=== PATIENT | male | born 1965 | race Caucasian/White ===

== ENCOUNTER 2018-08-31 08:15 | Inpatient (IN) | payer MEDICAID ==
[~2018-08-31] VITALS: Ht 167.6 cm; Wt 72.0 kg
[2018-08-31 04:00] VITALS: PULSE 48
[2018-08-31] MEDS ORDERED: ONDANSETRON 4 MG INJ IV STA (09:07)
[2018-08-31] MEDS ORDERED: SOD CHLORIDE 0.9% 1,000 ML IV STA (09:07)
--- NOTE | 2018-08-31 09:12 | ERD ---
ER Documentation Chief Complaint Chief Complaint C/O H/A, ALTERED MENTAL STATUS FOR 4 DAYS; PT SLOW WITH RESPONSE, CONFUSED HPI This is a 53-year-old alcoholic who presents with 4 days of global headache, confusion, difficulty ambulating. He states he stopped drinking about 4 to 5 days ago and does not feel like he is withdrawing. He denies slurred speech but states he has lost some of his balance. He denies any falls, no head or neck injury, no fevers or chills, no complaints of chest pain or shortness of breath. ROS All systems reviewed and are negative except as per history of present illness. Medications Home Meds No Active Prescriptions or Reported Meds Allergies Allergies: Coded Allergies: No Known Allergy (Unverified , 08/31/18) PMhx/Soc Alcoholism FmHx Family History: No diabetes Physical Exam Vitals Vital Signs Date Temp Pulse Resp B/P (MAP) Pulse Ox O2 O2 Flow FiO2 Time Delivery Rate 08/31/18 98.6 64 20 243/107 99 08:21 (152) Physical Exam GENERAL: Well-developed, well-nourished, afebrile, appears intoxicated HEENT: Dry mucous membranes, pink conjunctiva, positive jaundice and icterus, no cervical spine tenderness or step-off deformities, no goiter, no jaundice or icterus NEURO: Alert and oriented 2, able to answer simple questions and follow simple commands, pupils equal round reactive to light, patient has difficulty with the [id number] test, no facial asymmetry is CARDIAC: Regular rate and rhythm, no murmurs rubs or gallops LUNGS: Clear bilaterally no wheezing crackles or stridor ABDOMEN: Soft nontender, no guarding, no rigidity, no rebound, no psoas sign no obturator sign. SKIN: Warm and dry to touch, no abrasions, contusions, or hematomas, no lacerations, no ecchymosis, no target lesions, and without ulcers EXTREMITIES: No clubbing cyanosis or edema, calves are bilaterally symmetrical, no Homans sign, no popliteal cord sign. Distal pulses equal and bilateral PSYCH: Normal affect without agitation or irritability Result Diagram: 08/31/1819 08/31/18 0919 Results 24 hrs Laboratory Tests Test 08/31/18 09:19 White Blood Count 9.8 10^3/ul Red Blood Count 5.77 10^6/ul Hemoglobin 16.9 g/dl Hematocrit 49.4 % Mean Corpuscular Volume 85.6 fl Mean Corpuscular Hemoglobin 29.3 pg Mean Corpuscular Hemoglobin Concent 34.2 g/dl Red Cell Distribution Width 12.6 % Platelet Count 218 10^3/UL Mean Platelet Volume 11.1 fl Immature Granulocytes % 0.300 % Neutrophils % 88.7 % Lymphocytes % 4.4 % Monocytes % 6.1 % Eosinophils % 0.1 % Basophils % 0.4 % Nucleated Red Blood Cells % 0.0 /100WBC Immature Granulocytes # 0.030 10^3/ul Neutrophils # 8.7 10^3/ul Lymphocytes # 0.4 10^3/ul Monocytes # 0.6 10^3/ul Eosinophils # 0.0 10^3/ul Basophils # 0.0 10^3/ul Nucleated Red Blood Cells # 0.0 10^3/ul Prothrombin Time 12.6 Sec Prothrombin Time Ratio 1.0 INR International Normalized Ratio 0.93 Activated Partial Thromboplast Time 26.9 Sec Sodium Level 140 mmol/L Potassium Level 3.9 mmol/L Chloride Level 101 mmol/L Carbon Dioxide Level 31 mmol/L Anion Gap 8 Blood Urea Nitrogen 22 mg/dl Creatinine 0.85 mg/dl Est Glomerular Filtrat Rate mL/min > 60 mL/min Glucose Level 278 mg/dl Calcium Level 9.4 mg/dl Total Bilirubin 1.3 mg/dl Direct Bilirubin 0.00 mg/dl Indirect Bilirubin 1.3 mg/dl Aspartate Amino Transf (AST/SGOT) 19 IU/L Alanine Aminotransferase (ALT/SGPT) 21 IU/L Alkaline Phosphatase 95 IU/L Ammonia < 9 umol/l Troponin I < 0.012 ng/ml Total Protein 7.1 g/dl Albumin 4.1 g/dl Globulin 3.00 g/dl Albumin/Globulin Ratio 1.36 Lipase 185 U/L Ethyl Alcohol Level < 10.0 mg/dl Current Medications Medications Dose Sig/Tejas Start Time Status Last (Trade) Ordered Route PRN Stop Time Admin Dose Reason Admin Sodium 1,000 ml @ Q1H STAT 08/31/18 DC 08/31/18 Chloride 1,000 mls/hr IV 09:07 09:29 08/31/18 10:06 Ondansetron 4 mg ONCE STAT 08/31/18 DC 08/31/18 HCl (Zofran IV 09:07 09:25 Inj) 08/31/18 09:09 Aspirin 324 mg ONCE ONCE 08/31/18 DC 08/31/18 (Aspirin) PO 10:00 10:45 08/31/18 10:01 IV Flush 3 ml PER 08/31/18 (NS 3 ml) PROTOCOL IV 11:00 Ondansetron 4 mg Q6H PRN 08/31/18 HCl (Zofran IV 11:00 Inj) NAUSEA/VOMITI NG 650 mg Q6H PRN 08/31/18 Acetaminophen PO .PAIN 1-3 11:00 (Tylenol OR TEMP Tab) 1 tab Q6H PRN 08/31/18 Acetaminophen PO .MOD PAIN 11:00 / 4-6 Hydrocodone Bitart ([place] (5/325)) 2 tab Q6H PRN 08/31/18 Acetaminophen PO .SEVERE 11:00 / PAIN 7-10 Hydrocodone Bitart ([place] (5/325)) Morphine 2 mg Q4H PRN 08/31/18 Sulfate IV .SEVERE 11:00 (morphine) PAIN 7-10 Famotidine 20 mg Q12 PO 08/31/18 (Pepcid) 21:00 Hydralazine 10 mg Q4H PRN 08/31/18 HCl IV sbp>220 11:00 (Apresoline) or dbp>120 Procedures/MDM IV line was established patient was placed on classroom monitor rhythm strip revealed a sinus rhythm at about 60 bpm with upright P and T waves. Patient was afebrile One AP view of the chest performed, read by me reveals no acute infiltrates, normal mediastinum, sharp costophrenic and cardiac borders, no air under the shelby phragm. Otherwise unremarkable chest x-ray. CT scan of the brain was performed, there is a subacute right cerebellar infarct, no acute bleed mass or shift I administered aspirin 324 mg p.o. for neuro protective measures. I administered 1 L normal saline IV and Zofran 4 mg IV CBC was normal, electrolytes revealed dehydration , liver function tests normal, ammonia level low, ethanol level low Patient will be admitted to telemetry for continued medical management neurology consultation, and MRI Departure Diagnosis: Primary Impression: Acute encephalopathy Additional Impressions: Cerebellar stroke Alcoholism Condition: ESTRELLITA Ruiz MD Aug 31, 2018 09:12
[2018-08-31] MEDS ORDERED: ASPIRIN 81 MG TAB PO ONE (10:00)
[2018-08-31] MEDS ORDERED: NACL 0.9% 3 ML SYG IV SCH (11:00)
--- NOTE | 2018-08-31 12:27 | CONSI ---
Assessment/Plan Assessment/Plan Assessment/Plan (Recall) 53 M c/ reported Hx of ETOH abuse and other comorbidities, who presents for evaluation of 4 days of headache and confusion. Head CT revealed bilateral cerebellar infarctions of indeterminate age...which could certainly underlay the patient's headache... ETOH w/d as a cause of confusion is additionally considered.. P: MRI brain, MRA head and neck for further characterization Add ASA/Lipitor daily for now Add UA, UDS, Lipid panel, ESR, RPR, A1C, HIV screen PT/OT/ST as necessary Withdrawal and other medical management per primary Will follow Consultation Date/Type/Reason Admit Date/Time Type of Consult Neurology Reason for Consultation ams, stroke Requesting Provider: NEIDA ROBERTS NP Date/Time of Note DATE: 08/31/18 TIME: 12:18 Hx of Present Illness It is elsewhere noted: Objective Exam Vitals Vital Signs Date Temp Pulse Resp B/P (MAP) Pulse Ox O2 O2 Flow FiO2 Time Delivery Rate 08/31/18 98.6 64 20 243/107 99 08:21 (152) Exam Patient presently unable to participate. Results Result Diagram: 08/31/1891808/31/1819 Results 24hrs Laboratory Tests Test 08/31/18 09:19 White Blood Count 9.8 Red Blood Count 5.77 Hemoglobin 16.9 Hematocrit 49.4 Mean Corpuscular Volume 85.6 Mean Corpuscular Hemoglobin 29.3 Mean Corpuscular Hemoglobin Concent 34.2 Red Cell Distribution Width 12.6 Platelet Count 218 Mean Platelet Volume 11.1 H Immature Granulocytes % 0.300 Neutrophils % 88.7 H Lymphocytes % 4.4 L Monocytes % 6.1 Eosinophils % 0.1 Basophils % 0.4 Nucleated Red Blood Cells % 0.0 Immature Granulocytes # 0.030 Neutrophils # 8.7 H Lymphocytes # 0.4 L Monocytes # 0.6 Eosinophils # 0.0 Basophils # 0.0 Nucleated Red Blood Cells # 0.0 Prothrombin Time 12.6 Prothrombin Time Ratio 1.0 INR International Normalized Ratio 0.93 Activated Partial Thromboplast Time 26.9 Sodium Level 140 Potassium Level 3.9 Chloride Level 101 Carbon Dioxide Level 31 Anion Gap 8 Blood Urea Nitrogen 22 H Creatinine 0.85 Est Glomerular Filtrat Rate mL/min > 60 Glucose Level 278 H Calcium Level 9.4 Total Bilirubin 1.3 Direct Bilirubin 0.00 Indirect Bilirubin 1.3 H Aspartate Amino Transf (AST/SGOT) 19 Alanine Aminotransferase (ALT/SGPT) 21 Alkaline Phosphatase 95 Ammonia < 9 L Troponin I < 0.012 Total Protein 7.1 Albumin 4.1 Globulin 3.00 Albumin/Globulin Ratio 1.36 Lipase 185 Ethyl Alcohol Level < 10.0 H Past Medical History reviewed Home Meds No Active Prescriptions or Reported Meds Medications Current Medications IV Flush (NS 3 ml) 3 ml PER PROTOCOL IV ; Start 08/31/18 at 11:00 Ondansetron HCl (Zofran Inj) 4 mg Q6H PRN IV NAUSEA/VOMITING; Start 08/31/18 at 11:00 Acetaminophen (Tylenol Tab) 650 mg Q6H PRN PO .PAIN 1-3 OR TEMP; Start 08/31/18 at 11:00 Acetaminophen/ Hydrocodone Bitart ([place] (5/325)) 1 tab Q6H PRN PO .MOD PAIN 4- 6; Start 08/31/18 at 11:00 Acetaminophen/ Hydrocodone Bitart ([place] (5/325)) 2 tab Q6H PRN PO .SEVERE PAIN 7-10; Start 08/31/18 at 11:00 Morphine Sulfate (morphine) 2 mg Q4H PRN IV .SEVERE PAIN 7-10; Start 08/31/18 at 11:00 Famotidine (Pepcid) 20 mg Q12 PO ; Start 08/31/18 at 21:00 Hydralazine HCl (Apresoline) 10 mg Q4H PRN IV sbp>220 or dbp>120; Start 9 at 11:00 Allergies: Coded Allergies: No Known Allergy (Unverified , 08/31/18) Past Surgical History reviewed Social History Alcohol Use: heavy ELO DOBBS Aug 31, 2018 12:27
--- NOTE | 2018-08-31 12:49 | HP ---
Date/Time of Note Date/Time of Note DATE: 08/31/18 TIME: 12:39 Assessment/Plan VTE Prophylaxis Pharmacological prophylaxis: heparin Lines/Catheters IV [facility]from [facility] [place] [facility] Assessment/Plan Hospital Course Assessment and plan 1. Suspect early subacute infarcts of right superior and inferior cerebellum. Neurologist consulted. Follow-up on MRI/MRA of the brain. Continue on statin and antiplatelet. Allow for permissive hypertension for now. Will provide with antihypertensives PRN. Follow-up on echo and carotid study 2. Hypertension. Presumably uncontrolled at home. Will provide antihypertensives and dyspnea. 3. Hyperglycemia. Patient reports no history of diabetes. Follow-up on A1c. Will start on insulin regimen for now. 4. Reported weakness in bilateral extremity. Follow-up on MRI of the brain. Suspect secondary to #1. Physical therapy evaluation to follow Discussed POC with Dr. Ortez Result Diagram: 08/31/1891808/31/1819 Results 24hrs Laboratory Tests Test 08/31/18 09:19 White Blood Count 9.8 Red Blood Count 5.77 Hemoglobin 16.9 Hematocrit 49.4 Mean Corpuscular Volume 85.6 Mean Corpuscular Hemoglobin 29.3 Mean Corpuscular Hemoglobin Concent 34.2 Red Cell Distribution Width 12.6 Platelet Count 218 Mean Platelet Volume 11.1 H Immature Granulocytes % 0.300 Neutrophils % 88.7 H Lymphocytes % 4.4 L Monocytes % 6.1 Eosinophils % 0.1 Basophils % 0.4 Nucleated Red Blood Cells % 0.0 Immature Granulocytes # 0.030 Neutrophils # 8.7 H Lymphocytes # 0.4 L Monocytes # 0.6 Eosinophils # 0.0 Basophils # 0.0 Nucleated Red Blood Cells # 0.0 Prothrombin Time 12.6 Prothrombin Time Ratio 1.0 INR International Normalized Ratio 0.93 Activated Partial Thromboplast Time 26.9 Sodium Level 140 Potassium Level 3.9 Chloride Level 101 Carbon Dioxide Level 31 Anion Gap 8 Blood Urea Nitrogen 22 H Creatinine 0.85 Est Glomerular Filtrat Rate mL/min > 60 Glucose Level 278 H Calcium Level 9.4 Total Bilirubin 1.3 Direct Bilirubin 0.00 Indirect Bilirubin 1.3 H Aspartate Amino Transf (AST/SGOT) 19 Alanine Aminotransferase (ALT/SGPT) 21 Alkaline Phosphatase 95 Ammonia < 9 L Troponin I < 0.012 Total Protein 7.1 Albumin 4.1 Globulin 3.00 Albumin/Globulin Ratio 1.36 Lipase 185 Ethyl Alcohol Level < 10.0 H HPI/ROS Admit Date/Time Admit Date/Time Hx of Present Illness This is a 53-year-old male with no reported past medical history who came to [facility] due to reports of increased headache and reported difficulty with ambulation. Patient states that he has been having headache that starts in the back of his head that has progressively been getting worse for the past 4 days. He reports that similar's symptoms have been to him several years ago but he is not aware of what diagnosis he was given at that time. He denies any history of hypertension.. He only states that he smokes cigarettes and drinks alcohol occasionally more often on the weekends. When he came to the hospital he was found to have high blood pressure at 243/107. Initial CT scan of his brain showed probable early subacute infarcts of the right superior and inferior cerebellum with chronic transcortical infarcts of the posterior left temporal and left occipital lobes and chronic lacunar inf arcts of the posterior right putamen anterior left internal capsule, the posterior left internal capsule of the posterior left putamen. Patient was alert and oriented on interview. There were no obvious motor deficit seen. He did reported having headache that is primarily on the back of his head but goes all over. No speech deficit noted during interview. We will evaluate him for the aformentiond issues. ROS 12 point review of systems obtained entirely negative except that mentioned in history of present illness PMH/Family/Social Past Medical History Medical/surgical history 1. Denies Medications Current Medications IV Flush (NS 3 ml) 3 ml PER PROTOCOL IV ; Start 08/31/18 at 11:00 Ondansetron HCl (Zofran Inj) 4 mg Q6H PRN IV NAUSEA/VOMITING; Start 08/31/18 at 11:00 Acetaminophen (Tylenol Tab) 650 mg Q6H PRN PO .PAIN 1-3 OR TEMP; Start 08/31/18 at 11:00 Acetaminophen/ Hydrocodone Bitart ([place] (5/325)) 1 tab Q6H PRN PO .MOD PAIN 4- 6; Start 08/31/18 at 11:00 Acetaminophen/ Hydrocodone Bitart ([place] (5/325)) 2 tab Q6H PRN PO .SEVERE PAIN 7-10; Start 08/31/18 at 11:00 Morphine Sulfate (morphine) 2 mg Q4H PRN IV .SEVERE PAIN 7-10; Start 08/31/18 at 11:00 Famotidine (Pepcid) 20 mg Q12 PO ; Start 08/31/18 at 21:00 Hydralazine HCl (Apresoline) 10 mg Q4H PRN IV sbp>220 or dbp>120; Start 08/31/18 at 11:00 Atorvastatin Calcium (Lipitor) 40 mg HS ONCE PO ; Start 08/31/18 at 21:00; Stop 08/31/18 at 21:01; Status UNV Aspirin (Halfprin) 81 mg DAILY ONCE PO ; Start 09/01/18 at 09:00; Stop 09/01/18 at 09:01; Status UNV Coded Allergies: No Known Allergy (Unverified , 08/31/18) Social History Alcohol Use: occasionally Smoking Status: Current some day smoker Drug Use: none Exam/Review of Systems Vital Signs Vitals Vital Signs Date Temp Pulse Resp B/P (MAP) Pulse Ox O2 O2 Flow FiO2 Time Delivery Rate 08/31/18 98.6 64 20 243/107 99 08:21 (152) Exam Constitutional: alert, oriented Psych: nl mood/affect Head: normocephalic Neck: supple, non-tender Respiratory: clear to auscultation Cardiovascular: regular rate and rhythm Gastrointestinal: soft, ascites Musculoskeletal: nl extremities to inspection Neurological: DISTRICT CAPTAIN II-XII intact, nl mental status, nl speech Skin: nl NEIDA Eden NP Aug 31, 2018 12:49
[2018-08-31] MEDS ORDERED: GLUCAGON 1 MG INJ IM PRN (13:30)
[2018-08-31] MEDS ORDERED: GLUCOSE GEL 15 GRAM TUBE PO PRN ×2 (13:30)
[2018-08-31] MEDS ORDERED: GLUCOSE GEL 15 GRAM TUBE BUCCAL PRN (13:30)
[2018-08-31] MEDS ORDERED: DEXTROSE 50% 50 ML SYRINGE IV PRN ×2 (13:30)
[2018-08-31] MEDS: INSULIN ASPART [NOVOLOG] 3 ML PEN SC SCH ×2 (18:00→21:15)
--- NOTE | 2018-08-31 18:16 | RADRPT ---
Echocardiogram Report Patient Name: COLIN LOZADAatient ID: [id number] : 1965 (53y 5m)Study Date: 08/31/2018 11:27:46 AM Gender: Ankitcession #: [id number] Tech: LISY Location: [facility] Ref.Physician: NEIDA ROBERTS Height(Cm): BSA: Weight(Kg): Quality: GoodOrder Physician: NEIDA ROBERTS Account #: Procedures: Echocardiographic Report: Transthoracic echocardiogram with complete 2D, M-Mode, and doppler examination. Indications: Cerebrovascular Accident. Measurements: 2D/M Mode Doppler Measurement Value Normal Range Measurement Value Normal Range LVIDd 2D 4.0 [ 4.2 - 5.8 ] cm KAYLIE Vmax 2.2 [ 2.0 - 4.0 ] cm2 LVIDs 2D 2.7 [ 2.5 - 4.0 ] cm AV Peak Vish 1.6 [ 100.0 - 170.0 ] cm/sec LVPWd 2D 1.1 [ 0.6 - 1.0 ] cm AV Peak PG 11.0 [ 2.0 - 9.0 ] mmHg IVSd 2D 1.4 [ 0.6 - 1.0 ] cm LVOT Peak Vish 1.3 [ 70.0 - 110.0 ] cm/sec IVS/LVPW 2D 1.2 ratio LVOT Peak PG 7.0 [ 2.0 - 6.0 ] mmHg AoR Diam 2D 3.6 [ 2.6 - 3.4 ] cm MV E Peak Vish 0.7 [ 60.0 - 130.0 ] cm/sec LA/Ao 2D 1 ratio MV A Peak Vish 0.9 [ 100.0 - 120.0 ] cm/sec LA Dimen 2D 3.5 [ 3.0 - 4.0 ] cm MV E/A 0.8 [ 0.8 - 1.5 ] ratio LVOT Area 2.8 cm2 MV Decel Time 282 [ 104 - 258 ] msec Lat E` Vish 0.1 [ 10.0 - 15.0 ] cm/sec Med E` Vish 0.0 cm/sec MV E/A 0.8 [ 0.8 - 1.5 ] ratio TR Peak Vish 1.2 [ 100.0 - 280.0 ] cm/sec TR Peak PG 5.0 mmHg PV Peak Vish 1.1 [ 40.0 - 80.0 ] cm/sec PV Peak PG 5.0 mmHg Findings: Left Ventricle: Normal left ventricular systolic function. Normal left ventricular cavity size. Normal left ventricular wall thickness. Ejection fraction is visually estimated at 60 %. Tissue Doppler/Mitral Doppler indices are consistent with impaired relaxation (Stage I diastolic dysfunction). Right Ventricle: Normal right ventricular size. Normal right ventricular systolic function. Left Atrium: The left atrium is normal in size. Right Atrium: The right atrium is normal in size. Ventricular septum: Normal/intact ventricular septum. Mitral Valve: Normal appearance of the mitral valve. Trace mitral regurgitation. Aortic Valve: Normal appearance of the aortic valve. No significant aortic stenosis or insufficiency. Tricuspid Valve: Normal appearance and function of the tricuspid valve with trace physiologic regurgitation. The estimated Peak RVSP is 15 mmHg. Pulmonic Valve: Normal pulmonic valve appearance. Pericardium: Normal pericardium with no significant pericardial effusion. Aorta: Normal aortic root. IVC: Normal size and normal respiratory collapse consistent with normal right atrial pressure. Conclusions: Normal left ventricular systolic function. Normal left ventricular cavity size. Normal left ventricular wall thickness. Ejection fraction is visually estimated at 60 %. Tissue Doppler/Mitral Doppler indices are consistent with impaired relaxation (Stage I diastolic dysfunction). Normal right ventricular size. Normal right ventricular systolic function. The left atrium is normal in size. The right atrium is normal in size. No significant valvular stenosis or regurgitation seen. Normal pericardium with no significant pericardial effusion. Electronically Signed By: Delvis Schwartz 2018-08-31 18:15:19 PDT
[2018-08-31 19:16] VITALS: PULSE 47
[2018-08-31 19:30] VITALS: BP 219/100; PULSE 56; RESP 18; Ht 167.6 cm; Wt 72.0 kg
[2018-08-31 20:00] VITALS: PULSE 48
[2018-08-31] MEDS: FAMOTIDINE 20 MG TAB PO SCH (20:31)
[2018-08-31] MEDS: ATORVASTATIN 40 MG TAB PO SCH (20:31)
[2018-08-31] MEDS: HYDROCODONE/APAP (5/325) TAB PO PRN (20:35)
[2018-08-31] MEDS: HEPARIN 5,000 UNIT/1 ML VIAL SC SCH (20:38)
[2018-08-31] MEDS: hydrALAzine 20 MG INJ IV PRN (23:00)
[2018-08-31] MEDS: MULTIVITAMINS 10 ML, THIAMINE 100 MG, FOLIC ACID 1 MG in SOD CHLORIDE 0.9% 1,000 ML IVPB SCH (23:53)
[2018-09-01] VITALS (11 sets, daily range): BP systolic 159–219; BP diastolic 75–103; PULSE 64–85; RESP 18–20
[2018-09-01] MEDS: ACCU-CHEK XX SCH (02:02)
[2018-09-01] MEDS: INSULIN ASPART [NOVOLOG] 3 ML PEN SC SCH ×5 (07:40→20:53)
[2018-09-01] MEDS: ONDANSETRON 4 MG INJ IV PRN (07:50)
[2018-09-01] MEDS: hydrALAzine 20 MG INJ IV PRN (07:51)
[2018-09-01] MEDS: FAMOTIDINE 20 MG TAB PO SCH ×2 (08:18→20:16)
[2018-09-01] MEDS: ASPIRIN (EC) 81 MG TAB PO SCH (08:18)
[2018-09-01] MEDS: HEPARIN 5,000 UNIT/1 ML VIAL SC SCH ×2 (08:43→20:28)
[2018-09-01] MEDS: MULTIVITAMINS 10 ML, THIAMINE 100 MG, FOLIC ACID 1 MG in SOD CHLORIDE 0.9% 1,000 ML IVPB SCH (08:47)
--- NOTE | 2018-09-01 11:13 | CONS ---
Assessment/Plan Assessment/Plan Assessment/Plan (Recall) 53 M c/ reported Hx of untreated DM2, HTN, HLD, and other comorbidities... who presents for evaluation of 4 days of headache and confusion. MRI brain confirmed an acute R cerebellar infarction... MRA shows scattered stenoses Echo is unremarkable A1C 8.4%; LDL 120 ESR 1, RPR neg, HIV neg P: Cont ASA/Lipitor daily for now PT/OT/ST as necessary Continued medical management per primary Will follow Consultation Date/Type/Reason Admit Date/Time Aug 31, 2018 at 10:30 Type of Consult Neurology Reason for Consultation ams, stroke Requesting Provider: NEIDA ROBERTS NP Date/Time of Note DATE: 09/01/18 TIME: 11:08 24 HR Interval Summary Free Text/Dictation s/p MRI brain Exam/Review of Systems Exam Vitals Vital Signs Date Temp Pulse Resp B/P (MAP) Pulse Ox O2 O2 Flow FiO2 Time Delivery Rate 09/01/18 85 09:05 09/01/18 98.1 20 219/103 98 Room Air 07:41 (141) Intake and Output 08/31/18 08/31/18 09/01/18 1515:00 23:00 07:00 IntakeIntake Total 250 ml 780 ml OutputOutput Total 400 ml BalanceBalance -150 ml 780 ml Exam PE: Gen Appearance: No Apparent Distress HEENT: Normocephalic Cardiovascular: Regular rate Lungs: Clear bilaterally Abdomen: Soft Extremities: Dry NE: The patient was alert and oriented. Language was normal. Fund of knowledge was adequate. Pupils were equal and reactive to light. There was no afferent pupillary defect. Visual carcamo were normal. Funduscopic examination was limited. Extra-ocular movements were full. Ptosis was absent. There was no nystagmus. Facial sensation was normal. Face was symmetric with normal strength. Hearing was intact. Palate movements were normal. Neck strength was normal. There was normal tongue bulk and speed of movement. Tone was normal. Muscle bulk was normal. I did not see fasciculations. Arms and legs were strong. Vibration sensation was normal. Temperature and pinprick sensation was normal. Rapid alternating movements were normal. There was dysmetria on the right. There was no intention tremor. Gait was deferred due to bedrest. Arm and leg reflexes were symmetric. Schwab's sign was absent. Plantar responses were flexor. Results Result Diagram: 09/01/18 0535 09/01/18 0535 Results 24hrs Laboratory Tests Test 08/31/18 18:07 08/31/18 20:30 09/01/18 01:58 09/01/18 05:35 Bedside Glucose 206 233 H 227 H White Blood Count 8.1 Red Blood Count 5.37 Hemoglobin 15.9 Hematocrit 45.5 Mean Corpuscular 84.7 Volume Mean Corpuscular 29.6 Hemoglobin Mean Corpuscular 34.9 Hemoglobin Concent Red Cell 12.6 Distribution Width Platelet Count 202 Mean Platelet Volume 11.4 H Immature 0.400 Granulocytes % Neutrophils % 84.1 H Lymphocytes % 7.7 L Monocytes % 7.2 Eosinophils % 0.1 Basophils % 0.5 Nucleated Red Blood 0.0 Cells % Immature 0.030 Granulocytes # Neutrophils # 6.8 Lymphocytes # 0.6 L Monocytes # 0.6 Eosinophils # 0.0 Basophils # 0.0 Nucleated Red Blood 0.0 Cells # Sodium Level 143 Potassium Level 3.9 Chloride Level 105 Carbon Dioxide Level 28 Anion Gap 10 Blood Urea Nitrogen 19 Creatinine 0.73 Est Glomerular > 60 Filtrat Rate mL/min Glucose Level 200 Calcium Level 9.3 Phosphorus Level 4.0 Magnesium Level 2.1 Total Bilirubin 1.2 Direct Bilirubin 0.00 Indirect Bilirubin 1.2 H Aspartate Amino 21 Transf (AST/SGOT) Alanine 20 Aminotransferase (AL T/SGPT) Alkaline Phosphatase 80 Total Protein 6.1 # Albumin 3.6 Globulin 2.50 Albumin/Globulin 1.44 Ratio Triglycerides Level 145 Cholesterol Level 181 LDL Cholesterol, 120 Calculated HDL Cholesterol 32 Cholesterol/HDL 5.6 Ratio Thyroid Stimulating 1.550 Hormone (TSH) Free Thyroxine Index 3.26 Thyroxine (T4) 8.2 Triiodothyronine 39.8 (T3) Uptake Test 09/01/18 07:22 Bedside Glucose 169 Medications Medication Current Medications IV Flush (NS 3 ml) 3 ml PER PROTOCOL IV ; Start 08/31/18 at 11:00 Ondansetron HCl (Zofran Inj) 4 mg Q6H PRN IV NAUSEA/VOMITING Last administered on 09/01/18at 07:50; Admin Dose 4 MG; Start 08/31/18 at 11:00 Acetaminophen (Tylenol Tab) 650 mg Q6H PRN PO .PAIN 1-3 OR TEMP; Start 08/31/18 at 11:00 Acetaminophen/ Hydrocodone Bitart ([place] (5/325)) 1 tab Q6H PRN PO .MOD PAIN 4- 6 Last administered on 08/31/18at 20:35; Admin Dose 1 TAB; Start 08/31/18 at 11:00 Acetaminophen/ Hydrocodone Bitart ([place] (5/325)) 2 tab Q6H PRN PO .SEVERE PAIN 7-10; Start 08/31/18 at 11:00 Morphine Sulfate (morphine) 2 mg Q4H PRN IV .SEVERE PAIN 7-10; Start 08/31/18 at 11:00 Famotidine (Pepcid) 20 mg Q12 PO Last administered on 09/01/18at 08:18; Admin Dose 20 MG; Start 08/31/18 at 21:00 Hydralazine HCl (Apresoline) 10 mg Q4H PRN IV sbp>220 or dbp>120 Last administered on 09/01/18at 07:51; Admin Dose 10 MG; Start 08/31/18 at 11:00 Atorvastatin Calcium (Lipitor) 40 mg HS PO Last administered on 08/31/18at 20:31; Admin Dose 40 MG; Start 08/31/18 at 21:00 Aspirin (Halfprin) 81 mg DAILY PO Last administered on 09/01/18at 08:18; Admin Dose 81 MG; Start 09/01/18 at 09:00 Heparin Sodium (Porcine) (Heparin (5000 Units/1ml)) 5,000 unit BID SC Last administered on 09/01/18at 08:43; Admin Dose 5,000 UNIT; Start 08/31/18 at 21:00 Diagnostic Test (Pha) (Accu-Chek) 1 ea 02 XX Last administered on 09/01/18at 02:02; Admin Dose 1 EA; Start 09/01/18 at 02:00 Insulin Aspart (Novolog Insulin Pen) NOVOLOG *MILD* ALGORITHM WITH MEALS BEDTIME SC Last administered on 08/31/18at 21:15; Admin Dose 2 UNIT; Start 08/31/18 at 18:00 Miscellaneous Information 1 ea NOTE XX ; Start 08/31/18 at 13:30 Glucose (Glutose) 15 gm Q15M PRN PO DECREASED GLUCOSE; Start 08/31/18 at 13:30 Glucose (Glutose) 22.5 gm Q15M PRN PO DECREASED GLUCOSE; Start 08/31/18 at 13:30 Dextrose (D50w Syringe) 25 ml Q15M PRN IV DECREASED GLUCOSE; Start 08/31/18 at 13:30 Dextrose (D50w Syringe) 50 ml Q15M PRN IV DECREASED GLUCOSE; Start 08/31/18 at 13:30 Glucagon (Glucagen) 1 mg Q15M PRN IM DECREASED GLUCOSE; Start 08/31/18 at 13:30 Glucose (Glutose) 15 gm Q15M PRN BUCCAL DECREASED GLUCOSE; Start 08/31/18 at 13:30 Multivitamins 10 ml/Thiamine HCl 100 mg/Folic Acid 1 mg/Sodium Chloride 1,011.2 ml @ 125 mls/ hr DAILY@09 IVPB Last administered on 09/01/18at 08:47; Admin Dose 125 MLS/HR; Start 08/31/18 at 23:00; Stop 09/02/18 at 17:06 ELO DOBBS Sep 01, 2018 11:13
--- NOTE | 2018-09-01 15:31 | PN ---
Date/Time of Note Date/Time of Note DATE: 09/01/18 TIME: 15:26 Assessment/Plan VTE Prophylaxis Risk score (from Ns)>0 risk: 2 SCD applied (from Ns): Yes Pharmacological prophylaxis: heparin Lines/Catheters IV Catheter Type (from [facility]): [place] Urinary Cath still in place: No Assessment/Plan Hospital Course Assessment and plan 1. 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 - optimize BP 2. Hypertension. - will adjust bp medications for better control 3. Hyperglycemia - a1c: 8.4. - newly dx diabetes - continue insulin regimen - patient seen by asthma educator 4. Stage 1 diastolic dysfunction - optimize with cardiovascular medications DISPO/PLAN: Adjust insulin for better glucose control. Adjust antihypertensives for better BP control. Monitor in-house. Discussed POC with Dr. Ortez Result Diagram: 09/01/18 0535 09/01/18 0535 Results 24hrs Laboratory Tests Test 08/31/18 18:07 08/31/18 20:30 09/01/18 01:58 09/01/18 05:35 Bedside Glucose 206 233 H 227 H White Blood Count 8.1 Red Blood Count 5.37 Hemoglobin 15.9 Hematocrit 45.5 Mean Corpuscular 84.7 Volume Mean Corpuscular 29.6 Hemoglobin Mean Corpuscular 34.9 Hemoglobin Concent Red Cell 12.6 Distribution Width Platelet Count 202 Mean Platelet Volume 11.4 H Immature 0.400 Granulocytes % Neutrophils % 84.1 H Lymphocytes % 7.7 L Monocytes % 7.2 Eosinophils % 0.1 Basophils % 0.5 Nucleated Red Blood 0.0 Cells % Immature 0.030 Granulocytes # Neutrophils # 6.8 Lymphocytes # 0.6 L Monocytes # 0.6 Eosinophils # 0.0 Basophils # 0.0 Nucleated Red Blood 0.0 Cells # Sodium Level 143 Potassium Level 3.9 Chloride Level 105 Carbon Dioxide Level 28 Anion Gap 10 Blood Urea Nitrogen 19 Creatinine 0.73 Est Glomerular > 60 Filtrat Rate mL/min Glucose Level 200 Calcium Level 9.3 Phosphorus Level 4.0 Magnesium Level 2.1 Total Bilirubin 1.2 Direct Bilirubin 0.00 Indirect Bilirubin 1.2 H Aspartate Amino 21 Transf (AST/SGOT) Alanine 20 Aminotransferase (AL T/SGPT) Alkaline Phosphatase 80 Total Protein 6.1 # Albumin 3.6 Globulin 2.50 Albumin/Globulin 1.44 Ratio Triglycerides Level 145 Cholesterol Level 181 LDL Cholesterol, 120 Calculated HDL Cholesterol 32 Cholesterol/HDL 5.6 Ratio Thyroid Stimulating 1.550 Hormone (TSH) Free Thyroxine Index 3.26 Thyroxine (T4) 8.2 Triiodothyronine 39.8 (T3) Uptake Test 09/01/18 07:22 09/01/18 11:46 Bedside Glucose 169 195 Subjective 24 Hr Interval Summary Free Text/Dictation alert and oriented during visit. family at bedside. no s/s of distress Exam/Review of Systems Exam Vitals Vital Signs Date Temp Pulse Resp B/P (MAP) Pulse Ox O2 O2 Flow FiO2 Time Delivery Rate 09/01/18 98.4 67 20 159/75 99 Room Air 15:04 (103) Intake and Output 08/31/18 08/31/18 09/01/18 1515:00 23:00 07:00 IntakeIntake Total 250 ml 780 ml OutputOutput Total 400 ml BalanceBalance -150 ml 780 ml Exam Constitutional: alert, oriented Psych: nl mood/affect Head: normocephalic Neck: supple, non-tender Respiratory: clear to auscultation Cardiovascular: regular rate and rhythm Gastrointestinal: soft, ascites Musculoskeletal: nl extremities to inspection Neurological: BUSINESS ECONOMIST II-XII intact, nl mental status, nl speech Skin: nl turgor Results Results 24hrs Laboratory Tests Test 08/31/18 18:07 08/31/18 20:30 09/01/18 01:58 09/01/18 05:35 Bedside Glucose 206 233 H 227 H White Blood Count 8.1 Red Blood Count 5.37 Hemoglobin 15.9 Hematocrit 45.5 Mean Corpuscular 84.7 Volume Mean Corpuscular 29.6 Hemoglobin Mean Corpuscular 34.9 Hemoglobin Concent Red Cell 12.6 Distribution Width Platelet Count 202 Mean Platelet Volume 11.4 H Immature 0.400 Granulocytes % Neutrophils % 84.1 H Lymphocytes % 7.7 L Monocytes % 7.2 Eosinophils % 0.1 Basophils % 0.5 Nucleated Red Blood 0.0 Cells % Immature 0.030 Granulocytes # Neutrophils # 6.8 Lymphocytes # 0.6 L Monocytes # 0.6 Eosinophils # 0.0 Basophils # 0.0 Nucleated Red Blood 0.0 Cells # Sodium Level 143 Potassium Level 3.9 Chloride Level 105 Carbon Dioxide Level 28 Anion Gap 10 Blood Urea Nitrogen 19 Creatinine 0.73 Est Glomerular > 60 Filtrat Rate mL/min Glucose Level 200 Calcium Level 9.3 Phosphorus Level 4.0 Magnesium Level 2.1 Total Bilirubin 1.2 Direct Bilirubin 0.00 Indirect Bilirubin 1.2 H Aspartate Amino 21 Transf (AST/SGOT) Alanine 20 Aminotransferase (AL T/SGPT) Alkaline Phosphatase 80 Total Protein 6.1 # Albumin 3.6 Globulin 2.50 Albumin/Globulin 1.44 Ratio Triglycerides Level 145 Cholesterol Level 181 LDL Cholesterol, 120 Calculated HDL Cholesterol 32 Cholesterol/HDL 5.6 Ratio Thyroid Stimulating 1.550 Hormone (TSH) Free Thyroxine Index 3.26 Thyroxine (T4) 8.2 Triiodothyronine 39.8 (T3) Uptake Test 09/01/18 07:22 09/01/18 11:46 Bedside Glucose 169 195 Medications Medication Current Medications IV Flush (NS 3 ml) 3 ml PER PROTOCOL IV ; Start 08/31/18 at 11:00 Ondansetron HCl (Zofran Inj) 4 mg Q6H PRN IV NAUSEA/VOMITING Last administered on 09/01/18at 07:50; Admin Dose 4 MG; Start 08/31/18 at 11:00 Acetaminophen (Tylenol Tab) 650 mg Q6H PRN PO .PAIN 1-3 OR TEMP; Start 08/31/18 at 11:00 Acetaminophen/ Hydrocodone Bitart ([place] (5/325)) 1 tab Q6H PRN PO .MOD PAIN 4- 6 Last administered on 08/31/18at 20:35; Admin Dose 1 TAB; Start 08/31/18 at 11:00 Acetaminophen/ Hydrocodone Bitart ([place] (5/325)) 2 tab Q6H PRN PO .SEVERE PAIN 7-10; Start 08/31/18 at 11:00 Morphine Sulfate (morphine) 2 mg Q4H PRN IV .SEVERE PAIN 7-10; Start 08/31/18 at 11:00 Famotidine (Pepcid) 20 mg Q12 PO Last administered on 09/01/18at 08:18; Admin Dose 20 MG; Start 08/31/18 at 21:00 Hydralazine HCl (Apresoline) 10 mg Q4H PRN IV sbp>220 or dbp>120 Last administered on 09/01/18at 07:51; Admin Dose 10 MG; Start 08/31/18 at 11:00 Atorvastatin Calcium (Lipitor) 40 mg HS PO Last administered on 08/31/18at 20:31; Admin Dose 40 MG; Start 08/31/18 at 21:00 Aspirin (Halfprin) 81 mg DAILY PO Last administered on 09/01/18at 08:18; Admin Dose 81 MG; Start 09/01/18 at 09:00 Heparin Sodium (Porcine) (Heparin (5000 Units/1ml)) 5,000 unit BID SC Last administered on 09/01/18at 08:43; Admin Dose 5,000 UNIT; Start 08/31/18 at 21:00 Diagnostic Test (Pha) (Accu-Chek) 1 ea 02 XX Last administered on 09/01/18at 02:02; Admin Dose 1 EA; Start 09/01/18 at 02:00 Insulin Aspart (Novolog Insulin Pen) NOVOLOG *MILD* ALGORITHM WITH MEALS BEDTIME SC Last administered on 09/01/18at 12:06; Admin Dose 2 UNIT; Start 08/31/18 at 18:00 Miscellaneous Information 1 ea NOTE XX ; Start 08/31/18 at 13:30 Glucose (Glutose) 15 gm Q15M PRN PO DECREASED GLUCOSE; Start 08/31/18 at 13:30 Glucose (Glutose) 22.5 gm Q15M PRN PO DECREASED GLUCOSE; Start 08/31/18 at 13:30 Dextrose (D50w Syringe) 25 ml Q15M PRN IV DECREASED GLUCOSE; Start 08/31/18 at 13:30 Dextrose (D50w Syringe) 50 ml Q15M PRN IV DECREASED GLUCOSE; Start 08/31/18 at 13:30 Glucagon (Glucagen) 1 mg Q15M PRN IM DECREASED GLUCOSE; Start 08/31/18 at 13:30 Glucose (Glutose) 15 gm Q15M PRN BUCCAL DECREASED GLUCOSE; Start 08/31/18 at 13:30 Multivitamins 10 ml/Thiamine HCl 100 mg/Folic Acid 1 mg/Sodium Chloride 1,011.2 ml @ 125 mls/ hr DAILY@09 IVPB Last administered on 09/01/18at 08:47; Admin Dose 125 MLS/HR; Start 08/31/18 at 23:00; Stop 09/02/18 at 17:06 Amlodipine Besylate (Norvasc) 5 mg BID PO ; Start 09/01/18 at 21:00 Insulin Glargine (Lantus) 14 units DAILY@2000 SC ; Start 09/01/18 at 20:00 Insulin Aspart (Novolog Insulin Pen) 4 unit WITH MEALS SC ; Start 09/01/18 at 18:00 NEIDA ROBERTS NP Sep 01, 2018 15:31
[2018-09-01] MEDS: LISINOPRIL 5 MG TAB PO SCH (16:48)
[2018-09-01] MEDS: ATORVASTATIN 40 MG TAB PO SCH (20:16)
[2018-09-01] MEDS: AMLODIPINE 5 MG TAB PO SCH (20:17)
[2018-09-01] MEDS: INSULIN GLARGINE [LANTus] (100 UNITS/ML) SYG SC SCH (20:52)
[2018-09-02] VITALS (14 sets, daily range): BP systolic 139–201; BP diastolic 65–93; PULSE 61–88; RESP 18–20
[2018-09-02] MEDS: ACCU-CHEK XX SCH (01:40)
[2018-09-02] MEDS: INSULIN ASPART [NOVOLOG] 3 ML PEN SC SCH ×7 (08:00→20:19)
[2018-09-02] MEDS: AMLODIPINE 5 MG TAB PO SCH ×2 (08:04→20:15)
[2018-09-02] MEDS: hydrALAzine 20 MG INJ IV PRN ×2 (08:04→20:15)
[2018-09-02] MEDS: ASPIRIN (EC) 81 MG TAB PO SCH (08:04)
[2018-09-02] MEDS: LISINOPRIL 5 MG TAB PO SCH (08:04)
[2018-09-02] MEDS: HEPARIN 5,000 UNIT/1 ML VIAL SC SCH ×2 (08:12→20:16)
[2018-09-02] MEDS: FAMOTIDINE 20 MG TAB PO SCH ×2 (09:00→20:15)
[2018-09-02] MEDS: MULTIVITAMINS 10 ML, THIAMINE 100 MG, FOLIC ACID 1 MG in SOD CHLORIDE 0.9% 1,000 ML IVPB SCH (09:00)
--- NOTE | 2018-09-02 13:03 | CONS ---
Assessment/Plan Assessment/Plan Assessment/Plan (Recall) 53 M c/ reported Hx of untreated DM2, HTN, HLD, and other comorbidities... who presents for evaluation of 4 days of headache and confusion. MRI brain confirmed an acute R cerebellar infarction... MRA shows scattered stenoses Echo is unremarkable A1C 8.4%; LDL 120 ESR 1, RPR neg, HIV neg P: Cont ASA/Lipitor daily for now PT/OT/ST as necessary Continued medical management per primary Will follow Consultation Date/Type/Reason Admit Date/Time Aug 31, 2018 at 10:30 Type of Consult Neurology Reason for Consultation ams, stroke Requesting Provider: NEIDA ROBERTS NP Date/Time of Note DATE: 09/02/18 TIME: 13:03 Exam/Review of Systems Exam Vitals Vital Signs Date Temp Pulse Resp B/P (MAP) Pulse Ox O2 O2 Flow FiO2 Time Delivery Rate 09/02/18 98.0 77 20 144/65 100 12:06 (91) 09/01/18 Room Air 15:04 Intake and Output 09/01/18 09/01/18 09/02/18 1515:00 23:00 07:00 IntakeIntake Total 480 ml 1480 ml 411.2 ml OutputOutput Total 750 ml 700 ml 300 ml BalanceBalance -270 ml 780 ml 111.2 ml Results Result Diagram: 09/01/18 0535 09/01/18 0535 Results 24hrs Laboratory Tests Test 09/01/18 17:46 09/01/18 20:15 09/02/18 01:06 09/02/18 08:02 Bedside Glucose 194 225 H 215 133 Test 09/02/18 12:04 Bedside Glucose 107 Medications Medication Current Medications IV Flush (NS 3 ml) 3 ml PER PROTOCOL IV ; Start 08/31/18 at 11:00 Ondansetron HCl (Zofran Inj) 4 mg Q6H PRN IV NAUSEA/VOMITING Last administered on 09/01/18at 07:50; Admin Dose 4 MG; Start 08/31/18 at 11:00 Acetaminophen (Tylenol Tab) 650 mg Q6H PRN PO .PAIN 1-3 OR TEMP; Start 08/31/18 at 11:00 Acetaminophen/ Hydrocodone Bitart ([place] (5/325)) 1 tab Q6H PRN PO .MOD PAIN 4- 6 Last administered on 08/31/18at 20:35; Admin Dose 1 TAB; Start 08/31/18 at 11:00 Acetaminophen/ Hydrocodone Bitart ([place] (5/325)) 2 tab Q6H PRN PO .SEVERE PAIN 7-10; Start 08/31/18 at 11:00 Morphine Sulfate (morphine) 2 mg Q4H PRN IV .SEVERE PAIN 7-10; Start 08/31/18 at 11:00 Famotidine (Pepcid) 20 mg Q12 PO Last administered on 09/02/18at 09:00; Admin Dose 20 MG; Start 08/31/18 at 21:00 Hydralazine HCl (Apresoline) 10 mg Q4H PRN IV sbp>220 or dbp>120 Last administered on 09/02/18 08:04; Admin Dose 10 MG; Start 08/31/18 at 11:00 Atorvastatin Calcium (Lipitor) 40 mg HS PO Last administered on 09/01/18 20:16; Admin Dose 40 MG; Start 08/31/18 at 21:00 Aspirin (Halfprin) 81 mg DAILY PO Last administered on 09/02/18 08:04; Admin Dose 81 MG; Start 09/01/18 at 09:00 Heparin Sodium (Porcine) (Heparin (5000 Units/1ml)) 5,000 unit BID SC Last administered on 09/02/18 08:12; Admin Dose 5,000 UNIT; Start 08/31/18 at 21:00 Diagnostic Test (Pha) (Accu-Chek) 1 ea 02 XX Last administered on 09/02/18at 01:40; Admin Dose 1 EA; Start 09/01/18 at 02:00 Insulin Aspart (Novolog Insulin Pen) NOVOLOG *MILD* ALGORITHM WITH MEALS BEDTIME SC Last administered on 09/01/18at 20:53; Admin Dose 2 UNIT; Start 08/31/18 at 18:00 Miscellaneous Information 1 ea NOTE XX ; Start 08/31/18 at 13:30 Glucose (Glutose) 15 gm Q15M PRN PO DECREASED GLUCOSE; Start 08/31/18 at 13:30 Glucose (Glutose) 22.5 gm Q15M PRN PO DECREASED GLUCOSE; Start 08/31/18 at 13:30 Dextrose (D50w Syringe) 25 ml Q15M PRN IV DECREASED GLUCOSE; Start 08/31/18 at 13:30 Dextrose (D50w Syringe) 50 ml Q15M PRN IV DECREASED GLUCOSE; Start 08/31/18 at 13:30 Glucagon (Glucagen) 1 mg Q15M PRN IM DECREASED GLUCOSE; Start 08/31/18 at 13:30 Glucose (Glutose) 15 gm Q15M PRN BUCCAL DECREASED GLUCOSE; Start 08/31/18 at 13:30 Multivitamins 10 ml/Thiamine HCl 100 mg/Folic Acid 1 mg/Sodium Chloride 1,011.2 ml @ 125 mls/ hr DAILY@09 IVPB Last administered on 09/02/18at 09:00; Admin Dose 125 MLS/HR; Start 08/31/18 at 23:00; Stop 09/02/18 at 17:06 Amlodipine Besylate (Norvasc) 5 mg BID PO Last administered on 09/02/18at 08:04; Admin Dose 5 MG; Start 09/01/18 at 21:00 Insulin Glargine (Lantus) 14 units DAILY@2000 SC Last administered on 09/01/18at 20:52; Admin Dose 14 UNITS; Start 09/01/18 at 20:00 Insulin Aspart (Novolog Insulin Pen) 4 unit WITH MEALS SC Last administered on 09/02/18at 12:14; Admin Dose 4 UNIT; Start 09/01/18 at 18:00 Lisinopril (Zestril) 20 mg DAILY PO ; Start 09/03/18 at 09:00 ELO DOBBS Sep 02, 2018 13:03
[2018-09-02] MEDS: ONDANSETRON 4 MG INJ IV PRN (13:58)
--- NOTE | 2018-09-02 14:17 | PN ---
Date/Time of Note Date/Time of Note DATE: 09/02/18 TIME: 14:15 Assessment/Plan VTE Prophylaxis Risk score (from Ns)>0 risk: 1 SCD applied (from Ns): Yes Pharmacological prophylaxis: heparin Lines/Catheters IV Catheter Type (from Nrsg): Peripheral IV Urinary Cath still in place: No Assessment/Plan Hospital Course Assessment and plan 1. 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 - optimize BP 2. Hypertension. - adjust bp medications for better control prn 3. Hyperglycemia - a1c: 8.4. - newly dx diabetes - continue insulin regimen - patient seen by special education paraeducator 4. Stage 1 diastolic dysfunction - optimize with cardiovascular medications DISPO/PLAN: Awaiting PT and OT evaluations. Patient reportedly had high blood pressure when they were going to evaluate. Will adjust BP medications as needed. Continue supportive care for now. Discussed POC with Dr. Ortez Result Diagram: 09/01/18 0535 09/01/18 0535 Results 24hrs Laboratory Tests Test 09/01/18 17:46 09/01/18 20:15 09/02/18 01:06 09/02/18 08:02 Bedside Glucose 194 225 H 215 133 Test 09/02/18 12:04 Bedside Glucose 107 Subjective 24 Hr Interval Summary Free Text/Dictation Still reports having little headache. Exam/Review of Systems Exam Vitals Vital Signs Date Temp Pulse Resp B/P (MAP) Pulse Ox O2 O2 Flow FiO2 Time Delivery Rate 09/02/18 98.0 77 20 144/65 100 12:06 (91) 09/01/18 Room Air 15:04 Intake and Output 09/01/18 09/01/18 09/02/18 1515:00 23:00 07:00 IntakeIntake Total 480 ml 1480 ml 411.2 ml OutputOutput Total 750 ml 700 ml 300 ml BalanceBalance -270 ml 780 ml 111.2 ml Exam Exam Constitutional: alert, oriented Psych: nl mood/affect Head: normocephalic Neck: supple, non-tender Respiratory: clear to auscultation Cardiovascular: regular rate and rhythm Gastrointestinal: soft, ascites Musculoskeletal: nl extremities to inspection Neurological: ELECTRICAL TEST ENGINEER II-XII intact, nl mental status, nl speech Skin: nl turgor Results Results 24hrs Laboratory Tests Test 09/01/18 17:46 09/01/18 20:15 09/02/18 01:06 09/02/18 08:02 Bedside Glucose 194 225 H 215 133 Test 09/02/18 12:04 Bedside Glucose 107 Medications Medication Current Medications IV Flush (NS 3 ml) 3 ml PER PROTOCOL IV ; Start 08/31/18 at 11:00 Ondansetron HCl (Zofran Inj) 4 mg Q6H PRN IV NAUSEA/VOMITING Last administered on 09/02/18 13:58; Admin Dose 4 MG; Start 08/31/18 at 11:00 Acetaminophen (Tylenol Tab) 650 mg Q6H PRN PO .PAIN 1-3 OR TEMP; Start 08/31/18 at 11:00 Acetaminophen/ Hydrocodone Bitart ([place] (5/325)) 1 tab Q6H PRN PO .MOD PAIN 4- 6 Last administered on 08/31/18 20:35; Admin Dose 1 TAB; Start 08/31/18 at 11:00 Acetaminophen/ Hydrocodone Bitart ([place] (5/325)) 2 tab Q6H PRN PO .SEVERE PAIN 7-10; Start 08/31/18 at 11:00 Morphine Sulfate (morphine) 2 mg Q4H PRN IV .SEVERE PAIN 7-10; Start 08/31/18 at 11:00 Famotidine (Pepcid) 20 mg Q12 PO Last administered on 09/02/18 09:00; Admin Dose 20 MG; Start 08/31/18 at 21:00 Hydralazine HCl (Apresoline) 10 mg Q4H PRN IV sbp>220 or dbp>120 Last adm inistered on 09/02/18 08:04; Admin Dose 10 MG; Start 08/31/18 at 11:00 Atorvastatin Calcium (Lipitor) 40 mg HS PO Last administered on 09/01/18 20:16; Admin Dose 40 MG; Start 08/31/18 at 21:00 Aspirin (Halfprin) 81 mg DAILY PO Last administered on 09/02/18 08:04; Admin Dose 81 MG; Start 09/01/18 at 09:00 Heparin Sodium (Porcine) (Heparin (5000 Units/1ml)) 5,000 unit BID SC Last administered on 09/02/18 08:12; Admin Dose 5,000 UNIT; Start 08/31/18 at 21:00 Diagnostic Test (Pha) (Accu-Chek) 1 ea 02 XX Last administered on 09/02/18at 01:40; Admin Dose 1 EA; Start 09/01/18 at 02:00 Insulin Aspart (Novolog Insulin Pen) NOVOLOG *MILD* ALGORITHM WITH MEALS BEDTIME SC Last administered on 09/01/18at 20:53; Admin Dose 2 UNIT; Start 08/31/18 at 18:00 Miscellaneous Information 1 ea NOTE XX ; Start 08/31/18 at 13:30 Glucose (Glutose) 15 gm Q15M PRN PO DECREASED GLUCOSE; Start 08/31/18 at 13:30 Glucose (Glutose) 22.5 gm Q15M PRN PO DECREASED GLUCOSE; Start 08/31/18 at 13:30 Dextrose (D50w Syringe) 25 ml Q15M PRN IV DECREASED GLUCOSE; Start 08/31/18 at 13:30 Dextrose (D50w Syringe) 50 ml Q15M PRN IV DECREASED GLUCOSE; Start 08/31/18 at 13:30 Glucagon (Glucagen) 1 mg Q15M PRN IM DECREASED GLUCOSE; Start 08/31/18 at 13:30 Glucose (Glutose) 15 gm Q15M PRN BUCCAL DECREASED GLUCOSE; Start 08/31/18 at 13:30 Multivitamins 10 ml/Thiamine HCl 100 mg/Folic Acid 1 mg/Sodium Chloride 1,011.2 ml @ 125 mls/ hr DAILY@09 IVPB Last administered on 09/02/18at 09:00; Admin Dose 125 MLS/HR; Start 08/31/18 at 23:00; Stop 09/02/18 at 17:06 Amlodipine Besylate (Norvasc) 5 mg BID PO Last administered on 09/02/18at 08:04; Admin Dose 5 MG; Start 09/01/18 at 21:00 Insulin Glargine (Lantus) 14 units DAILY@2000 SC Last administered on 09/01/18at 20:52; Admin Dose 14 UNITS; Start 09/01/18 at 20:00 Insulin Aspart (Novolog Insulin Pen) 4 unit WITH MEALS SC Last administered on 09/02/18at 12:14; Admin Dose 4 UNIT; Start 09/01/18 at 18:00 Lisinopril (Zestril) 20 mg DAILY PO ; Start 09/03/18 at 09:00 NEIDA ROBERTS NP Sep 02, 2018 14:17
[2018-09-02] MEDS: ATORVASTATIN 40 MG TAB PO SCH (20:14)
[2018-09-02] MEDS: INSULIN GLARGINE [LANTus] (100 UNITS/ML) SYG SC SCH (20:18)
[2018-09-02] MEDS: HYDROCODONE/APAP (5/325) TAB PO PRN (20:18)
[2018-09-03] VITALS (15 sets, daily range): BP systolic 135–181; BP diastolic 63–92; PULSE 64–92; RESP 16–18
[2018-09-03] MEDS: ACCU-CHEK XX SCH (02:00)
[2018-09-03] MEDS: POTASSIUM CHLORIDE 100 ML IVPB SCH ×2 (07:48→10:23)
[2018-09-03] MEDS: INSULIN ASPART [NOVOLOG] 3 ML PEN SC SCH ×7 (07:50→20:30)
[2018-09-03] MEDS: ASPIRIN (EC) 81 MG TAB PO SCH (08:18)
[2018-09-03] MEDS: FAMOTIDINE 20 MG TAB PO SCH ×2 (08:18→20:13)
[2018-09-03] MEDS: LISINOPRIL 20 MG TAB PO SCH (08:18)
[2018-09-03] MEDS: AMLODIPINE 5 MG TAB PO SCH ×2 (08:19→20:13)
[2018-09-03] MEDS: HEPARIN 5,000 UNIT/1 ML VIAL SC SCH ×2 (08:24→20:30)
[2018-09-03] MEDS ORDERED: POTASSIUM CHLORIDE (SR) 20 MEQ TAB PO STA (09:26)
--- NOTE | 2018-09-03 09:34 | PN ---
Date/Time of Note Date/Time of Note DATE: 09/03/18 TIME: 09:28 Assessment/Plan VTE Prophylaxis Risk score (from Ns)>0 risk: 2 SCD applied (from Ns): Yes Pharmacological prophylaxis: heparin Lines/Catheters IV Catheter Type (from Nrsg): Peripheral IV Urinary Cath still in place: No Assessment/Plan Hospital Course Assessment and plan 1. 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 - optimize BP 2. Hypertension. - adjust bp medications for better control prn 3. Hyperglycemia - a1c: 8.4. - newly dx diabetes - continue insulin regimen - patient seen by nurse educator 4. Stage 1 diastolic dysfunction - optimize with cardiovascular medications DISPO/PLAN: Awaiting PT and OT evaluations. adjust antihypertensives for better control. anticipate d/c within the next 24 hours if medically stable Discussed POC with Dr. Ortez Result Diagram: 09/03/183 09/03/18 0443 Results 24hrs Laboratory Tests Test 09/02/18 12:04 09/02/18 17:41 09/02/18 20:14 09/03/18 04:43 Bedside Glucose 107 129 122 White Blood Count 6.5 Red Blood Count 5.42 Hemoglobin 15.9 Hematocrit 45.5 Mean Corpuscular 83.9 Volume Mean Corpuscular 29.3 Hemoglobin Mean Corpuscular 34.9 Hemoglobin Concent Red Cell 12.4 Distribution Width Platelet Count 188 Mean Platelet Volume 11.3 H Immature 0.500 H Granulocytes % Neutrophils % 83.4 H Lymphocytes % 8.3 L Monocytes % 7.2 Eosinophils % 0.0 Basophils % 0.6 Nucleated Red Blood 0.0 Cells % Immature 0.030 Granulocytes # Neutrophils # 5.4 Lymphocytes # 0.5 L Monocytes # 0.5 Eosinophils # 0.0 Basophils # 0.0 Nucleated Red Blood 0.0 Cells # Sodium Level 140 Potassium Level 3.0 L Chloride Level 103 Carbon Dioxide Level 26 Anion Gap 11 Blood Urea Nitrogen 13 Creatinine 0.72 Est Glomerular > 60 Filtrat Rate mL/min Glucose Level 149 # Calcium Level 8.9 Test 09/03/18 07:49 Bedside Glucose 138 Subjective 24 Hr Interval Summary Free Text/Dictation no s/s of distress still noted with high blood pressure. reports less headache today Exam/Review of Systems Exam Vitals Vital Signs Date Temp Pulse Resp B/P (MAP) Pulse Ox O2 O2 Flow FiO2 Time Delivery Rate 09/03/18 76 08:54 09/03/18 97.5 16 181/85 97 07:57 (117) 09/01/18 Room Air 15:04 Intake and Output 09/02/18 09/02/18 09/03/18 1515:00 23:00 07:00 IntakeIntake Total 240 ml 120 ml 320 ml OutputOutput Total 400 ml 700 ml BalanceBalance 240 ml -280 ml -380 ml Exam Constitutional: alert, oriented Psych: nl mood/affect Head: normocephalic Neck: supple, non-tender Respiratory: clear to auscultation Cardiovascular: regular rate and rhythm Gastrointestinal: soft, ascites Musculoskeletal: nl extremities to inspection Neurological: LINUX ADMIN ENGINEER II-XII intact, nl mental status, nl speech Skin: nl turgor Results Results 24hrs Laboratory Tests Test 09/02/18 12:04 09/02/18 17:41 09/02/18 20:14 09/03/18 04:43 Bedside Glucose 107 129 122 White Blood Count 6.5 Red Blood Count 5.42 Hemoglobin 15.9 Hematocrit 45.5 Mean Corpuscular 83.9 Volume Mean Corpuscular 29.3 Hemoglobin Mean Corpuscular 34.9 Hemoglobin Concent Red Cell 12.4 Distribution Width Platelet Count 188 Mean Platelet Volume 11.3 H Immature 0.500 H Granulocytes % Neutrophils % 83.4 H Lymphocytes % 8.3 L Monocytes % 7.2 Eosinophils % 0.0 Basophils % 0.6 Nucleated Red Blood 0.0 Cells % Immature 0.030 Granulocytes # Neutrophils # 5.4 Lymphocytes # 0.5 L Monocytes # 0.5 Eosinophils # 0.0 Basophils # 0.0 Nucleated Red Blood 0.0 Cells # Sodium Level 140 Potassium Level 3.0 L Chloride Level 103 Carbon Dioxide Level 26 Anion Gap 11 Blood Urea Nitrogen 13 Creatinine 0.72 Est Glomerular > 60 Filtrat Rate mL/min Glucose Level 149 # Calcium Level 8.9 Test 09/03/18 07:49 Bedside Glucose 138 Medications Medication Current Medications IV Flush (NS 3 ml) 3 ml PER PROTOCOL IV ; Start 08/31/18 at 11:00 Ondansetron HCl (Zofran Inj) 4 mg Q6H PRN IV NAUSEA/VOMITING Last administered on 09/02/18at 13:58; Admin Dose 4 MG; Start 08/31/18 at 11:00 Acetaminophen (Tylenol Tab) 650 mg Q6H PRN PO .PAIN 1-3 OR TEMP; Start 08/31/18 at 11:00 Acetaminophen/ Hydrocodone Bitart ([place] (5/325)) 1 tab Q6H PRN PO .MOD PAIN 4- 6 Last administered on 09/02/18 20:18; Admin Dose 1 TAB; Start 08/31/18 at 11:00 Acetaminophen/ Hydrocodone Bitart ([place] (5/325)) 2 tab Q6H PRN PO .SEVERE PAIN 7-10; Start 08/31/18 at 11:00 Morphine Sulfate (morphine) 2 mg Q4H PRN IV .SEVERE PAIN 7-10; Start 08/31/18 at 11:00 Famotidine (Pepcid) 20 mg Q12 PO Last administered on 09/03/18 08:18; Admin Dose 20 MG; Start 08/31/18 at 21:00 Hydralazine HCl (Apresoline) 10 mg Q4H PRN IV sbp>220 or dbp>120 Last administered on 09/02/18at 20:15; Admin Dose 10 MG; Start 08/31/18 at 11:00 Atorvastatin Calcium (Lipitor) 40 mg HS PO Last administered on 09/02/18 20:14; Admin Dose 40 MG; Start 08/31/18 at 21:00 Aspirin (Halfprin) 81 mg DAILY PO Last administered on 09/03/18 08:18; Admin Dose 81 MG; Start 09/01/18 at 09:00 Heparin Sodium (Porcine) (Heparin (5000 Units/1ml)) 5,000 unit BID SC Last administered on 09/03/18 08:24; Admin Dose 5,000 UNIT; Start 08/31/18 at 21:00 Diagnostic Test (Pha) (Accu-Chek) 1 ea 02 XX Last administered on 09/02/18at 01:40; Admin Dose 1 EA; Start 09/01/18 at 02:00 Insulin Aspart (Novolog Insulin Pen) NOVOLOG *MILD* ALGORITHM WITH MEALS BEDTIME SC Last administered on 09/01/18at 20:53; Admin Dose 2 UNIT; Start 08/31/18 at 18:00 Miscellaneous Information 1 ea NOTE XX ; Start 08/31/18 at 13:30 Glucose (Glutose) 15 gm Q15M PRN PO DECREASED GLUCOSE; Start 08/31/18 at 13:30 Glucose (Glutose) 22.5 gm Q15M PRN PO DECREASED GLUCOSE; Start 08/31/18 at 13:30 Dextrose (D50w Syringe) 25 ml Q15M PRN IV DECREASED GLUCOSE; Start 08/31/18 at 13:30 Dextrose (D50w Syringe) 50 ml Q15M PRN IV DECREASED GLUCOSE; Start 08/31/18 at 13:30 Glucagon (Glucagen) 1 mg Q15M PRN IM DECREASED GLUCOSE; Start 08/31/18 at 13:30 Glucose (Glutose) 15 gm Q15M PRN BUCCAL DECREASED GLUCOSE; Start 08/31/18 at 13:30 Amlodipine Besylate (Norvasc) 5 mg BID PO Last administered on 09/03/18at 08:19; Admin Dose 5 MG; Start 09/01/18 at 21:00 Insulin Glargine (Lantus) 14 units DAILY@2000 SC Last administered on 09/02/18at 20:18; Admin Dose 14 UNITS; Start 09/01/18 at 20:00 Insulin Aspart (Novolog Insulin Pen) 4 unit WITH MEALS SC Last administered on 09/03/18at 07:57; Admin Dose 4 UNIT; Start 09/01/18 at 18:00 Lisinopril (Zestril) 20 mg DAILY PO Last administered on 09/03/18at 08:18; Admin Dose 20 MG; Start 09/03/18 at 09:00 Potassium Chloride 100 ml @ 50 mls/hr Q2H IVPB Last administered on 09/03/18at 07:48; Admin Dose 50 MLS/HR; Start 09/03/18 at 07:30; Stop 09/03/18 at 11:29 NEIDA ROBERTS NP Sep 03, 2018 09:34
[2018-09-03] MEDS: hydrALAzine 20 MG INJ IV PRN (12:44)
[2018-09-03] MEDS: ONDANSETRON 4 MG INJ IV PRN (17:44)
[2018-09-03] MEDS: ATORVASTATIN 40 MG TAB PO SCH (20:13)
[2018-09-03] MEDS: HYDROCODONE/APAP (5/325) TAB PO PRN (20:14)
[2018-09-03] MEDS: INSULIN GLARGINE [LANTus] (100 UNITS/ML) SYG SC SCH (20:30)
[2018-09-04] VITALS (11 sets, daily range): BP systolic 129–189; BP diastolic 60–92; PULSE 66–87; RESP 18
[2018-09-04] MEDS: ACCU-CHEK XX SCH (02:02)
[2018-09-04] MEDS: INSULIN ASPART [NOVOLOG] 3 ML PEN SC SCH ×7 (07:48→21:00)
[2018-09-04] MEDS: AMLODIPINE 5 MG TAB PO SCH ×2 (08:56→20:28)
[2018-09-04] MEDS: HYDROCODONE/APAP (5/325) TAB PO PRN ×2 (08:57→17:34)
[2018-09-04] MEDS: ASPIRIN (EC) 81 MG TAB PO SCH (08:57)
[2018-09-04] MEDS: LISINOPRIL 20 MG TAB PO SCH (08:57)
[2018-09-04] MEDS: FAMOTIDINE 20 MG TAB PO SCH ×2 (08:57→20:27)
[2018-09-04] MEDS: HEPARIN 5,000 UNIT/1 ML VIAL SC SCH ×2 (09:09→20:30)
--- NOTE | 2018-09-04 10:53 | CONS ---
Assessment/Plan Assessment/Plan Assessment/Plan (Recall) 53 M c/ reported Hx of untreated DM2, HTN, HLD, and other comorbidities... who presents for evaluation of 4 days of headache and confusion. MRI brain confirmed an acute R cerebellar infarction... MRA shows scattered stenoses Echo is unremarkable A1C 8.4%; LDL 120 ESR 1, RPR neg, HIV neg P: Cont ASA/Lipitor daily for now PT/OT/ST as necessary Continued medical management per primary Will follow clinically Consultation Date/Type/Reason Admit Date/Time Aug 31, 2018 at 10:30 Type of Consult Neurology Reason for Consultation ams, stroke Requesting Provider: NEIDA ROBERTS NP Date/Time of Note DATE: 09/04/18 TIME: 10:53 24 HR Interval Summary Free Text/Dictation Continues acute care Exam/Review of Systems Exam Vitals Vital Signs Date Temp Pulse Resp B/P (MAP) Pulse Ox O2 O2 Flow FiO2 Time Delivery Rate 09/04/18 76 156/75 09:41 (102) 09/04/18 98.0 18 98 Room Air 07:05 Intake and Output 09/03/18 09/03/18 09/04/18 1515:00 23:00 07:00 IntakeIntake Total 650 ml 500 ml 120 ml OutputOutput Total 400 ml 1700 ml 350 ml BalanceBalance 250 ml -1200 ml -230 ml Results Result Diagram: 09/04/18 0457 09/04/18 0457 Results 24hrs Laboratory Tests Test 09/03/18 11:47 09/03/18 17:10 09/03/18 20:16 09/04/18 01:39 Bedside Glucose 189 201 213 107 Test 09/04/18 04:57 09/04/18 07:48 White Blood Count 7.7 Red Blood Count 5.36 Hemoglobin 15.8 Hematocrit 44.8 Mean Corpuscular 83.6 Volume Mean Corpuscular 29.5 Hemoglobin Mean Corpuscular 35.3 Hemoglobin Concent Red Cell 12.4 Distribution Width Platelet Count 179 Mean Platelet Volume 11.8 H Immature 0.300 Granulocytes % Neutrophils % 81.3 H Lymphocytes % 9.5 L Monocytes % 8.1 Eosinophils % 0.3 Basophils % 0.5 Nucleated Red Blood 0.0 Cells % Immature 0.020 Granulocytes # Neutrophils # 6.2 Lymphocytes # 0.7 L Monocytes # 0.6 Eosinophils # 0.0 Basophils # 0.0 Nucleated Red Blood 0.0 Cells # Sodium Level 140 Potassium Level 3.0 L Chloride Level 104 Carbon Dioxide Level 28 Anion Gap 8 Blood Urea Nitrogen 14 Creatinine 0.70 Est Glomerular > 60 Filtrat Rate mL/min Glucose Level 100 # Calcium Level 8.9 Bedside Glucose 103 Medications Medication Current Medications IV Flush (NS 3 ml) 3 ml PER PROTOCOL IV ; Start 08/31/18 at 11:00 Ondansetron HCl (Zofran Inj) 4 mg Q6H PRN IV NAUSEA/VOMITING Last administered on 09/03/18 17:44; Admin Dose 4 MG; Start 08/31/18 at 11:00 Acetaminophen (Tylenol Tab) 650 mg Q6H PRN PO .PAIN 1-3 OR TEMP; Start 08/31/18 at 11:00 Acetaminophen/ Hydrocodone Bitart ([place] (5/325)) 1 tab Q6H PRN PO .MOD PAIN 4- 6 Last administered on 09/03/18 20:14; Admin Dose 1 TAB; Start 08/31/18 at 11:00 Acetaminophen/ Hydrocodone Bitart ([place] (5/325)) 2 tab Q6H PRN PO .SEVERE PAIN 7-10 Last administered on 09/04/18 08:57; Admin Dose 2 TAB; Start 08/31/18 at 11:00 Morphine Sulfate (morphine) 2 mg Q4H PRN IV .SEVERE PAIN 7-10; Start 08/31/18 at 11:00 Famotidine (Pepcid) 20 mg Q12 PO Last administered on 09/04/18 08:57; Admin Dose 20 MG; Start 08/31/18 at 21:00 Hydralazine HCl (Apresoline) 10 mg Q4H PRN IV sbp>160 Last administered on 09/03/18 12:44; Admin Dose 10 MG; Start 08/31/18 at 11:00 Atorvastatin Calcium (Lipitor) 40 mg HS PO Last administered on 09/03/18 20:13; Admin Dose 40 MG; Start 08/31/18 at 21:00 Aspirin (Halfprin) 81 mg DAILY PO Last administered on 09/04/18 08:57; Admin Dose 81 MG; Start 09/01/18 at 09:00 Heparin Sodium (Porcine) (Heparin (5000 Units/1ml)) 5,000 unit BID SC Last administered on 09/04/18 09:09; Admin Dose 5,000 UNIT; Start 08/31/18 at 21:00 Diagnostic Test (Pha) (Accu-Chek) 1 ea 02 XX Last administered on 09/04/18 02:02; Admin Dose 1 EA; Start 09/01/18 at 02:00 Insulin Aspart (Novolog Insulin Pen) NOVOLOG *MILD* ALGORITHM WITH MEALS BEDTIME SC Last administered on 09/03/18 20:30; Admin Dose 1 UNIT; Start 08/31/18 at 18:00 Miscellaneous Information 1 ea NOTE XX ; Start 08/31/18 at 13:30 Glucose (Glutose) 15 gm Q15M PRN PO DECREASED GLUCOSE; Start 08/31/18 at 13:30 Glucose (Glutose) 22.5 gm Q15M PRN PO DECREASED GLUCOSE; Start 08/31/18 at 13:30 Dextrose (D50w Syringe) 25 ml Q15M PRN IV DECREASED GLUCOSE; Start 08/31/18 at 13:30 Dextrose (D50w Syringe) 50 ml Q15M PRN IV DECREASED GLUCOSE; Start 08/31/18 at 13:30 Glucagon (Glucagen) 1 mg Q15M PRN IM DECREASED GLUCOSE; Start 08/31/18 at 13:30 Glucose (Glutose) 15 gm Q15M PRN BUCCAL DECREASED GLUCOSE; Start 08/31/18 at 13:30 Amlodipine Besylate (Norvasc) 5 mg BID PO Last administered on 09/04/18 08:56; Admin Dose 5 MG; Start 09/01/18 at 21:00 Insulin Glargine (Lantus) 14 units DAILY@2000 SC Last administered on 09/03/18 20:30; Admin Dose 14 UNITS; Start 09/01/18 at 20:00 Insulin Aspart (Novolog Insulin Pen) 4 unit WITH MEALS SC Last administered on 09/04/18 07:53; Admin Dose 4 UNIT; Start 09/01/18 at 18:00 Lisinopril (Zestril) 20 mg DAILY PO Last administered on 09/04/18 08:57; Admin Dose 20 MG; Start 09/03/18 at 09:00 ELO DOBBS Sep 04, 2018 10:53
[2018-09-04] MEDS: ONDANSETRON 4 MG INJ IV PRN ×2 (10:56→17:20)
[2018-09-04] MEDS: hydrALAzine 20 MG INJ IV PRN ×2 (10:56→20:38)
[2018-09-04] MEDS ORDERED: POTASSIUM CHLORIDE (SR) 20 MEQ TAB PO STA (12:14)
--- NOTE | 2018-09-04 12:28 | PN ---
Date/Time of Note Date/Time of Note DATE: 09/04/18 TIME: 12:27 Assessment/Plan VTE Prophylaxis Risk score (from Nsg)>0 risk: 2 SCD applied (from Nsg): Yes Pharmacological prophylaxis: heparin Lines/Catheters IV Catheter Type (from Nrsg): [place] Urinary Cath still in place: No Assessment/Plan Hospital Course SUBJECTIVE: Poor oral intake. Continues to complain of nausea and vomiting. Continues to have ataxia. OBJECTIVE: Physical Exam General: Adequately build 53 year-old male lying in bed in no apparent distress. HEENT: Normocephalic, atraumatic. Eyes: Anicteric sclerae, conjunctivae clear. ENT: Nasal septum midline, oral mucosa moist. Neck supple, no JVD noticed. Respiratory: Bilaterally clear breath sounds. No use of accessory muscles of respiration. No adventitious breath sounds. Cardiovascular: S1, S2 heard. Regular rate and rhythm. Abdomen: Soft, nontender, and nondistended. Bowel sounds positive in all 4 quadrants. Genitourinary: Deferred. Extremities: No cyanosis, no clubbing, no edema. Peripheral pulses palpable. Neurologic: The patient is awake, alert, and oriented. Skin: Normal skin turgor. No skin rashes. Labs & Vitals per chart ASSESSMENT & PLAN 53-year-old male who denies any significant past medical history who came to the emergency room with chief complaint of headache and difficulty with ambulation, who was found to have evidence of underlying hypertensive emergency (BP 243/107) in the emergency room along with underlying hyperglycemia and CT of the brain showing possible early subacute infarcts of the right superior inferior cerebellar and was admitted to inpatient setting for further treatment and evaluation. 1. Acute right superior cerebellar infarction with scattered surrounding infa rctions. Continue medical optimization. Continue aspirin and statins. PT, ST evaluation. 2. Hypertensive emergency. Continue antihypertensives. Adjust antihypertensives to obtain optimal blood pressure control. 3. Diabetes mellitus type 2. Newly diagnosed. Continue the patient on sliding scale insulin along with pre-meal insulin and basal insulin. Start metformin. Diabetes education evaluation. 4. Fluids, electrolytes, and nutrition. Carbohydrate controlled diet. 5. DVT prophylaxis. Subcutaneous heparin. 6. Plan. Continue physical therapy. Adjust antihypertensives to obtain optimal blood pressure control. Transfer the patient medical surgical floor. Disposition: Home with home health once clinically stable. The patient was seen in collaboration with Dr. Eddy. Result Diagram: 6/24/19 0457 09/04/18 0457 Results 24hrs Laboratory Tests Test 09/03/18 17:10 09/03/18 20:16 09/04/18 01:39 09/04/18 04:57 Bedside Glucose 201 213 107 White Blood Count 7.7 Red Blood Count 5.36 Hemoglobin 15.8 Hematocrit 44.8 Mean Corpuscular 83.6 Volume Mean Corpuscular 29.5 Hemoglobin Mean Corpuscular 35.3 Hemoglobin Concent Red Cell 12.4 Distribution Width Platelet Count 179 Mean Platelet Volume 11.8 H Immature 0.300 Granulocytes % Neutrophils % 81.3 H Lymphocytes % 9.5 L Monocytes % 8.1 Eosinophils % 0.3 Basophils % 0.5 Nucleated Red Blood 0.0 Cells % Immature 0.020 Granulocytes # Neutrophils # 6.2 Lymphocytes # 0.7 L Monocytes # 0.6 Eosinophils # 0.0 Basophils # 0.0 Nucleated Red Blood 0.0 Cells # Sodium Level 140 Potassium Level 3.0 L Chloride Level 104 Carbon Dioxide Level 28 Anion Gap 8 Blood Urea Nitrogen 14 Creatinine 0.70 Est Glomerular > 60 Filtrat Rate mL/min Glucose Level 100 # Calcium Level 8.9 Magnesium Level 2.3 Test 09/04/18 07:48 09/04/18 11:27 Bedside Glucose 103 137 Exam/Review of Systems Exam Vitals Vital Signs Date Temp Pulse Resp B/P (MAP) Pulse Ox O2 O2 Flow FiO2 Time Delivery Rate 09/04/18 98.5 83 18 129/63 99 Room Air 11:50 (85) Intake and Output 09/03/18 09/03/18 09/04/18 1515:00 23:00 07:00 IntakeIntake Total 650 ml 500 ml 120 ml OutputOutput Total 400 ml 1700 ml 350 ml BalanceBalance 250 ml -1200 ml -230 ml Results Results 24hrs Laboratory Tests Test 09/03/18 17:10 09/03/18 20:16 09/04/18 01:39 09/04/18 04:57 Bedside Glucose 201 213 107 White Blood Count 7.7 Red Blood Count 5.36 Hemoglobin 15.8 Hematocrit 44.8 Mean Corpuscular 83.6 Volume Mean Corpuscular 29.5 Hemoglobin Mean Corpuscular 35.3 Hemoglobin Concent Red Cell 12.4 Distribution Width Platelet Count 179 Mean Platelet Volume 11.8 H Immature 0.300 Granulocytes % Neutrophils % 81.3 H Lymphocytes % 9.5 L Monocytes % 8.1 Eosinophils % 0.3 Basophils % 0.5 Nucleated Red Blood 0.0 Cells % Immature 0.020 Granulocytes # Neutrophils # 6.2 Lymphocytes # 0.7 L Monocytes # 0.6 Eosinophils # 0.0 Basophils # 0.0 Nucleated Red Blood 0.0 Cells # Sodium Level 140 Potassium Level 3.0 L Chloride Level 104 Carbon Dioxide Level 28 Anion Gap 8 Blood Urea Nitrogen 14 Creatinine 0.70 Est Glomerular > 60 Filtrat Rate mL/min Glucose Level 100 # Calcium Level 8.9 Magnesium Level 2.3 Test 09/04/18 07:48 09/04/18 11:27 Bedside Glucose 103 137 Medications Medication Current Medications IV Flush (NS 3 ml) 3 ml PER PROTOCOL IV ; Start 08/31/18 at 11:00 Ondansetron HCl (Zofran Inj) 4 mg Q6H PRN IV NAUSEA/VOMITING Last administered on 09/04/18 10:56; Admin Dose 4 MG; Start 08/31/18 at 11:00 Acetaminophen (Tylenol Tab) 650 mg Q6H PRN PO .PAIN 1-3 OR TEMP; Start 08/31/18 at 11:00 Acetaminophen/ Hydrocodone Bitart ([place] (5/325)) 1 tab Q6H PRN PO .MOD PAIN 4- 6 Last administered on 09/03/18at 20:14; Admin Dose 1 TAB; Start 08/31/18 at 11:00 Acetaminophen/ Hydrocodone Bitart ([place] (5/325)) 2 tab Q6H PRN PO .SEVERE PAIN 7-10 Last administered on 09/04/18 08:57; Admin Dose 2 TAB; Start 08/31/18 at 11:00 Morphine Sulfate (morphine) 2 mg Q4H PRN IV .SEVERE PAIN 7-10; Start 08/31/18 at 11:00 Famotidine (Pepcid) 20 mg Q12 PO Last administered on 09/04/18 08:57; Admin Dose 20 MG; Start 08/31/18 at 21:00 Hydralazine HCl (Apresoline) 10 mg Q4H PRN IV sbp>160 Last administered on 09/04/18at 10:56; Admin Dose 10 MG; Start 08/31/18 at 11:00 Atorvastatin Calcium (Lipitor) 40 mg HS PO Last administered on 09/03/18 20:13; Admin Dose 40 MG; Start 08/31/18 at 21:00 Aspirin (Halfprin) 81 mg DAILY PO Last administered on 09/04/18 08:57; Admin Dose 81 MG; Start 09/01/18 at 09:00 Heparin Sodium (Porcine) (Heparin (5000 Units/1ml)) 5,000 unit BID SC Last administered on 09/04/18 09:09; Admin Dose 5,000 UNIT; Start 08/31/18 at 21:00 Diagnostic Test (Pha) (Accu-Chek) 1 ea 02 XX Last administered on 09/04/18 02:02; Admin Dose 1 EA; Start 09/01/18 at 02:00 Insulin Aspart (Novolog Insulin Pen) NOVOLOG *MILD* ALGORITHM WITH MEALS BEDTIME SC Last administered on 09/03/18 20:30; Admin Dose 1 UNIT; Start 08/31/18 at 18:00 Miscellaneous Information 1 ea NOTE XX ; Start 08/31/18 at 13:30 Glucose (Glutose) 15 gm Q15M PRN PO DECREASED GLUCOSE; Start 08/31/18 at 13:30 Glucose (Glutose) 22.5 gm Q15M PRN PO DECREASED GLUCOSE; Start 08/31/18 at 13:30 Dextrose (D50w Syringe) 25 ml Q15M PRN IV DECREASED GLUCOSE; Start 08/31/18 at 13:30 Dextrose (D50w Syringe) 50 ml Q15M PRN IV DECREASED GLUCOSE; Start 08/31/18 at 13:30 Glucagon (Glucagen) 1 mg Q15M PRN IM DECREASED GLUCOSE; Start 08/31/18 at 13:30 Glucose (Glutose) 15 gm Q15M PRN BUCCAL DECREASED GLUCOSE; Start 08/31/18 at 13:30 Amlodipine Besylate (Norvasc) 5 mg BID PO Last administered on 09/04/18at 08:56; Admin Dose 5 MG; Start 09/01/18 at 21:00 Insulin Glargine (Lantus) 14 units DAILY@2000 SC Last administered on 09/03/18at 20:30; Admin Dose 14 UNITS; Start 09/01/18 at 20:00 Insulin Aspart (Novolog Insulin Pen) 4 unit WITH MEALS SC Last administered on 09/04/18at 11:32; Admin Dose 4 UNIT; Start 09/01/18 at 18:00 Potassium Chloride (Klor-Con 20) 40 meq ONCE STAT PO ; Start 09/04/18 at 12:14; Stop 09/04/18 at 12:15; Status UNV Polyethylene Glycol (Miralax) 17 gm BID PO ; Start 09/04/18 at 21:00; Status UNV Bisacodyl (Dulcolax) 10 mg DAILY PRN PO CONSTIPATION; Start 09/04/18 at 12:30; Status UNV Lisinopril (Zestril) 20 mg ONCE ONCE PO ; Start 09/04/18 at 12:30; Stop 09/04/18 at 12:31; Status UNV Lisinopril (Zestril) 40 mg DAILY PO ; Start 09/05/18 at 09:00; Status UNV ASHOK BURNETT NP Sep 04, 2018 12:28
[2018-09-04] MEDS ORDERED: LISINOPRIL 20 MG TAB PO ONE (12:30)
[2018-09-04] MEDS ORDERED: BISACODYL (EC) 5 MG TAB PO PRN (12:30)
[2018-09-04] MEDS: metFORMIN 500 MG TAB PO SCH (17:34)
[2018-09-04] MEDS ORDERED: SOD CHLORIDE 0.9% 1,000 ML IV SCH (18:00)
[2018-09-04] MEDS: ATORVASTATIN 40 MG TAB PO SCH (20:27)
[2018-09-04] MEDS: POLYETHYLENE GLYCOL 17 GM PACKET PO SCH (20:28)
[2018-09-04] MEDS: morphine 2 MG INJ IV PRN (20:39)
[2018-09-04] MEDS: INSULIN GLARGINE [LANTus] (100 UNITS/ML) SYG SC SCH (21:41)
[2018-09-05] MEDS: ACCU-CHEK XX SCH ×2 (02:00→23:13)
[2018-09-05 02:20] VITALS: BP 159/71; PULSE 66; RESP 18
[2018-09-05 07:35] VITALS: BP 168/88; PULSE 71; RESP 18
[2018-09-05] MEDS: INSULIN ASPART [NOVOLOG] 3 ML PEN SC SCH ×7 (08:00→21:00)
[2018-09-05] MEDS: metFORMIN 500 MG TAB PO SCH ×3 (08:00→17:33)
[2018-09-05] MEDS: ASPIRIN (EC) 81 MG TAB PO SCH ×3 (08:42→11:29)
[2018-09-05] MEDS: FAMOTIDINE 20 MG TAB PO SCH ×3 (08:42→20:57)
[2018-09-05] MEDS: LISINOPRIL 20 MG TAB PO SCH ×2 (08:42→11:30)
[2018-09-05] MEDS: AMLODIPINE 5 MG TAB PO SCH ×4 (08:43→20:57)
[2018-09-05] MEDS: hydrALAzine 20 MG INJ IV PRN ×2 (08:43→14:32)
[2018-09-05] MEDS: POLYETHYLENE GLYCOL 17 GM PACKET PO SCH ×3 (08:43→20:57)
[2018-09-05] MEDS: HEPARIN 5,000 UNIT/1 ML VIAL SC SCH ×2 (09:01→20:59)
[2018-09-05] MEDS: ONDANSETRON 4 MG INJ IV PRN (11:30)
[2018-09-05] MEDS: HYDROCODONE/APAP (5/325) TAB PO PRN ×2 (11:31→18:10)
[2018-09-05 14:23] VITALS: BP 192/92; PULSE 84; RESP 18
--- NOTE | 2018-09-05 15:19 | PN ---
Date/Time of Note Date/Time of Note DATE: 09/05/18 TIME: 15:15 Assessment/Plan VTE Prophylaxis Risk score (from Nsg)>0 risk: 2 SCD applied (from Nsg): Yes Pharmacological prophylaxis: heparin Lines/Catheters IV Catheter Type (from Nrsg): Peripheral IV Urinary Cath still in place: No Assessment/Plan Hospital Course SUBJECTIVE: Poor oral intake. Continues to complain of nausea and vomiting. Declined PT today. OBJECTIVE: Physical Exam General: Adequately build 53 year-old male lying in bed in no apparent distress. HEENT: Normocephalic, atraumatic. Eyes: Anicteric sclerae, conjunctivae clear. ENT: Nasal septum midline, oral mucosa moist. Neck supple, no JVD noticed. Respiratory: Bilaterally clear breath sounds. No use of accessory muscles of respiration. No adventitious breath sounds. Cardiovascular: S1, S2 heard. Regular rate and rhythm. Abdomen: Soft, nontender, and nondistended. Bowel sounds positive in all 4 quadrants. Genitourinary: Deferred. Extremities: No cyanosis, no clubbing, no edema. Peripheral pulses palpable. Neurologic: The patient is awake, alert, and oriented. Skin: Normal skin turgor. No skin rashes. Labs & Vitals per chart ASSESSMENT & PLAN 53-year-old male who denies any significant past medical history who came to the emergency room with chief complaint of headache and difficulty with ambulation, who was found to have evidence of underlying hypertensive emergency (BP 243/107) in the emergency room along with underlying hyperglycemia and CT of the brain showing possible early subacute infarcts of the right superior inferior cerebellar and was admitted to inpatient setting for further treatment and evaluation. 1. 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 Continue medical optimization. Continue aspirin and statins. PT, ST evaluation. 2. Hypertensive emergency. Continue antihypertensives. Adjust antihypertensives to obtain optimal blood pressure control. 3. Diabetes mellitus type 2. Newly diagnosed. Continue the patient on sliding scale insulin along with pre-meal insulin and basal insulin. Continue metformin if able to tolerate. Diabetes education evaluation. 4. Persistent nausea/vomiting. Etiology could be secondary to underlying cerebellar stroke versus others. Evaluate for any underlying diabetic gastroparesis. 5. Fluids, electrolytes, and nutrition. Carbohydrate controlled diet. 6. DVT prophylaxis. Subcutaneous heparin. 7. Plan. Continue physical therapy. Adjust antihypertensives to obtain optimal blood pressure control. Start scheduled prokinetics. Disposition: Home with home health once clinically stable. The patient was seen in collaboration with Dr. Eddy. Result Diagram: 09/05/18 0734 09/05/18 0734 Results 24hrs Laboratory Tests Test 09/04/18 17:22 09/04/18 21:36 09/05/18 07:34 09/05/18 08:30 Bedside Glucose 177 162 123 White Blood Count 8.0 Red Blood Count 5.49 Hemoglobin 16.0 Hematocrit 46.9 Mean Corpuscular 85.4 Volume Mean Corpuscular 29.1 Hemoglobin Mean Corpuscular 34.1 Hemoglobin Concent Red Cell 12.8 Distribution Width Platelet Count 196 Mean Platelet Volume 11.2 H Immature 0.400 Granulocytes % Neutrophils % 81.2 H Lymphocytes % 9.0 L Monocytes % 8.7 Eosinophils % 0.1 Basophils % 0.6 Nucleated Red Blood 0.0 Cells % Immature 0.030 Granulocytes # Neutrophils # 6.5 Lymphocytes # 0.7 L Monocytes # 0.7 Eosinophils # 0.0 Basophils # 0.1 Nucleated Red Blood 0.0 Cells # Sodium Level 139 Potassium Level 3.8 Chloride Level 105 Carbon Dioxide Level 25 Anion Gap 9 Blood Urea Nitrogen 19 Creatinine 0.79 Est Glomerular > 60 Filtrat Rate mL/min Glucose Level 128 Calcium Level 9.2 Phosphorus Level 4.0 Magnesium Level 2.3 Test 09/05/18 12:27 Bedside Glucose 140 Exam/Review of Systems Exam Vitals Vital Signs Date Temp Pulse Resp B/P (MAP) Pulse Ox O2 O2 Flow FiO2 Time Delivery Rate 09/05/18 98.2 84 18 192/92 98 Room Air 14:23 (125) Intake and Output 09/04/18 09/04/18 09/05/18 1515:00 23:00 07:00 IntakeIntake Total 500 ml OutputOutput Total 210 ml 900 ml BalanceBalance 290 ml -900 ml Results Results 24hrs Laboratory Tests Test 09/04/18 17:22 09/04/18 21:36 09/05/18 07:34 09/05/18 08:30 Bedside Glucose 177 162 123 White Blood Count 8.0 Red Blood Count 5.49 Hemoglobin 16.0 Hematocrit 46.9 Mean Corpuscular 85.4 Volume Mean Corpuscular 29.1 Hemoglobin Mean Corpuscular 34.1 Hemoglobin Concent Red Cell 12.8 Distribution Width Platelet Count 196 Mean Platelet Volume 11.2 H Immature 0.400 Granulocytes % Neutrophils % 81.2 H Lymphocytes % 9.0 L Monocytes % 8.7 Eosinophils % 0.1 Basophils % 0.6 Nucleated Red Blood 0.0 Cells % Immature 0.030 Granulocytes # Neutrophils # 6.5 Lymphocytes # 0.7 L Monocytes # 0.7 Eosinophils # 0.0 Basophils # 0.1 Nucleated Red Blood 0.0 Cells # Sodium Level 139 Potassium Level 3.8 Chloride Level 105 Carbon Dioxide Level 25 Anion Gap 9 Blood Urea Nitrogen 19 Creatinine 0.79 Est Glomerular > 60 Filtrat Rate mL/min Glucose Level 128 Calcium Level 9.2 Phosphorus Level 4.0 Magnesium Level 2.3 Test 09/05/18 12:27 Bedside Glucose 140 Medications Medication Current Medications IV Flush (NS 3 ml) 3 ml PER PROTOCOL IV ; Start 08/31/18 at 11:00 Ondansetron HCl (Zofran Inj) 4 mg Q6H PRN IV NAUSEA/VOMITING Last administered on 09/05/18 11:30; Admin Dose 4 MG; Start 08/31/18 at 11:00 Acetaminophen (Tylenol Tab) 650 mg Q6H PRN PO .PAIN 1-3 OR TEMP; Start 08/31/18 at 11:00 Acetaminophen/ Hydrocodone Bitart ([place] (5/325)) 1 tab Q6H PRN PO .MOD PAIN 4- 6 Last administered on 09/03/18 20:14; Admin Dose 1 TAB; Start 08/31/18 at 11:00 Acetaminophen/ Hydrocodone Bitart ([place] (5/325)) 2 tab Q6H PRN PO .SEVERE PAIN 7-10 Last administered on 09/05/18 11:31; Admin Dose 2 TAB; Start 08/31/18 at 11:00 Morphine Sulfate (morphine) 2 mg Q4H PRN IV .SEVERE PAIN 7-10 Last administered on 09/04/18 20:39; Admin Dose 2 MG; Start 08/31/18 at 11:00 Famotidine (Pepcid) 20 mg Q12 PO Last administered on 09/04/18 20:27; Admin Dose 20 MG; Start 08/31/18 at 21:00 Hydralazine HCl (Apresoline) 10 mg Q4H PRN IV sbp>160 Last administered on 09/05/18 14:32; Admin Dose 10 MG; Start 08/31/18 at 11:00 Atorvastatin Calcium (Lipitor) 40 mg HS PO Last administered on 09/04/18 20:27; Admin Dose 40 MG; Start 08/31/18 at 21:00 Aspirin (Halfprin) 81 mg DAILY PO Last administered on 09/05/18 11:29; Admin Dose 81 MG; Start 09/01/18 at 09:00 Heparin Sodium (Porcine) (Heparin (5000 Units/1ml)) 5,000 unit BID SC Last administered on 09/05/18 09:01; Admin Dose 5,000 UNIT; Start 08/31/18 at 21:00 Diagnostic Test (Pha) (Accu-Chek) 1 ea 02 XX Last administered on 09/04/18 02:02; Admin Dose 1 EA; Start 09/01/18 at 02:00 Insulin Aspart (Novolog Insulin Pen) NOVOLOG *MILD* ALGORITHM WITH MEALS BEDTIME SC Last administered on 09/03/18 20:30; Admin Dose 1 UNIT; Start 08/31/18 at 18:00 Miscellaneous Information 1 ea NOTE XX ; Start 08/31/18 at 13:30 Glucose (Glutose) 15 gm Q15M PRN PO DECREASED GLUCOSE; Start 08/31/18 at 13:30 Glucose (Glutose) 22.5 gm Q15M PRN PO DECREASED GLUCOSE; Start 08/31/18 at 13:30 Dextrose (D50w Syringe) 25 ml Q15M PRN IV DECREASED GLUCOSE; Start 08/31/18 at 13:30 Dextrose (D50w Syringe) 50 ml Q15M PRN IV DECREASED GLUCOSE; Start 08/31/18 at 13:30 Glucagon (Glucagen) 1 mg Q15M PRN IM DECREASED GLUCOSE; Start 08/31/18 at 13:30 Glucose (Glutose) 15 gm Q15M PRN BUCCAL DECREASED GLUCOSE; Start 08/31/18 at 13:30 Amlodipine Besylate (Norvasc) 5 mg BID PO Last administered on 09/05/18 11:30; Admin Dose 5 MG; Start 09/01/18 at 21:00 Insulin Glargine (Lantus) 14 units DAILY@2000 SC Last administered on 09/04/18 21:41; Admin Dose 14 UNITS; Start 09/01/18 at 20:00 Insulin Aspart (Novolog Insulin Pen) 4 unit WITH MEALS SC Last administered on 09/04/18 11:32; Admin Dose 4 UNIT; Start 09/01/18 at 18:00 Polyethylene Glycol (Miralax) 17 gm BID PO Last administered on 09/04/18 20:28; Admin Dose 17 GM; Start 09/04/18 at 21:00 Bisacodyl (Dulcolax) 10 mg DAILY PRN PO CONSTIPATION Last administered on 08/13 13:14; Admin Dose 10 MG; Start 09/04/18 at 12:30 Lisinopril (Zestril) 40 mg DAILY PO Last administered on 09/05/18 11:30; Admin Dose 40 MG; Start 09/05/18 at 09:00 Metformin HCl (Glucophage) 500 mg BID WITH MEALS PO Last administered on 09/04/18 17:34; Admin Dose 500 MG; Start 09/04/18 at 18:00 Metoclopramide HCl (Reglan) 5 mg Q6 IV ; Start 09/05/18 at 18:00; Status UNASHOK ZUNIGA NP Sep 05, 2018 15:19
[2018-09-05 16:00] VITALS: BP 145/65
--- NOTE | 2018-09-05 16:28 | CONS ---
Assessment/Plan Assessment/Plan Assessment/Plan (Recall) 53 M c/ reported Hx of untreated DM2, HTN, HLD, and other comorbidities... who presents for evaluation of 4 days of headache and confusion. MRI brain confirmed an acute R cerebellar infarction... MRA shows scattered stenoses Echo is unremarkable A1C 8.4%; LDL 120 ESR 1, RPR neg, HIV neg P: Head CT for surveillance given continued episodic emesis Cont ASA/Lipitor daily for now PT/OT/ST as necessary Continued medical management per primary Will follow clinically Consultation Date/Type/Reason Admit Date/Time Aug 31, 2018 at 10:30 Type of Consult Neurology Reason for Consultation ams, stroke Requesting Provider: NEIDA ROBERTS NP Date/Time of Note DATE: 09/05/18 TIME: 16:25 24 HR Interval Summary Free Text/Dictation Continues acute care Exam/Review of Systems Exam Vitals Vital Signs Date Temp Pulse Resp B/P (MAP) Pulse Ox O2 O2 Flow FiO2 Time Delivery Rate 09/05/18 98.2 84 18 192/92 98 Room Air 14:23 (125) Intake and Output 09/04/18 09/04/18 09/05/18 1515:00 23:00 07:00 IntakeIntake Total 500 ml OutputOutput Total 210 ml 900 ml BalanceBalance 290 ml -900 ml Results Result Diagram: 09/05/18 0734 09/05/18 0734 Results 24hrs Laboratory Tests Test 09/04/18 17:22 09/04/18 21:36 09/05/18 07:34 09/05/18 08:30 Bedside Glucose 177 162 123 White Blood Count 8.0 Red Blood Count 5.49 Hemoglobin 16.0 Hematocrit 46.9 Mean Corpuscular 85.4 Volume Mean Corpuscular 29.1 Hemoglobin Mean Corpuscular 34.1 Hemoglobin Concent Red Cell 12.8 Distribution Width Platelet Count 196 Mean Platelet Volume 11.2 H Immature 0.400 Granulocytes % Neutrophils % 81.2 H Lymphocytes % 9.0 L Monocytes % 8.7 Eosinophils % 0.1 Basophils % 0.6 Nucleated Red Blood 0.0 Cells % Immature 0.030 Granulocytes # Neutrophils # 6.5 Lymphocytes # 0.7 L Monocytes # 0.7 Eosinophils # 0.0 Basophils # 0.1 Nucleated Red Blood 0.0 Cells # Sodium Level 139 Potassium Level 3.8 Chloride Level 105 Carbon Dioxide Level 25 Anion Gap 9 Blood Urea Nitrogen 19 Creatinine 0.79 Est Glomerular > 60 Filtrat Rate mL/min Glucose Level 128 Calcium Level 9.2 Phosphorus Level 4.0 Magnesium Level 2.3 Test 09/05/18 12:27 Bedside Glucose 140 Medications Medication Current Medications IV Flush (NS 3 ml) 3 ml PER PROTOCOL IV ; Start 08/31/18 at 11:00 Ondansetron HCl (Zofran Inj) 4 mg Q6H PRN IV NAUSEA/VOMITING Last administered on 09/05/18 11:30; Admin Dose 4 MG; Start 08/31/18 at 11:00 Acetaminophen (Tylenol Tab) 650 mg Q6H PRN PO .PAIN 1-3 OR TEMP; Start 08/31/18 at 11:00 Acetaminophen/ Hydrocodone Bitart ([place] (5/325)) 1 tab Q6H PRN PO .MOD PAIN 4- 6 Last administered on 09/03/18 20:14; Admin Dose 1 TAB; Start 08/31/18 at 11:00 Acetaminophen/ Hydrocodone Bitart ([place] (5/325)) 2 tab Q6H PRN PO .SEVERE PAIN 7-10 Last administered on 09/05/18 11:31; Admin Dose 2 TAB; Start 08/31/18 at 11:00 Morphine Sulfate (morphine) 2 mg Q4H PRN IV .SEVERE PAIN 7-10 Last administered on 09/04/18 20:39; Admin Dose 2 MG; Start 08/31/18 at 11:00 Famotidine (Pepcid) 20 mg Q12 PO Last administered on 09/04/18 20:27; Admin Dose 20 MG; Start 08/31/18 at 21:00 Hydralazine HCl (Apresoline) 10 mg Q4H PRN IV sbp>160 Last administered on 09/05/18 14:32; Admin Dose 10 MG; Start 08/31/18 at 11:00 Atorvastatin Calcium (Lipitor) 40 mg HS PO Last administered on 09/04/18 20:27; Admin Dose 40 MG; Start 08/31/18 at 21:00 Aspirin (Halfprin) 81 mg DAILY PO Last administered on 09/05/18 11:29; Admin Dose 81 MG; Start 09/01/18 at 09:00 Heparin Sodium (Porcine) (Heparin (5000 Units/1ml)) 5,000 unit BID SC Last administered on 09/05/18at 09:01; Admin Dose 5,000 UNIT; Start 08/31/18 at 21:00 Diagnostic Test (Pha) (Accu-Chek) 1 ea 02 XX Last administered on 09/04/18at 02:02; Admin Dose 1 EA; Start 09/01/18 at 02:00 Insulin Aspart (Novolog Insulin Pen) NOVOLOG *MILD* ALGORITHM WITH MEALS BEDTIME SC Last administered on 09/03/18at 20:30; Admin Dose 1 UNIT; Start 08/31/18 at 18:00 Miscellaneous Information 1 ea NOTE XX ; Start 08/31/18 at 13:30 Glucose (Glutose) 15 gm Q15M PRN PO DECREASED GLUCOSE; Start 08/31/18 at 13:30 Glucose (Glutose) 22.5 gm Q15M PRN PO DECREASED GLUCOSE; Start 08/31/18 at 13:30 Dextrose (D50w Syringe) 25 ml Q15M PRN IV DECREASED GLUCOSE; Start 08/31/18 at 13:30 Dextrose (D50w Syringe) 50 ml Q15M PRN IV DECREASED GLUCOSE; Start 08/31/18 at 13:30 Glucagon (Glucagen) 1 mg Q15M PRN IM DECREASED GLUCOSE; Start 08/31/18 at 13:30 Glucose (Glutose) 15 gm Q15M PRN BUCCAL DECREASED GLUCOSE; Start 08/31/18 at 13:30 Amlodipine Besylate (Norvasc) 5 mg BID PO Last administered on 09/05/18at 11:30; Admin Dose 5 MG; Start 09/01/18 at 21:00 Insulin Glargine (Lantus) 14 units DAILY@2000 SC Last administered on 09/04/18at 21:41; Admin Dose 14 UNITS; Start 09/01/18 at 20:00 Insulin Aspart (Novolog Insulin Pen) 4 unit WITH MEALS SC Last administered on 09/04/18at 11:32; Admin Dose 4 UNIT; Start 09/01/18 at 18:00 Polyethylene Glycol (Miralax) 17 gm BID PO Last administered on 09/04/18at 20:28; Admin Dose 17 GM; Start 09/04/18 at 21:00 Bisacodyl (Dulcolax) 10 mg DAILY PRN PO CONSTIPATION Last administered on 09/04/18at 13:14; Admin Dose 10 MG; Start 09/04/18 at 12:30 Lisinopril (Zestril) 40 mg DAILY PO Last administered on 09/05/18at 11:30; Admin Dose 40 MG; Start 09/05/18 at 09:00 Metformin HCl (Glucophage) 500 mg BID WITH MEALS PO Last administered on 09/04/18at 17:34; Admin Dose 500 MG; Start 09/04/18 at 18:00 Metoclopramide HCl (Reglan) 5 mg Q6 IV ; Start 09/05/18 at 18:00 Sodium Chloride 1,000 ml @ 75 mls/hr [id number] IV ; Start 09/05/18 at 16:30 ELO DOBBS Sep 05, 2018 16:27
[2018-09-05] MEDS: SOD CHLORIDE 0.9% 1,000 ML IV SCH (17:32)
[2018-09-05] MEDS: METOCLOPRAMIDE 10 MG INJ IV SCH (17:33)
[2018-09-05 20:00] VITALS: BP 160/75; PULSE 78; RESP 17
[2018-09-05] MEDS: ATORVASTATIN 40 MG TAB PO SCH (20:57)
[2018-09-05] MEDS: INSULIN GLARGINE [LANTus] (100 UNITS/ML) SYG SC SCH (21:04)
[2018-09-06] VITALS (21 sets, daily range): BP systolic 118–191; BP diastolic 68–88; PULSE 77–100; RESP 12–19
[2018-09-06] MEDS: METOCLOPRAMIDE 10 MG INJ IV SCH ×5 (00:26→23:54)
[2018-09-06] MEDS: INSULIN ASPART [NOVOLOG] 3 ML PEN SC SCH ×9 (01:00→20:38)
[2018-09-06] MEDS: SOD CHLORIDE 0.9% 1,000 ML IV SCH ×3 (05:31→23:54)
[2018-09-06] MEDS: metFORMIN 500 MG TAB PO SCH (08:00)
[2018-09-06] MEDS: FAMOTIDINE 20 MG TAB PO SCH ×2 (08:17→20:37)
[2018-09-06] MEDS: ASPIRIN (EC) 81 MG TAB PO SCH (08:18)
[2018-09-06] MEDS: AMLODIPINE 5 MG TAB PO SCH ×2 (08:18→20:38)
[2018-09-06] MEDS: POLYETHYLENE GLYCOL 17 GM PACKET PO SCH ×2 (08:18→20:38)
[2018-09-06] MEDS: LISINOPRIL 20 MG TAB PO SCH (08:18)
[2018-09-06] MEDS: HEPARIN 5,000 UNIT/1 ML VIAL SC SCH ×2 (08:19→20:42)
--- NOTE | 2018-09-06 11:11 | PN ---
Date/Time of Note Date/Time of Note DATE: 09/06/18 TIME: 11:06 Assessment/Plan VTE Prophylaxis Risk score (from Nsg)>0 risk: 2 SCD applied (from Nsg): Yes Pharmacological prophylaxis: heparin Lines/Catheters IV Catheter Type (from Nrsg): Saline Lock Urinary Cath still in place: No Assessment/Plan Hospital Course SUBJECTIVE: Poor oral intake. Continues to complain of nausea and vomiting. Gastric emptying study had to be canceled since the patient threw up all the contrast. OBJECTIVE: Physical Exam General: Adequately build 53 year-old male lying in bed in no apparent distress. HEENT: Normocephalic, atraumatic. Eyes: Anicteric sclerae, conjunctivae clear. ENT: Nasal septum midline, oral mucosa moist. Neck supple, no JVD noticed. Respiratory: Bilaterally clear breath sounds. No use of accessory muscles of respiration. No adventitious breath sounds. Cardiovascular: S1, S2 heard. Regular rate and rhythm. Abdomen: Soft, nontender, and nondistended. Bowel sounds positive in all 4 quadrants. Genitourinary: Deferred. Extremities: No cyanosis, no clubbing, no edema. Peripheral pulses palpable. Neurologic: The patient is awake, alert, and oriented. Skin: Normal skin turgor. No skin rashes. Labs & Vitals per chart ASSESSMENT & PLAN 53-year-old male who denies any significant past medical history who came to the emergency room with chief complaint of headache and difficulty with ambulation, who was found to have evidence of underlying hypertensive emergency (BP 243/107) in the emergency room along with underlying hyperglycemia and CT of the brain showing possible early subacute infarcts of the right superior inferior cereb ellar and was admitted to inpatient setting for further treatment and evaluation. 1. 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 Continue medical optimization. Continue aspirin and statins. PT, ST evaluation. 2. Hypertensive emergency. Continue antihypertensives. Adjust antihypertensives to obtain optimal blood pressure control. 3. Diabetes mellitus type 2. Newly diagnosed. Continue the patient on sliding scale insulin along with pre-meal insulin and basal insulin. Hold metformin because of intolerance. Diabetes education evaluation. 4. Persistent nausea/vomiting. Etiology could be secondary to underlying cerebellar stroke versus others. Gastroenterology evaluation. Continue prokinetics. 5. Fluids, electrolytes, and nutrition. Carbohydrate controlled diet. 6. DVT prophylaxis. Subcutaneous heparin. 7. Plan. Continue physical therapy. Obtain gastroenterology consult. Disposition: Home with home health once clinically stable. The patient was seen in collaboration with Dr. Eddy. Result Diagram: 09/06/18 0745 09/06/18 0745 Results 24hrs Laboratory Tests Test 09/05/18 12:27 09/05/18 17:26 09/05/18 21:02 09/06/18 00:28 Bedside Glucose 140 145 138 120 Test 09/06/18 05:33 09/06/18 07:45 09/06/18 08:15 Bedside Glucose 108 109 White Blood Count 9.7 # Red Blood Count 5.37 Hemoglobin 15.6 Hematocrit 45.0 Mean Corpuscular 83.8 Volume Mean Corpuscular 29.1 Hemoglobin Mean Corpuscular 34.7 Hemoglobin Concent Red Cell 12.7 Distribution Width Platelet Count 198 Mean Platelet Volume 11.3 H Immature 0.400 Granulocytes % Neutrophils % 84.6 H Lymphocytes % 6.6 L Monocytes % 7.7 Eosinophils % 0.2 Basophils % 0.5 Nucleated Red Blood 0.0 Cells % Immature 0.040 H Granulocytes # Neutrophils # 8.2 H Lymphocytes # 0.6 L Monocytes # 0.8 Eosinophils # 0.0 Basophils # 0.1 Nucleated Red Blood 0.0 Cells # Sodium Level 139 Potassium Level 3.5 Chloride Level 105 Carbon Dioxide Level 27 Anion Gap 7 Blood Urea Nitrogen 15 Creatinine 0.65 Est Glomerular > 60 Filtrat Rate mL/min Glucose Level 121 Calcium Level 8.5 Phosphorus Level 3.3 Magnesium Level 2.2 Exam/Review of Systems Exam Vitals Vital Signs Date Temp Pulse Resp B/P (MAP) Pulse Ox O2 O2 Flow FiO2 Time Delivery Rate 09/06/18 98.0 77 18 173/74 97 07:40 (107) 09/05/18 Room Air 14:23 Intake and Output 09/05/18 09/05/18 09/06/18 1414:59 22:59 06:59 IntakeIntake Total 400 ml 320 ml 1120 ml OutputOutput Total 550 ml 1250 ml BalanceBalance -150 ml 320 ml -130 ml Results Results 24hrs Laboratory Tests Test 09/05/18 12:27 09/05/18 17:26 09/05/18 21:02 09/06/18 00:28 Bedside Glucose 140 145 138 120 Test 09/06/18 05:33 09/06/18 07:45 09/06/18 08:15 Bedside Glucose 108 109 White Blood Count 9.7 # Red Blood Count 5.37 Hemoglobin 15.6 Hematocrit 45.0 Mean Corpuscular 83.8 Volume Mean Corpuscular 29.1 Hemoglobin Mean Corpuscular 34.7 Hemoglobin Concent Red Cell 12.7 Distribution Width Platelet Count 198 Mean Platelet Volume 11.3 H Immature 0.400 Granulocytes % Neutrophils % 84.6 H Lymphocytes % 6.6 L Monocytes % 7.7 Eosinophils % 0.2 Basophils % 0.5 Nucleated Red Blood 0.0 Cells % Immature 0.040 H Granulocytes # Neutrophils # 8.2 H Lymphocytes # 0.6 L Monocytes # 0.8 Eosinophils # 0.0 Basophils # 0.1 Nucleated Red Blood 0.0 Cells # Sodium Level 139 Potassium Level 3.5 Chloride Level 105 Carbon Dioxide Level 27 Anion Gap 7 Blood Urea Nitrogen 15 Creatinine 0.65 Est Glomerular > 60 Filtrat Rate mL/min Glucose Level 121 Calcium Level 8.5 Phosphorus Level 3.3 Magnesium Level 2.2 Medications Medication Current Medications IV Flush (NS 3 ml) 3 ml PER PROTOCOL IV ; Start 08/31/18 at 11:00 Ondansetron HCl (Zofran Inj) 4 mg Q6H PRN IV NAUSEA/VOMITING Last administered on 09/05/18 11:30; Admin Dose 4 MG; Start 08/31/18 at 11:00 Acetaminophen (Tylenol Tab) 650 mg Q6H PRN PO .PAIN 1-3 OR TEMP; Start 08/31/18 at 11:00 Acetaminophen/ Hydrocodone Bitart ([place] (5/325)) 1 tab Q6H PRN PO .MOD PAIN 4- 6 Last administered on 09/03/18at 20:14; Admin Dose 1 TAB; Start 08/31/18 at 11:00 Acetaminophen/ Hydrocodone Bitart ([place] (5/325)) 2 tab Q6H PRN PO .SEVERE PAIN 7-10 Last administered on 09/05/18 18:10; Admin Dose 2 TAB; Start 08/31/18 at 11:00 Morphine Sulfate (morphine) 2 mg Q4H PRN IV .SEVERE PAIN 7-10 Last administered on 09/04/18 20:39; Admin Dose 2 MG; Start 08/31/18 at 11:00 Famotidine (Pepcid) 20 mg Q12 PO Last administered on 09/06/18 08:17; Admin Dose 20 MG; Start 08/31/18 at 21:00 Hydralazine HCl (Apresoline) 10 mg Q4H PRN IV sbp>160 Last administered on 09/05/18 14:32; Admin Dose 10 MG; Start 08/31/18 at 11:00 Atorvastatin Calcium (Lipitor) 40 mg HS PO Last administered on 09/05/18 20:57; Admin Dose 40 MG; Start 08/31/18 at 21:00 Aspirin (Halfprin) 81 mg DAILY PO Last administered on 09/06/18 08:18; Admin Dose 81 MG; Start 09/01/18 at 09:00 Heparin Sodium (Porcine) (Heparin (5000 Units/1ml)) 5,000 unit BID SC Last administered on 09/06/18 08:19; Admin Dose 5,000 UNIT; Start 08/31/18 at 21:00 Diagnostic Test (Pha) (Accu-Chek) 1 ea 02 XX Last administered on 09/04/18at 02:02; Admin Dose 1 EA; Start 09/01/18 at 02:00 Insulin Aspart (Novolog Insulin Pen) NOVOLOG *MILD* ALGORITHM WITH MEALS BEDTIME SC Last administered on 09/05/18 17:35; Admin Dose 1 UNIT; Start 08/31/18 at 18:00; Status Hold Miscellaneous Information 1 ea NOTE XX ; Start 08/31/18 at 13:30 Glucose (Glutose) 15 gm Q15M PRN PO DECREASED GLUCOSE; Start 08/31/18 at 13:30 Glucose (Glutose) 22.5 gm Q15M PRN PO DECREASED GLUCOSE; Start 08/31/18 at 13: 30 Dextrose (D50w Syringe) 25 ml Q15M PRN IV DECREASED GLUCOSE; Start 08/31/18 at 13:30 Dextrose (D50w Syringe) 50 ml Q15M PRN IV DECREASED GLUCOSE; Start 08/31/18 at 13:30 Glucagon (Glucagen) 1 mg Q15M PRN IM DECREASED GLUCOSE; Start 08/31/18 at 13:30 Glucose (Glutose) 15 gm Q15M PRN BUCCAL DECREASED GLUCOSE; Start 08/31/18 at 13:30 Amlodipine Besylate (Norvasc) 5 mg BID PO Last administered on 09/06/18 08:18; Admin Dose 5 MG; Start 09/01/18 at 21:00 Insulin Glargine (Lantus) 14 units DAILY@2000 SC Last administered on 09/05/18 21:04; Admin Dose 14 UNITS; Start 09/01/18 at 20:00 Insulin Aspart (Novolog Insulin Pen) 4 unit WITH MEALS SC Last administered on 09/05/18 17:36; Admin Dose 4 UNIT; Start 09/01/18 at 18:00 Polyethylene Glycol (Miralax) 17 gm BID PO Last administered on 09/06/18 08:18; Admin Dose 17 GM; Start 09/04/18 at 21:00 Bisacodyl (Dulcolax) 10 mg DAILY PRN PO CONSTIPATION Last administered on 09/04/18 13:14; Admin Dose 10 MG; Start 09/04/18 at 12:30 Lisinopril (Zestril) 40 mg DAILY PO Last administered on 09/06/18 08:18; Admin Dose 40 MG; Start 09/05/18 at 09:00 Metformin HCl (Glucophage) 500 mg BID WITH MEALS PO Last administered on 09/05/18 17:33; Admin Dose 500 MG; Start 09/04/18 at 18:00 Metoclopramide HCl (Reglan) 5 mg Q6 IV Last administered on 09/06/18 05:31; Admin Dose 5 MG; Start 09/05/18 at 18:00 Sodium Chloride 1,000 ml @ 75 mls/hr [id number] IV Last administered on 09/06/18 05:31; Admin Dose 75 MLS/HR; Start 09/05/18 at 16:30 Insulin Aspart (Novolog Insulin Pen) NOVOLOG *MILD* ALGORI... Q4 SC ; Start 09/06/18 at 01:00 ASHOK BURNETT NP Sep 06, 2018 11:11
--- NOTE | 2018-09-06 11:45 | CONS ---
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 -09/05/18- Prior infarcts of the left occipital, parietal, temporal, as well as a right cerebellar lobes. Hypertension Diabetes type 2 untreated Hyperlipidemia Plan: NPO EGD today Endoscopy - risks/benefits/alternatives/indications of procedure and sedation/anesthesia discussed with patient who states understanding and gives informed consent to proceed. Further recommendations based on findings of EGD Patient seen coloration with Dr. Mcadams CC: ANITA MCADAMS MD ; Consultation Date/Type/Reason Admit Date/Time Aug 31, 2018 at 10:30 Date of Consultation: Sep 06, 2018 Type of Consult GI Reason for Consultation Persistent nausea and vomiting Date/Time of Note DATE: 09/06/18 TIME: 11:17 Hx of Present Illness This is a 49-year-old male with past medical history of hypertension, hyperlipidemia, diabetes type 2, untreated, who was admitted for headaches and confusion imaging was completed showing acute/recent right cerebellar infarct. Pt was evaluated by neuro and has been under medical management. During hospitalization he developed nausea and vomiting. It is noted patient is able to swallow liquids and solids with episodes of emesis about 5 minutes after f eeding has occurred. He denies persistent nausea throughout the day or abdominal pain thus far he has been treated with antiemetics without success, additionally a gastric emptying study was ordered however patient unable to tolerate therefore unable to obtain results. He is currently on Reglan 5 mg IV every 6 hours again without improvement GI has been consulted for further evaluation. At time evaluation patient states he feels fine he currently denies nausea/vomiting or abdominal pain plan for possible EGD today reviewed risk/benefits of both procedure and sedation patient verbalized understanding is agreeable to EGD. Review of Systems: A 12 system, review was conducted and is negative except as noted in the HPI or here. Past Medical History Home Meds No Active Prescriptions or Reported Meds Medications Current Medications IV Flush (NS 3 ml) 3 ml PER PROTOCOL IV ; Start 08/31/18 at 11:00 Ondansetron HCl (Zofran Inj) 4 mg Q6H PRN IV NAUSEA/VOMITING Last administered on 09/05/18at 11:30; Admin Dose 4 MG; Start 08/31/18 at 11:00 Acetaminophen (Tylenol Tab) 650 mg Q6H PRN PO .PAIN 1-3 OR TEMP; Start 08/31/18 at 11:00 Acetaminophen/ Hydrocodone Bitart ([place] (5/325)) 1 tab Q6H PRN PO .MOD PAIN 4- 6 Last administered on 09/03/18 20:14; Admin Dose 1 TAB; Start 08/31/18 at 11:00 Acetaminophen/ Hydrocodone Bitart ([place] (5/325)) 2 tab Q6H PRN PO .SEVERE PAIN 7-10 Last administered on 09/05/18 18:10; Admin Dose 2 TAB; Start 08/31/18 at 11:00 Morphine Sulfate (morphine) 2 mg Q4H PRN IV .SEVERE PAIN 7-10 Last administered on 09/04/18 20:39; Admin Dose 2 MG; Start 08/31/18 at 11:00 Famotidine (Pepcid) 20 mg Q12 PO Last administered on 09/06/18 08:17; Admin Dose 20 MG; Start 08/31/18 at 21:00 Hydralazine HCl (Apresoline) 10 mg Q4H PRN IV sbp>160 Last administered on 09/05/18 14:32; Admin Dose 10 MG; Start 08/31/18 at 11:00 Atorvastatin Calcium (Lipitor) 40 mg HS PO Last administered on 09/05/18 20:57; Admin Dose 40 MG; Start 08/31/18 at 21:00 Aspirin (Halfprin) 81 mg DAILY PO Last administered on 09/06/18 08:18; Admin Dose 81 MG; Start 09/01/18 at 09:00 Heparin Sodium (Porcine) (Heparin (5000 Units/1ml)) 5,000 unit BID SC Last administered on 09/06/18 08:19; Admin Dose 5,000 UNIT; Start 08/31/18 at 21:00 Diagnostic Test (Pha) (Accu-Chek) 1 ea 02 XX Last administered on 09/04/18 02:02; Admin Dose 1 EA; Start 09/01/18 at 02:00 Insulin Aspart (Novolog Insulin Pen) NOVOLOG *MILD* ALGORITHM WITH MEALS BEDTIME SC Last administered on 09/05/18 17:35; Admin Dose 1 UNIT; Start 08/31/18 at 18:00; Status Hold Miscellaneous Information 1 ea NOTE XX ; Start 08/31/18 at 13:30 Glucose (Glutose) 15 gm Q15M PRN PO DECREASED GLUCOSE; Start 08/31/18 at 13:30 Glucose (Glutose) 22.5 gm Q15M PRN PO DECREASED GLUCOSE; Start 08/31/18 at 13:30 Dextrose (D50w Syringe) 25 ml Q15M PRN IV DECREASED GLUCOSE; Start 08/31/18 at 13:30 Dextrose (D50w Syringe) 50 ml Q15M PRN IV DECREASED GLUCOSE; Start 08/31/18 at 13:30 Glucagon (Glucagen) 1 mg Q15M PRN IM DECREASED GLUCOSE; Start 08/31/18 at 13:30 Glucose (Glutose) 15 gm Q15M PRN BUCCAL DECREASED GLUCOSE; Start 08/31/18 at 13:30 Amlodipine Besylate (Norvasc) 5 mg BID PO Last administered on 09/06/18 08:18; Admin Dose 5 MG; Start 09/01/18 at 21:00 Insulin Glargine (Lantus) 14 units DAILY@2000 SC Last administered on 09/05/18 21:04; Admin Dose 14 UNITS; Start 09/01/18 at 20:00 Insulin Aspart (Novolog Insulin Pen) 4 unit WITH MEALS SC Last administered on 09/05/18 17:36; Admin Dose 4 UNIT; Start 09/01/18 at 18:00 Polyethylene Glycol (Miralax) 17 gm BID PO Last administered on 09/06/18 08:18; Admin Dose 17 GM; Start 09/04/18 at 21:00 Bisacodyl (Dulcolax) 10 mg DAILY PRN PO CONSTIPATION Last administered on 09/04/18 13:14; Admin Dose 10 MG; Start 09/04/18 at 12:30 Lisinopril (Zestril) 40 mg DAILY PO Last administered on 09/06/18 08:18; Admin Dose 40 MG; Start 09/05/18 at 09:00 Metformin HCl (Glucophage) 500 mg BID WITH MEALS PO Last administered on 09/05/18 17:33; Admin Dose 500 MG; Start 09/04/18 at 18:00; Status Hold Metoclopramide HCl (Reglan) 5 mg Q6 IV Last administered on 6/26/19at 05:31; Admin Dose 5 MG; Start 09/05/18 at 18:00 Sodium Chloride 1,000 ml @ 75 mls/hr [id number] IV Last administered on 09/06/18at 05:31; Admin Dose 75 MLS/HR; Start 09/05/18 at 16:30 Insulin Aspart (Novolog Insulin Pen) NOVOLOG *MILD* ALGORI... Q4 SC ; Start 09/06/18 at 01:00 Metoprolol Tartrate (Lopressor) 12.5 mg BID PO ; Start 09/06/18 at 21:00; Status UNV Allergies: Coded Allergies: No Known Allergy (Unverified , 08/31/18) Social History Alcohol Use: occasionally Smoking Status: Current every day smoker Drug Use: none Exam/Review of Systems Exam Vitals Vital Signs Date Temp Pulse Resp B/P (MAP) Pulse Ox O2 O2 Flow FiO2 Time Delivery Rate 09/06/18 98.0 77 18 173/74 97 07:40 (107) 09/05/18 Room Air 14:23 Intake and Output 09/05/18 09/05/18 09/06/18 1515:00 23:00 07:00 IntakeIntake Total 400 ml 320 ml 1120 ml OutputOutput Total 550 ml 1250 ml BalanceBalance -150 ml 320 ml -130 ml Exam PHYSICAL EXAMINATION: GENERAL: Alert & oriented x 3, in no acute distress SKIN: No lesions HEAD: Normocephalic, atraumatic, no tenderness. EYES: Pupils equal reactive to light and accommodation, no discharge. EARS/NOSE AND THROAT: Ears normal, nose normal, oropharynx normal. NECK: Supple, no masses. CHEST: Inspection within normal limits. CARDIOVASCULAR: Heart: Regular rate and rhythm RESPIRATORY: Lungs clear to auscultation GASTROINTESTINAL AND LIVER: Abdomen: Soft, non tenderness, non-distended, no hernias, no masses, no organomegaly, no ascites, no guarding, no rebound tenderness, normoactive bowel sounds. Rectal: Deferred. GENITOURINARY: Male genitalia within normal limits. EXTREMITIES: No cyanosis, clubbing or edema. Results Result Diagram: 09/06/18 0745 09/06/18 0745 Results 24hrs Laboratory Tests Test 09/05/18 12:27 09/05/18 17:26 09/05/18 21:02 09/06/18 00:28 Bedside Glucose 140 145 138 120 Test 09/06/18 05:33 09/06/18 07:45 09/06/18 08:15 Bedside Glucose 108 109 White Blood Count 9.7 # Red Blood Count 5.37 Hemoglobin 15.6 Hematocrit 45.0 Mean Corpuscular 83.8 Volume Mean Corpuscular 29.1 Hemoglobin Mean Corpuscular 34.7 Hemoglobin Concent Red Cell 12.7 Distribution Width Platelet Count 198 Mean Platelet Volume 11.3 H Immature 0.400 Granulocytes % Neutrophils % 84.6 H Lymphocytes % 6.6 L Monocytes % 7.7 Eosinophils % 0.2 Basophils % 0.5 Nucleated Red Blood 0.0 Cells % Immature 0.040 H Granulocytes # Neutrophils # 8.2 H Lymphocytes # 0.6 L Monocytes # 0.8 Eosinophils # 0.0 Basophils # 0.1 Nucleated Red Blood 0.0 Cells # Sodium Level 139 Potassium Level 3.5 Chloride Level 105 Carbon Dioxide Level 27 Anion Gap 7 Blood Urea Nitrogen 15 Creatinine 0.65 Est Glomerular > 60 Filtrat Rate mL/min Glucose Level 121 Calcium Level 8.5 Phosphorus Level 3.3 Magnesium Level 2.2 Medications Medication Current Medications IV Flush (NS 3 ml) 3 ml PER PROTOCOL IV ; Start 08/31/18 at 11:00 Ondansetron HCl (Zofran Inj) 4 mg Q6H PRN IV NAUSEA/VOMITING Last administered on 09/05/18at 11:30; Admin Dose 4 MG; Start 08/31/18 at 11:00 Acetaminophen (Tylenol Tab) 650 mg Q6H PRN PO .PAIN 1-3 OR TEMP; Start 08/31/18 at 11:00 Acetaminophen/ Hydrocodone Bitart ([place] (5/325)) 1 tab Q6H PRN PO .MOD PAIN 4- 6 Last administered on 09/03/18at 20:14; Admin Dose 1 TAB; Start 08/31/18 at 11:00 Acetaminophen/ Hydrocodone Bitart ([place] (5/325)) 2 tab Q6H PRN PO .SEVERE PAIN 7-10 Last administered on 09/05/18 18:10; Admin Dose 2 TAB; Start 08/31/18 at 11:00 Morphine Sulfate (morphine) 2 mg Q4H PRN IV .SEVERE PAIN 7-10 Last administered on 09/04/18 20:39; Admin Dose 2 MG; Start 08/31/18 at 11:00 Famotidine (Pepcid) 20 mg Q12 PO Last administered on 09/06/18at 08:17; Admin Dose 20 MG; Start 08/31/18 at 21:00 Hydralazine HCl (Apresoline) 10 mg Q4H PRN IV sbp>160 Last administered on 09/05/18 14:32; Admin Dose 10 MG; Start 08/31/18 at 11:00 Atorvastatin Calcium (Lipitor) 40 mg HS PO Last administered on 09/05/18 20:57; Admin Dose 40 MG; Start 08/31/18 at 21:00 Aspirin (Halfprin) 81 mg DAILY PO Last administered on 09/06/18 08:18; Admin Dose 81 MG; Start 09/01/18 at 09:00 Heparin Sodium (Porcine) (Heparin (5000 Units/1ml)) 5,000 unit BID SC Last administered on 09/06/18 08:19; Admin Dose 5,000 UNIT; Start 08/31/18 at 21:00 Diagnostic Test (Pha) (Accu-Chek) 1 ea 02 XX Last administered on 09/04/18at 02:02; Admin Dose 1 EA; Start 09/01/18 at 02:00 Insulin Aspart (Novolog Insulin Pen) NOVOLOG *MILD* ALGORITHM WITH MEALS BEDTIME SC Last administered on 09/05/18at 17:35; Admin Dose 1 UNIT; Start 08/31/18 at 18:00; Status Hold Miscellaneous Information 1 ea NOTE XX ; Start 08/31/18 at 13:30 Glucose (Glutose) 15 gm Q15M PRN PO DECREASED GLUCOSE; Start 08/31/18 at 13:30 Glucose (Glutose) 22.5 gm Q15M PRN PO DECREASED GLUCOSE; Start 08/31/18 at 13: 30 Dextrose (D50w Syringe) 25 ml Q15M PRN IV DECREASED GLUCOSE; Start 08/31/18 at 13:30 Dextrose (D50w Syringe) 50 ml Q15M PRN IV DECREASED GLUCOSE; Start 08/31/18 at 13:30 Glucagon (Glucagen) 1 mg Q15M PRN IM DECREASED GLUCOSE; Start 08/31/18 at 13:30 Glucose (Glutose) 15 gm Q15M PRN BUCCAL DECREASED GLUCOSE; Start 08/31/18 at 13:30 Amlodipine Besylate (Norvasc) 5 mg BID PO Last administered on 09/06/18 08:18; Admin Dose 5 MG; Start 09/01/18 at 21:00 Insulin Glargine (Lantus) 14 units DAILY@2000 SC Last administered on 09/05/18 21:04; Admin Dose 14 UNITS; Start 09/01/18 at 20:00 Insulin Aspart (Novolog Insulin Pen) 4 unit WITH MEALS SC Last administered on 09/05/18 17:36; Admin Dose 4 UNIT; Start 09/01/18 at 18:00 Polyethylene Glycol (Miralax) 17 gm BID PO Last administered on 09/06/18 08:18; Admin Dose 17 GM; Start 09/04/18 at 21:00 Bisacodyl (Dulcolax) 10 mg DAILY PRN PO CONSTIPATION Last administered on 09/04/18 13:14; Admin Dose 10 MG; Start 09/04/18 at 12:30 Lisinopril (Zestril) 40 mg DAILY PO Last administered on 09/06/18 08:18; Admin Dose 40 MG; Start 09/05/18 at 09:00 Metformin HCl (Glucophage) 500 mg BID WITH MEALS PO Last administered on 09/05/18 17:33; Admin Dose 500 MG; Start 09/04/18 at 18:00; Status Hold Metoclopramide HCl (Reglan) 5 mg Q6 IV Last administered on 09/06/18 05:31; Admin Dose 5 MG; Start 09/05/18 at 18:00 Sodium Chloride 1,000 ml @ 75 mls/hr [id number] IV Last administered on 09/06/18 05:31; Admin Dose 75 MLS/HR; Start 09/05/18 at 16:30 Insulin Aspart (Novolog Insulin Pen) NOVOLOG *MILD* ALGORI... Q4 SC ; Start 09/06/18 at 01:00 Metoprolol Tartrate (Lopressor) 12.5 mg BID PO ; Start 09/06/18 at 21:00; Status FABIAN SHUKLA Sep 06, 2018 11:38
[2018-09-06] MEDS: hydrALAzine 20 MG INJ IV PRN ×2 (13:37→18:57)
[2018-09-06] MEDS: morphine 2 MG INJ IV PRN (13:50)
--- NOTE | 2018-09-06 13:50 | CONS ---
Assessment/Plan Assessment/Plan Assessment/Plan (Recall) 53 M c/ reported Hx of untreated DM2, HTN, HLD, and other comorbidities... who presents for evaluation of 4 days of headache and confusion. MRI brain confirmed an acute R cerebellar infarction... Now w/ episodic vomiting, likely a sequela of central vertigo 2/2 the above Surveillance head CT is without evidence of significant edema MRA shows scattered stenoses Echo is unremarkable A1C 8.4%; LDL 120 ESR 1, RPR neg, HIV neg P: Cont ASA/Lipitor daily for now PT/OT/ST as necessary Continued medical management per primary Will follow clinically Consultation Date/Type/Reason Admit Date/Time Aug 31, 2018 at 10:30 Type of Consult Neurology Reason for Consultation ams, stroke Requesting Provider: NEIDA ROBERTS NP Date/Time of Note DATE: 09/06/18 TIME: 13:38 24 HR Interval Summary Free Text/Dictation Continues acute care Exam/Review of Systems Exam Vitals Vital Signs Date Temp Pulse Resp B/P (MAP) Pulse Ox O2 O2 Flow FiO2 Time Delivery Rate 09/06/18 98.0 77 18 173/74 97 07:40 (107) 09/05/18 Room Air 14:23 Intake and Output 09/05/18 09/05/18 09/06/18 1515:00 23:00 07:00 IntakeIntake Total 400 ml 320 ml 1120 ml OutputOutput Total 550 ml 1250 ml BalanceBalance -150 ml 320 ml -130 ml Exam Continues acute care Results Result Diagram: 09/06/18 0745 09/06/18 0745 Results 24hrs Laboratory Tests Test 09/05/18 17:26 09/05/18 21:02 09/06/18 00:28 09/06/18 05:33 Bedside Glucose 145 138 120 108 Test 09/06/18 07:45 09/06/18 08:15 09/06/18 12:56 White Blood Count 9.7 # Red Blood Count 5.37 Hemoglobin 15.6 Hematocrit 45.0 Mean Corpuscular 83.8 Volume Mean Corpuscular 29.1 Hemoglobin Mean Corpuscular 34.7 Hemoglobin Concent Red Cell 12.7 Distribution Width Platelet Count 198 Mean Platelet Volume 11.3 H Immature 0.400 Granulocytes % Neutrophils % 84.6 H Lymphocytes % 6.6 L Monocytes % 7.7 Eosinophils % 0.2 Basophils % 0.5 Nucleated Red Blood 0.0 Cells % Immature 0.040 H Granulocytes # Neutrophils # 8.2 H Lymphocytes # 0.6 L Monocytes # 0.8 Eosinophils # 0.0 Basophils # 0.1 Nucleated Red Blood 0.0 Cells # Sodium Level 139 Potassium Level 3.5 Chloride Level 105 Carbon Dioxide Level 27 Anion Gap 7 Blood Urea Nitrogen 15 Creatinine 0.65 Est Glomerular > 60 Filtrat Rate mL/min Glucose Level 121 Calcium Level 8.5 Phosphorus Level 3.3 Magnesium Level 2.2 Bedside Glucose 109 122 Medications Medication Current Medications IV Flush (NS 3 ml) 3 ml PER PROTOCOL IV ; Start 08/31/18 at 11:00 Ondansetron HCl (Zofran Inj) 4 mg Q6H PRN IV NAUSEA/VOMITING Last administered on 09/05/18 11:30; Admin Dose 4 MG; Start 08/31/18 at 11:00 Acetaminophen (Tylenol Tab) 650 mg Q6H PRN PO .PAIN 1-3 OR TEMP; Start 08/31/18 at 11:00 Acetaminophen/ Hydrocodone Bitart ([place] (5/325)) 1 tab Q6H PRN PO .MOD PAIN 4- 6 Last administered on 09/03/18 20:14; Admin Dose 1 TAB; Start 08/31/18 at 11:00 Acetaminophen/ Hydrocodone Bitart ([place] (5/325)) 2 tab Q6H PRN PO .SEVERE PAIN 7-10 Last administered on 09/05/18 18:10; Admin Dose 2 TAB; Start 08/31/18 at 11:00 Morphine Sulfate (morphine) 2 mg Q4H PRN IV .SEVERE PAIN 7-10 Last administered on 09/04/18 20:39; Admin Dose 2 MG; Start 08/31/18 at 11:00 Famotidine (Pepcid) 20 mg Q12 PO Last administered on 09/06/18 08:17; Admin Dose 20 MG; Start 08/31/18 at 21:00 Hydralazine HCl (Apresoline) 10 mg Q4H PRN IV sbp>160 Last administered on 09/05/18 14:32; Admin Dose 10 MG; Start 08/31/18 at 11:00 Atorvastatin Calcium (Lipitor) 40 mg HS PO Last administered on 09/05/18 20 :57; Admin Dose 40 MG; Start 08/31/18 at 21:00 Aspirin (Halfprin) 81 mg DAILY PO Last administered on 09/06/18 08:18; Admin Dose 81 MG; Start 09/01/18 at 09:00 Heparin Sodium (Porcine) (Heparin (5000 Units/1ml)) 5,000 unit BID SC Last administered on 09/06/18 08:19; Admin Dose 5,000 UNIT; Start 08/31/18 at 21:00 Diagnostic Test (Pha) (Accu-Chek) 1 ea 02 XX Last administered on 09/04/18 02:02; Admin Dose 1 EA; Start 09/01/18 at 02:00 Insulin Aspart (Novolog Insulin Pen) NOVOLOG *MILD* ALGORITHM WITH MEALS BEDTIME SC Last administered on 09/05/18 17:35; Admin Dose 1 UNIT; Start 08/31/18 at 18:00; Status Hold Miscellaneous Information 1 ea NOTE XX ; Start 08/31/18 at 13:30 Glucose (Glutose) 15 gm Q15M PRN PO DECREASED GLUCOSE; Start 08/31/18 at 13:30 Glucose (Glutose) 22.5 gm Q15M PRN PO DECREASED GLUCOSE; Start 08/31/18 at 13:30 Dextrose (D50w Syringe) 25 ml Q15M PRN IV DECREASED GLUCOSE; Start 08/31/18 at 13:30 Dextrose (D50w Syringe) 50 ml Q15M PRN IV DECREASED GLUCOSE; Start 08/31/18 at 13:30 Glucagon (Glucagen) 1 mg Q15M PRN IM DECREASED GLUCOSE; Start 08/31/18 at 13:30 Glucose (Glutose) 15 gm Q15M PRN BUCCAL DECREASED GLUCOSE; Start 08/31/18 at 13:30 Amlodipine Besylate (Norvasc) 5 mg BID PO Last administered on 09/06/18 08:18; Admin Dose 5 MG; Start 09/01/18 at 21:00 Insulin Glargine (Lantus) 14 units DAILY@2000 SC Last administered on 09/05/18 21:04; Admin Dose 14 UNITS; Start 09/01/18 at 20:00 Insulin Aspart (Novolog Insulin Pen) 4 unit WITH MEALS SC Last administered on 09/05/18at 17:36; Admin Dose 4 UNIT; Start 09/01/18 at 18:00 Polyethylene Glycol (Miralax) 17 gm BID PO Last administered on 09/06/18at 08:18; Admin Dose 17 GM; Start 09/04/18 at 21:00 Bisacodyl (Dulcolax) 10 mg DAILY PRN PO CONSTIPATION Last administered on 09/04/18at 13:14; Admin Dose 10 MG; Start 09/04/18 at 12:30 Lisinopril (Zestril) 40 mg DAILY PO Last administered on 09/06/18at 08:18; Admin Dose 40 MG; Start 09/05/18 at 09:00 Metformin HCl (Glucophage) 500 mg BID WITH MEALS PO Last administered on 09/05/18at 17:33; Admin Dose 500 MG; Start 09/04/18 at 18:00; Status Hold Metoclopramide HCl (Reglan) 5 mg Q6 IV Last administered on 09/06/18at 12:57; Admin Dose 5 MG; Start 09/05/18 at 18:00 Sodium Chloride 1,000 ml @ 75 mls/hr [id number] IV Last administered on 09/06/18at 05:31; Admin Dose 75 MLS/HR; Start 09/05/18 at 16:30 Insulin Aspart (Novolog Insulin Pen) NOVOLOG *MILD* ALGORI... Q4 SC ; Start 09/06/18 at 01:00 Metoprolol Tartrate (Lopressor) 12.5 mg BID PO ; Start 09/06/18 at 21:00 ELO DOBBS Sep 06, 2018 13:50
--- NOTE | 2018-09-06 15:59 | PREAC ---
Date/Time of Note Date/Time of Note DATE: 09/06/18 TIME: 15:58 Anesthesia Eval and Record Evaluation Time Pre-Procedure Interview DATE: 09/06/18 TIME: 15:58 Age 53 Sex male NPO: 8 hrs Preoperative diagnosis n/v Planned procedure egd Past Medical History Past Medical History: Includes Cardio: HTN Endo: Diabetes Pulm: Smoking Hx Neuro: CVA Hepatic: Alcohol abuse Surgery & Anesthesia Issues No known issue Meds Anticoagulation: No Beta [place] within 24 hr: No Reason Beta [place] not given: Pt. not on B-[place] No Active Prescriptions or Reported Meds Current Medications IV Flush (NS 3 ml) 3 ml PER PROTOCOL IV ; Start 08/31/18 at 11:00 Ondansetron HCl (Zofran Inj) 4 mg Q6H PRN IV NAUSEA/VOMITING Last administered on 09/05/18at 11:30; Admin Dose 4 MG; Start 08/31/18 at 11:00 Acetaminophen (Tylenol Tab) 650 mg Q6H PRN PO .PAIN 1-3 OR TEMP; Start 08/31/18 at 11:00 Acetaminophen/ Hydrocodone Bitart ([place] (5/325)) 1 tab Q6H PRN PO .MOD PAIN 4- 6 Last administered on 09/03/18at 20:14; Admin Dose 1 TAB; Start 08/31/18 at 11:00 Acetaminophen/ Hydrocodone Bitart ([place] (5/325)) 2 tab Q6H PRN PO .SEVERE PAIN 7-10 Last administered on 09/05/18at 18:10; Admin Dose 2 TAB; Start 08/31/18 at 11:00 Morphine Sulfate (morphine) 2 mg Q4H PRN IV .SEVERE PAIN 7-10 Last administered on 09/06/18at 13:50; Admin Dose 2 MG; Start 08/31/18 at 11:00 Famotidine (Pepcid) 20 mg Q12 PO Last administered on 09/06/18 08:17; Admin Dose 20 MG; Start 08/31/18 at 21:00 Hydralazine HCl (Apresoline) 10 mg Q4H PRN IV sbp>160 Last administered on 09/06/18at 13:37; Admin Dose 10 MG; Start 08/31/18 at 11:00 Atorvastatin Calcium (Lipitor) 40 mg HS PO Last administered on 09/05/18 20:57; Admin Dose 40 MG; Start 08/31/18 at 21:00 Aspirin (Halfprin) 81 mg DAILY PO Last administered on 09/06/18 08:18; Admin Dose 81 MG; Start 09/01/18 at 09:00 Heparin Sodium (Porcine) (Heparin (5000 Units/1ml)) 5,000 unit BID SC Last administered on 09/06/18 08:19; Admin Dose 5,000 UNIT; Start 08/31/18 at 21:00 Diagnostic Test (Pha) (Accu-Chek) 1 ea 02 XX Last administered on 09/04/18 02:02; Admin Dose 1 EA; Start 09/01/18 at 02:00 Insulin Aspart (Novolog Insulin Pen) NOVOLOG *MILD* ALGORITHM WITH MEALS BEDTIME SC Last administered on 09/05/18 17:35; Admin Dose 1 UNIT; Start 08/31/18 at 18:00; Status Hold Miscellaneous Information 1 ea NOTE XX ; Start 08/31/18 at 13:30 Glucose (Glutose) 15 gm Q15M PRN PO DECREASED GLUCOSE; Start 08/31/18 at 13:30 Glucose (Glutose) 22.5 gm Q15M PRN PO DECREASED GLUCOSE; Start 08/31/18 at 13:30 Dextrose (D50w Syringe) 25 ml Q15M PRN IV DECREASED GLUCOSE; Start 08/31/18 at 13:30 Dextrose (D50w Syringe) 50 ml Q15M PRN IV DECREASED GLUCOSE; Start 08/31/18 at 13:30 Glucagon (Glucagen) 1 mg Q15M PRN IM DECREASED GLUCOSE; Start 08/31/18 at 13:30 Glucose (Glutose) 15 gm Q15M PRN BUCCAL DECREASED GLUCOSE; Start 08/31/18 at 13:30 Amlodipine Besylate (Norvasc) 5 mg BID PO Last administered on 09/06/18 08:18; Admin Dose 5 MG; Start 09/01/18 at 21:00 Insulin Glargine (Lantus) 14 units DAILY@2000 SC Last administered on 09/05/18 21:04; Admin Dose 14 UNITS; Start 09/01/18 at 20:00 Insulin Aspart (Novolog Insulin Pen) 4 unit WITH MEALS SC Last administered on 09/05/18 17:36; Admin Dose 4 UNIT; Start 09/01/18 at 18:00 Polyethylene Glycol (Miralax) 17 gm BID PO Last administered on 09/06/18at 08:18; Admin Dose 17 GM; Start 09/04/18 at 21:00 Bisacodyl (Dulcolax) 10 mg DAILY PRN PO CONSTIPATION Last administered on 09/04/18at 13:14; Admin Dose 10 MG; Start 09/04/18 at 12:30 Lisinopril (Zestril) 40 mg DAILY PO Last administered on 09/06/18at 08:18; Admin Dose 40 MG; Start 09/05/18 at 09:00 Metformin HCl (Glucophage) 500 mg BID WITH MEALS PO Last administered on 09/05/18at 17:33; Admin Dose 500 MG; Start 09/04/18 at 18:00; Status Hold Metoclopramide HCl (Reglan) 5 mg Q6 IV Last administered on 09/06/18at 12:57; Admin Dose 5 MG; Start 09/05/18 at 18:00 Sodium Chloride 1,000 ml @ 75 mls/hr [id number] IV Last administered on 09/06/18at 05:31; Admin Dose 75 MLS/HR; Start 09/05/18 at 16:30 Insulin Aspart (Novolog Insulin Pen) NOVOLOG *MILD* ALGORI... Q4 SC ; Start 09/06/18 at 01:00 Metoprolol Tartrate (Lopressor) 12.5 mg BID PO ; Start 09/06/18 at 21:00 Meds reviewed: Yes Allergies Coded Allergies: No Known Allergy (Unverified , 08/31/18) Allergies Reviewed: Yes Labs/Studies Labs Reviewed: Reviewed by anesthesiologist Result Diagram: 09/06/18 0745 09/06/18 0745 Laboratory Tests 09/06/18 07:45 test: N/A Pre-procedure Exam Last vitals Vital Signs Date Temp Pulse Resp B/P (MAP) Pulse Ox O2 O2 Flow FiO2 Time Delivery Rate 09/06/18 99.5 100 18 190/86 98 Room Air 15:33 (120) Airway: Adequate mouth opening, Adequate thyromental dist Mallampati: Mallampati IV Teeth: Normal Lung: Normal Heart: Normal ASA Physical Status ASA physical status: 3 Emergency: None Pre-operative Attestations Prior to commencing anesthesia and surgery, the patient was re-evaluated, there was verification of: *The patient's identity *The results of appropriate recent lab work and preoperative vital signs *The above evaluation not changing prior to induction *Anesthetic plan, risk benefits, alternative and complications discussed with patient/family; questions answered; patient/family understands, accepts and wishes to proceed. FLORENTINO TAN DO Sep 06, 2018 15:59
[2018-09-06] MEDS ORDERED: PROPOFOL 20 ML ONE (17:00)
[2018-09-06] MEDS ORDERED: MIDAZOLAM 1 MG/ML 2 ML INJ ONE (17:00)
[2018-09-06] MEDS ORDERED: LIDOCAINE 2% (SDV) 5 ML INJ ONE (17:00)
[2018-09-06] MEDS ORDERED: FENTAnyl 50 MCG/ML VIAL ONE (17:00)
--- NOTE | 2018-09-06 17:29 | PAC ---
Date/Time of Note Date/Time of Note DATE: 09/06/18 TIME: 17:29 Post-Anesthesia Notes Post-Anesthesia Note Last documented vital signs Vital Signs Date Temp Pulse Resp B/P (MAP) Pulse Ox O2 O2 Flow FiO2 Time Delivery Rate 09/06/18 98 90 18 150/60 98 Room Air 1730 Activity: WNL Respiratory function: WNL Cardiovascular function: WNL Mental status: Baseline Pain reasonably controlled: Yes Hydration appropriate: Yes Nausea/Vomiting absent: Yes FLORENTINO TAN DO Sep 06, 2018 17:29
[2018-09-06] MEDS: PANTOPRAZOLE 40 MG INJ IV SCH (18:49)
[2018-09-06] MEDS: ATORVASTATIN 40 MG TAB PO SCH (20:38)
[2018-09-06] MEDS: METOPROLOL 25 MG TAB PO SCH (20:38)
[2018-09-06] MEDS: INSULIN GLARGINE [LANTus] (100 UNITS/ML) SYG SC SCH (20:41)
[2018-09-07] MEDS: HYDROCODONE/APAP (5/325) TAB PO PRN (00:19)
[2018-09-07 02:00] VITALS: BP 159/80; PULSE 82; RESP 17
[2018-09-07] MEDS: ACCU-CHEK XX SCH (02:00)
[2018-09-07] MEDS: METOCLOPRAMIDE 10 MG INJ IV SCH ×4 (05:36→18:44)
[2018-09-07] MEDS: PANTOPRAZOLE 40 MG INJ IV SCH ×3 (05:36→18:44)
[2018-09-07 07:27] VITALS: BP 187/87; PULSE 74; RESP 18
[2018-09-07] MEDS: AMLODIPINE 5 MG TAB PO SCH ×2 (07:33→20:26)
[2018-09-07] MEDS: METOPROLOL 25 MG TAB PO SCH ×2 (07:33→20:26)
[2018-09-07] MEDS: LISINOPRIL 20 MG TAB PO SCH (07:34)
[2018-09-07] MEDS ORDERED: POTASSIUM CHLORIDE (SR) 10 MEQ TAB PO ONE (08:00)
[2018-09-07] MEDS: INSULIN ASPART [NOVOLOG] 3 ML PEN SC SCH ×6 (08:00→20:28)
[2018-09-07] MEDS: POLYETHYLENE GLYCOL 17 GM PACKET PO SCH ×2 (08:18→20:28)
[2018-09-07] MEDS: FAMOTIDINE 20 MG TAB PO SCH (08:18)
[2018-09-07] MEDS: ASPIRIN (EC) 81 MG TAB PO SCH (08:18)
[2018-09-07] MEDS: HEPARIN 5,000 UNIT/1 ML VIAL SC SCH ×2 (08:23→20:27)
[2018-09-07] MEDS: SOD CHLORIDE 0.9% 1,000 ML IV SCH (08:30)
--- NOTE | 2018-09-07 09:13 | PN ---
Date/Time of Note Date/Time of Note DATE: 09/07/18 TIME: 09:05 Assessment/Plan VTE Prophylaxis Risk score (from Ns)>0 risk: 2 SCD applied (from Nsg): Yes Pharmacological prophylaxis: heparin Lines/Catheters IV Catheter Type (from Nrs): Saline Lock Urinary Cath still in place: No Assessment/Plan Hospital Course Summary Assessment and Plan: Assessment: Persistent nausea/vomiting EGD 09/06/2018 Multi-ringed esophagus. Rule out eosinophilic esophagitis. Biopsies obtained. Moderate diffuse gastritis. Rule out H. pylori infection, biopsies obtained. 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 -09/05/18- Prior infarcts of the left occipital, parietal, temporal, as well as a right cerebellar lobes. Hypertension Diabetes type 2 untreated Hyperlipidemia Plan: Increase Reglan to 10 mg IV q6hrs Await pathology results- if positive for EOE will start treatment accordingly- Continue PPI therapy Clear liquid diet for now Patient seen coloration with Dr. Mcadams Subjective: Course reviewed with nursing staff Patient interviewed and examined All labs, imaging and other results reviewed The patient feels well currently states he has increased n/v with eating to fast, encouraged to eat slower. and will need to need to eat prior to giving pain medication to help prevent adverse effects of nausea/vomiting. Will await for bx results prior to further recommendations. PHYSICAL EXAMINATION: GENERAL: Alert & oriented, in no acute distress SKIN: No lesions HEAD: Normocephalic, atraumatic, no tenderness. EYES: Pupils equal reactive to light and accommodation, no discharge. EARS/NOSE AND THROAT: Ears normal, nose normal, oropharynx normal. NECK: Supple, no masses. CHEST: Inspection within normal limits. CARDIOVASCULAR: Heart: Regular rate and rhythm RESPIRATORY: Lungs clear to auscultation GASTROINTESTINAL AND LIVER: Abdomen: Soft, non tenderness, non-distended, no hernias, no masses, no organomegaly, no ascites, no guarding, no rebound tenderness, normoactive bowel sounds. Rectal: Deferred. GENITOURINARY: Male genitalia within normal limits. EXTREMITIES: No cyanosis, clubbing or edema. Result Diagram: 09/07/18 0601 09/07/18 0601 Results 24hrs Laboratory Tests Test 09/06/18 12:56 09/06/18 16:05 09/06/18 18:45 09/06/18 20:36 Bedside Glucose 122 120 106 139 Test 09/07/18 06:01 White Blood Count 8.3 Red Blood Count 5.33 Hemoglobin 15.8 Hematocrit 44.5 Mean Corpuscular 83.5 Volume Mean Corpuscular 29.6 Hemoglobin Mean Corpuscular 35.5 Hemoglobin Concent Red Cell 12.6 Distribution Width Platelet Count 203 Mean Platelet Volume 11.4 H Immature 0.200 Granulocytes % Neutrophils % 80.5 H Lymphocytes % 10.1 L Monocytes % 8.6 Eosinophils % 0.1 Basophils % 0.5 Nucleated Red Blood 0.0 Cells % Immature 0.020 Granulocytes # Neutrophils # 6.6 Lymphocytes # 0.8 Monocytes # 0.7 Eosinophils # 0.0 Basophils # 0.0 Nucleated Red Blood 0.0 Cells # Sodium Level 138 Potassium Level 3.3 L Chloride Level 104 Carbon Dioxide Level 25 Anion Gap 9 Blood Urea Nitrogen 13 Creatinine 0.65 Est Glomerular > 60 Filtrat Rate mL/min Glucose Level 110 Calcium Level 8.6 Phosphorus Level 3.6 Magnesium Level 2.2 Exam/Review of Systems Exam Vitals Vital Signs Date Temp Pulse Resp B/P (MAP) Pulse Ox O2 O2 Flow FiO2 Time Delivery Rate 09/07/18 98.4 74 18 187/87 96 Room Air 07:27 (120) 09/06/18 2.0 17:48 Intake and Output 09/06/18 09/06/18 09/07/18 1515:00 23:00 07:00 IntakeIntake Total 225 ml 775 ml OutputOutput Total 250 ml BalanceBalance -250 ml 225 ml 775 ml Results Results 24hrs Laboratory Tests Test 09/06/18 12:56 09/06/18 16:05 09/06/18 18:45 09/06/18 20:36 Bedside Glucose 122 120 106 139 Test 09/07/18 06:01 White Blood Count 8.3 Red Blood Count 5.33 Hemoglobin 15.8 Hematocrit 44.5 Mean Corpuscular 83.5 Volume Mean Corpuscular 29.6 Hemoglobin Mean Corpuscular 35.5 Hemoglobin Concent Red Cell 12.6 Distribution Width Platelet Count 203 Mean Platelet Volume 11.4 H Immature 0.200 Granulocytes % Neutrophils % 80.5 H Lymphocytes % 10.1 L Monocytes % 8.6 Eosinophils % 0.1 Basophils % 0.5 Nucleated Red Blood 0.0 Cells % Immature 0.020 Granulocytes # Neutrophils # 6.6 Lymphocytes # 0.8 Monocytes # 0.7 Eosinophils # 0.0 Basophils # 0.0 Nucleated Red Blood 0.0 Cells # Sodium Level 138 Potassium Level 3.3 L Chloride Level 104 Carbon Dioxide Level 25 Anion Gap 9 Blood Urea Nitrogen 13 Creatinine 0.65 Est Glomerular > 60 Filtrat Rate mL/min Glucose Level 110 Calcium Level 8.6 Phosphorus Level 3.6 Magnesium Level 2.2 Medications Medication Current Medications IV Flush (NS 3 ml) 3 ml PER PROTOCOL IV ; Start 08/31/18 at 11:00 Ondansetron HCl (Zofran Inj) 4 mg Q6H PRN IV NAUSEA/VOMITING Last administered on 09/05/18 11:30; Admin Dose 4 MG; Start 08/31/18 at 11:00 Acetaminophen (Tylenol Tab) 650 mg Q6H PRN PO .PAIN 1-3 OR TEMP; Start 08/31/18 at 11:00 Acetaminophen/ Hydrocodone Bitart ([place] (5/325)) 1 tab Q6H PRN PO .MOD PAIN 4- 6 Last administered on 09/03/18at 20:14; Admin Dose 1 TAB; Start 08/31/18 at 11:00 Acetaminophen/ Hydrocodone Bitart ([place] (5/325)) 2 tab Q6H PRN PO .SEVERE PAIN 7-10 Last administered on 09/07/18 00:19; Admin Dose 2 TAB; Start 08/31/18 at 11:00 Morphine Sulfate (morphine) 2 mg Q4H PRN IV .SEVERE PAIN 7-10 Last administered on 09/06/18at 13:50; Admin Dose 2 MG; Start 08/31/18 at 11:00 Famotidine (Pepcid) 20 mg Q12 PO Last administered on 09/07/18 08:18; Admin Dose 20 MG; Start 08/31/18 at 21:00 Hydralazine HCl (Apresoline) 10 mg Q4H PRN IV sbp>160 Last administered on 09/06/18 18:57; Admin Dose 10 MG; Start 08/31/18 at 11:00 Atorvastatin Calcium (Lipitor) 40 mg HS PO Last administered on 09/06/18 20:38; Admin Dose 40 MG; Start 08/31/18 at 21:00 Aspirin (Halfprin) 81 mg DAILY PO Last administered on 09/07/18 08:18; Admin Dose 81 MG; Start 09/01/18 at 09:00 Heparin Sodium (Porcine) (Heparin (5000 Units/1ml)) 5,000 unit BID SC Last administered on 09/07/18 08:23; Admin Dose 5,000 UNIT; Start 08/31/18 at 21:00 Diagnostic Test (Pha) (Accu-Chek) 1 ea 02 XX Last administered on 09/04/18at 02:02; Admin Dose 1 EA; Start 09/01/18 at 02:00 Miscellaneous Information 1 ea NOTE XX ; Start 08/31/18 at 13:30 Glucose (Glutose) 15 gm Q15M PRN PO DECREASED GLUCOSE; Start 08/31/18 at 13:30 Glucose (Glutose) 22.5 gm Q15M PRN PO DECREASED GLUCOSE; Start 08/31/18 at 13:30 Dextrose (D50w Syringe) 25 ml Q15M PRN IV DECREASED GLUCOSE; Start 08/31/18 at 13:30 Dextrose (D50w Syringe) 50 ml Q15M PRN IV DECREASED GLUCOSE; Start 08/31/18 at 13:30 Glucagon (Glucagen) 1 mg Q15M PRN IM DECREASED GLUCOSE; Start 08/31/18 at 13:30 Glucose (Glutose) 15 gm Q15M PRN BUCCAL DECREASED GLUCOSE; Start 08/31/18 at 13:30 Amlodipine Besylate (Norvasc) 5 mg BID PO Last administered on 09/07/18at 07:33; Admin Dose 5 MG; Start 09/01/18 at 21:00 Insulin Glargine (Lantus) 14 units DAILY@2000 SC Last administered on 09/06/18 20:41; Admin Dose 14 UNITS; Start 09/01/18 at 20:00 Insulin Aspart (Novolog Insulin Pen) 4 unit WITH MEALS SC Last administered on 09/07/18 09:02; Admin Dose 4 UNIT; Start 09/01/18 at 18:00 Polyethylene Glycol (Miralax) 17 gm BID PO Last administered on 09/07/18 08:18; Admin Dose 17 GM; Start 09/04/18 at 21:00 Bisacodyl (Dulcolax) 10 mg DAILY PRN PO CONSTIPATION Last administered on 09/04/18 13:14; Admin Dose 10 MG; Start 09/04/18 at 12:30 Lisinopril (Zestril) 40 mg DAILY PO Last administered on 09/07/18at 07:34; Admin Dose 40 MG; Start 09/05/18 at 09:00 Metformin HCl (Glucophage) 500 mg BID WITH MEALS PO Last administered on 09/05/18at 17:33; Admin Dose 500 MG; Start 09/04/18 at 18:00; Status Hold Sodium Chloride 1,000 ml @ 75 mls/hr [id number] IV Last administered on 09/06/18at 23:54; Admin Dose 75 MLS/HR; Start 09/05/18 at 16:30 Metoprolol Tartrate (Lopressor) 12.5 mg BID PO Last administered on 09/07/18at 07:33; Admin Dose 12.5 MG; Start 09/06/18 at 21:00 Metoclopramide HCl (Reglan) 10 mg Q6 IV Last administered on 09/07/18at 05:36; Admin Dose 10 MG; Start 09/06/18 at 18:00 Pantoprazole (Protonix Iv) 40 mg BID@06,18 IV Last administered on 09/07/18at 05:36; Admin Dose 40 MG; Start 09/06/18 at 18:00 Insulin Aspart (Novolog Insulin Pen) NOVOLOG *MILD* ALGORITHM WITH MEALS BEDTIME SC ; Start 09/06/18 at 18:00 FABIAN CAMERON Sep 07, 2018 09:13
--- NOTE | 2018-09-07 11:40 | CONS ---
Assessment/Plan Assessment/Plan Assessment/Plan (Recall) 53 M c/ reported Hx of untreated DM2, HTN, HLD, and other comorbidities... who presents for evaluation of 4 days of headache and confusion. MRI brain confirmed an acute R cerebellar infarction... Now w/ episodic vomiting, likely a sequela of central vertigo 2/2 the above Surveillance head CT is without evidence of significant edema MRA shows scattered stenoses Echo is unremarkable A1C 8.4%; LDL 120 ESR 1, RPR neg, HIV neg P: Cont ASA/Lipitor daily for now PT/OT/ST as necessary Continued medical management per primary Will follow clinically Consultation Date/Type/Reason Admit Date/Time Aug 31, 2018 at 10:30 Type of Consult Neurology Reason for Consultation ams, stroke Requesting Provider: NEIDA ROBERTS NP Date/Time of Note DATE: 09/07/18 TIME: 11:40 24 HR Interval Summary Free Text/Dictation Continues acute care Exam/Review of Systems Exam Vitals Vital Signs Date Temp Pulse Resp B/P (MAP) Pulse Ox O2 O2 Flow FiO2 Time Delivery Rate 09/07/18 98.4 74 18 187/87 96 Room Air 07:27 (120) 09/06/18 2.0 17:48 Intake and Output 09/06/18 09/06/18 09/07/18 1515:00 23:00 07:00 IntakeIntake Total 225 ml 775 ml OutputOutput Total 250 ml BalanceBalance -250 ml 225 ml 775 ml Results Result Diagram: 09/07/18 0601 09/07/18 0601 Results 24hrs Laboratory Tests Test 09/06/18 12:56 09/06/18 16:05 09/06/18 18:45 09/06/18 20:36 Bedside Glucose 122 120 106 139 Test 09/07/18 06:01 09/07/18 08:17 White Blood Count 8.3 Red Blood Count 5.33 Hemoglobin 15.8 Hematocrit 44.5 Mean Corpuscular 83.5 Volume Mean Corpuscular 29.6 Hemoglobin Mean Corpuscular 35.5 Hemoglobin Concent Red Cell 12.6 Distribution Width Platelet Count 203 Mean Platelet Volume 11.4 H Immature 0.200 Granulocytes % Neutrophils % 80.5 H Lymphocytes % 10.1 L Monocytes % 8.6 Eosinophils % 0.1 Basophils % 0.5 Nucleated Red Blood 0.0 Cells % Immature 0.020 Granulocytes # Neutrophils # 6.6 Lymphocytes # 0.8 Monocytes # 0.7 Eosinophils # 0.0 Basophils # 0.0 Nucleated Red Blood 0.0 Cells # Sodium Level 138 Potassium Level 3.3 L Chloride Level 104 Carbon Dioxide Level 25 Anion Gap 9 Blood Urea Nitrogen 13 Creatinine 0.65 Est Glomerular > 60 Filtrat Rate mL/min Glucose Level 110 Calcium Level 8.6 Phosphorus Level 3.6 Magnesium Level 2.2 Bedside Glucose 127 Medications Medication Current Medications IV Flush (NS 3 ml) 3 ml PER PROTOCOL IV ; Start 08/31/18 at 11:00 Ondansetron HCl (Zofran Inj) 4 mg Q6H PRN IV NAUSEA/VOMITING Last administered on 09/05/18 11:30; Admin Dose 4 MG; Start 08/31/18 at 11:00 Acetaminophen (Tylenol Tab) 650 mg Q6H PRN PO .PAIN 1-3 OR TEMP; Start 08/31/18 at 11:00 Acetaminophen/ Hydrocodone Bitart ([place] (5/325)) 1 tab Q6H PRN PO .MOD PAIN 4- 6 Last administered on 09/03/18at 20:14; Admin Dose 1 TAB; Start 08/31/18 at 11:00 Acetaminophen/ Hydrocodone Bitart ([place] (5/325)) 2 tab Q6H PRN PO .SEVERE PAIN 7-10 Last administered on 09/07/18 00:19; Admin Dose 2 TAB; Start 08/31/18 at 11:00 Morphine Sulfate (morphine) 2 mg Q4H PRN IV .SEVERE PAIN 7-10 Last administered on 09/06/18 13:50; Admin Dose 2 MG; Start 08/31/18 at 11:00 Famotidine (Pepcid) 20 mg Q12 PO Last administered on 09/07/18 08:18; Admin Dose 20 MG; Start 08/31/18 at 21:00 Hydralazine HCl (Apresoline) 10 mg Q4H PRN IV sbp>160 Last administered on 09/06/18 18:57; Admin Dose 10 MG; Start 08/31/18 at 11:00 Atorvastatin Calcium (Lipitor) 40 mg HS PO Last administered on 09/06/18 20:38; Admin Dose 40 MG; Start 08/31/18 at 21:00 Aspirin (Halfprin) 81 mg DAILY PO Last administered on 09/07/18 08:18; Admin Dose 81 MG; Start 09/01/18 at 09:00 Heparin Sodium (Porcine) (Heparin (5000 Units/1ml)) 5,000 unit BID SC Last administered on 09/07/18 08:23; Admin Dose 5,000 UNIT; Start 08/31/18 at 21:00 Diagnostic Test (Pha) (Accu-Chek) 1 ea 02 XX Last administered on 09/04/18at 02:02; Admin Dose 1 EA; Start 09/01/18 at 02:00 Miscellaneous Information 1 ea NOTE XX ; Start 08/31/18 at 13:30 Glucose (Glutose) 15 gm Q15M PRN PO DECREASED GLUCOSE; Start 08/31/18 at 13:30 Glucose (Glutose) 22.5 gm Q15M PRN PO DECREASED GLUCOSE; Start 08/31/18 at 13:30 Dextrose (D50w Syringe) 25 ml Q15M PRN IV DECREASED GLUCOSE; Start 08/31/18 at 13:30 Dextrose (D50w Syringe) 50 ml Q15M PRN IV DECREASED GLUCOSE; Start 08/31/18 at 13:30 Glucagon (Glucagen) 1 mg Q15M PRN IM DECREASED GLUCOSE; Start 08/31/18 at 13:30 Glucose (Glutose) 15 gm Q15M PRN BUCCAL DECREASED GLUCOSE; Start 08/31/18 at 13:30 Amlodipine Besylate (Norvasc) 5 mg BID PO Last administered on 09/07/18 07:33; Admin Dose 5 MG; Start 09/01/18 at 21:00 Insulin Glargine (Lantus) 14 units DAILY@2000 SC Last administered on 09/06/18 20:41; Admin Dose 14 UNITS; Start 09/01/18 at 20:00 Insulin Aspart (Novolog Insulin Pen) 4 unit WITH MEALS SC Last administered on 09/07/18 09:02; Admin Dose 4 UNIT; Start 09/01/18 at 18:00 Polyethylene Glycol (Miralax) 17 gm BID PO Last administered on 09/07/18 08:18; Admin Dose 17 GM; Start 09/04/18 at 21:00 Bisacodyl (Dulcolax) 10 mg DAILY PRN PO CONSTIPATION Last administered on 6/24/19at 13:14; Admin Dose 10 MG; Start 09/04/18 at 12:30 Lisinopril (Zestril) 40 mg DAILY PO Last administered on 09/07/18at 07:34; Admin Dose 40 MG; Start 09/05/18 at 09:00 Metformin HCl (Glucophage) 500 mg BID WITH MEALS PO Last administered on 09/05/18at 17:33; Admin Dose 500 MG; Start 09/04/18 at 18:00; Status Hold Sodium Chloride 1,000 ml @ 75 mls/hr [id number] IV Last administered on 09/06/18at 23:54; Admin Dose 75 MLS/HR; Start 09/05/18 at 16:30 Metoprolol Tartrate (Lopressor) 12.5 mg BID PO Last administered on 09/07/18at 07:33; Admin Dose 12.5 MG; Start 09/06/18 at 21:00 Metoclopramide HCl (Reglan) 10 mg Q6 IV Last administered on 09/07/18at 05:36; Admin Dose 10 MG; Start 09/06/18 at 18:00 Pantoprazole (Protonix Iv) 40 mg BID@06,18 IV Last administered on 09/07/18at 05:36; Admin Dose 40 MG; Start 09/06/18 at 18:00 Insulin Aspart (Novolog Insulin Pen) NOVOLOG *MILD* ALGORITHM WITH MEALS BEDTIME SC ; Start 09/06/18 at 18:00 ELO DOBBS Sep 07, 2018 11:40
[2018-09-07 14:00] VITALS: BP 169/85; PULSE 78; RESP 18
[2018-09-07 14:19] VITALS: BP 111/59; PULSE 80; RESP 18
--- NOTE | 2018-09-07 15:58 | PN ---
Date/Time of Note Date/Time of Note DATE: 09/07/18 TIME: 15:55 Assessment/Plan VTE Prophylaxis Risk score (from Nsg)>0 risk: 2 SCD applied (from Nsg): Yes Pharmacological prophylaxis: heparin Lines/Catheters IV Catheter Type (from Nrsg): Saline Lock Urinary Cath still in place: No Assessment/Plan Hospital Course SUBJECTIVE: Poor oral intake. OBJECTIVE: Physical Exam General: Adequately build 53 year-old male lying in bed in no apparent distress. HEENT: Normocephalic, atraumatic. Eyes: Anicteric sclerae, conjunctivae clear. ENT: Nasal septum midline, oral mucosa moist. Neck supple, no JVD noticed. Respiratory: Bilaterally clear breath sounds. No use of accessory muscles of respiration. No adventitious breath sounds. Cardiovascular: S1, S2 heard. Regular rate and rhythm. Abdomen: Soft, nontender, and nondistended. Bowel sounds positive in all 4 quadrants. Genitourinary: Deferred. Extremities: No cyanosis, no clubbing, no edema. Peripheral pulses palpable. Neurologic: The patient is awake, alert, and oriented. Skin: Normal skin turgor. No skin rashes. Labs & Vitals per chart ASSESSMENT & PLAN 53-year-old male who denies any significant past medical history who came to the emergency room with chief complaint of headache and difficulty with ambulation, who was found to have evidence of underlying hypertensive emergency (BP 243/107) in the emergency room along with underlying hyperglycemia and CT of the brain showing possible early subacute infarcts of the right superior inferior cerebellar and was admitted to inpatient setting for further treatment and evaluation. 1. 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 Continue medical optimization. Continue aspirin and statins. PT, ST evaluation. 2. Hypertensive emergency. Continue antihypertensives. Adjust antihypertensives to obtain optimal blood pressure control. 3. Diabetes mellitus type 2. Newly diagnosed. Continue the patient on sliding scale insulin along with pre-meal insulin and basal insulin. Hold metformin because of intolerance. Diabetes education evaluation. 4. Persistent nausea/vomiting. Status post EGD on 09/06/2018 that showed multi-ringed esophagus and moderate diffuse gastritis. Continue prokinetics. Continue PPI. 5. H. pylori. Start eradication therapy. 6. Fluids, electrolytes, and nutrition. Clear liquid diet. 7. DVT prophylaxis. Subcutaneous heparin. 8. Plan. Continue physical therapy. Start H. pylori eradication therapy. Advancement of diet as per gastroenterology. Disposition: Home with home health once clinically stable. The patient was seen in collaboration with Dr. Eddy. Result Diagram: 09/07/18 0609/07/18 06 Results 24hrs Laboratory Tests Test 09/06/18 16:05 09/06/18 18:45 09/06/18 20:36 09/07/18 06:01 Bedside Glucose 120 106 139 White Blood Count 8.3 Red Blood Count 5.33 Hemoglobin 15.8 Hematocrit 44.5 Mean Corpuscular 83.5 Volume Mean Corpuscular 29.6 Hemoglobin Mean Corpuscular 35.5 Hemoglobin Concent Red Cell 12.6 Distribution Width Platelet Count 203 Mean Platelet Volume 11.4 H Immature 0.200 Granulocytes % Neutrophils % 80.5 H Lymphocytes % 10.1 L Monocytes % 8.6 Eosinophils % 0.1 Basophils % 0.5 Nucleated Red Blood 0.0 Cells % Immature 0.020 Granulocytes # Neutrophils # 6.6 Lymphocytes # 0.8 Monocytes # 0.7 Eosinophils # 0.0 Basophils # 0.0 Nucleated Red Blood 0.0 Cells # Sodium Level 138 Potassium Level 3.3 L Chloride Level 104 Carbon Dioxide Level 25 Anion Gap 9 Blood Urea Nitrogen 13 Creatinine 0.65 Est Glomerular > 60 Filtrat Rate mL/min Glucose Level 110 Calcium Level 8.6 Phosphorus Level 3.6 Magnesium Level 2.2 Test 09/07/18 08:17 09/07/18 13:05 Bedside Glucose 127 96 Exam/Review of Systems Exam Vitals Vital Signs Date Temp Pulse Resp B/P (MAP) Pulse Ox O2 O2 Flow FiO2 Time Delivery Rate 09/07/18 98.0 78 18 169/85 96 Room Air 14:00 (113) 09/06/18 2.0 17:48 Intake and Output 09/06/18 09/06/18 09/07/18 1515:00 23:00 07:00 IntakeIntake Total 225 ml 775 ml OutputOutput Total 250 ml BalanceBalance -250 ml 225 ml 775 ml Results Results 24hrs Laboratory Tests Test 09/06/18 16:05 09/06/18 18:45 09/06/18 20:36 09/07/18 06:01 Bedside Glucose 120 106 139 White Blood Count 8.3 Red Blood Count 5.33 Hemoglobin 15.8 Hematocrit 44.5 Mean Corpuscular 83.5 Volume Mean Corpuscular 29.6 Hemoglobin Mean Corpuscular 35.5 Hemoglobin Concent Red Cell 12.6 Distribution Width Platelet Count 203 Mean Platelet Volume 11.4 H Immature 0.200 Granulocytes % Neutrophils % 80.5 H Lymphocytes % 10.1 L Monocytes % 8.6 Eosinophils % 0.1 Basophils % 0.5 Nucleated Red Blood 0.0 Cells % Immature 0.020 Granulocytes # Neutrophils # 6.6 Lymphocytes # 0.8 Monocytes # 0.7 Eosinophils # 0.0 Basophils # 0.0 Nucleated Red Blood 0.0 Cells # Sodium Level 138 Potassium Level 3.3 L Chloride Level 104 Carbon Dioxide Level 25 Anion Gap 9 Blood Urea Nitrogen 13 Creatinine 0.65 Est Glomerular > 60 Filtrat Rate mL/min Glucose Level 110 Calcium Level 8.6 Phosphorus Level 3.6 Magnesium Level 2.2 Test 09/07/18 08:17 09/07/18 13:05 Bedside Glucose 127 96 Medications Medication Current Medications IV Flush (NS 3 ml) 3 ml PER PROTOCOL IV ; Start 08/31/18 at 11:00 Ondansetron HCl (Zofran Inj) 4 mg Q6H PRN IV NAUSEA/VOMITING Last administered on 09/05/18at 11:30; Admin Dose 4 MG; Start 08/31/18 at 11:00 Acetaminophen (Tylenol Tab) 650 mg Q6H PRN PO .PAIN 1-3 OR TEMP; Start 08/31/18 at 11:00 Acetaminophen/ Hydrocodone Bitart ([place] (5/325)) 1 tab Q6H PRN PO .MOD PAIN 4- 6 Last administered on 09/03/18at 20:14; Admin Dose 1 TAB; Start 08/31/18 at 11:00 Acetaminophen/ Hydrocodone Bitart ([place] (5/325)) 2 tab Q6H PRN PO .SEVERE PAIN 7-10 Last administered on 09/07/18at 00:19; Admin Dose 2 TAB; Start 08/31/18 at 11:00 Morphine Sulfate (morphine) 2 mg Q4H PRN IV .SEVERE PAIN 7-10 Last administered on 09/06/18at 13:50; Admin Dose 2 MG; Start 08/31/18 at 11:00 Famotidine (Pepcid) 20 mg Q12 PO Last administered on 09/07/18at 08:18; Admin Dose 20 MG; Start 08/31/18 at 21:00 Hydralazine HCl (Apresoline) 10 mg Q4H PRN IV sbp>160 Last administered on 09/06/18at 18:57; Admin Dose 10 MG; Start 08/31/18 at 11:00 Atorvastatin Calcium (Lipitor) 40 mg HS PO Last administered on 09/06/18at 20:38; Admin Dose 40 MG; Start 08/31/18 at 21:00 Aspirin (Halfprin) 81 mg DAILY PO Last administered on 09/07/18at 08:18; Admin Dose 81 MG; Start 09/01/18 at 09:00 Heparin Sodium (Porcine) (Heparin (5000 Units/1ml)) 5,000 unit BID SC Last administered on 09/07/18 08:23; Admin Dose 5,000 UNIT; Start 08/31/18 at 21:00 Diagnostic Test (Pha) (Accu-Chek) 1 ea 02 XX Last administered on 09/04/18at 02:02; Admin Dose 1 EA; Start 09/01/18 at 02:00 Miscellaneous Information 1 ea NOTE XX ; Start 08/31/18 at 13:30 Glucose (Glutose) 15 gm Q15M PRN PO DECREASED GLUCOSE; Start 08/31/18 at 13:30 Glucose (Glutose) 22.5 gm Q15M PRN PO DECREASED GLUCOSE; Start 08/31/18 at 13:30 Dextrose (D50w Syringe) 25 ml Q15M PRN IV DECREASED GLUCOSE; Start 08/31/18 at 13:30 Dextrose (D50w Syringe) 50 ml Q15M PRN IV DECREASED GLUCOSE; Start 08/31/18 at 13:30 Glucagon (Glucagen) 1 mg Q15M PRN IM DECREASED GLUCOSE; Start 08/31/18 at 13:30 Glucose (Glutose) 15 gm Q15M PRN BUCCAL DECREASED GLUCOSE; Start 08/31/18 at 13:30 Amlodipine Besylate (Norvasc) 5 mg BID PO Last administered on 09/07/18at 07:33; Admin Dose 5 MG; Start 09/01/18 at 21:00 Insulin Glargine (Lantus) 14 units DAILY@2000 SC Last administered on 09/06/18at 20:41; Admin Dose 14 UNITS; Start 09/01/18 at 20:00 Insulin Aspart (Novolog Insulin Pen) 4 unit WITH MEALS SC Last administered on 09/07/18 13:08; Admin Dose 4 UNIT; Start 09/01/18 at 18:00 Polyethylene Glycol (Miralax) 17 gm BID PO Last administered on 09/07/18at 08:18; Admin Dose 17 GM; Start 09/04/18 at 21:00 Bisacodyl (Dulcolax) 10 mg DAILY PRN PO CONSTIPATION Last administered on 09/04/18at 13:14; Admin Dose 10 MG; Start 09/04/18 at 12:30 Lisinopril (Zestril) 40 mg DAILY PO Last administered on 09/07/18at 07:34; Admin Dose 40 MG; Start 09/05/18 at 09:00 Metformin HCl (Glucophage) 500 mg BID WITH MEALS PO Last administered on 09/05/18at 17:33; Admin Dose 500 MG; Start 09/04/18 at 18:00; Status Hold Metoclopramide HCl (Reglan) 10 mg Q6 IV Last administered on 09/07/18at 05:36; Admin Dose 10 MG; Start 09/06/18 at 18:00 Pantoprazole (Protonix Iv) 40 mg BID@06,18 IV Last administered on 09/07/18at 05:36; Admin Dose 40 MG; Start 09/06/18 at 18:00 Insulin Aspart (Novolog Insulin Pen) NOVOLOG *MILD* ALGORITHM WITH MEALS BEDTIME SC ; Start 09/06/18 at 18:00 Metoprolol Tartrate (Lopressor) 25 mg BID PO ; Start 09/07/18 at 21:00 ASHOK BURNETT NP Sep 07, 2018 15:58
[2018-09-07] MEDS: hydrALAzine 20 MG INJ IV PRN (15:59)
[2018-09-07] MEDS: morphine 2 MG INJ IV PRN (19:13)
[2018-09-07 19:30] VITALS: BP 178/86; PULSE 104; RESP 19
[2018-09-07] MEDS: AMOXICILLIN 500 MG CAP PO SCH (20:25)
[2018-09-07] MEDS: CLARITHROMYCIN 500 MG TAB PO SCH (20:25)
[2018-09-07] MEDS: ATORVASTATIN 40 MG TAB PO SCH (20:26)
[2018-09-07] MEDS: INSULIN GLARGINE [LANTus] (100 UNITS/ML) SYG SC SCH (20:28)
[2018-09-07] MEDS ORDERED: ENALAPRILAT 1.25 MG INJ IV PRN (20:30)
[2018-09-07 23:07] VITALS: BP 158/84; PULSE 86
[2018-09-08] MEDS: METOCLOPRAMIDE 10 MG INJ IV SCH ×4 (00:43→17:11)
[2018-09-08] MEDS: ACCU-CHEK XX SCH (01:16)
[2018-09-08] MEDS ORDERED: LORAZEPAM 0.5 MG TAB PO ONE (01:30)
[2018-09-08] MEDS: hydrALAzine 20 MG INJ IV PRN (01:53)
[2018-09-08 02:11] VITALS: BP 177/85; PULSE 92; RESP 17
[2018-09-08 04:16] VITALS: BP 159/75; PULSE 83
[2018-09-08] MEDS: PANTOPRAZOLE 40 MG INJ IV SCH ×2 (05:21→17:11)
[2018-09-08 07:38] VITALS: BP 157/78; PULSE 94; RESP 18
[2018-09-08] MEDS: INSULIN ASPART [NOVOLOG] 3 ML PEN SC SCH ×4 (07:51→20:44)
[2018-09-08] MEDS: LISINOPRIL 20 MG TAB PO SCH (08:18)
[2018-09-08] MEDS: AMOXICILLIN 500 MG CAP PO SCH ×2 (08:18→20:41)
[2018-09-08] MEDS: CLARITHROMYCIN 500 MG TAB PO SCH ×2 (08:19→20:40)
[2018-09-08] MEDS: ASPIRIN (EC) 81 MG TAB PO SCH (08:19)
[2018-09-08] MEDS: AMLODIPINE 5 MG TAB PO SCH ×2 (08:19→20:40)
[2018-09-08] MEDS: POLYETHYLENE GLYCOL 17 GM PACKET PO SCH ×2 (08:19→20:41)
[2018-09-08] MEDS: METOPROLOL 25 MG TAB PO SCH ×2 (08:19→20:41)
[2018-09-08] MEDS: HEPARIN 5,000 UNIT/1 ML VIAL SC SCH ×2 (08:24→20:42)
--- NOTE | 2018-09-08 11:21 | CONS ---
Assessment/Plan Assessment/Plan Assessment/Plan (Recall) 53 M c/ reported Hx of untreated DM2, HTN, HLD, and other comorbidities... who presents for evaluation of 4 days of headache and confusion. MRI brain confirmed an acute R cerebellar infarction... Now w/ episodic vomiting, likely a sequela of central vertigo 2/2 the above Surveillance head CT is without evidence of significant edema MRA shows scattered stenoses Echo is unremarkable A1C 8.4%; LDL 120 ESR 1, RPR neg, HIV neg P: Cont ASA/Lipitor daily for now PT/OT/ST as necessary Continued medical management per primary Will follow clinically Consultation Date/Type/Reason Admit Date/Time Aug 31, 2018 at 10:30 Type of Consult Neurology Reason for Consultation ams, stroke Requesting Provider: NEIDA ROBERTS NP Date/Time of Note DATE: 09/08/18 TIME: 11:21 24 HR Interval Summary Free Text/Dictation Continues acute care Exam/Review of Systems Exam Vitals Vital Signs Date Temp Pulse Resp B/P (MAP) Pulse Ox O2 O2 Flow FiO2 Time Delivery Rate 09/08/18 98.2 94 18 157/78 99 07:38 (104) 09/07/18 Room Air 14:00 09/06/18 2.0 17:48 Intake and Output 09/07/18 09/07/18 09/08/18 1515:00 23:00 07:00 IntakeIntake Total 490 ml OutputOutput Total 1000 ml BalanceBalance -510 ml Results Result Diagram: 09/08/18 0430 09/08/18 0430 Results 24hrs Laboratory Tests Test 09/07/18 13:05 09/07/18 17:25 09/07/18 20:24 09/08/18 04:30 Bedside Glucose 96 98 133 White Blood Count 7.6 Red Blood Count 5.28 Hemoglobin 15.6 Hematocrit 44.3 Mean Corpuscular 83.9 Volume Mean Corpuscular 29.5 Hemoglobin Mean Corpuscular 35.2 Hemoglobin Concent Red Cell 12.2 Distribution Width Platelet Count 193 Mean Platelet Volume 11.7 H Immature 0.400 Granulocytes % Neutrophils % 82.9 H Lymphocytes % 8.3 L Monocytes % 8.0 Eosinophils % 0.0 Basophils % 0.4 Nucleated Red Blood 0.0 Cells % Immature 0.030 Granulocytes # Neutrophils # 6.3 Lymphocytes # 0.6 L Monocytes # 0.6 Eosinophils # 0.0 Basophils # 0.0 Nucleated Red Blood 0.0 Cells # Sodium Level 139 Potassium Level 3.3 L Chloride Level 105 Carbon Dioxide Level 27 Anion Gap 7 Blood Urea Nitrogen 13 Creatinine 0.64 Est Glomerular > 60 Filtrat Rate mL/min Glucose Level 87 Calcium Level 8.6 Phosphorus Level 3.7 Magnesium Level 2.3 Test 09/08/18 07:49 Bedside Glucose 89 Medications Medication Current Medications IV Flush (NS 3 ml) 3 ml PER PROTOCOL IV ; Start 08/31/18 at 11:00 Ondansetron HCl (Zofran Inj) 4 mg Q6H PRN IV NAUSEA/VOMITING Last administered on 09/05/18 11:30; Admin Dose 4 MG; Start 08/31/18 at 11:00 Acetaminophen (Tylenol Tab) 650 mg Q6H PRN PO .PAIN 1-3 OR TEMP; Start 08/31/18 at 11:00 Acetaminophen/ Hydrocodone Bitart ([place] (5/325)) 1 tab Q6H PRN PO .MOD PAIN 4- 6 Last administered on 09/03/18at 20:14; Admin Dose 1 TAB; Start 08/31/18 at 11:00 Acetaminophen/ Hydrocodone Bitart ([place] (5/325)) 2 tab Q6H PRN PO .SEVERE PAIN 7-10 Last administered on 09/07/18 00:19; Admin Dose 2 TAB; Start 08/31/18 at 11:00 Morphine Sulfate (morphine) 2 mg Q4H PRN IV .SEVERE PAIN 7-10 Last administered on 09/07/18at 19:13; Admin Dose 2 MG; Start 08/31/18 at 11:00 Hydralazine HCl (Apresoline) 10 mg Q4H PRN IV sbp>160 Last administered on 09/08/18at 01:53; Admin Dose 10 MG; Start 08/31/18 at 11:00 Atorvastatin Calcium (Lipitor) 40 mg HS PO Last administered on 09/07/18 20:26; Admin Dose 40 MG; Start 08/31/18 at 21:00 Aspirin (Halfprin) 81 mg DAILY PO Last administered on 09/08/18 08:19; Admin Dose 81 MG; Start 09/01/18 at 09:00 Heparin Sodium (Porcine) (Heparin (5000 Units/1ml)) 5,000 unit BID SC Last administered on 09/08/18 08:24; Admin Dose 5,000 UNIT; Start 08/31/18 at 21:00 Diagnostic Test (Pha) (Accu-Chek) 1 ea 02 XX Last administered on 09/04/18at 02:02; Admin Dose 1 EA; Start 09/01/18 at 02:00 Miscellaneous Information 1 ea NOTE XX ; Start 08/31/18 at 13:30 Glucose (Glutose) 15 gm Q15M PRN PO DECREASED GLUCOSE; Start 08/31/18 at 13:30 Glucose (Glutose) 22.5 gm Q15M PRN PO DECREASED GLUCOSE; Start 08/31/18 at 13:30 Dextrose (D50w Syringe) 25 ml Q15M PRN IV DECREASED GLUCOSE; Start 08/31/18 at 13:30 Dextrose (D50w Syringe) 50 ml Q15M PRN IV DECREASED GLUCOSE; Start 08/31/18 at 13:30 Glucagon (Glucagen) 1 mg Q15M PRN IM DECREASED GLUCOSE; Start 08/31/18 at 13:30 Glucose (Glutose) 15 gm Q15M PRN BUCCAL DECREASED GLUCOSE; Start 08/31/18 at 13:30 Amlodipine Besylate (Norvasc) 5 mg BID PO Last administered on 09/08/18 08:19; Admin Dose 5 MG; Start 09/01/18 at 21:00 Insulin Glargine (Lantus) 14 units DAILY@2000 SC Last administered on 09/07/18at 20:28; Admin Dose 14 UNITS; Start 09/01/18 at 20:00 Insulin Aspart (Novolog Insulin Pen) 4 unit WITH MEALS SC Last administered on 09/07/18 13:08; Admin Dose 4 UNIT; Start 09/01/18 at 18:00; Status Hold Polyethylene Glycol (Miralax) 17 gm BID PO Last administered on 09/08/18 08:19; Admin Dose 17 GM; Start 09/04/18 at 21:00 Bisacodyl (Dulcolax) 10 mg DAILY PRN PO CONSTIPATION Last administered on 09/04/18 13:14; Admin Dose 10 MG; Start 09/04/18 at 12:30 Lisinopril (Zestril) 40 mg DAILY PO Last administered on 09/08/18 08:18; Admin Dose 40 MG; Start 09/05/18 at 09:00 Metformin HCl (Glucophage) 500 mg BID WITH MEALS PO Last administered on 09/05/18 17:33; Admin Dose 500 MG; Start 09/04/18 at 18:00; Status Hold Metoclopramide HCl (Reglan) 10 mg Q6 IV Last administered on 09/08/18 05:21; Admin Dose 10 MG; Start 09/06/18 at 18:00 Pantoprazole (Protonix Iv) 40 mg BID@18 IV Last administered on 09/08/18 05:21; Admin Dose 40 MG; Start 09/06/18 at 18:00 Insulin Aspart (Novolog Insulin Pen) NOVOLOG *MILD* ALGORITHM WITH MEALS BEDTIME SC ; Start 09/06/18 at 18:00 Metoprolol Tartrate (Lopressor) 25 mg BID PO Last administered on 09/08/18 08:19; Admin Dose 25 MG; Start 09/07/18 at 21:00 Clarithromycin (Biaxin) 500 mg BID PO Last administered on 09/08/18 08:19; Ad min Dose 500 MG; Start 09/07/18 at 21:00 Amoxicillin (Amoxicillin) 1,000 mg BID PO Last administered on 09/08/18 08:18; Admin Dose 1,000 MG; Start 09/07/18 at 21:00 Enalaprilat (Vasotec Iv) 1.25 mg Q6H PRN IV ELEVATED BLOOD PRESSURE; Start 09/07/18 at 20:30 ELO DOBBS Sep 08, 2018 11:21
[2018-09-08] MEDS: HYDROCODONE/APAP (5/325) TAB PO PRN (13:16)
[2018-09-08 14:00] VITALS: BP 146/73; PULSE 95; RESP 18
--- NOTE | 2018-09-08 15:06 | PN ---
Date/Time of Note Date/Time of Note DATE: 09/08/18 TIME: 15:05 Assessment/Plan VTE Prophylaxis Risk score (from Nsg)>0 risk: 1 SCD applied (from Nsg): Yes Pharmacological prophylaxis: heparin Lines/Catheters IV Catheter Type (from Nrsg): Peripheral IV Urinary Cath still in place: No Assessment/Plan Hospital Course SUBJECTIVE: Poor oral intake. OBJECTIVE: Physical Exam General: Adequately build 53 year-old male lying in bed in no apparent distress. HEENT: Normocephalic, atraumatic. Eyes: Anicteric sclerae, conjunctivae clear. ENT: Nasal septum midline, oral mucosa moist. Neck supple, no JVD noticed. Respiratory: Bilaterally clear breath sounds. No use of accessory muscles of respiration. No adventitious breath sounds. Cardiovascular: S1, S2 heard. Regular rate and rhythm. Abdomen: Soft, nontender, and nondistended. Bowel sounds positive in all 4 quad rants. Genitourinary: Deferred. Extremities: No cyanosis, no clubbing, no edema. Peripheral pulses palpable. Neurologic: The patient is awake, alert, and oriented. Skin: Normal skin turgor. No skin rashes. Labs & Vitals per chart ASSESSMENT & PLAN 53-year-old male who denies any significant past medical history who came to the emergency room with chief complaint of headache and difficulty with ambulation, who was found to have evidence of underlying hypertensive emergency (BP 243/107) in the emergency room along with underlying hyperglycemia and CT of the brain showing possible early subacute infarcts of the right superior inferior cerebellar and was admitted to inpatient setting for further treatment and evaluation. 1. 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 Continue medical optimization. Continue aspirin and statins. PT, ST evaluation. 2. Hypertensive emergency. Continue antihypertensives. Adjust antihypertensives to obtain optimal blood pressure control. 3. Diabetes mellitus type 2. Newly diagnosed. Continue the patient on sliding scale insulin along with pre-meal insulin and basal insulin. Hold metformin because of intolerance. Diabetes education evaluation. 4. Persistent nausea/vomiting. Status post EGD on 09/06/2018 that showed multi-ringed esophagus and moderate diffuse gastritis. Continue prokinetics. Continue PPI. 5. H. pylori. Started eradication therapy on 09/07/2018. 6. Fluids, electrolytes, and nutrition. Full liquid diet. 7. DVT prophylaxis. Subcutaneous heparin. 8. Plan. Continue physical therapy. Started H. pylori eradication therapy on 09/07/2018. Psych evaluation for possible underlying depression. Advancement of diet as per gastroenterology. Disposition: Home with home health once clinically stable. The patient was seen in collaboration with Dr. Eddy. Result Diagram: 09/08/18 0430 09/08/18 0430 Results 24hrs Laboratory Tests Test 09/07/18 17:25 09/07/18 20:24 09/08/18 04:30 09/08/18 07:49 Bedside Glucose 98 133 89 White Blood Count 7.6 Red Blood Count 5.28 Hemoglobin 15.6 Hematocrit 44.3 Mean Corpuscular 83.9 Volume Mean Corpuscular 29.5 Hemoglobin Mean Corpuscular 35.2 Hemoglobin Concent Red Cell 12.2 Distribution Width Platelet Count 193 Mean Platelet Volume 11.7 H Immature 0.400 Granulocytes % Neutrophils % 82.9 H Lymphocytes % 8.3 L Monocytes % 8.0 Eosinophils % 0.0 Basophils % 0.4 Nucleated Red Blood 0.0 Cells % Immature 0.030 Granulocytes # Neutrophils # 6.3 Lymphocytes # 0.6 L Monocytes # 0.6 Eosinophils # 0.0 Basophils # 0.0 Nucleated Red Blood 0.0 Cells # Sodium Level 139 Potassium Level 3.3 L Chloride Level 105 Carbon Dioxide Level 27 Anion Gap 7 Blood Urea Nitrogen 13 Creatinine 0.64 Est Glomerular > 60 Filtrat Rate mL/min Glucose Level 87 Calcium Level 8.6 Phosphorus Level 3.7 Magnesium Level 2.3 Test 09/08/18 11:34 Bedside Glucose 90 Exam/Review of Systems Exam Vitals Vital Signs Date Temp Pulse Resp B/P (MAP) Pulse Ox O2 O2 Flow FiO2 Time Delivery Rate 09/08/18 98.2 95 18 146/73 98 Room Air 14:00 (97) 09/06/18 2.0 17:48 Intake and Output 09/07/18 09/07/18 09/08/18 1515:00 23:00 07:00 IntakeIntake Total 490 ml OutputOutput Total 1000 ml BalanceBalance -510 ml Results Results 24hrs Laboratory Tests Test 09/07/18 17:25 09/07/18 20:24 09/08/18 04:30 09/08/18 07:49 Bedside Glucose 98 133 89 White Blood Count 7.6 Red Blood Count 5.28 Hemoglobin 15.6 Hematocrit 44.3 Mean Corpuscular 83.9 Volume Mean Corpuscular 29.5 Hemoglobin Mean Corpuscular 35.2 Hemoglobin Concent Red Cell 12.2 Distribution Width Platelet Count 193 Mean Platelet Volume 11.7 H Immature 0.400 Granulocytes % Neutrophils % 82.9 H Lymphocytes % 8.3 L Monocytes % 8.0 Eosinophils % 0.0 Basophils % 0.4 Nucleated Red Blood 0.0 Cells % Immature 0.030 Granulocytes # Neutrophils # 6.3 Lymphocytes # 0.6 L Monocytes # 0.6 Eosinophils # 0.0 Basophils # 0.0 Nucleated Red Blood 0.0 Cells # Sodium Level 139 Potassium Level 3.3 L Chloride Level 105 Carbon Dioxide Level 27 Anion Gap 7 Blood Urea Nitrogen 13 Creatinine 0.64 Est Glomerular > 60 Filtrat Rate mL/min Glucose Level 87 Calcium Level 8.6 Phosphorus Level 3.7 Magnesium Level 2.3 Test 09/08/18 11:34 Bedside Glucose 90 Medications Medication Current Medications IV Flush (NS 3 ml) 3 ml PER PROTOCOL IV ; Start 08/31/18 at 11:00 Ondansetron HCl (Zofran Inj) 4 mg Q6H PRN IV NAUSEA/VOMITING Last administered on 09/05/18 11:30; Admin Dose 4 MG; Start 08/31/18 at 11:00 Acetaminophen (Tylenol Tab) 650 mg Q6H PRN PO .PAIN 1-3 OR TEMP; Start 08/31/18 at 11:00 Acetaminophen/ Hydrocodone Bitart ([place] (5/325)) 1 tab Q6H PRN PO .MOD PAIN 4- 6 Last administered on 09/08/18at 13:16; Admin Dose 1 TAB; Start 08/31/18 at 11:00 Acetaminophen/ Hydrocodone Bitart ([place] (5/325)) 2 tab Q6H PRN PO .SEVERE PAIN 7-10 Last administered on 09/07/18 00:19; Admin Dose 2 TAB; Start 08/31/18 at 11:00 Morphine Sulfate (morphine) 2 mg Q4H PRN IV .SEVERE PAIN 7-10 Last administered on 09/07/18at 19:13; Admin Dose 2 MG; Start 08/31/18 at 11:00 Hydralazine HCl (Apresoline) 10 mg Q4H PRN IV sbp>160 Last administered on 09/08/18at 01:53; Admin Dose 10 MG; Start 08/31/18 at 11:00 Atorvastatin Calcium (Lipitor) 40 mg HS PO Last administered on 09/07/18 20:26; Admin Dose 40 MG; Start 08/31/18 at 21:00 Aspirin (Halfprin) 81 mg DAILY PO Last administered on 09/08/18 08:19; Admin Dose 81 MG; Start 09/01/18 at 09:00 Heparin Sodium (Porcine) (Heparin (5000 Units/1ml)) 5,000 unit BID SC Last administered on 09/08/18 08:24; Admin Dose 5,000 UNIT; Start 08/31/18 at 21:00 Diagnostic Test (Pha) (Accu-Chek) 1 ea 02 XX Last administered on 09/04/18 02:02; Admin Dose 1 EA; Start 09/01/18 at 02:00 Miscellaneous Information 1 ea NOTE XX ; Start 08/31/18 at 13:30 Glucose (Glutose) 15 gm Q15M PRN PO DECREASED GLUCOSE; Start 08/31/18 at 13:30 Glucose (Glutose) 22.5 gm Q15M PRN PO DECREASED GLUCOSE; Start 08/31/18 at 13:30 Dextrose (D50w Syringe) 25 ml Q15M PRN IV DECREASED GLUCOSE; Start 08/31/18 at 13:30 Dextrose (D50w Syringe) 50 ml Q15M PRN IV DECREASED GLUCOSE; Start 08/31/18 at 13:30 Glucagon (Glucagen) 1 mg Q15M PRN IM DECREASED GLUCOSE; Start 08/31/18 at 13:30 Glucose (Glutose) 15 gm Q15M PRN BUCCAL DECREASED GLUCOSE; Start 08/31/18 at 13:30 Amlodipine Besylate (Norvasc) 5 mg BID PO Last administered on 09/08/18 08:19; Admin Dose 5 MG; Start 09/01/18 at 21:00 Insulin Glargine (Lantus) 14 units DAILY@2000 SC Last administered on 09/07/18 20:28; Admin Dose 14 UNITS; Start 09/01/18 at 20:00 Insulin Aspart (Novolog Insulin Pen) 4 unit WITH MEALS SC Last administered on 09/07/18 13:08; Admin Dose 4 UNIT; Start 09/01/18 at 18:00; Status Hold Polyethylene Glycol (Miralax) 17 gm BID PO Last administered on 09/08/18 08:19; Admin Dose 17 GM; Start 09/04/18 at 21:00 Bisacodyl (Dulcolax) 10 mg DAILY PRN PO CONSTIPATION Last administered on 09/04/18 13:14; Admin Dose 10 MG; Start 09/04/18 at 12:30 Lisinopril (Zestril) 40 mg DAILY PO Last administered on 09/08/18 08:18; Admin Dose 40 MG; Start 09/05/18 at 09:00 Metformin HCl (Glucophage) 500 mg BID WITH MEALS PO Last administered on 09/05/18 17:33; Admin Dose 500 MG; Start 09/04/18 at 18:00; Status Hold Metoclopramide HCl (Reglan) 10 mg Q6 IV Last administered on 09/08/18 11:28; Admin Dose 10 MG; Start 09/06/18 at 18:00 Pantoprazole (Protonix Iv) 40 mg BID@18 IV Last administered on 09/08/18 05:21; Admin Dose 40 MG; Start 09/06/18 at 18:00 Insulin Aspart (Novolog Insulin Pen) NOVOLOG *MILD* ALGORITHM WITH MEALS BEDTIME SC ; Start 09/06/18 at 18:00 Metoprolol Tartrate (Lopressor) 25 mg BID PO Last administered on 09/08/18 08:19; Admin Dose 25 MG; Start 09/07/18 at 21:00 Clarithromycin (Biaxin) 500 mg BID PO Last administered on 09/08/18 08:19; Admin Dose 500 MG; Start 09/07/18 at 21:00 Amoxicillin (Amoxicillin) 1,000 mg BID PO Last administered on 09/08/18 08:18; Admin Dose 1,000 MG; Start 09/07/18 at 21:00 Enalaprilat (Vasotec Iv) 1.25 mg Q6H PRN IV ELEVATED BLOOD PRESSURE; Start 09/07/18 at 20:30 ASHOK BURNETT NP Sep 08, 2018 15:06
--- NOTE | 2018-09-08 15:29 | PN ---
Date/Time of Note Date/Time of Note DATE: 09/08/18 TIME: 15:24 Assessment/Plan VTE Prophylaxis Risk score (from Ns)>0 risk: 1 SCD applied (from Ns): Yes Pharmacological prophylaxis: heparin Lines/Catheters IV [facility] (from [facility] Peripheral IV Urinary Cath still in place: No Assessment/Plan Assessment/Plan Assessment: H. pylori gastritis Persistent nausea/vomiting EGD 09/06/2018 Multi-ringed esophagus. Rule out eosinophilic esophagitis. Biopsies obta ined. Moderate diffuse gastritis. Rule out H. pylori infection, biopsies obtained. 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 -09/05/18- Prior infarcts of the left occipital, parietal, temporal, as well as a right cerebellar lobes. Hypertension Diabetes type 2 untreated Hyperlipidemia Plan: Patient was started on H. pylori treatment yesterday Increase Reglan to 10 mg IV q6hrs Continue PPI therapy Continue full liquid diet Recommend breath test for H. pylori 1 month post treatment Patient seen coloration with Dr. Mcadams Subjective: Course reviewed with nursing staff Patient interviewed and examined All labs, imaging and other results reviewed The patient was started on H. pylori treatment yesterday. His appetite is slightly improved. He is tolerating full liquid diet well. Working with PT. Recommend breath test as an outpatient 1 month post treatment to check for H. pylori eradication. PHYSICAL EXAMINATION: GENERAL: Alert & oriented, in no acute distress SKIN: No lesions HEAD: Normocephalic, atraumatic, no tenderness. EYES: Pupils equal reactive to light and accommodation, no discharge. EARS/NOSE AND THROAT: Ears normal, nose normal, oropharynx normal. NECK: Supple, no masses. CHEST: Inspection within normal limits. CARDIOVASCULAR: Heart: Regular rate and rhythm RESPIRATORY: Lungs clear to auscultation GASTROINTESTINAL AND LIVER: Abdomen: Soft, non tenderness, non-distended, no hernias, no masses, no organomegaly, no ascites, no guarding, no rebound tenderness, normoactive bowel sounds. Rectal: Deferred. GENITOURINARY: Male genitalia within normal limits. EXTREMITIES: No cyanosis, clubbing or edema. Result Diagram: 09/08/18 0430 09/08/18 0430 Results 24hrs Laboratory Tests Test 09/07/18 17:25 09/07/18 20:24 09/08/18 04:30 09/08/18 07:49 Bedside Glucose 98 133 89 White Blood Count 7.6 Red Blood Count 5.28 Hemoglobin 15.6 Hematocrit 44.3 Mean Corpuscular 83.9 Volume Mean Corpuscular 29.5 Hemoglobin Mean Corpuscular 35.2 Hemoglobin Concent Red Cell 12.2 Distribution Width Platelet Count 193 Mean Platelet Volume 11.7 H Immature 0.400 Granulocytes % Neutrophils % 82.9 H Lymphocytes % 8.3 L Monocytes % 8.0 Eosinophils % 0.0 Basophils % 0.4 Nucleated Red Blood 0.0 Cells % Immature 0.030 Granulocytes # Neutrophils # 6.3 Lymphocytes # 0.6 L Monocytes # 0.6 Eosinophils # 0.0 Basophils # 0.0 Nucleated Red Blood 0.0 Cells # Sodium Level 139 Potassium Level 3.3 L Chloride Level 105 Carbon Dioxide Level 27 Anion Gap 7 Blood Urea Nitrogen 13 Creatinine 0.64 Est Glomerular > 60 Filtrat Rate mL/min Glucose Level 87 Calcium Level 8.6 Phosphorus Level 3.7 Magnesium Level 2.3 Test 09/08/18 11:34 Bedside Glucose 90 CC: ANITA MCADAMS MD ; Exam/Review of Systems Exam Vitals Vital Signs Date Temp Pulse Resp B/P (MAP) Pulse Ox O2 O2 Flow FiO2 Time Delivery Rate 09/08/18 98.2 95 18 146/73 98 Room Air 14:00 (97) 09/06/18 2.0 17:48 Intake and Output 09/07/18 09/07/18 09/08/18 1515:00 23:00 07:00 IntakeIntake Total 490 ml OutputOutput Total 1000 ml BalanceBalance -510 ml Results Results 24hrs Laboratory Tests Test 09/07/18 17:25 09/07/18 20:24 09/08/18 04:30 09/08/18 07:49 Bedside Glucose 98 133 89 White Blood Count 7.6 Red Blood Count 5.28 Hemoglobin 15.6 Hematocrit 44.3 Mean Corpuscular 83.9 Volume Mean Corpuscular 29.5 Hemoglobin Mean Corpuscular 35.2 Hemoglobin Concent Red Cell 12.2 Distribution Width Platelet Count 193 Mean Platelet Volume 11.7 H Immature 0.400 Granulocytes % Neutrophils % 82.9 H Lymphocytes % 8.3 L Monocytes % 8.0 Eosinophils % 0.0 Basophils % 0.4 Nucleated Red Blood 0.0 Cells % Immature 0.030 Granulocytes # Neutrophils # 6.3 Lymphocytes # 0.6 L Monocytes # 0.6 Eosinophils # 0.0 Basophils # 0.0 Nucleated Red Blood 0.0 Cells # Sodium Level 139 Potassium Level 3.3 L Chloride Level 105 Carbon Dioxide Level 27 Anion Gap 7 Blood Urea Nitrogen 13 Creatinine 0.64 Est Glomerular > 60 Filtrat Rate mL/min Glucose Level 87 Calcium Level 8.6 Phosphorus Level 3.7 Magnesium Level 2.3 Test 09/08/18 11:34 Bedside Glucose 90 Medications Medication Current Medications IV Flush (NS 3 ml) 3 ml PER PROTOCOL IV ; Start 08/31/18 at 11:00 Ondansetron HCl (Zofran Inj) 4 mg Q6H PRN IV NAUSEA/VOMITING Last administered on 09/05/18 11:30; Admin Dose 4 MG; Start 08/31/18 at 11:00 Acetaminophen (Tylenol Tab) 650 mg Q6H PRN PO .PAIN 1-3 OR TEMP; Start 08/31/18 at 11:00 Acetaminophen/ Hydrocodone Bitart ([place] (5/325)) 1 tab Q6H PRN PO .MOD PAIN 4- 6 Last administered on 09/08/18 13:16; Admin Dose 1 TAB; Start 08/31/18 at 11:00 Acetaminophen/ Hydrocodone Bitart ([place] (5/325)) 2 tab Q6H PRN PO .SEVERE PAIN 7-10 Last administered on 09/07/18 00:19; Admin Dose 2 TAB; Start 08/31/18 at 11:00 Morphine Sulfate (morphine) 2 mg Q4H PRN IV .SEVERE PAIN 7-10 Last administered on 09/07/18 19:13; Admin Dose 2 MG; Start 08/31/18 at 11:00 Hydralazine HCl (Apresoline) 10 mg Q4H PRN IV sbp>160 Last administered on 09/08/18 01:53; Admin Dose 10 MG; Start 08/31/18 at 11:00 Atorvastatin Calcium (Lipitor) 40 mg HS PO Last administered on 09/07/18 20:26; Admin Dose 40 MG; Start 08/31/18 at 21:00 Aspirin (Halfprin) 81 mg DAILY PO Last administered on 09/08/18 08:19; Admin Dose 81 MG; Start 09/01/18 at 09:00 Heparin Sodium (Porcine) (Heparin (5000 Units/1ml)) 5,000 unit BID SC Last administered on 09/08/18at 08:24; Admin Dose 5,000 UNIT; Start 08/31/18 at 21:00 Diagnostic Test (Pha) (Accu-Chek) 1 ea 02 XX Last administered on 09/04/18at 02:02; Admin Dose 1 EA; Start 09/01/18 at 02:00 Miscellaneous Information 1 ea NOTE XX ; Start 08/31/18 at 13:30 Glucose (Glutose) 15 gm Q15M PRN PO DECREASED GLUCOSE; Start 08/31/18 at 13:30 Glucose (Glutose) 22.5 gm Q15M PRN PO DECREASED GLUCOSE; Start 08/31/18 at 13:3 0 Dextrose (D50w Syringe) 25 ml Q15M PRN IV DECREASED GLUCOSE; Start 08/31/18 at 13:30 Dextrose (D50w Syringe) 50 ml Q15M PRN IV DECREASED GLUCOSE; Start 08/31/18 at 13:30 Glucagon (Glucagen) 1 mg Q15M PRN IM DECREASED GLUCOSE; Start 08/31/18 at 13:30 Glucose (Glutose) 15 gm Q15M PRN BUCCAL DECREASED GLUCOSE; Start 08/31/18 at 13:30 Amlodipine Besylate (Norvasc) 5 mg BID PO Last administered on 09/08/18at 08:19; Admin Dose 5 MG; Start 09/01/18 at 21:00 Insulin Glargine (Lantus) 14 units DAILY@2000 SC Last administered on 09/07/18at 20:28; Admin Dose 14 UNITS; Start 09/01/18 at 20:00 Insulin Aspart (Novolog Insulin Pen) 4 unit WITH MEALS SC Last administered on 09/07/18at 13:08; Admin Dose 4 UNIT; Start 09/01/18 at 18:00; Status Hold Polyethylene Glycol (Miralax) 17 gm BID PO Last administered on 09/08/18 08:19; Admin Dose 17 GM; Start 09/04/18 at 21:00 Bisacodyl (Dulcolax) 10 mg DAILY PRN PO CONSTIPATION Last administered on 09/04/18at 13:14; Admin Dose 10 MG; Start 09/04/18 at 12:30 Lisinopril (Zestril) 40 mg DAILY PO Last administered on 09/08/18 08:18; Admin Dose 40 MG; Start 09/05/18 at 09:00 Metformin HCl (Glucophage) 500 mg BID WITH MEALS PO Last administered on at 17:33; Admin Dose 500 MG; Start 09/04/18 at 18:00; Status Hold Metoclopramide HCl (Reglan) 10 mg Q6 IV Last administered on 09/08/18at 11:28; Admin Dose 10 MG; Start 09/06/18 at 18:00 Pantoprazole (Protonix Iv) 40 mg BID@,18 IV Last administered on 09/08/18 05:21; Admin Dose 40 MG; Start 09/06/18 at 18:00 Insulin Aspart (Novolog Insulin Pen) NOVOLOG *MILD* ALGORITHM WITH MEALS BEDTI ME SC ; Start 09/06/18 at 18:00 Metoprolol Tartrate (Lopressor) 25 mg BID PO Last administered on 09/08/18 08:19; Admin Dose 25 MG; Start 09/07/18 at 21:00 Clarithromycin (Biaxin) 500 mg BID PO Last administered on 09/08/18 08:19; Admin Dose 500 MG; Start 09/07/18 at 21:00 Amoxicillin (Amoxicillin) 1,000 mg BID PO Last administered on 09/08/18 08:18; Admin Dose 1,000 MG; Start 09/07/18 at 21:00 Enalaprilat (Vasotec Iv) 1.25 mg Q6H PRN IV ELEVATED BLOOD PRESSURE; Start 09/07/18 at 20:30 Potassium Chloride (Klor-Con 10) 30 meq ONCE ONCE PO ; Start 09/08/18 at 15:30; Stop 09/08/18 at 15:31 KULWINDER TOTH NP Sep 08, 2018 15:29
[2018-09-08] MEDS ORDERED: POTASSIUM CHLORIDE (SR) 10 MEQ TAB PO ONE (15:30)
[2018-09-08 19:47] VITALS: BP 146/79; PULSE 96; RESP 18
[2018-09-08] MEDS: ATORVASTATIN 40 MG TAB PO SCH (20:40)
[2018-09-08] MEDS: INSULIN GLARGINE [LANTus] (100 UNITS/ML) SYG SC SCH (20:43)
[2018-09-09] VITALS (8 sets, daily range): BP systolic 141–200; BP diastolic 71–90; PULSE 81–106; RESP 18
[2018-09-09] MEDS: METOCLOPRAMIDE 10 MG INJ IV SCH ×4 (00:34→17:40)
[2018-09-09] MEDS: ACCU-CHEK XX SCH (02:00)
[2018-09-09] MEDS: hydrALAzine 20 MG INJ IV PRN ×3 (02:23→21:40)
[2018-09-09] MEDS: PANTOPRAZOLE 40 MG INJ IV SCH (06:14)
[2018-09-09] MEDS: INSULIN ASPART [NOVOLOG] 3 ML PEN SC SCH ×4 (08:00→20:37)
[2018-09-09] MEDS: LISINOPRIL 20 MG TAB PO SCH (08:23)
[2018-09-09] MEDS: AMOXICILLIN 500 MG CAP PO SCH ×2 (08:24→20:11)
[2018-09-09] MEDS: AMLODIPINE 5 MG TAB PO SCH ×2 (08:24→20:12)
[2018-09-09] MEDS: CLARITHROMYCIN 500 MG TAB PO SCH ×2 (08:24→20:11)
[2018-09-09] MEDS: ASPIRIN (EC) 81 MG TAB PO SCH (08:25)
[2018-09-09] MEDS: POLYETHYLENE GLYCOL 17 GM PACKET PO SCH ×2 (08:25→20:13)
[2018-09-09] MEDS: METOPROLOL 25 MG TAB PO SCH ×2 (08:25→20:12)
[2018-09-09] MEDS: HEPARIN 5,000 UNIT/1 ML VIAL SC SCH ×2 (08:26→20:16)
--- NOTE | 2018-09-09 09:47 | CONS ---
Assessment/Plan Assessment/Plan Assessment/Plan (Recall) 53 M c/ reported Hx of untreated DM2, HTN, HLD, and other comorbidities... who presents for evaluation of 4 days of headache and confusion. MRI brain confirmed an acute R cerebellar infarction... Now w/ episodic vomiting, likely a sequela of central vertigo 2/2 the above Surveillance head CT is without evidence of significant edema MRA shows scattered stenoses Echo is unremarkable A1C 8.4%; LDL 120 ESR 1, RPR neg, HIV neg P: Cont ASA/Lipitor daily for now PT/OT/ST as necessary Continued medical management per primary Will follow clinically Consultation Date/Type/Reason Admit Date/Time Aug 31, 2018 at 10:30 Type of Consult Neurology Reason for Consultation ams, stroke Requesting Provider: NEIDA ROBERTS NP Date/Time of Note DATE: 09/09/18 TIME: 09:47 24 HR Interval Summary Free Text/Dictation Continues acute care Exam/Review of Systems Exam Vitals Vital Signs Date Temp Pulse Resp B/P (MAP) Pulse Ox O2 O2 Flow FiO2 Time Delivery Rate 09/09/18 98.9 102 18 164/77 93 Room Air 08:14 (106) 09/06/18 2.0 17:48 Intake and Output 09/08/18 09/08/18 09/09/18 1515:00 23:00 07:00 IntakeIntake Total 120 ml 240 ml BalanceBalance 120 ml 240 ml Results Result Diagram: 09/09/18 0439 09/09/18 0439 Results 24hrs Laboratory Tests Test 09/08/18 11:34 09/08/18 17:17 09/08/18 20:39 09/09/18 04:39 Bedside Glucose 90 97 100 White Blood Count 8.3 Red Blood Count 5.33 Hemoglobin 15.5 Hematocrit 44.4 Mean Corpuscular 83.3 Volume Mean Corpuscular 29.1 Hemoglobin Mean Corpuscular 34.9 Hemoglobin Concent Red Cell 12.1 Distribution Width Platelet Count 246 # Mean Platelet Volume 11.2 H Immature 0.500 H Granulocytes % Neutrophils % 82.1 H Lymphocytes % 7.3 L Monocytes % 9.6 Eosinophils % 0.1 Basophils % 0.4 Nucleated Red Blood 0.0 Cells % Immature 0.040 H Granulocytes # Neutrophils # 6.8 Lymphocytes # 0.6 L Monocytes # 0.8 Eosinophils # 0.0 Basophils # 0.0 Nucleated Red Blood 0.0 Cells # Sodium Level 139 Potassium Level 3.3 L Chloride Level 104 Carbon Dioxide Level 27 Anion Gap 8 Blood Urea Nitrogen 14 Creatinine 0.66 Est Glomerular > 60 Filtrat Rate mL/min Glucose Level 71 Calcium Level 8.7 Phosphorus Level 3.6 Magnesium Level 2.3 Test 09/09/18 08:11 09/09/18 08:30 09/09/18 08:54 09/09/18 09:13 Bedside Glucose 67 L 67 L 135 126 Medications Medication Current Medications IV Flush (NS 3 ml) 3 ml PER PROTOCOL IV ; Start 08/31/18 at 11:00 Ondansetron HCl (Zofran Inj) 4 mg Q6H PRN IV NAUSEA/VOMITING Last administered on 09/05/18 11:30; Admin Dose 4 MG; Start 08/31/18 at 11:00 Acetaminophen (Tylenol Tab) 650 mg Q6H PRN PO .PAIN 1-3 OR TEMP; Start 08/31/18 at 11:00 Acetaminophen/ Hydrocodone Bitart ([place] (5/325)) 1 tab Q6H PRN PO .MOD PAIN 4- 6 Last administered on 09/08/18 13:16; Admin Dose 1 TAB; Start 08/31/18 at 11:00 Acetaminophen/ Hydrocodone Bitart ([place] (5/325)) 2 tab Q6H PRN PO .SEVERE PAIN 7-10 Last administered on 09/07/18 00:19; Admin Dose 2 TAB; Start 08/31/18 at 11:00 Morphine Sulfate (morphine) 2 mg Q4H PRN IV .SEVERE PAIN 7-10 Last administered on 09/07/18 19:13; Admin Dose 2 MG; Start 08/31/18 at 11:00 Hydralazine HCl (Apresoline) 10 mg Q4H PRN IV sbp>160 Last administered on 09/09/18 08:55; Admin Dose 10 MG; Start 08/31/18 at 11:00 Atorvastatin Calcium (Lipitor) 40 mg HS PO Last administered on 09/08/18 20:40; Admin Dose 40 MG; Start 08/31/18 at 21:00 Aspirin (Halfprin) 81 mg DAILY PO Last administered on 09/09/18 08:25; Admin Dose 81 MG; Start 09/01/18 at 09:00 Heparin Sodium (Porcine) (Heparin (5000 Units/1ml)) 5,000 unit BID SC Last administered on 09/09/18at 08:26; Admin Dose 5,000 UNIT; Start 08/31/18 at 21:00 Diagnostic Test (Pha) (Accu-Chek) 1 ea 02 XX Last administered on 09/04/18at 02:02; Admin Dose 1 EA; Start 09/01/18 at 02:00 Miscellaneous Information 1 ea NOTE XX ; Start 08/31/18 at 13:30 Glucose (Glutose) 15 gm Q15M PRN PO DECREASED GLUCOSE; Start 08/31/18 at 13:30 Glucose (Glutose) 22.5 gm Q15M PRN PO DECREASED GLUCOSE; Start 08/31/18 at 13:30 Dextrose (D50w Syringe) 25 ml Q15M PRN IV DECREASED GLUCOSE; Start 08/31/18 at 13:30 Dextrose (D50w Syringe) 50 ml Q15M PRN IV DECREASED GLUCOSE; Start 08/31/18 at 13:30 Glucagon (Glucagen) 1 mg Q15M PRN IM DECREASED GLUCOSE; Start 08/31/18 at 13:30 Glucose (Glutose) 15 gm Q15M PRN BUCCAL DECREASED GLUCOSE; Start 08/31/18 at 13:30 Amlodipine Besylate (Norvasc) 5 mg BID PO Last administered on 09/09/18at 08:24; Admin Dose 5 MG; Start 09/01/18 at 21:00 Insulin Glargine (Lantus) 14 units DAILY@2000 SC Last administered on 09/08/18at 20:43; Admin Dose 14 UNITS; Start 09/01/18 at 20:00 Insulin Aspart (Novolog Insulin Pen) 4 unit WITH MEALS SC Last administered on 09/07/18 13:08; Admin Dose 4 UNIT; Start 09/01/18 at 18:00; Status Hold Polyethylene Glycol (Miralax) 17 gm BID PO Last administered on 09/09/18at 08:25; Admin Dose 17 GM; Start 09/04/18 at 21:00 Bisacodyl (Dulcolax) 10 mg DAILY PRN PO CONSTIPATION Last administered on 09/04/18at 13:14; Admin Dose 10 MG; Start 09/04/18 at 12:30 Lisinopril (Zestril) 40 mg DAILY PO Last administered on 09/09/18 08:23; Admin Dose 40 MG; Start 09/05/18 at 09:00 Metformin HCl (Glucophage) 500 mg BID WITH MEALS PO Last administered on 09/05/18 17:33; Admin Dose 500 MG; Start 09/04/18 at 18:00; Status Hold Metoclopramide HCl (Reglan) 10 mg Q6 IV Last administered on 09/09/18 06:14; Admin Dose 10 MG; Start 09/06/18 at 18:00 Pantoprazole (Protonix Iv) 40 mg BID@18 IV Last administered on 09/09/18 06:14; Admin Dose 40 MG; Start 09/06/18 at 18:00 Insulin Aspart (Novolog Insulin Pen) NOVOLOG *MILD* ALGORITHM WITH MEALS BEDTIME SC ; Start 09/06/18 at 18:00 Metoprolol Tartrate (Lopressor) 25 mg BID PO Last administered on 09/09/18 08:25; Admin Dose 25 MG; Start 09/07/18 at 21:00 Clarithromycin (Biaxin) 500 mg BID PO Last administered on 09/09/18 08:24; Admin Dose 500 MG; Start 09/07/18 at 21:00 Amoxicillin (Amoxicillin) 1,000 mg BID PO Last administered on 09/09/18 08:24; Admin Dose 1,000 MG; Start 09/07/18 at 21:00 Enalaprilat (Vasotec Iv) 1.25 mg Q6H PRN IV ELEVATED BLOOD PRESSURE; Start 09/07/18 at 20:30 ELO DOBBS Sep 09, 2018 09:47
[2018-09-09] MEDS ORDERED: POTASSIUM CHLORIDE (SR) 20 MEQ TAB PO STA (09:57)
[2018-09-09] MEDS: HYDROCODONE/APAP (5/325) TAB PO PRN (10:30)
--- NOTE | 2018-09-09 11:36 | PSY ---
Date/Time of Note Date/Time of Note DATE: 09/09/18 TIME: 11:30 Psychiatric Subjective Eval Consent Pt consented to telemedicine: No Subjective Evaluation Patient location: inpatient Chief Complaint: C/O H/A, ALTERED MENTAL STATUS FOR 4 DAYS; PT SLOW WITH RESPONSE, CONFUSED History of present illness Patient is a 53-year-old male with past medical history of increased headache and reported difficulty with ambulation. On a face to face evaluation, patient reprts anxiety, but denies sadness. He denies suicidal ideation and contracted for safety. Past psychiatric history Denies Hospitalization: other Medical history Problems Medical Problems: (1) Acute encephalopathy Status: Acute (2) Alcoholism Status: Acute (3) Cerebellar stroke Status: Acute Allergies: Coded Allergies: No Known Allergy (Unverified , 08/31/18) Substance Abuse Substance abuse history: No Prior substance abuse treatmen: No (Denies) Social History Marital status: DPA/Conservatorship: No Psychiatric Objective Eval Review of Systems: Review of Systems: Not Applicable Physical Examination: Appetite: Adequate Energy: Adequate Interest: Decreased Mental Status Examination: Appearance: Poor Hygiene Eye Contact: Fair Psychomotor Activity: Slow Behavior: Cooperative Speech: Soft AFFECT: Anxious Mood: Anxious Though Process: Linear Orientation: x3 Insight: Mild Judgement: Mild Attention Span: Distractible Laboratory Results Laboratory Tests Test 09/07/18 13:05 09/07/18 17:25 09/07/18 20:24 09/08/18 04:30 Bedside Glucose 96 mg/dL 98 mg/dL 133 mg/dL White Blood Count 7.6 10^3/ul Red Blood Count 5.28 10^6/ul Hemoglobin 15.6 g/dl Hematocrit 44.3 % Mean Corpuscular 83.9 fl Volume Mean Corpuscular 29.5 pg Hemoglobin Mean Corpuscular 35.2 g/dl Hemoglobin Concent Red Cell 12.2 % Distribution Width Platelet Count 193 10^3/UL Mean Platelet 11.7 fl Volume Immature 0.400 % Granulocytes % Neutrophils % 82.9 % Lymphocytes % 8.3 % Monocytes % 8.0 % Eosinophils % 0.0 % Basophils % 0.4 % Nucleated Red 0.0 /100WBC Blood Cells % Immature 0.030 10^3/ul Granulocytes # Neutrophils # 6.3 10^3/ul Lymphocytes # 0.6 10^3/ul Monocytes # 0.6 10^3/ul Eosinophils # 0.0 10^3/ul Basophils # 0.0 10^3/ul Nucleated Red 0.0 10^3/ul Blood Cells # Sodium Level 139 mmol/L Potassium Level 3.3 mmol/L Chloride Level 105 mmol/L Carbon Dioxide 27 mmol/L Level Anion Gap 7 Blood Urea 13 mg/dl Nitrogen Creatinine 0.64 mg/dl Est Glomerular > 60 mL/min Filtrat Rate mL/min Glucose Level 87 mg/dl Calcium Level 8.6 mg/dl Phosphorus Level 3.7 mg/dl Magnesium Level 2.3 mg/dl Test 09/08/18 07:49 09/08/18 11:34 09/08/18 17:17 09/08/18 20:39 Bedside Glucose 89 mg/dL 90 mg/dL 97 mg/dL 100 mg/dL Test 09/09/18 04:39 09/09/18 08:11 09/09/18 08:30 09/09/18 08:54 White Blood Count 8.3 10^3/ul Red Blood Count 5.33 10^6/ul Hemoglobin 15.5 g/dl Hematocrit 44.4 % Mean Corpuscular 83.3 fl Volume Mean Corpuscular 29.1 pg Hemoglobin Mean Corpuscular 34.9 g/dl Hemoglobin Concent Red Cell 12.1 % Distribution Width Platelet Count 246 10^3/UL Mean Platelet 11.2 fl Volume Immature 0.500 % Granulocytes % Neutrophils % 82.1 % Lymphocytes % 7.3 % Monocytes % 9.6 % Eosinophils % 0.1 % Basophils % 0.4 % Nucleated Red 0.0 /100WBC Blood Cells % Immature 0.040 10^3/ul Granulocytes # Neutrophils # 6.8 10^3/ul Lymphocytes # 0.6 10^3/ul Monocytes # 0.8 10^3/ul Eosinophils # 0.0 10^3/ul Basophils # 0.0 10^3/ul Nucleated Red 0.0 10^3/ul Blood Cells # Sodium Level 139 mmol/L Potassium Level 3.3 mmol/L Chloride Level 104 mmol/L Carbon Dioxide 27 mmol/L Level Anion Gap 8 Blood Urea 14 mg/dl Nitrogen Creatinine 0.66 mg/dl Est Glomerular > 60 mL/min Filtrat Rate mL/min Glucose Level 71 mg/dl Calcium Level 8.7 mg/dl Phosphorus Level 3.6 mg/dl Magnesium Level 2.3 mg/dl Bedside Glucose 67 mg/dL 67 mg/dL 135 mg/dL Test 09/09/18 09:13 Bedside Glucose 126 mg/dL Assessment and Plan Assessment/Diagnosis Diagnosis Anxiety NOS Recommendation/Plan Medication Management Continue Ativan as ordered Discharge Disposition: Other Legal Status: Voluntary (Does not meet criteria for 5150 hold) AWA HDEZ NP Sep 09, 2018 11:36
--- NOTE | 2018-09-09 13:39 | PN ---
Date/Time of Note Date/Time of Note DATE: 09/09/18 TIME: 13:38 Assessment/Plan VTE Prophylaxis Risk score (from Nsg)>0 risk: 3 SCD applied (from Nsg): Yes Pharmacological prophylaxis: heparin Lines/Catheters IV Catheter Type (from Nrsg): Peripheral IV Urinary Cath still in place: No Assessment/Plan Hospital Course SUBJECTIVE: Poor oral intake. Continues to remain lethargic. Denied any suicidal ideation. OBJECTIVE: Physical Exam General: Adequately build 53 year-old male lying in bed in no apparent distress. HEENT: Normocephalic, atraumatic. Eyes: Anicteric sclerae, conjunctivae clear. ENT: Nasal septum midline, oral mucosa moist. Neck supple, no JVD noticed. Respiratory: Bilaterally clear breath sounds. No use of accessory muscles of respiration. No adventitious breath sounds. Cardiovascular: S1, S2 heard. Regular rate and rhythm. Abdomen: Soft, nontender, and nondistended. Bowel sounds positive in all 4 quadrants. Genitourinary: Deferred. Extremities: No cyanosis, no clubbing, no edema. Peripheral pulses palpable. Neurologic: The patient is awake, alert, and oriented. Skin: Normal skin turgor. No skin rashes. Labs & Vitals per chart ASSESSMENT & PLAN 53-year-old male who denies any significant past medical history who came to the emergency room with chief complaint of headache and difficulty with ambulation, who was found to have evidence of underlying hypertensive emergency (BP 243/107) in the emergency room along with underlying hyperglycemia and CT of the brain showing possible early subacute infarcts of the right superior inferior cerebellar and was admitted to inpatient setting for further treatment and ev aluation. 1. 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 Continue medical optimization. Continue aspirin and statins. PT, ST evaluation. 2. Hypertensive emergency. Continue antihypertensives. Adjust antihypertensives to obtain optimal blood pressure control. 3. Diabetes mellitus type 2. Newly diagnosed. Continue the patient on sliding scale insulin along with basal insulin. Hold metformin because of intolerance. Diabetes education evaluation. 4. Persistent nausea/vomiting. Status post EGD on 09/06/2018 that showed multi-ringed esophagus and moderate diffuse gastritis. Continue prokinetics. Continue PPI. 5. H. pylori. Started eradication therapy on 09/07/2018. 6. Fluids, electrolytes, and nutrition. Full liquid diet. 7. DVT prophylaxis. Subcutaneous heparin. 8. Plan. Continue physical therapy. Started H. pylori eradication therapy on 09/07/2018. Advancement of diet as per gastroenterology. Disposition: Home with home health once clinically stable. The patient was seen in collaboration with Dr. Eddy. Result Diagram: 09/09/18 0439 09/09/18 0439 Results 24hrs Laboratory Tests Test 09/08/18 17:17 09/08/18 20:39 09/09/18 04:39 09/09/18 08:11 Bedside Glucose 97 100 67 L White Blood Count 8.3 Red Blood Count 5.33 Hemoglobin 15.5 Hematocrit 44.4 Mean Corpuscular 83.3 Volume Mean Corpuscular 29.1 Hemoglobin Mean Corpuscular 34.9 Hemoglobin Concent Red Cell 12.1 Distribution Width Platelet Count 246 # Mean Platelet Volume 11.2 H Immature 0.500 H Granulocytes % Neutrophils % 82.1 H Lymphocytes % 7.3 L Monocytes % 9.6 Eosinophils % 0.1 Basophils % 0.4 Nucleated Red Blood 0.0 Cells % Immature 0.040 H Granulocytes # Neutrophils # 6.8 Lymphocytes # 0.6 L Monocytes # 0.8 Eosinophils # 0.0 Basophils # 0.0 Nucleated Red Blood 0.0 Cells # Sodium Level 139 Potassium Level 3.3 L Chloride Level 104 Carbon Dioxide Level 27 Anion Gap 8 Blood Urea Nitrogen 14 Creatinine 0.66 Est Glomerular > 60 Filtrat Rate mL/min Glucose Level 71 Calcium Level 8.7 Phosphorus Level 3.6 Magnesium Level 2.3 Test 09/09/18 08:30 09/09/18 08:54 09/09/18 09:13 09/09/18 12:25 Bedside Glucose 67 L 135 126 129 Exam/Review of Systems Exam Vitals Vital Signs Date Temp Pulse Resp B/P (MAP) Pulse Ox O2 O2 Flow FiO2 Time Delivery Rate 09/09/18 98.9 102 18 164/77 93 Room Air 08:14 (106) 09/06/18 2.0 17:48 Intake and Output 09/08/18 09/08/18 09/09/18 1515:00 23:00 07:00 IntakeIntake Total 120 ml 240 ml BalanceBalance 120 ml 240 ml Results Results 24hrs Laboratory Tests Test 09/08/18 17:17 09/08/18 20:39 09/09/18 04:39 09/09/18 08:11 Bedside Glucose 97 100 67 L White Blood Count 8.3 Red Blood Count 5.33 Hemoglobin 15.5 Hematocrit 44.4 Mean Corpuscular 83.3 Volume Mean Corpuscular 29.1 Hemoglobin Mean Corpuscular 34.9 Hemoglobin Concent Red Cell 12.1 Distribution Width Platelet Count 246 # Mean Platelet Volume 11.2 H Immature 0.500 H Granulocytes % Neutrophils % 82.1 H Lymphocytes % 7.3 L Monocytes % 9.6 Eosinophils % 0.1 Basophils % 0.4 Nucleated Red Blood 0.0 Cells % Immature 0.040 H Granulocytes # Neutrophils # 6.8 Lymphocytes # 0.6 L Monocytes # 0.8 Eosinophils # 0.0 Basophils # 0.0 Nucleated Red Blood 0.0 Cells # Sodium Level 139 Potassium Level 3.3 L Chloride Level 104 Carbon Dioxide Level 27 Anion Gap 8 Blood Urea Nitrogen 14 Creatinine 0.66 Est Glomerular > 60 Filtrat Rate mL/min Glucose Level 71 Calcium Level 8.7 Phosphorus Level 3.6 Magnesium Level 2.3 Test 09/09/18 08:30 09/09/18 08:54 09/09/18 09:13 09/09/18 12:25 Bedside Glucose 67 L 135 126 129 Medications Medication Current Medications IV Flush (NS 3 ml) 3 ml PER PROTOCOL IV ; Start 08/31/18 at 11:00 Ondansetron HCl (Zofran Inj) 4 mg Q6H PRN IV NAUSEA/VOMITING Last administered on 09/05/18at 11:30; Admin Dose 4 MG; Start 08/31/18 at 11:00 Acetaminophen (Tylenol Tab) 650 mg Q6H PRN PO .PAIN 1-3 OR TEMP; Start 08/31/18 at 11:00 Acetaminophen/ Hydrocodone Bitart ([place] (5/325)) 1 tab Q6H PRN PO .MOD PAIN 4- 6 Last administered on 09/08/18at 13:16; Admin Dose 1 TAB; Start 08/31/18 at 11:00 Acetaminophen/ Hydrocodone Bitart ([place] (5/325)) 2 tab Q6H PRN PO .SEVERE PAIN 7-10 Last administered on 09/09/18at 10:30; Admin Dose 2 TAB; Start 08/31/18 at 11:00 Morphine Sulfate (morphine) 2 mg Q4H PRN IV .SEVERE PAIN 7-10 Last administered on 09/07/18 19:13; Admin Dose 2 MG; Start 08/31/18 at 11:00 Hydralazine HCl (Apresoline) 10 mg Q4H PRN IV sbp>160 Last administered on 09/09/18 08:55; Admin Dose 10 MG; Start 08/31/18 at 11:00 Atorvastatin Calcium (Lipitor) 40 mg HS PO Last administered on 09/08/18 20:40; Admin Dose 40 MG; Start 08/31/18 at 21:00 Aspirin (Halfprin) 81 mg DAILY PO Last administered on 09/09/18 08:25; Admin Dose 81 MG; Start 09/01/18 at 09:00 Heparin Sodium (Porcine) (Heparin (5000 Units/1ml)) 5,000 unit BID SC Last administered on 09/09/18 08:26; Admin Dose 5,000 UNIT; Start 08/31/18 at 21:00 Diagnostic Test (Pha) (Accu-Chek) 1 ea 02 XX Last administered on 09/04/18 02:02; Admin Dose 1 EA; Start 09/01/18 at 02:00 Miscellaneous Information 1 ea NOTE XX ; Start 08/31/18 at 13:30 Glucose (Glutose) 15 gm Q15M PRN PO DECREASED GLUCOSE; Start 08/31/18 at 13:30 Glucose (Glutose) 22.5 gm Q15M PRN PO DECREASED GLUCOSE; Start 08/31/18 at 13:30 Dextrose (D50w Syringe) 25 ml Q15M PRN IV DECREASED GLUCOSE; Start 08/31/18 at 13:30 Dextrose (D50w Syringe) 50 ml Q15M PRN IV DECREASED GLUCOSE; Start 08/31/18 at 13:30 Glucagon (Glucagen) 1 mg Q15M PRN IM DECREASED GLUCOSE; Start 08/31/18 at 13:30 Glucose (Glutose) 15 gm Q15M PRN BUCCAL DECREASED GLUCOSE; Start 08/31/18 at 13:30 Amlodipine Besylate (Norvasc) 5 mg BID PO Last administered on 09/09/18 08:24; Admin Dose 5 MG; Start 09/01/18 at 21:00 Insulin Glargine (Lantus) 14 units DAILY@2000 SC Last administered on 6/28/19at 20:43; Admin Dose 14 UNITS; Start 09/01/18 at 20:00 Insulin Aspart (Novolog Insulin Pen) 4 unit WITH MEALS SC Last administered on 09/07/18 13:08; Admin Dose 4 UNIT; Start 09/01/18 at 18:00; Status Hold Polyethylene Glycol (Miralax) 17 gm BID PO Last administered on 09/09/18 08:25; Admin Dose 17 GM; Start 09/04/18 at 21:00 Bisacodyl (Dulcolax) 10 mg DAILY PRN PO CONSTIPATION Last administered on 09/04/18 13:14; Admin Dose 10 MG; Start 09/04/18 at 12:30 Lisinopril (Zestril) 40 mg DAILY PO Last administered on 09/09/18 08:23; Admin Dose 40 MG; Start 09/05/18 at 09:00 Metformin HCl (Glucophage) 500 mg BID WITH MEALS PO Last administered on 09/05/18 17:33; Admin Dose 500 MG; Start 09/04/18 at 18:00; Status Hold Metoclopramide HCl (Reglan) 10 mg Q6 IV Last administered on 09/09/18 13:13; Admin Dose 10 MG; Start 09/06/18 at 18:00 Pantoprazole (Protonix Iv) 40 mg BID@,18 IV Last administered on 09/09/18 06:14; Admin Dose 40 MG; Start 09/06/18 at 18:00 Insulin Aspart (Novolog Insulin Pen) NOVOLOG *MILD* ALGORITHM WITH MEALS BEDTIME SC ; Start 09/06/18 at 18:00 Metoprolol Tartrate (Lopressor) 25 mg BID PO Last administered on 09/09/18 08:25; Admin Dose 25 MG; Start 09/07/18 at 21:00 Clarithromycin (Biaxin) 500 mg BID PO Last administered on 09/09/18 08:24; Admin Dose 500 MG; Start 09/07/18 at 21:00 Amoxicillin (Amoxicillin) 1,000 mg BID PO Last administered on 09/09/18 08:24; Admin Dose 1,000 MG; Start 09/07/18 at 21:00 Enalaprilat (Vasotec Iv) 1.25 mg Q6H PRN IV ELEVATED BLOOD PRESSURE; Start 09/07/18 at 20:30 ASHOK BURNETT NP 29, 2019 13:39
--- NOTE | 2018-09-09 14:59 | PN ---
Date/Time of Note Date/Time of Note DATE: 09/09/18 TIME: 14:53 Assessment/Plan VTE Prophylaxis Risk score (from Ns)>0 risk: 3 SCD applied (from Ns): Yes Pharmacological prophylaxis: heparin Lines/Catheters IV C[facility]ter Type (from [facility]): Peripheral IV Urinary Cath still in place: No Assessment/Plan Assessment/Plan Assessment: H. pylori gastritis Persistent nausea/vomiting EGD 09/06/2018 Multi-ringed esophagus. Rule out eosinophilic esophagitis. Biopsies obta ined. Moderate diffuse gastritis. Rule out H. pylori infection, biopsies obtained. 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 -09/05/18- Prior infarcts of the left occipital, parietal, temporal, as well as a right cerebellar lobes. Hypertension Diabetes type 2 untreated Hyperlipidemia Plan: Continue H. pylori treatment, antibiotics, PPI Increase Reglan to 10 mg IV q6hrs Continue PPI therapy Continue full liquid diet Recommend breath test for H. pylori 1 month post treatment Patient seen coloration with Dr. Mcadams Subjective: Course reviewed with nursing staff Patient interviewed and examined All labs, imaging and other results reviewed Patient reports he is tolerating full liquid diet well. He would like to eat s olid food. He denies abdominal pain, nausea or vomiting. He is on regimen for H Pylori. Recommend breath test as an outpatient 1 month post treatment to check for H. pylori eradication. Will advance diet. Discussed with patient and family. PHYSICAL EXAMINATION: GENERAL: Alert & oriented, in no acute distress SKIN: No lesions HEAD: Normocephalic, atraumatic, no tenderness. EYES: Pupils equal reactive to light and accommodation, no discharge. EARS/NOSE AND THROAT: Ears normal, nose normal, oropharynx normal. NECK: Supple, no masses. CHEST: Inspection within normal limits. CARDIOVASCULAR: Heart: Regular rate and rhythm RESPIRATORY: Lungs clear to auscultation GASTROINTESTINAL AND LIVER: Abdomen: Soft, non tenderness, non-distended, no hernias, no masses, no organomegaly, no ascites, no guarding, no rebound tenderness, normoactive bowel sounds. Rectal: Deferred. GENITOURINARY: Male genitalia within normal limits. EXTREMITIES: No cyanosis, clubbing or edema. Result Diagram: 09/09/18 0439 09/09/18 0439 Results 24hrs Laboratory Tests Test 09/08/18 17:17 09/08/18 20:39 09/09/18 04:39 09/09/18 08:11 Bedside Glucose 97 100 67 L White Blood Count 8.3 Red Blood Count 5.33 Hemoglobin 15.5 Hematocrit 44.4 Mean Corpuscular 83.3 Volume Mean Corpuscular 29.1 Hemoglobin Mean Corpuscular 34.9 Hemoglobin Concent Red Cell 12.1 Distribution Width Platelet Count 246 # Mean Platelet Volume 11.2 H Immature 0.500 H Granulocytes % Neutrophils % 82.1 H Lymphocytes % 7.3 L Monocytes % 9.6 Eosinophils % 0.1 Basophils % 0.4 Nucleated Red Blood 0.0 Cells % Immature 0.040 H Granulocytes # Neutrophils # 6.8 Lymphocytes # 0.6 L Monocytes # 0.8 Eosinophils # 0.0 Basophils # 0.0 Nucleated Red Blood 0.0 Cells # Sodium Level 139 Potassium Level 3.3 L Chloride Level 104 Carbon Dioxide Level 27 Anion Gap 8 Blood Urea Nitrogen 14 Creatinine 0.66 Est Glomerular > 60 Filtrat Rate mL/min Glucose Level 71 Calcium Level 8.7 Phosphorus Level 3.6 Magnesium Level 2.3 Test 09/09/18 08:30 09/09/18 08:54 09/09/18 09:13 09/09/18 12:25 Bedside Glucose 67 L 135 126 129 CC: ANITA MCADAMS MD ; Exam/Review of Systems Exam Vitals Vital Signs Date Temp Pulse Resp B/P (MAP) Pulse Ox O2 O2 Flow FiO2 Time Delivery Rate 09/09/18 98.0 81 18 141/76 100 14:39 (97) 09/09/18 Room Air 08:14 09/06/18 2.0 17:48 Intake and Output 09/08/18 09/08/18 09/09/18 1515:00 23:00 07:00 IntakeIntake Total 120 ml 240 ml BalanceBalance 120 ml 240 ml Results Results 24hrs Laboratory Tests Test 09/08/18 17:17 09/08/18 20:39 09/09/18 04:39 09/09/18 08:11 Bedside Glucose 97 100 67 L White Blood Count 8.3 Red Blood Count 5.33 Hemoglobin 15.5 Hematocrit 44.4 Mean Corpuscular 83.3 Volume Mean Corpuscular 29.1 Hemoglobin Mean Corpuscular 34.9 Hemoglobin Concent Red Cell 12.1 Distribution Width Platelet Count 246 # Mean Platelet Volume 11.2 H Immature 0.500 H Granulocytes % Neutrophils % 82.1 H Lymphocytes % 7.3 L Monocytes % 9.6 Eosinophils % 0.1 Basophils % 0.4 Nucleated Red Blood 0.0 Cells % Immature 0.040 H Granulocytes # Neutrophils # 6.8 Lymphocytes # 0.6 L Monocytes # 0.8 Eosinophils # 0.0 Basophils # 0.0 Nucleated Red Blood 0.0 Cells # Sodium Level 139 Potassium Level 3.3 L Chloride Level 104 Carbon Dioxide Level 27 Anion Gap 8 Blood Urea Nitrogen 14 Creatinine 0.66 Est Glomerular > 60 Filtrat Rate mL/min Glucose Level 71 Calcium Level 8.7 Phosphorus Level 3.6 Magnesium Level 2.3 Test 09/09/18 08:30 09/09/18 08:54 09/09/18 09:13 09/09/18 12:25 Bedside Glucose 67 L 135 126 129 Medications Medication Current Medications IV Flush (NS 3 ml) 3 ml PER PROTOCOL IV ; Start 08/31/18 at 11:00 Ondansetron HCl (Zofran Inj) 4 mg Q6H PRN IV NAUSEA/VOMITING Last administered on 09/05/18 11:30; Admin Dose 4 MG; Start 08/31/18 at 11:00 Acetaminophen (Tylenol Tab) 650 mg Q6H PRN PO .PAIN 1-3 OR TEMP; Start 08/31/18 at 11:00 Acetaminophen/ Hydrocodone Bitart ([place] (5/325)) 1 tab Q6H PRN PO .MOD PAIN 4- 6 Last administered on 09/08/18 13:16; Admin Dose 1 TAB; Start 08/31/18 at 11:00 Acetaminophen/ Hydrocodone Bitart ([place] (5/325)) 2 tab Q6H PRN PO .SEVERE PAIN 7-10 Last administered on 09/09/18 10:30; Admin Dose 2 TAB; Start 08/31/18 at 11:00 Morphine Sulfate (morphine) 2 mg Q4H PRN IV .SEVERE PAIN 7-10 Last administered on 09/07/18at 19:13; Admin Dose 2 MG; Start 08/31/18 at 11:00 Hydralazine HCl (Apresoline) 10 mg Q4H PRN IV sbp>160 Last administered on 09/09/18 08:55; Admin Dose 10 MG; Start 08/31/18 at 11:00 Atorvastatin Calcium (Lipitor) 40 mg HS PO Last administered on 09/08/18 20:40; Admin Dose 40 MG; Start 08/31/18 at 21:00 Aspirin (Halfprin) 81 mg DAILY PO Last administered on 09/09/18 08:25; Admin Dose 81 MG; Start 09/01/18 at 09:00 Heparin Sodium (Porcine) (Heparin (5000 Units/1ml)) 5,000 unit BID SC Last administered on 09/09/18 08:26; Admin Dose 5,000 UNIT; Start 08/31/18 at 21:00 Diagnostic Test (Pha) (Accu-Chek) 1 ea 02 XX Last administered on 09/04/18at 02:02; Admin Dose 1 EA; Start 09/01/18 at 02:00 Miscellaneous Information 1 ea NOTE XX ; Start 08/31/18 at 13:30 Glucose (Glutose) 15 gm Q15M PRN PO DECREASED GLUCOSE; Start 08/31/18 at 13:30 Glucose (Glutose) 22.5 gm Q15M PRN PO DECREASED GLUCOSE; Start 08/31/18 at 13:30 Dextrose (D50w Syringe) 25 ml Q15M PRN IV DECREASED GLUCOSE; Start 08/31/18 at 13:30 Dextrose (D50w Syringe) 50 ml Q15M PRN IV DECREASED GLUCOSE; Start 08/31/18 at 13:30 Glucagon (Glucagen) 1 mg Q15M PRN IM DECREASED GLUCOSE; Start 08/31/18 at 13:30 Glucose (Glutose) 15 gm Q15M PRN BUCCAL DECREASED GLUCOSE; Start 08/31/18 at 13:30 Amlodipine Besylate (Norvasc) 5 mg BID PO Last administered on 09/09/18 08:24; Admin Dose 5 MG; Start 09/01/18 at 21:00 Insulin Aspart (Novolog Insulin Pen) 4 unit WITH MEALS SC Last administered on 09/07/18 13:08; Admin Dose 4 UNIT; Start 09/01/18 at 18:00; Status Hold Polyethylene Glycol (Miralax) 17 gm BID PO Last administered on 09/09/18 08:25; Admin Dose 17 GM; Start 09/04/18 at 21:00 Bisacodyl (Dulcolax) 10 mg DAILY PRN PO CONSTIPATION Last administered on 13:14; Admin Dose 10 MG; Start 09/04/18 at 12:30 Lisinopril (Zestril) 40 mg DAILY PO Last administered on 09/09/18 08:23; Admin Dose 40 MG; Start 09/05/18 at 09:00 Metformin HCl (Glucophage) 500 mg BID WITH MEALS PO Last administered on 09/05/18 17:33; Admin Dose 500 MG; Start 09/04/18 at 18:00; Status Hold Metoclopramide HCl (Reglan) 10 mg Q6 IV Last administered on 09/09/18 13:13; Admin Dose 10 MG; Start 09/06/18 at 18:00 Pantoprazole (Protonix Iv) 40 mg BID@18 IV Last administered on 09/09/18 06:14; Admin Dose 40 MG; Start 09/06/18 at 18:00 Insulin Aspart (Novolog Insulin Pen) NOVOLOG *MILD* ALGORITHM WITH MEALS BEDTIME SC ; Start 09/06/18 at 18:00 Metoprolol Tartrate (Lopressor) 25 mg BID PO Last administered on 09/09/18 08:25; Admin Dose 25 MG; Start 09/07/18 at 21:00 Clarithromycin (Biaxin) 500 mg BID PO Last administered on 09/09/18 08:24; Admin Dose 500 MG; Start 09/07/18 at 21:00 Amoxicillin (Amoxicillin) 1,000 mg BID PO Last administered on 09/09/18 08:24; Admin Dose 1,000 MG; Start 09/07/18 at 21:00 Enalaprilat (Vasotec Iv) 1.25 mg Q6H PRN IV ELEVATED BLOOD PRESSURE; Start 09/07/18 at 20:30 Insulin Glargine (Lantus) 10 units DAILY@2000 SC ; Start 09/09/18 at 20:00 RYAN POSADAS NP Sep 09, 2018 14:59
[2018-09-09] MEDS: PANTOPRAZOLE (EC) 40 MG TAB PO SCH (17:40)
[2018-09-09] MEDS: ATORVASTATIN 40 MG TAB PO SCH (20:11)
[2018-09-09] MEDS: INSULIN GLARGINE [LANTus] (100 UNITS/ML) SYG SC SCH (20:36)
[2018-09-09] MEDS ORDERED: hydrALAzine 20 MG INJ IV ONE (22:30)
[2018-09-10] MEDS: METOCLOPRAMIDE 10 MG INJ IV SCH ×5 (00:40→23:22)
[2018-09-10 01:47] VITALS: BP 147/88; PULSE 98; RESP 18
[2018-09-10] MEDS: ACCU-CHEK XX SCH (02:12)
[2018-09-10] MEDS: PANTOPRAZOLE (EC) 40 MG TAB PO SCH ×2 (05:47→17:22)
[2018-09-10] MEDS ORDERED: POTASSIUM CHLORIDE (SR) 20 MEQ TAB PO ONE (06:39)
[2018-09-10 07:28] VITALS: BP 183/90; PULSE 100; RESP 18
[2018-09-10] MEDS: HYDROCODONE/APAP (5/325) TAB PO PRN (07:32)
[2018-09-10] MEDS: CLARITHROMYCIN 500 MG TAB PO SCH ×2 (08:16→20:29)
[2018-09-10] MEDS: AMOXICILLIN 500 MG CAP PO SCH ×2 (08:16→20:28)
[2018-09-10] MEDS: AMLODIPINE 5 MG TAB PO SCH ×2 (08:16→20:29)
[2018-09-10] MEDS: METOPROLOL 25 MG TAB PO SCH ×2 (08:17→20:30)
[2018-09-10] MEDS: POLYETHYLENE GLYCOL 17 GM PACKET PO SCH ×2 (08:17→20:34)
[2018-09-10] MEDS: LISINOPRIL 20 MG TAB PO SCH (08:17)
[2018-09-10] MEDS: ASPIRIN (EC) 81 MG TAB PO SCH (08:17)
[2018-09-10] MEDS: hydrALAzine 20 MG INJ IV PRN ×2 (08:18→20:36)
[2018-09-10] MEDS: INSULIN ASPART [NOVOLOG] 3 ML PEN SC SCH ×4 (08:20→20:35)
[2018-09-10] MEDS: HEPARIN 5,000 UNIT/1 ML VIAL SC SCH ×2 (08:20→20:39)
[2018-09-10 14:00] VITALS: BP 143/79; PULSE 81; RESP 18
--- NOTE | 2018-09-10 14:02 | PN ---
Date/Time of Note Date/Time of Note DATE: 09/10/18 TIME: 14:00 Assessment/Plan VTE Prophylaxis Risk score (from Nsg)>0 risk: 3 SCD applied (from Ns): No SCD contraindicated: other Pharmacological prophylaxis: heparin Lines/Catheters [facility] Peripheral IV Urinary Cath still in place: No Assessment/Plan Hospital Course SUBJECTIVE: Continues to remain in the bed. Hesitant to get up. Denies any nausea or vomiting. OBJECTIVE: Physical Exam General: Adequately build 53 year-old male lying in bed in no apparent distress. HEENT: Normocephalic, atraumatic. Eyes: Anicteric sclerae, conjunctivae clear. ENT: Nasal septum midline, oral mucosa moist. Neck supple, no JVD noticed. Respiratory: Bilaterally clear breath sounds. No use of accessory muscles of respiration. No adventitious breath sounds. Cardiovascular: S1, S2 heard. Regular rate and rhythm. Abdomen: Soft, nontender, and nondistended. Bowel sounds positive in all 4 quadrants. Genitourinary: Deferred. Extremities: No cyanosis, no clubbing, no edema. Peripheral pulses palpable. Neurologic: The patient is awake, alert, and oriented. Skin: Normal skin turgor. No skin rashes. Labs & Vitals per chart ASSESSMENT & PLAN 53-year-old male who denies any significant past medical history who came to the emergency room with chief complaint of headache and difficulty with ambulation, who was found to have evidence of underlying hypertensive emergency (BP 243/107) in the emergency room along with underlying hyperglycemia and CT of the brain showing possible early subacute infarcts of the right superior inferior cerebellar and was admitted to inpatient setting for further treatment and evaluation. 1. 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 Continue medical optimization. Continue aspirin and statins. PT, ST evaluation. 2. Hypertensive emergency. Continue antihypertensives. Adjust antihypertensives to obtain optimal blood pressure control. 3. Diabetes mellitus type 2. Newly diagnosed. Continue the patient on sliding scale insulin along with basal insulin. Hold metformin because of intolerance. Diabetes education evaluation. 4. Persistent nausea/vomiting. Status post EGD on 09/06/2018 that showed multi-ringed esophagus and moderate diffuse gastritis. Continue prokinetics. Continue PPI. 5. H. pylori. Started eradication therapy on 09/07/2018. 6. Fluids, electrolytes, and nutrition. Carbohydrate controlled diet. 7. DVT prophylaxis. Subcutaneous heparin. 8. Plan. Continue physical therapy. Started H. pylori eradication therapy on 09/07/2018. Disposition: Home with home health once clinically stable. The patient was seen in collaboration with Dr. Eddy. Result Diagram: 09/10/18 0433 09/10/18 0433 Results 24hrs Laboratory Tests Test 09/09/18 17:24 09/09/18 20:33 09/10/18 02:09 09/10/18 04:33 Bedside Glucose 248 H 221 H 136 White Blood Count 8.6 Red Blood Count 5.41 Hemoglobin 16.1 Hematocrit 45.4 Mean Corpuscular 83.9 Volume Mean Corpuscular 29.8 Hemoglobin Mean Corpuscular 35.5 Hemoglobin Concent Red Cell 12.3 Distribution Width Platelet Count 235 Mean Platelet Volume 11.2 H Immature 0.500 H Granulocytes % Neutrophils % 85.6 H Lymphocytes % 5.3 L Monocytes % 8.1 Eosinophils % 0.2 Basophils % 0.3 Nucleated Red Blood 0.0 Cells % Immature 0.040 H Granulocytes # Neutrophils # 7.4 Lymphocytes # 0.5 L Monocytes # 0.7 Eosinophils # 0.0 Basophils # 0.0 Nucleated Red Blood 0.0 Cells # Sodium Level 140 Potassium Level 3.3 L Chloride Level 103 Carbon Dioxide Level 27 Anion Gap 10 Blood Urea Nitrogen 10 Creatinine 0.66 Est Glomerular > 60 Filtrat Rate mL/min Glucose Level 128 # Calcium Level 8.9 Phosphorus Level 3.8 Magnesium Level 2.3 Test 09/10/18 08:14 09/10/18 12:25 Bedside Glucose 146 131 Exam/Review of Systems Exam Vitals Vital Signs Date Temp Pulse Resp B/P (MAP) Pulse Ox O2 O2 Flow FiO2 Time Delivery Rate 09/10/18 98.3 100 18 183/90 98 07:28 (121) 09/09/18 Room Air 08:14 09/06/18 2.0 17:48 Intake and Output 09/09/18 09/09/18 09/10/18 1515:00 23:00 07:00 IntakeIntake Total 360 ml 360 ml BalanceBalance 360 ml 360 ml Results Results 24hrs Laboratory Tests Test 09/09/18 17:24 09/09/18 20:33 09/10/18 02:09 09/10/18 04:33 Bedside Glucose 248 H 221 H 136 White Blood Count 8.6 Red Blood Count 5.41 Hemoglobin 16.1 Hematocrit 45.4 Mean Corpuscular 83.9 Volume Mean Corpuscular 29.8 Hemoglobin Mean Corpuscular 35.5 Hemoglobin Concent Red Cell 12.3 Distribution Width Platelet Count 235 Mean Platelet Volume 11.2 H Immature 0.500 H Granulocytes % Neutrophils % 85.6 H Lymphocytes % 5.3 L Monocytes % 8.1 Eosinophils % 0.2 Basophils % 0.3 Nucleated Red Blood 0.0 Cells % Immature 0.040 H Granulocytes # Neutrophils # 7.4 Lymphocytes # 0.5 L Monocytes # 0.7 Eosinophils # 0.0 Basophils # 0.0 Nucleated Red Blood 0.0 Cells # Sodium Level 140 Potassium Level 3.3 L Chloride Level 103 Carbon Dioxide Level 27 Anion Gap 10 Blood Urea Nitrogen 10 Creatinine 0.66 Est Glomerular > 60 Filtrat Rate mL/min Glucose Level 128 # Calcium Level 8.9 Phosphorus Level 3.8 Magnesium Level 2.3 Test 09/10/18 08:14 09/10/18 12:25 Bedside Glucose 146 131 Medications Medication Current Medications IV Flush (NS 3 ml) 3 ml PER PROTOCOL IV ; Start 08/31/18 at 11:00 Ondansetron HCl (Zofran Inj) 4 mg Q6H PRN IV NAUSEA/VOMITING Last administered on 09/05/18 11:30; Admin Dose 4 MG; Start 08/31/18 at 11:00 Acetaminophen (Tylenol Tab) 650 mg Q6H PRN PO .PAIN 1-3 OR TEMP; Start 08/31/18 at 11:00 Acetaminophen/ Hydrocodone Bitart ([place] (5/325)) 1 tab Q6H PRN PO .MOD PAIN 4- 6 Last administered on 09/08/18 13:16; Admin Dose 1 TAB; Start 08/31/18 at 11:00 Acetaminophen/ Hydrocodone Bitart ([place] (5/325)) 2 tab Q6H PRN PO .SEVERE PAIN 7-10 Last administered on 09/10/18 07:32; Admin Dose 2 TAB; Start 08/31/18 at 11:00 Morphine Sulfate (morphine) 2 mg Q4H PRN IV .SEVERE PAIN 7-10 Last administered on 09/07/18 19:13; Admin Dose 2 MG; Start 08/31/18 at 11:00 Hydralazine HCl (Apresoline) 10 mg Q4H PRN IV sbp>160 Last administered on 09/10/18 08:18; Admin Dose 10 MG; Start 08/31/18 at 11:00 Atorvastatin Calcium (Lipitor) 40 mg HS PO Last administered on 09/09/18 20:11; Admin Dose 40 MG; Start 08/31/18 at 21:00 Aspirin (Halfprin) 81 mg DAILY PO Last administered on 09/10/18 08:17; Admin Dose 81 MG; Start 09/01/18 at 09:00 Heparin Sodium (Porcine) (Heparin (5000 Units/1ml)) 5,000 unit BID SC Last administered on 09/10/18 08:20; Admin Dose 5,000 UNIT; Start 08/31/18 at 21:00 Diagnostic Test (Pha) (Accu-Chek) 1 ea 02 XX Last administered on 09/10/18at 02:12; Admin Dose 1 EA; Start 09/01/18 at 02:00 Miscellaneous Information 1 ea NOTE XX ; Start 08/31/18 at 13:30 Glucose (Glutose) 15 gm Q15M PRN PO DECREASED GLUCOSE; Start 08/31/18 at 13:30 Glucose (Glutose) 22.5 gm Q15M PRN PO DECREASED GLUCOSE; Start 08/31/18 at 13:30 Dextrose (D50w Syringe) 25 ml Q15M PRN IV DECREASED GLUCOSE; Start 08/31/18 at 13:30 Dextrose (D50w Syringe) 50 ml Q15M PRN IV DECREASED GLUCOSE; Start 08/31/18 at 13:30 Glucagon (Glucagen) 1 mg Q15M PRN IM DECREASED GLUCOSE; Start 08/31/18 at 13:30 Glucose (Glutose) 15 gm Q15M PRN BUCCAL DECREASED GLUCOSE; Start 08/31/18 at 13:30 Amlodipine Besylate (Norvasc) 5 mg BID PO Last administered on 09/10/18at 08:16; Admin Dose 5 MG; Start 09/01/18 at 21:00 Insulin Aspart (Novolog Insulin Pen) 4 unit WITH MEALS SC Last administered on 09/07/18at 13:08; Admin Dose 4 UNIT; Start 09/01/18 at 18:00; Status Hold Polyethylene Glycol (Miralax) 17 gm BID PO Last administered on 09/10/18 08:1 7; Admin Dose 17 GM; Start 09/04/18 at 21:00 Bisacodyl (Dulcolax) 10 mg DAILY PRN PO CONSTIPATION Last administered on 09/04/18 13:14; Admin Dose 10 MG; Start 09/04/18 at 12:30 Lisinopril (Zestril) 40 mg DAILY PO Last administered on 09/10/18 08:17; Admin Dose 40 MG; Start 09/05/18 at 09:00 Metformin HCl (Glucophage) 500 mg BID WITH MEALS PO Last administered on 09/05/18 17:33; Admin Dose 500 MG; Start 09/04/18 at 18:00; Status Hold Metoclopramide HCl (Reglan) 10 mg Q6 IV Last administered on 09/10/18 05:47; Admin Dose 10 MG; Start 09/06/18 at 18:00 Insulin Aspart (Novolog Insulin Pen) NOVOLOG *MILD* ALGORITHM WITH MEALS BEDTIME SC Last administered on 09/10/18 08:20; Admin Dose 1 UNIT; Start 09/06/18 at 18:00 Clarithromycin (Biaxin) 500 mg BID PO Last administered on 09/10/18 08:16; Admin Dose 500 MG; Start 09/07/18 at 21:00 Amoxicillin (Amoxicillin) 1,000 mg BID PO Last administered on 09/10/18 08:16; Admin Dose 1,000 MG; Start 09/07/18 at 21:00 Enalaprilat (Vasotec Iv) 1.25 mg Q6H PRN IV ELEVATED BLOOD PRESSURE; Start 09/07/18 at 20:30 Insulin Glargine (Lantus) 10 units DAILY@2000 SC Last administered on 09/09/18 20:36; Admin Dose 10 UNITS; Start 09/09/18 at 20:00 Pantoprazole (Protonix Tab) 40 mg BID@06,18 PO Last administered on 09/10/18 05:47; Admin Dose 40 MG; Start 09/09/18 at 18:00 Metoprolol Tartrate (Lopressor) 50 mg BID PO ; Start 09/10/18 at 21:00 ASHOK BURNETT NP Sep 10, 2018 14:02
--- NOTE | 2018-09-10 14:50 | PN ---
Date/Time of Note Date/Time of Note DATE: 09/10/18 TIME: 14:40 Assessment/Plan VTE Prophylaxis Risk score (from Ns)>0 risk: 3 SCD applied (from Ns): No SCD contraindicated: low risk/ambulating Pharmacological prophylaxis: heparin Lines/Catheters IV Catheter Type (from [facility]): Peripheral IV Urinary Cath still in place: No Assessment/Plan Assessment/Plan Assessment: H. pylori gastritis Persistent nausea/vomiting EGD 09/06/2018 Multi-ringed esophagus. Rule out eosinophilic esophagitis. Biopsies obtained. Moderate diffuse gastritis. Rule out H. pylori infection, biopsies obtained. 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 -09/05/18- Prior infarcts of the left occipital, parietal, temporal, as well as a right cerebellar lobes. Hypertension Diabetes type 2 untreated Hyperlipidemia Plan: Continue H. pylori treatment, antibiotics, PPI Continue Reglan Continue carbohydrate controlled regular diet Recommend breath test for H. pylori 1 month post treatment GI will sign off for now, please call with any further questions. Patient seen coloration with Dr. Mcadams Subjective: Course reviewed with nursing staff Patient interviewed and examined All labs, imaging and other results reviewed Patient reports he is tolerating diet. Denies nausea vomiting or abdominal pain. Discussed with patient and family. Continue current regimen. PHYSICAL EXAMINATION: GENERAL: Alert & oriented, in no acute distress SKIN: No lesions HEAD: Normocephalic, atraumatic, no tenderness. EYES: Pupils equal reactive to light and accommodation, no discharge. EARS/NOSE AND THROAT: Ears normal, nose normal, oropharynx normal. NECK: Supple, no masses. CHEST: Inspection within normal limits. CARDIOVASCULAR: Heart: Regular rate and rhythm RESPIRATORY: Lungs clear to auscultation GASTROINTESTINAL AND LIVER: Abdomen: Soft, non tenderness, non-distended, no hernias, no masses, no organomegaly, no ascites, no guarding, no rebound tenderness, normoactive bowel sounds. Rectal: Deferred. GENITOURINARY: Male genitalia within normal limits. EXTREMITIES: No cyanosis, clubbing or edema. Result Diagram: 09/10/18 0433 09/10/18 0433 Results 24hrs Laboratory Tests Test 09/09/18 17:24 09/09/18 20:33 09/10/18 02:09 09/10/18 04:33 Bedside Glucose 248 H 221 H 136 White Blood Count 8.6 Red Blood Count 5.41 Hemoglobin 16.1 Hematocrit 45.4 Mean Corpuscular 83.9 Volume Mean Corpuscular 29.8 Hemoglobin Mean Corpuscular 35.5 Hemoglobin Concent Red Cell 12.3 Distribution Width Platelet Count 235 Mean Platelet Volume 11.2 H Immature 0.500 H Granulocytes % Neutrophils % 85.6 H Lymphocytes % 5.3 L Monocytes % 8.1 Eosinophils % 0.2 Basophils % 0.3 Nucleated Red Blood 0.0 Cells % Immature 0.040 H Granulocytes # Neutrophils # 7.4 Lymphocytes # 0.5 L Monocytes # 0.7 Eosinophils # 0.0 Basophils # 0.0 Nucleated Red Blood 0.0 Cells # Sodium Level 140 Potassium Level 3.3 L Chloride Level 103 Carbon Dioxide Level 27 Anion Gap 10 Blood Urea Nitrogen 10 Creatinine 0.66 Est Glomerular > 60 Filtrat Rate mL/min Glucose Level 128 # Calcium Level 8.9 Phosphorus Level 3.8 Magnesium Level 2.3 Test 09/10/18 08:14 09/10/18 12:25 Bedside Glucose 146 131 CC: ANITA MCADAMS MD ; Exam/Review of Systems Exam Vitals Vital Signs Date Temp Pulse Resp B/P (MAP) Pulse Ox O2 O2 Flow FiO2 Time Delivery Rate 09/10/18 98.3 100 18 183/90 98 07:28 (121) 09/09/18 Room Air 08:14 09/06/18 2.0 17:48 Intake and Output 09/09/18 09/09/18 09/10/18 1515:00 23:00 07:00 IntakeIntake Total 360 ml 360 ml BalanceBalance 360 ml 360 ml Results Results 24hrs Laboratory Tests Test 09/09/18 17:24 09/09/18 20:33 09/10/18 02:09 09/10/18 04:33 Bedside Glucose 248 H 221 H 136 White Blood Count 8.6 Red Blood Count 5.41 Hemoglobin 16.1 Hematocrit 45.4 Mean Corpuscular 83.9 Volume Mean Corpuscular 29.8 Hemoglobin Mean Corpuscular 35.5 Hemoglobin Concent Red Cell 12.3 Distribution Width Platelet Count 235 Mean Platelet Volume 11.2 H Immature 0.500 H Granulocytes % Neutrophils % 85.6 H Lymphocytes % 5.3 L Monocytes % 8.1 Eosinophils % 0.2 Basophils % 0.3 Nucleated Red Blood 0.0 Cells % Immature 0.040 H Granulocytes # Neutrophils # 7.4 Lymphocytes # 0.5 L Monocytes # 0.7 Eosinophils # 0.0 Basophils # 0.0 Nucleated Red Blood 0.0 Cells # Sodium Level 140 Potassium Level 3.3 L Chloride Level 103 Carbon Dioxide Level 27 Anion Gap 10 Blood Urea Nitrogen 10 Creatinine 0.66 Est Glomerular > 60 Filtrat Rate mL/min Glucose Level 128 # Calcium Level 8.9 Phosphorus Level 3.8 Magnesium Level 2.3 Test 09/10/18 08:14 09/10/18 12:25 Bedside Glucose 146 131 Medications Medication Current Medications IV Flush (NS 3 ml) 3 ml PER PROTOCOL IV ; Start 08/31/18 at 11:00 Ondansetron HCl (Zofran Inj) 4 mg Q6H PRN IV NAUSEA/VOMITING Last administered on 09/05/18 11:30; Admin Dose 4 MG; Start 08/31/18 at 11:00 Acetaminophen (Tylenol Tab) 650 mg Q6H PRN PO .PAIN 1-3 OR TEMP; Start 08/31/18 at 11:00 Acetaminophen/ Hydrocodone Bitart ([place] (5/325)) 1 tab Q6H PRN PO .MOD PAIN 4- 6 Last administered on 09/08/18 13:16; Admin Dose 1 TAB; Start 08/31/18 at 11:00 Acetaminophen/ Hydrocodone Bitart ([place] (5/325)) 2 tab Q6H PRN PO .SEVERE PAIN 7-10 Last administered on 09/10/18 07:32; Admin Dose 2 TAB; Start 08/31/18 at 11:00 Morphine Sulfate (morphine) 2 mg Q4H PRN IV .SEVERE PAIN 7-10 Last administered on 09/07/18 19:13; Admin Dose 2 MG; Start 08/31/18 at 11:00 Hydralazine HCl (Apresoline) 10 mg Q4H PRN IV sbp>160 Last administered on 09/10/18 08:18; Admin Dose 10 MG; Start 08/31/18 at 11:00 Atorvastatin Calcium (Lipitor) 40 mg HS PO Last administered on 09/09/18 20:11; Admin Dose 40 MG; Start 08/31/18 at 21:00 Aspirin (Halfprin) 81 mg DAILY PO Last administered on 09/10/18 08:17; Admin Dose 81 MG; Start 09/01/18 at 09:00 Heparin Sodium (Porcine) (Heparin (5000 Units/1ml)) 5,000 unit BID SC Last administered on 09/10/18 08:20; Admin Dose 5,000 UNIT; Start 08/31/18 at 21:00 Diagnostic Test (Pha) (Accu-Chek) 1 ea 02 XX Last administered on 09/10/18 02:12; Admin Dose 1 EA; Start 09/01/18 at 02:00 Miscellaneous Information 1 ea NOTE XX ; Start 08/31/18 at 13:30 Glucose (Glutose) 15 gm Q15M PRN PO DECREASED GLUCOSE; Start 08/31/18 at 13:30 Glucose (Glutose) 22.5 gm Q15M PRN PO DECREASED GLUCOSE; Start 08/31/18 at 13:30 Dextrose (D50w Syringe) 25 ml Q15M PRN IV DECREASED GLUCOSE; Start 08/31/18 at 13:30 Dextrose (D50w Syringe) 50 ml Q15M PRN IV DECREASED GLUCOSE; Start 08/31/18 at 13:30 Glucagon (Glucagen) 1 mg Q15M PRN IM DECREASED GLUCOSE; Start 08/31/18 at 13:30 Glucose (Glutose) 15 gm Q15M PRN BUCCAL DECREASED GLUCOSE; Start 08/31/18 at 13:30 Amlodipine Besylate (Norvasc) 5 mg BID PO Last administered on 09/10/18 08:16; Admin Dose 5 MG; Start 09/01/18 at 21:00 Insulin Aspart (Novolog Insulin Pen) 4 unit WITH MEALS SC Last administered on 09/07/18 13:08; Admin Dose 4 UNIT; Start 09/01/18 at 18:00; Status Hold Polyethylene Glycol (Miralax) 17 gm BID PO Last administered on 09/10/18 08:17; Admin Dose 17 GM; Start 09/04/18 at 21:00 Bisacodyl (Dulcolax) 10 mg DAILY PRN PO CONSTIPATION Last administered on 09/04/18 13:14; Admin Dose 10 MG; Start 09/04/18 at 12:30 Lisinopril (Zestril) 40 mg DAILY PO Last administered on 09/10/18 08:17; Admin Dose 40 MG; Start 09/05/18 at 09:00 Metformin HCl (Glucophage) 500 mg BID WITH MEALS PO Last administered on 09/05/18 17:33; Admin Dose 500 MG; Start 09/04/18 at 18:00; Status Hold Metoclopramide HCl (Reglan) 10 mg Q6 IV Last administered on 09/10/18 05:47; Admin Dose 10 MG; Start 09/06/18 at 18:00 Insulin Aspart (Novolog Insulin Pen) NOVOLOG *MILD* ALGORITHM WITH MEALS BEDTIM E SC Last administered on 09/10/18 08:20; Admin Dose 1 UNIT; Start 09/06/18 at 18:00 Clarithromycin (Biaxin) 500 mg BID PO Last administered on 09/10/18 08:16; Admin Dose 500 MG; Start 09/07/18 at 21:00 Amoxicillin (Amoxicillin) 1,000 mg BID PO Last administered on 09/10/18 08:16; Admin Dose 1,000 MG; Start 09/07/18 at 21:00 Enalaprilat (Vasotec Iv) 1.25 mg Q6H PRN IV ELEVATED BLOOD PRESSURE; Start 09/07/18 at 20:30 Insulin Glargine (Lantus) 10 units DAILY@2000 SC Last administered on 09/09/18at 20:36; Admin Dose 10 UNITS; Start 09/09/18 at 20:00 Pantoprazole (Protonix Tab) 40 mg BID@06,18 PO Last administered on 09/10/18 05:47; Admin Dose 40 MG; Start 09/09/18 at 18:00 Metoprolol Tartrate (Lopressor) 50 mg BID PO ; Start 09/10/18 at 21:00 RYAN POSADAS NP Sep 10, 2018 14:50
[2018-09-10 20:00] VITALS: BP_SYST 152; BP_SYST 162; BP_DIAS 79; BP_DIAS 96; PULSE 81; PULSE 84; RESP 19
[2018-09-10] MEDS: ATORVASTATIN 40 MG TAB PO SCH (20:29)
[2018-09-10] MEDS: INSULIN GLARGINE [LANTus] (100 UNITS/ML) SYG SC SCH (20:40)
[2018-09-10 22:02] VITALS: BP 133/78; PULSE 74
[2018-09-11] MEDS ORDERED: LORAZEPAM 2 MG INJ IV ONE (00:57)
[2018-09-11] MEDS: ACCU-CHEK XX SCH (02:00)
[2018-09-11 02:05] VITALS: BP 117/79; PULSE 74; RESP 18
[2018-09-11] MEDS: METOCLOPRAMIDE 10 MG INJ IV SCH ×3 (05:23→17:25)
[2018-09-11] MEDS: PANTOPRAZOLE (EC) 40 MG TAB PO SCH ×2 (05:24→17:25)
[2018-09-11 07:24] VITALS: BP 140/70; PULSE 89; RESP 17
[2018-09-11] MEDS: INSULIN ASPART [NOVOLOG] 3 ML PEN SC SCH ×4 (08:00→20:34)
[2018-09-11] MEDS: LISINOPRIL 20 MG TAB PO SCH (08:31)
[2018-09-11] MEDS: CLARITHROMYCIN 500 MG TAB PO SCH ×2 (08:31→20:24)
[2018-09-11] MEDS: METOPROLOL 25 MG TAB PO SCH ×2 (08:31→20:26)
[2018-09-11] MEDS: AMOXICILLIN 500 MG CAP PO SCH ×2 (08:31→20:24)
[2018-09-11] MEDS: ASPIRIN (EC) 81 MG TAB PO SCH (08:32)
[2018-09-11] MEDS: AMLODIPINE 5 MG TAB PO SCH ×2 (08:32→20:25)
[2018-09-11] MEDS: POLYETHYLENE GLYCOL 17 GM PACKET PO SCH ×3 (08:32→20:38)
[2018-09-11] MEDS: HEPARIN 5,000 UNIT/1 ML VIAL SC SCH ×2 (08:33→20:34)
--- NOTE | 2018-09-11 10:50 | PN ---
Date/Time of Note Date/Time of Note DATE: 09/11/18 TIME: 10:48 Assessment/Plan VTE Prophylaxis Risk score (from Nsg)>0 risk: 2 SCD applied (from Nsg): Yes Pharmacological prophylaxis: heparin Lines/Catheters IV Catheter Type (from Nrsg): [place] Urinary Cath still in place: No Assessment/Plan Hospital Course SUBJECTIVE: Continues to remain in the bed. Hesitant to get up. Denies any nausea or vomiting. OBJECTIVE: Physical Exam General: Adequately build 53 year-old male lying in bed in no apparent distress. HEENT: Normocephalic, atraumatic. Eyes: Anicteric sclerae, conjunctivae clear. ENT: Nasal septum midline, oral mucosa moist. Neck supple, no JVD noticed. Respiratory: Bilaterally clear breath sounds. No use of accessory muscles of respiration. No adventitious breath sounds. Cardiovascular: S1, S2 heard. Regular rate and rhythm. Abdomen: Soft, nontender, and nondistended. Bowel sounds positive in all 4 quadrants. Genitourinary: Deferred. Extremities: No cyanosis, no clubbing, no edema. Peripheral pulses palpable. Neurologic: The patient is awake, alert, and oriented. Skin: Normal skin turgor. No skin rashes. Labs & Vitals per chart ASSESSMENT & PLAN 53-year-old male who denies any significant past medical history who came to the emergency room with chief complaint of headache and difficulty with ambulation, who was found to have evidence of underlying hypertensive emergency (BP 243/107) in the emergency room along with underlying hyperglycemia and CT of the brain showing possible early subacute infarcts of the right superior inferior cerebellar and was admitted to inpatient setting for further treatment and e valuation. 1. 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 Continue medical optimization. Continue aspirin and statins. PT, ST evaluation. 2. Hypertensive emergency. Continue antihypertensives. Adjust antihypertensives to obtain optimal blood pressure control. 3. Diabetes mellitus type 2. Newly diagnosed. Continue the patient on sliding scale insulin along with basal insulin. Hold metformin because of intolerance. Diabetes education evaluation. 4. Persistent nausea/vomiting. Status post EGD on 09/06/2018 that showed multi-ringed esophagus and moderate diffuse gastritis. Continue prokinetics. Continue PPI. 5. H. pylori. Started eradication therapy on 09/07/2018. 6. Fluids, electrolytes, and nutrition. Carbohydrate controlled diet. 7. DVT prophylaxis. Subcutaneous heparin. 8. Plan. Continue physical therapy. Started H. pylori eradication therapy on 09/07/2018. Disposition: Home with home health once clinically stable VS SNF. The patient was seen in collaboration with Dr. Goodman. Result Diagram: 09/11/18 0420 09/11/18 0420 Results 24hrs Laboratory Tests Test 09/10/18 12:25 09/10/18 17:12 09/10/18 20:34 09/11/18 04:20 Bedside Glucose 131 187 152 White Blood Count 7.9 Red Blood Count 5.44 Hemoglobin 15.8 Hematocrit 45.7 Mean Corpuscular 84.0 Volume Mean Corpuscular 29.0 Hemoglobin Mean Corpuscular 34.6 Hemoglobin Concent Red Cell Distribution 12.6 Width Platelet Count 243 Mean Platelet Volume 11.1 H Immature Granulocytes 0.500 H % Neutrophils % 82.8 H Lymphocytes % 7.2 L Monocytes % 8.6 Eosinophils % 0.3 Basophils % 0.6 Nucleated Red Blood 0.0 Cells % Immature Granulocytes 0.040 H # Neutrophils # 6.6 Lymphocytes # 0.6 L Monocytes # 0.7 Eosinophils # 0.0 Basophils # 0.1 Nucleated Red Blood 0.0 Cells # Sodium Level 138 Potassium Level 3.8 Chloride Level 103 Carbon Dioxide Level 27 Anion Gap 8 Blood Urea Nitrogen 14 Creatinine 0.77 Est Glomerular > 60 Filtrat Rate mL/min Glucose Level 142 Calcium Level 9.1 Phosphorus Level 3.9 Magnesium Level 2.3 Test 09/11/18 08:30 Bedside Glucose 87 Exam/Review of Systems Exam Vitals Vital Signs Date Temp Pulse Resp B/P (MAP) Pulse Ox O2 O2 Flow FiO2 Time Delivery Rate 09/11/18 97.7 89 17 140/70 98 07:24 (93) 09/10/18 Room Air 14:00 Intake and Output 09/10/18 09/10/18 09/11/18 1515:00 23:00 07:00 IntakeIntake Total 120 ml BalanceBalance 120 ml Results Results 24hrs Laboratory Tests Test 09/10/18 12:25 09/10/18 17:12 09/10/18 20:34 09/11/18 04:20 Bedside Glucose 131 187 152 White Blood Count 7.9 Red Blood Count 5.44 Hemoglobin 15.8 Hematocrit 45.7 Mean Corpuscular 84.0 Volume Mean Corpuscular 29.0 Hemoglobin Mean Corpuscular 34.6 Hemoglobin Concent Red Cell Distribution 12.6 Width Platelet Count 243 Mean Platelet Volume 11.1 H Immature Granulocytes 0.500 H % Neutrophils % 82.8 H Lymphocytes % 7.2 L Monocytes % 8.6 Eosinophils % 0.3 Basophils % 0.6 Nucleated Red Blood 0.0 Cells % Immature Granulocytes 0.040 H # Neutrophils # 6.6 Lymphocytes # 0.6 L Monocytes # 0.7 Eosinophils # 0.0 Basophils # 0.1 Nucleated Red Blood 0.0 Cells # Sodium Level 138 Potassium Level 3.8 Chloride Level 103 Carbon Dioxide Level 27 Anion Gap 8 Blood Urea Nitrogen 14 Creatinine 0.77 Est Glomerular > 60 Filtrat Rate mL/min Glucose Level 142 Calcium Level 9.1 Phosphorus Level 3.9 Magnesium Level 2.3 Test 09/11/18 08:30 Bedside Glucose 87 Medications Medication Current Medications IV Flush (NS 3 ml) 3 ml PER PROTOCOL IV ; Start 08/31/18 at 11:00 Ondansetron HCl (Zofran Inj) 4 mg Q6H PRN IV NAUSEA/VOMITING Last administered on 09/05/18 11:30; Admin Dose 4 MG; Start 08/31/18 at 11:00 Acetaminophen (Tylenol Tab) 650 mg Q6H PRN PO .PAIN 1-3 OR TEMP; Start 08/31/18 at 11:00 Acetaminophen/ Hydrocodone Bitart ([place] (5/325)) 1 tab Q6H PRN PO .MOD PAIN 4- 6 Last administered on 09/08/18 13:16; Admin Dose 1 TAB; Start 08/31/18 at 11:00 Acetaminophen/ Hydrocodone Bitart ([place] (5/325)) 2 tab Q6H PRN PO .SEVERE PAIN 7-10 Last administered on 09/10/18 07:32; Admin Dose 2 TAB; Start 08/31/18 at 11:00 Morphine Sulfate (morphine) 2 mg Q4H PRN IV .SEVERE PAIN 7-10 Last administered on 09/07/18at 19:13; Admin Dose 2 MG; Start 08/31/18 at 11:00 Hydralazine HCl (Apresoline) 10 mg Q4H PRN IV sbp>160 Last administered on 09/10/18 20:36; Admin Dose 10 MG; Start 08/31/18 at 11:00 Atorvastatin Calcium (Lipitor) 40 mg HS PO Last administered on 09/10/18 20:2 9; Admin Dose 40 MG; Start 08/31/18 at 21:00 Aspirin (Halfprin) 81 mg DAILY PO Last administered on 09/11/18 08:32; Admin Dose 81 MG; Start 09/01/18 at 09:00 Heparin Sodium (Porcine) (Heparin (5000 Units/1ml)) 5,000 unit BID SC Last administered on 09/11/18 08:33; Admin Dose 5,000 UNIT; Start 08/31/18 at 21:00 Diagnostic Test (Pha) (Accu-Chek) 1 ea 02 XX Last administered on 09/10/18at 02:12; Admin Dose 1 EA; Start 09/01/18 at 02:00 Miscellaneous Information 1 ea NOTE XX ; Start 08/31/18 at 13:30 Glucose (Glutose) 15 gm Q15M PRN PO DECREASED GLUCOSE; Start 08/31/18 at 13:30 Glucose (Glutose) 22.5 gm Q15M PRN PO DECREASED GLUCOSE; Start 08/31/18 at 13:30 Dextrose (D50w Syringe) 25 ml Q15M PRN IV DECREASED GLUCOSE; Start 08/31/18 at 13:30 Dextrose (D50w Syringe) 50 ml Q15M PRN IV DECREASED GLUCOSE; Start 08/31/18 at 13:30 Glucagon (Glucagen) 1 mg Q15M PRN IM DECREASED GLUCOSE; Start 08/31/18 at 13:30 Glucose (Glutose) 15 gm Q15M PRN BUCCAL DECREASED GLUCOSE; Start 08/31/18 at 13 :30 Amlodipine Besylate (Norvasc) 5 mg BID PO Last administered on 09/11/18 08:32; Admin Dose 5 MG; Start 09/01/18 at 21:00 Insulin Aspart (Novolog Insulin Pen) 4 unit WITH MEALS SC Last administered on 09/07/18at 13:08; Admin Dose 4 UNIT; Start 09/01/18 at 18:00; Status Hold Polyethylene Glycol (Miralax) 17 gm BID PO Last administered on 09/11/18 08:32; Admin Dose 17 GM; Start 09/04/18 at 21:00 Bisacodyl (Dulcolax) 10 mg DAILY PRN PO CONSTIPATION Last administered on 09/04/18 13:14; Admin Dose 10 MG; Start 09/04/18 at 12:30 Lisinopril (Zestril) 40 mg DAILY PO Last administered on 09/11/18 08:31; Admin Dose 40 MG; Start 09/05/18 at 09:00 Metformin HCl (Glucophage) 500 mg BID WITH MEALS PO Last administered on 09/05/18 17:33; Admin Dose 500 MG; Start 09/04/18 at 18:00; Status Hold Metoclopramide HCl (Reglan) 10 mg Q6 IV Last administered on 09/11/18 05:23; Admin Dose 10 MG; Start 09/06/18 at 18:00 Insulin Aspart (Novolog Insulin Pen) NOVOLOG *MILD* ALGORITHM WITH MEALS BEDT JASPAL SC Last administered on 09/10/18 17:24; Admin Dose 2 UNIT; Start 09/06/18 at 18:00 Clarithromycin (Biaxin) 500 mg BID PO Last administered on 09/11/18 08:31; Admin Dose 500 MG; Start 09/07/18 at 21:00 Amoxicillin (Amoxicillin) 1,000 mg BID PO Last administered on 09/11/18 08:31; Admin Dose 1,000 MG; Start 09/07/18 at 21:00 Enalaprilat (Vasotec Iv) 1.25 mg Q6H PRN IV ELEVATED BLOOD PRESSURE; Start 09/07/18 at 20:30 Insulin Glargine (Lantus) 10 units DAILY@2000 SC Last administered on 09/10/18 20:40; Admin Dose 10 UNITS; Start 09/09/18 at 20:00 Pantoprazole (Protonix Tab) 40 mg BID@06,18 PO Last administered on 09/11/18 05:24; Admin Dose 40 MG; Start 09/09/18 at 18:00 Metoprolol Tartrate (Lopressor) 50 mg BID PO Last administered on 09/11/18 08:31; Admin Dose 50 MG; Start 09/10/18 at 21:00 ASHOK BURNETT NP Sep 11, 2018 10:50
--- NOTE | 2018-09-11 12:21 | CONS ---
Assessment/Plan Assessment/Plan Assessment/Plan (Recall) 53 M c/ reported Hx of untreated DM2, HTN, HLD, and other comorbidities... who presents for evaluation of 4 days of headache and confusion. MRI brain confirmed an acute R cerebellar infarction... MRA shows scattered stenoses Echo is unremarkable A1C 8.4%; LDL 120 ESR 1, RPR neg, HIV neg P: Cont ASA/Lipitor daily for now PT/OT/ST as necessary Continued medical management per primary Will sign off for now; please call w/ ? Consultation Date/Type/Reason Admit Date/Time Aug 31, 2018 at 10:30 Type of Consult Neurology Reason for Consultation ams, stroke Requesting Provider: NEIDA ROBERTS NP Date/Time of Note DATE: 09/11/18 TIME: 12:20 24 HR Interval Summary Free Text/Dictation Continues acute care Exam/Review of Systems Exam Vitals Vital Signs Date Temp Pulse Resp B/P (MAP) Pulse Ox O2 O2 Flow FiO2 Time Delivery Rate 09/11/18 97.7 89 17 140/70 98 07:24 (93) 09/10/18 Room Air 14:00 Intake and Output 09/10/18 09/10/18 09/11/18 1515:00 23:00 07:00 IntakeIntake Total 120 ml BalanceBalance 120 ml Results Result Diagram: 09/11/18 0420 09/11/18 0420 Results 24hrs Laboratory Tests Test 09/10/18 12:25 09/10/18 17:12 09/10/18 20:34 09/11/18 04:20 Bedside Glucose 131 187 152 White Blood Count 7.9 Red Blood Count 5.44 Hemoglobin 15.8 Hematocrit 45.7 Mean Corpuscular 84.0 Volume Mean Corpuscular 29.0 Hemoglobin Mean Corpuscular 34.6 Hemoglobin Concent Red Cell Distribution 12.6 Width Platelet Count 243 Mean Platelet Volume 11.1 H Immature Granulocytes 0.500 H % Neutrophils % 82.8 H Lymphocytes % 7.2 L Monocytes % 8.6 Eosinophils % 0.3 Basophils % 0.6 Nucleated Red Blood 0.0 Cells % Immature Granulocytes 0.040 H # Neutrophils # 6.6 Lymphocytes # 0.6 L Monocytes # 0.7 Eosinophils # 0.0 Basophils # 0.1 Nucleated Red Blood 0.0 Cells # Sodium Level 138 Potassium Level 3.8 Chloride Level 103 Carbon Dioxide Level 27 Anion Gap 8 Blood Urea Nitrogen 14 Creatinine 0.77 Est Glomerular > 60 Filtrat Rate mL/min Glucose Level 142 Calcium Level 9.1 Phosphorus Level 3.9 Magnesium Level 2.3 Test 09/11/18 08:30 Bedside Glucose 87 Medications Medication Current Medications IV Flush (NS 3 ml) 3 ml PER PROTOCOL IV ; Start 08/31/18 at 11:00 Ondansetron HCl (Zofran Inj) 4 mg Q6H PRN IV NAUSEA/VOMITING Last administered on 09/05/18at 11:30; Admin Dose 4 MG; Start 08/31/18 at 11:00 Acetaminophen (Tylenol Tab) 650 mg Q6H PRN PO .PAIN 1-3 OR TEMP; Start 08/31/18 at 11:00 Hydralazine HCl (Apresoline) 10 mg Q4H PRN IV sbp>160 Last administered on 09/10/18at 20:36; Admin Dose 10 MG; Start 08/31/18 at 11:00 Atorvastatin Calcium (Lipitor) 40 mg HS PO Last administered on 09/10/18at 20:29; Admin Dose 40 MG; Start 08/31/18 at 21:00 Aspirin (Halfprin) 81 mg DAILY PO Last administered on 09/11/18at 08:32; Admin Dose 81 MG; Start 09/01/18 at 09:00 Heparin Sodium (Porcine) (Heparin (5000 Units/1ml)) 5,000 unit BID SC Last administered on 09/11/18at 08:33; Admin Dose 5,000 UNIT; Start 08/31/18 at 21:00 Diagnostic Test (Pha) (Accu-Chek) 1 ea 02 XX Last administered on 09/10/18at 02:12; Admin Dose 1 EA; Start 09/01/18 at 02:00 Miscellaneous Information 1 ea NOTE XX ; Start 08/31/18 at 13:30 Glucose (Glutose) 15 gm Q15M PRN PO DECREASED GLUCOSE; Start 08/31/18 at 13:30 Glucose (Glutose) 22.5 gm Q15M PRN PO DECREASED GLUCOSE; Start 08/31/18 at 13:30 Dextrose (D50w Syringe) 25 ml Q15M PRN IV DECREASED GLUCOSE; Start 08/31/18 at 13:30 Dextrose (D50w Syringe) 50 ml Q15M PRN IV DECREASED GLUCOSE; Start 08/31/18 at 13:30 Glucagon (Glucagen) 1 mg Q15M PRN IM DECREASED GLUCOSE; Start 08/31/18 at 13:30 Glucose (Glutose) 15 gm Q15M PRN BUCCAL DECREASED GLUCOSE; Start 08/31/18 at 13:30 Amlodipine Besylate (Norvasc) 5 mg BID PO Last administered on 09/11/18 08:32; Admin Dose 5 MG; Start 09/01/18 at 21:00 Insulin Aspart (Novolog Insulin Pen) 4 unit WITH MEALS SC Last administered on 09/07/18 13:08; Admin Dose 4 UNIT; Start 09/01/18 at 18:00; Status Hold Polyethylene Glycol (Miralax) 17 gm BID PO Last administered on 09/11/18 08:32; Admin Dose 17 GM; Start 09/04/18 at 21:00 Bisacodyl (Dulcolax) 10 mg DAILY PRN PO CONSTIPATION Last administered on 09/04/18 13:14; Admin Dose 10 MG; Start 09/04/18 at 12:30 Lisinopril (Zestril) 40 mg DAILY PO Last administered on 09/11/18 08:31; Admin Dose 40 MG; Start 09/05/18 at 09:00 Metformin HCl (Glucophage) 500 mg BID WITH MEALS PO Last administered on 09/05/18 17:33; Admin Dose 500 MG; Start 09/04/18 at 18:00; Status Hold Metoclopramide HCl (Reglan) 10 mg Q6 IV Last administered on 09/11/18 11:55; Admin Dose 10 MG; Start 09/06/18 at 18:00 Insulin Aspart (Novolog Insulin Pen) NOVOLOG *MILD* ALGORITHM WITH MEALS BEDTIME SC Last administered on 09/10/18 17:24; Admin Dose 2 UNIT; Start 09/06/18 at 18:00 Clarithromycin (Biaxin) 500 mg BID PO Last administered on 09/11/18 08:31; Admin Dose 500 MG; Start 09/07/18 at 21:00 Amoxicillin (Amoxicillin) 1,000 mg BID PO Last administered on 09/11/18 08:31; Admin Dose 1,000 MG; Start 09/07/18 at 21:00 Enalaprilat (Vasotec Iv) 1.25 mg Q6H PRN IV ELEVATED BLOOD PRESSURE; Start 09/07/18 at 20:30 Insulin Glargine (Lantus) 10 units DAILY@1999 SC Last administered on 09/10/18at 20:40; Admin Dose 10 UNITS; Start 09/09/18 at 20:00 Pantoprazole (Protonix Tab) 40 mg BID@06,18 PO Last administered on 09/11/18at 05:24; Admin Dose 40 MG; Start 09/09/18 at 18:00 Metoprolol Tartrate (Lopressor) 50 mg BID PO Last administered on 09/11/18at 08:31; Admin Dose 50 MG; Start 09/10/18 at 21:00 ELO DOBBS Sep 11, 2018 12:21
[2018-09-11 13:28] VITALS: BP 157/85; PULSE 87; RESP 17
[2018-09-11 19:23] VITALS: BP 156/81; PULSE 91; RESP 19
[2018-09-11] MEDS: INSULIN GLARGINE [LANTus] (100 UNITS/ML) SYG SC SCH (20:24)
[2018-09-11] MEDS: ATORVASTATIN 40 MG TAB PO SCH (20:24)
[2018-09-12] MEDS: METOCLOPRAMIDE 10 MG INJ IV SCH ×5 (00:36→23:37)
[2018-09-12] MEDS ORDERED: ZOLPIDEM 5 MG TAB PO PRN (01:30)
[2018-09-12] MEDS: ACCU-CHEK XX SCH (01:49)
[2018-09-12 02:40] VITALS: BP 130/73; PULSE 75; RESP 18
[2018-09-12] MEDS: PANTOPRAZOLE (EC) 40 MG TAB PO SCH ×2 (05:58→17:20)
[2018-09-12 07:09] VITALS: BP 165/84; PULSE 102; RESP 16
[2018-09-12] MEDS: INSULIN ASPART [NOVOLOG] 3 ML PEN SC SCH ×4 (08:00→20:12)
[2018-09-12] MEDS: METOPROLOL 25 MG TAB PO SCH ×2 (08:18→21:42)
[2018-09-12] MEDS: LISINOPRIL 20 MG TAB PO SCH (08:19)
[2018-09-12] MEDS: CLARITHROMYCIN 500 MG TAB PO SCH ×2 (08:19→23:37)
[2018-09-12] MEDS: AMOXICILLIN 500 MG CAP PO SCH ×2 (08:19→21:42)
[2018-09-12] MEDS: AMLODIPINE 5 MG TAB PO SCH ×2 (08:19→21:44)
[2018-09-12] MEDS: ASPIRIN (EC) 81 MG TAB PO SCH (08:19)
[2018-09-12] MEDS: HEPARIN 5,000 UNIT/1 ML VIAL SC SCH ×2 (08:20→21:53)
[2018-09-12] MEDS: POLYETHYLENE GLYCOL 17 GM PACKET PO SCH ×2 (09:00→21:00)
[2018-09-12 10:00] VITALS: BP 140/85
--- NOTE | 2018-09-12 13:16 | PN ---
Date/Time of Note Date/Time of Note DATE: 09/12/18 TIME: 13:16 Assessment/Plan VTE Prophylaxis Risk score (from Ns)>0 risk: 3 SCD applied (from Ns): No SCD contraindicated: other Pharmacological prophylaxis: heparin Lines/Catheters IV [facility] Type (from [facility]): Peripheral IV Urinary Cath still in place: No Assessment/Plan Hospital Course SUBJECTIVE: Was up with PT today. Denies any nausea or vomiting. OBJECTIVE: Physical Exam General: Adequately build 53 year-old male lying in bed in no apparent distress. HEENT: Normocephalic, atraumatic. Eyes: Anicteric sclerae, conjunctivae clear. ENT: Nasal septum midline, oral mucosa moist. Neck supple, no JVD noticed. Respiratory: Bilaterally clear breath sounds. No use of accessory muscles of respiration. No adventitious breath sounds. Cardiovascular: S1, S2 heard. Regular rate and rhythm. Abdomen: Soft, nontender, and nondistended. Bowel sounds positive in all 4 quadrants. Genitourinary: Deferred. Extremities: No cyanosis, no clubbing, no edema. Peripheral pulses palpable. Neurologic: The patient is awake, alert, and oriented. Skin: Normal skin turgor. No skin rashes. Labs & Vitals per chart ASSESSMENT & PLAN 53-year-old male who denies any significant past medical history who came to the emergency room with chief complaint of headache and difficulty with ambulation, who was found to have evidence of underlying hypertensive emergency (BP 243/107) in the emergency room along with underlying hyperglycemia and CT of the brain showing possible early subacute infarcts of the right superior inferior cerebellar and was admitted to inpatient setting for further treatment and evaluation. 1. 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 Continue medical optimization. Continue aspirin and statins. PT, ST evaluation. 2. Hypertensive emergency. Continue antihypertensives. Adjust antihypertensives to obtain optimal blood pressure control. 3. Diabetes mellitus type 2. Newly diagnosed. Continue the patient on sliding scale insulin along with basal insulin. Resume metformin. Diabetes education evaluation. 4. Persistent nausea/vomiting. Status post EGD on 09/06/2018 that showed multi-ringed esophagus and moderate diffuse gastritis. Continue prokinetics. Continue PPI. 5. H. pylori. Started eradication therapy on 09/07/2018. 6. Fluids, electrolytes, and nutrition. Carbohydrate controlled diet. 7. DVT prophylaxis. Subcutaneous heparin. 8. Plan. Continue physical therapy. Started H. pylori eradication therapy on 09/07/2018. Disposition: Home with home health once clinically stable VS SNF. The patient was seen in collaboration with Dr. Goodman. Result Diagram: 09/11/18 0420 09/11/18 0420 Results 24hrs Laboratory Tests Test 09/11/18 17:23 09/11/18 20:22 09/12/18 08:16 09/12/18 12:20 Bedside Glucose 192 173 113 183 Exam/Review of Systems Exam Vitals Vital Signs Date Temp Pulse Resp B/P (MAP) Pulse Ox O2 O2 Flow FiO2 Time Delivery Rate 09/12/18 98.1 102 16 165/84 96 Room Air 07:09 (111) Intake and Output 09/11/18 09/11/18 09/12/18 1515:00 23:00 07:00 IntakeIntake Total 480 ml 300 ml OutputOutput Total 200 ml BalanceBalance 480 ml 300 ml -200 ml Results Results 24hrs Laboratory Tests Test 09/11/18 17:23 09/11/18 20:22 09/12/18 08:16 09/12/18 12:20 Bedside Glucose 192 173 113 183 Medications Medication Current Medications IV Flush (NS 3 ml) 3 ml PER PROTOCOL IV ; Start 08/31/18 at 11:00 Ondansetron HCl (Zofran Inj) 4 mg Q6H PRN IV NAUSEA/VOMITING Last administered on 09/05/18at 11:30; Admin Dose 4 MG; Start 08/31/18 at 11:00 Acetaminophen (Tylenol Tab) 650 mg Q6H PRN PO .PAIN 1-3 OR TEMP; Start 08/31/18 at 11:00 Hydralazine HCl (Apresoline) 10 mg Q4H PRN IV sbp>160 Last administered on 09/10/18at 20:36; Admin Dose 10 MG; Start 08/31/18 at 11:00 Atorvastatin Calcium (Lipitor) 40 mg HS PO Last administered on 09/11/18at 20:24; Admin Dose 40 MG; Start 08/31/18 at 21:00 Aspirin (Halfprin) 81 mg DAILY PO Last administered on 09/12/18at 08:19; Admin Dose 81 MG; Start 09/01/18 at 09:00 Heparin Sodium (Porcine) (Heparin (5000 Units/1ml)) 5,000 unit BID SC Last administered on 09/12/18 08:20; Admin Dose 5,000 UNIT; Start 08/31/18 at 21:00 Diagnostic Test (Pha) (Accu-Chek) 1 ea 02 XX Last administered on 09/10/18at 02:12; Admin Dose 1 EA; Start 09/01/18 at 02:00 Miscellaneous Information 1 ea NOTE XX ; Start 08/31/18 at 13:30 Glucose (Glutose) 15 gm Q15M PRN PO DECREASED GLUCOSE; Start 08/31/18 at 13:30 Glucose (Glutose) 22.5 gm Q15M PRN PO DECREASED GLUCOSE; Start 08/31/18 at 13:30 Dextrose (D50w Syringe) 25 ml Q15M PRN IV DECREASED GLUCOSE; Start 08/31/18 at 13:30 Dextrose (D50w Syringe) 50 ml Q15M PRN IV DECREASED GLUCOSE; Start 08/31/18 at 13:30 Glucagon (Glucagen) 1 mg Q15M PRN IM DECREASED GLUCOSE; Start 08/31/18 at 13:30 Glucose (Glutose) 15 gm Q15M PRN BUCCAL DECREASED GLUCOSE; Start 08/31/18 at 13:30 Amlodipine Besylate (Norvasc) 5 mg BID PO Last administered on 09/12/18 08:19; Admin Dose 5 MG; Start 09/01/18 at 21:00 Insulin Aspart (Novolog Insulin Pen) 4 unit WITH MEALS SC Last administered on 09/07/18 13:08; Admin Dose 4 UNIT; Start 09/01/18 at 18:00; Status Hold Polyethylene Glycol (Miralax) 17 gm BID PO Last administered on 09/11/18 08:32; Admin Dose 17 GM; Start 09/04/18 at 21:00 Bisacodyl (Dulcolax) 10 mg DAILY PRN PO CONSTIPATION Last administered on 09/04/18 13:14; Admin Dose 10 MG; Start 09/04/18 at 12:30 Lisinopril (Zestril) 40 mg DAILY PO Last administered on 09/12/18 08:19; Admin Dose 40 MG; Start 09/05/18 at 09:00 Metformin HCl (Glucophage) 500 mg BID WITH MEALS PO Last administered on 09/05/18 17:33; Admin Dose 500 MG; Start 09/04/18 at 18:00; Status Hold Metoclopramide HCl (Reglan) 10 mg Q6 IV Last administered on 09/12/18 12:21; Admin Dose 10 MG; Start 09/06/18 at 18:00 Insulin Aspart (Novolog Insulin Pen) NOVOLOG *MILD* ALGORITHM WITH MEALS BEDTIME SC Last administered on 09/12/18 12:22; Admin Dose 2 UNIT; Start 09/06/18 at 18:00 Clarithromycin (Biaxin) 500 mg BID PO Last administered on 09/12/18 08:19; Admin Dose 500 MG; Start 09/07/18 at 21:00 Amoxicillin (Amoxicillin) 1,000 mg BID PO Last administered on 09/12/18 08:19; Admin Dose 1,000 MG; Start 09/07/18 at 21:00 Enalaprilat (Vasotec Iv) 1.25 mg Q6H PRN IV ELEVATED BLOOD PRESSURE; Start 09/07/18 at 20:30 Insulin Glargine (Lantus) 10 units DAILY@2000 SC Last administered on 09/11/18 20:24; Admin Dose 10 UNITS; Start 09/09/18 at 20:00 Pantoprazole (Protonix Tab) 40 mg BID@06,18 PO Last administered on 09/12/18 05:58; Admin Dose 40 MG; Start 09/09/18 at 18:00 Metoprolol Tartrate (Lopressor) 50 mg BID PO Last administered on 09/12/18 08:18; Admin Dose 50 MG; Start 09/10/18 at 21:00 ASHOK BURNETT NP Sep 12, 2018 13:16
[2018-09-12 13:36] VITALS: BP 163/95; PULSE 101; RESP 15
[2018-09-12] MEDS: hydrALAzine 20 MG INJ IV PRN ×2 (14:14→20:05)
[2018-09-12] MEDS: ACETAMINOPHEN 325 MG TAB PO PRN (18:45)
[2018-09-12] MEDS: metFORMIN 500 MG TAB PO SCH (18:45)
[2018-09-12 19:47] VITALS: BP 181/82; PULSE 104; RESP 17
[2018-09-12] MEDS: INSULIN GLARGINE [LANTus] (100 UNITS/ML) SYG SC SCH (20:13)
[2018-09-12] MEDS: ATORVASTATIN 40 MG TAB PO SCH (21:42)
[2018-09-13] MEDS: ACCU-CHEK XX SCH (01:43)
[2018-09-13 01:44] VITALS: BP 138/71; PULSE 91; RESP 18
[2018-09-13] MEDS: PANTOPRAZOLE (EC) 40 MG TAB PO SCH ×2 (06:26→17:02)
[2018-09-13] MEDS: METOCLOPRAMIDE 10 MG INJ IV SCH ×3 (06:26→17:02)
[2018-09-13] MEDS: INSULIN ASPART [NOVOLOG] 3 ML PEN SC SCH ×4 (08:00→20:15)
[2018-09-13 08:13] VITALS: BP 167/80; PULSE 103; RESP 16
[2018-09-13] MEDS: HEPARIN 5,000 UNIT/1 ML VIAL SC SCH ×2 (08:17→20:15)
[2018-09-13] MEDS: ASPIRIN (EC) 81 MG TAB PO SCH (08:17)
[2018-09-13] MEDS: POLYETHYLENE GLYCOL 17 GM PACKET PO SCH (08:17)
[2018-09-13] MEDS: CLARITHROMYCIN 500 MG TAB PO SCH ×2 (08:18→20:13)
[2018-09-13] MEDS: AMOXICILLIN 500 MG CAP PO SCH ×2 (08:18→20:13)
[2018-09-13] MEDS: LISINOPRIL 20 MG TAB PO SCH (08:19)
[2018-09-13] MEDS: metFORMIN 500 MG TAB PO SCH ×2 (08:19→17:04)
[2018-09-13] MEDS: METOPROLOL 25 MG TAB PO SCH (08:19)
[2018-09-13] MEDS: AMLODIPINE 5 MG TAB PO SCH ×2 (08:20→20:13)
[2018-09-13 13:20] VITALS: BP 171/89; PULSE 86; RESP 16
[2018-09-13] MEDS: hydrALAzine 20 MG INJ IV PRN (13:34)
--- NOTE | 2018-09-13 15:40 | PDOCDIS ---
Discharge Instructions CONDITION [id number] Patient Condition: [id number] Fair HOME CARE INSTRUCTIONS: [id number] Diet Instructions: [id number] Modified Fat (1800 ada) ACTIVITY: [id number] Activity Restrictions: [id number] Slowly Increase Activity Do not Drive FOLLOW UP/APPOINTMENTS Follow-up Plan appt 1week. Dr Azul 3wks. pt/ot/st eval and treat. KURT JACOBS MD Sep 13, 2018 15:40
--- NOTE | 2018-09-13 19:12 | PN ---
Date/Time of Note Date/Time of Note DATE: 09/13/18 TIME: 19:10 Assessment/Plan VTE Prophylaxis Risk score (from Ns)>0 risk: 2 SCD applied (from Ns): Yes SCD contraindicated: low risk/ambulating Pharmacological prophylaxis: LMWH Lines/Catheters IV Catheter Type (from Nrs): Saline Lock Urinary Cath still in place: No Assessment/Plan Hospital Course Hospitalist coverage Assessment and plan 1. Acute stroke left cerebellar, stable continue aspirin. Echo EKG carotid adequate. 2. Ftt, stable discharge to SNF 3. Acute gastritis/esophagitis/H. pylori disease, stable, finish antibiotics on 09/21 4. Chronic hypertension 5. Type 2 diabetes 6. Metabolic syndrome 7. Tobacco abuse status post counseling offered patch Subjective: Awake alert follows commands oriented. Sister updated. Oral intake varies between 25 to 100% Objective: Vital signs stable Physical exam No pallor mild droop noted Regular no murmur gallop Clear Benign No edema Result Diagram: 09/13/18 0439 09/13/18 0439 Results 24hrs Laboratory Tests Test 09/12/18 20:10 09/13/18 01:04 09/13/18 04:39 09/13/18 08:16 Bedside Glucose 270 H 196 133 White Blood Count 6.6 Red Blood Count 5.17 Hemoglobin 15.2 Hematocrit 43.5 Mean Corpuscular Volume 84.1 Mean Corpuscular 29.4 Hemoglobin Mean Corpuscular 34.9 Hemoglobin Concent Red Cell Distribution 12.3 Width Platelet Count 266 Mean Platelet Volume 10.8 H Immature Granulocytes % 0.500 H Neutrophils % 80.1 H Lymphocytes % 10.3 L Monocytes % 8.2 Eosinophils % 0.3 Basophils % 0.6 Nucleated Red Blood 0.0 Cells % Immature Granulocytes # 0.030 Neutrophils # 5.3 Lymphocytes # 0.7 L Monocytes # 0.5 Eosinophils # 0.0 Basophils # 0.0 Nucleated Red Blood 0.0 Cells # Sodium Level 140 Potassium Level 3.7 Chloride Level 104 Carbon Dioxide Level 26 Anion Gap 10 Blood Urea Nitrogen 12 Creatinine 0.74 Est Glomerular Filtrat > 60 Rate mL/min Glucose Level 149 Calcium Level 9.4 Phosphorus Level 4.5 Magnesium Level 2.2 Test 09/13/18 12:12 09/13/18 17:01 Bedside Glucose 176 204 Exam/Review of Systems Exam Vitals Vital Signs Date Temp Pulse Resp B/P (MAP) Pulse Ox O2 O2 Flow FiO2 Time Delivery Rate 09/13/18 98.2 86 16 171/89 97 Room Air 13:20 (116) Intake and Output 09/12/18 09/12/18 09/13/18 1515:00 23:00 07:00 IntakeIntake Total 260 ml BalanceBalance 260 ml Results Results 24hrs Laboratory Tests Test 09/12/18 20:10 09/13/18 01:04 09/13/18 04:39 09/13/18 08:16 Bedside Glucose 270 H 196 133 White Blood Count 6.6 Red Blood Count 5.17 Hemoglobin 15.2 Hematocrit 43.5 Mean Corpuscular Volume 84.1 Mean Corpuscular 29.4 Hemoglobin Mean Corpuscular 34.9 Hemoglobin Concent Red Cell Distribution 12.3 Width Platelet Count 266 Mean Platelet Volume 10.8 H Immature Granulocytes % 0.500 H Neutrophils % 80.1 H Lymphocytes % 10.3 L Monocytes % 8.2 Eosinophils % 0.3 Basophils % 0.6 Nucleated Red Blood 0.0 Cells % Immature Granulocytes # 0.030 Neutrophils # 5.3 Lymphocytes # 0.7 L Monocytes # 0.5 Eosinophils # 0.0 Basophils # 0.0 Nucleated Red Blood 0.0 Cells # Sodium Level 140 Potassium Level 3.7 Chloride Level 104 Carbon Dioxide Level 26 Anion Gap 10 Blood Urea Nitrogen 12 Creatinine 0.74 Est Glomerular Filtrat > 60 Rate mL/min Glucose Level 149 Calcium Level 9.4 Phosphorus Level 4.5 Magnesium Level 2.2 Test 09/13/18 12:12 09/13/18 17:01 Bedside Glucose 176 204 Medications Medication Current Medications IV Flush (NS 3 ml) 3 ml PER PROTOCOL IV ; Start 08/31/18 at 11:00 Ondansetron HCl (Zofran Inj) 4 mg Q6H PRN IV NAUSEA/VOMITING Last administered on 09/05/18at 11:30; Admin Dose 4 MG; Start 08/31/18 at 11:00 Acetaminophen (Tylenol Tab) 650 mg Q6H PRN PO .PAIN 1-3 OR TEMP Last administered on 09/12/18at 18:45; Admin Dose 650 MG; Start 08/31/18 at 11:00 Hydralazine HCl (Apresoline) 10 mg Q4H PRN IV sbp>160 Last administered on 09/13/18 13:34; Admin Dose 10 MG; Start 08/31/18 at 11:00 Aspirin (Halfprin) 81 mg DAILY PO Last administered on 09/13/18 08:17; Admin Dose 81 MG; Start 09/01/18 at 09:00 Heparin Sodium (Porcine) (Heparin (5000 Units/1ml)) 5,000 unit BID SC Last administered on 09/13/18 08:17; Admin Dose 5,000 UNIT; Start 08/31/18 at 21:00 Diagnostic Test (Pha) (Accu-Chek) 1 ea 02 XX Last administered on 09/10/18 02:12; Admin Dose 1 EA; Start 09/01/18 at 02:00 Miscellaneous Information 1 ea NOTE XX ; Start 08/31/18 at 13:30 Glucose (Glutose) 15 gm Q15M PRN PO DECREASED GLUCOSE; Start 08/31/18 at 13:30 Glucose (Glutose) 22.5 gm Q15M PRN PO DECREASED GLUCOSE; Start 08/31/18 at 13:30 Dextrose (D50w Syringe) 25 ml Q15M PRN IV DECREASED GLUCOSE; Start 08/31/18 at 13:30 Dextrose (D50w Syringe) 50 ml Q15M PRN IV DECREASED GLUCOSE; Start 08/31/18 at 13:30 Glucagon (Glucagen) 1 mg Q15M PRN IM DECREASED GLUCOSE; Start 08/31/18 at 13:30 Glucose (Glutose) 15 gm Q15M PRN BUCCAL DECREASED GLUCOSE; Start 08/31/18 at 13:30 Amlodipine Besylate (Norvasc) 5 mg BID PO Last administered on 09/13/18 08:20; Admin Dose 5 MG; Start 09/01/18 at 21:00 Insulin Aspart (Novolog Insulin Pen) 4 unit WITH MEALS SC Last administered on 09/07/18 13:08; Admin Dose 4 UNIT; Start 09/01/18 at 18:00; Status Hold Bisacodyl (Dulcolax) 10 mg DAILY PRN PO CONSTIPATION Last administered on 09/04/18 13:14; Admin Dose 10 MG; Start 09/04/18 at 12:30 Lisinopril (Zestril) 40 mg DAILY PO Last administered on 09/13/18 08:19; Admin Dose 40 MG; Start 09/05/18 at 09:00 Metformin HCl (Glucophage) 500 mg BID WITH MEALS PO Last administered on 09/13/18 17:04; Admin Dose 500 MG; Start 09/04/18 at 18:00 Metoclopramide HCl (Reglan) 10 mg Q6 IV Last administered on 09/13/18 17:02; Admin Dose 10 MG; Start 09/06/18 at 18:00 Insulin Aspart (Novolog Insulin Pen) NOVOLOG *MILD* ALGORITHM WITH MEALS BEDTIME SC Last administered on 09/13/18 17:05; Admin Dose 2 UNIT; Start 09/06/18 at 18:00 Clarithromycin (Biaxin) 500 mg BID PO Last administered on 09/13/18 08:18; Admin Dose 500 MG; Start 09/07/18 at 21:00 Amoxicillin (Amoxicillin) 1,000 mg BID PO Last administered on 09/13/18 08:18; Admin Dose 1,000 MG; Start 09/07/18 at 21:00 Enalaprilat (Vasotec Iv) 1.25 mg Q6H PRN IV ELEVATED BLOOD PRESSURE; Start 09/07/18 at 20:30 Insulin Glargine (Lantus) 10 units DAILY@2000 SC Last administered on 09/12/18 20:13; Admin Dose 10 UNITS; Start 09/09/18 at 20:00 Pantoprazole (Protonix Tab) 40 mg BID@06,18 PO Last administered on 09/13/18 17:02; Admin Dose 40 MG; Start 09/09/18 at 18:00 Zolpidem Tartrate (Ambien) 10 mg HS PRN PO INSOMNIA; Start 09/13/18 at 00:52 Atorvastatin Calcium (Lipitor) 40 mg HS PO ; Start 09/18/18 at 21:00 Metoprolol Tartrate (Lopressor) 100 mg BID PO ; Start 09/13/18 at 21:00 Polyethylene Glycol (Miralax) 17 gm DAILY PO ; Start 09/14/18 at 09:00 KURT JACOBS MD Sep 13, 2018 19:12
[2018-09-13 19:37] VITALS: BP 138/87; PULSE 105; RESP 16
[2018-09-13] MEDS: METOPROLOL 100 MG TAB PO SCH (20:13)
[2018-09-13] MEDS: INSULIN GLARGINE [LANTus] (100 UNITS/ML) SYG SC SCH (20:14)
[2018-09-14] MEDS: METOCLOPRAMIDE 10 MG INJ IV SCH ×4 (00:58→17:09)
[2018-09-14] MEDS: ZOLPIDEM 5 MG TAB PO PRN (01:00)
[2018-09-14] MEDS: ACCU-CHEK XX SCH (01:30)
[2018-09-14 02:22] VITALS: BP 117/68; PULSE 72; RESP 18
[2018-09-14] MEDS: PANTOPRAZOLE (EC) 40 MG TAB PO SCH ×2 (05:45→17:09)
[2018-09-14] MEDS: INSULIN ASPART [NOVOLOG] 3 ML PEN SC SCH ×4 (08:00→21:00)
[2018-09-14 08:01] VITALS: BP 161/81; PULSE 100; RESP 18
[2018-09-14] MEDS: metFORMIN 500 MG TAB PO SCH ×2 (08:16→17:09)
[2018-09-14] MEDS: CLARITHROMYCIN 500 MG TAB PO SCH ×2 (08:16→21:14)
[2018-09-14] MEDS: AMOXICILLIN 500 MG CAP PO SCH ×2 (08:16→21:14)
[2018-09-14] MEDS: ASPIRIN (EC) 81 MG TAB PO SCH (08:17)
[2018-09-14] MEDS: POLYETHYLENE GLYCOL 17 GM PACKET PO SCH (08:18)
[2018-09-14] MEDS: HEPARIN 5,000 UNIT/1 ML VIAL SC SCH ×2 (08:19→21:23)
[2018-09-14] MEDS: AMLODIPINE 5 MG TAB PO SCH ×2 (08:20→21:14)
[2018-09-14] MEDS: LISINOPRIL 20 MG TAB PO SCH (08:20)
[2018-09-14] MEDS: METOPROLOL 100 MG TAB PO SCH ×2 (08:26→21:14)
[2018-09-14] MEDS: ACETAMINOPHEN 325 MG TAB PO PRN (11:25)
[2018-09-14] MEDS: clonAZEPAM 0.5 MG TAB PO PRN (12:25)
[2018-09-14 14:00] VITALS: BP 111/62; PULSE 78; RESP 18
--- NOTE | 2018-09-14 14:55 | PN ---
Date/Time of Note Date/Time of Note DATE: 09/14/18 TIME: 14:54 Assessment/Plan VTE Prophylaxis Risk score (from Nsg)>0 risk: 3 SCD applied (from Ns): Yes SCD contraindicated: low risk/ambulating Pharmacological prophylaxis: LMWH Lines/Catheters IV Catheter Type (from Nrsg): Saline Lock Urinary Cath still in place: No Assessment/Plan Hospital Course Hospitalist coverage Assessment and plan 1. Acute stroke left cerebellar, stable continue asa. Echo EKG carotid adequate. 2. Ftt, stable discharge to SNF/ subacute 3. Acute gastritis/esophagitis/H. pylori disease, stable, finish antibiotics on 09/21 4. Chronic hypertension 5. Type 2 diabetes 6. Metabolic syndrome 7. Tobacco abuse status post counseling offered patch Subjective: 09/13 Awake alert follows commands oriented. Sister updated. Oral intake varies between 25 to 100% 09/14: follow commands. no distress Objective: Vital signs stable PE No pallor mild rt droop noted Regular no mrg Clear Benign No edema Result Diagram: 09/13/18 0439 09/13/18 0439 Results 24hrs Laboratory Tests Test 09/13/18 17:01 09/13/18 20:11 09/14/18 08:13 09/14/18 12:13 Bedside Glucose 204 164 136 152 Exam/Review of Systems Exam Vitals Vital Signs Date Temp Pulse Resp B/P (MAP) Pulse Ox O2 O2 Flow FiO2 Time Delivery Rate 09/14/18 36.4 12:10 09/14/18 100 18 161/81 94 Room Air 08:01 (107) Intake and Output 09/13/18 09/13/18 09/14/18 1515:00 23:00 07:00 IntakeIntake Total 300 ml 118 ml OutputOutput Total 900 ml BalanceBalance -600 ml 118 ml Results Results 24hrs Laboratory Tests Test 09/13/18 17:01 09/13/18 20:11 09/14/18 08:13 09/14/18 12:13 Bedside Glucose 204 164 136 152 Medications Medication Current Medications IV Flush (NS 3 ml) 3 ml PER PROTOCOL IV ; Start 08/31/18 at 11:00 Ondansetron HCl (Zofran Inj) 4 mg Q6H PRN IV NAUSEA/VOMITING Last administered on 09/05/18at 11:30; Admin Dose 4 MG; Start 08/31/18 at 11:00 Acetaminophen (Tylenol Tab) 650 mg Q6H PRN PO .PAIN 1-3 OR TEMP Last administered on 09/14/18 11:25; Admin Dose 650 MG; Start 08/31/18 at 11:00 Hydralazine HCl (Apresoline) 10 mg Q4H PRN IV sbp>160 Last administered on 09/13/18 13:34; Admin Dose 10 MG; Start 08/31/18 at 11:00 Aspirin (Halfprin) 81 mg DAILY PO Last administered on 09/14/18 08:17; Admin Dose 81 MG; Start 09/01/18 at 09:00 Heparin Sodium (Porcine) (Heparin (5000 Units/1ml)) 5,000 unit BID SC Last administered on 09/14/18 08:19; Admin Dose 5,000 UNIT; Start 08/31/18 at 21:00 Diagnostic Test (Pha) (Accu-Chek) 1 ea 02 XX Last administered on 09/10/18at 02:12; Admin Dose 1 EA; Start 09/01/18 at 02:00 Miscellaneous Information 1 ea NOTE XX ; Start 08/31/18 at 13:30 Glucose (Glutose) 15 gm Q15M PRN PO DECREASED GLUCOSE; Start 08/31/18 at 13:30 Glucose (Glutose) 22.5 gm Q15M PRN PO DECREASED GLUCOSE; Start 08/31/18 at 13:30 Dextrose (D50w Syringe) 25 ml Q15M PRN IV DECREASED GLUCOSE; Start 08/31/18 at 13:30 Dextrose (D50w Syringe) 50 ml Q15M PRN IV DECREASED GLUCOSE; Start 08/31/18 at 13:30 Glucagon (Glucagen) 1 mg Q15M PRN IM DECREASED GLUCOSE; Start 08/31/18 at 13:30 Glucose (Glutose) 15 gm Q15M PRN BUCCAL DECREASED GLUCOSE; Start 08/31/18 at 13:30 Amlodipine Besylate (Norvasc) 5 mg BID PO Last administered on 09/14/18 08:20; Admin Dose 5 MG; Start 09/01/18 at 21:00 Insulin Aspart (Novolog Insulin Pen) 4 unit WITH MEALS SC Last administered on 09/07/18at 13:08; Admin Dose 4 UNIT; Start 09/01/18 at 18:00; Status Hold Bisacodyl (Dulcolax) 10 mg DAILY PRN PO CONSTIPATION Last administered on 09/04/18 13:14; Admin Dose 10 MG; Start 09/04/18 at 12:30 Lisinopril (Zestril) 40 mg DAILY PO Last administered on 09/14/18 08:20; Admin Dose 40 MG; Start 09/05/18 at 09:00 Metformin HCl (Glucophage) 500 mg BID WITH MEALS PO Last administered on 09/14/18 08:16; Admin Dose 500 MG; Start 09/04/18 at 18:00 Metoclopramide HCl (Reglan) 10 mg Q6 IV Last administered on 09/14/18 11:25; Admin Dose 10 MG; Start 09/06/18 at 18:00 Insulin Aspart (Novolog Insulin Pen) NOVOLOG *MILD* ALGORITHM WITH MEALS BEDTIME SC Last administered on 09/14/18 12:26; Admin Dose 1 UNIT; Start 09/06/18 at 18:00 Clarithromycin (Biaxin) 500 mg BID PO Last administered on 09/14/18 08:16; Admin Dose 500 MG; Start 09/07/18 at 21:00 Amoxicillin (Amoxicillin) 1,000 mg BID PO Last administered on 09/14/18 08:16; Admin Dose 1,000 MG; Start 09/07/18 at 21:00 Enalaprilat (Vasotec Iv) 1.25 mg Q6H PRN IV ELEVATED BLOOD PRESSURE; Start 09/07/18 at 20:30 Insulin Glargine (Lantus) 10 units DAILY@2000 SC Last administered on 09/13/18 20:14; Admin Dose 10 UNITS; Start 09/09/18 at 20:00 Pantoprazole (Protonix Tab) 40 mg BID@06,18 PO Last administered on 09/14/18 05:45; Admin Dose 40 MG; Start 09/09/18 at 18:00 Zolpidem Tartrate (Ambien) 10 mg HS PRN PO INSOMNIA Last administered on 09/14/18 01:00; Admin Dose 10 MG; Start 09/13/18 at 00:52 Atorvastatin Calcium (Lipitor) 40 mg HS PO ; Start 09/18/18 at 21:00 Metoprolol Tartrate (Lopressor) 100 mg BID PO Last administered on 09/14/18at 08:26; Admin Dose 100 MG; Start 09/13/18 at 21:00 Polyethylene Glycol (Miralax) 17 gm DAILY PO Last administered on 09/14/18at 08:18; Admin Dose 17 GM; Start 09/14/18 at 09:00 Clonazepam (Klonopin) 1 mg Q6H PRN PO ANXIETY Last administered on 09/14/18at 12:25; Admin Dose 1 MG; Start 09/14/18 at 12:30 KURT JACOBS MD Sep 14, 2018 14:55
[2018-09-14 19:52] VITALS: BP 152/75; PULSE 88; RESP 16
[2018-09-14] MEDS: INSULIN GLARGINE [LANTus] (100 UNITS/ML) SYG SC SCH (21:20)
[2018-09-15] MEDS: METOCLOPRAMIDE 10 MG INJ IV SCH ×4 (00:16→17:25)
[2018-09-15 02:00] VITALS: BP 138/90; RESP 17
[2018-09-15] MEDS: ACCU-CHEK XX SCH (02:00)
[2018-09-15] MEDS: PANTOPRAZOLE (EC) 40 MG TAB PO SCH ×2 (06:29→17:25)
[2018-09-15 07:38] VITALS: BP 152/82; PULSE 91; RESP 18
[2018-09-15] MEDS: INSULIN ASPART [NOVOLOG] 3 ML PEN SC SCH ×4 (08:00→21:09)
[2018-09-15] MEDS: AMOXICILLIN 500 MG CAP PO SCH ×2 (08:34→21:06)
[2018-09-15] MEDS: AMLODIPINE 5 MG TAB PO SCH ×2 (08:35→21:06)
[2018-09-15] MEDS: ASPIRIN (EC) 81 MG TAB PO SCH (08:35)
[2018-09-15] MEDS: LISINOPRIL 20 MG TAB PO SCH (08:35)
[2018-09-15] MEDS: METOPROLOL 100 MG TAB PO SCH ×2 (08:35→21:07)
[2018-09-15] MEDS: CLARITHROMYCIN 500 MG TAB PO SCH ×2 (08:35→21:07)
[2018-09-15] MEDS: metFORMIN 500 MG TAB PO SCH ×2 (08:36→17:25)
[2018-09-15] MEDS: POLYETHYLENE GLYCOL 17 GM PACKET PO SCH (08:36)
[2018-09-15] MEDS: HEPARIN 5,000 UNIT/1 ML VIAL SC SCH ×2 (08:37→21:10)
[2018-09-15 14:00] VITALS: BP 154/76; PULSE 88; RESP 18
--- NOTE | 2018-09-15 14:14 | PN ---
Date/Time of Note Date/Time of Note DATE: 09/15/18 TIME: 14:14 Assessment/Plan VTE Prophylaxis Risk score (from Nsg)>0 risk: 3 SCD applied (from Ns): Yes SCD contraindicated: low risk/ambulating Pharmacological prophylaxis: LMWH Lines/Catheters IV Catheter Type (from Nrsg): Saline Lock Urinary Cath still in place: No Assessment/Plan Hospital Course Hospitalist coverage Assessment and plan 1. Acute stroke left cerebellar, stable continue asa. Echo EKG carotid adequate. 2. Ftt, stable discharge to SNF/ subacute 3. Acute gastritis/esophagitis/H. pylori disease, stable, finish antibiotics on 09/21 4. Chronic hypertension 5. Type 2 diabetes 6. Metabolic syndrome 7. Tobacco abuse status post counseling offered patch Subjective: 09/13 Awake alert follows commands oriented. Sister updated. Oral intake varies between 25 to 100% 09/14: follow commands. no distress 09/15: No events. Objective: Vital signs stable PE No pallor mild rt droop noted Regular no mrg Clear Benign No edema Result Diagram: 09/13/18 0439 09/13/18 0439 Results 24hrs Laboratory Tests Test 09/14/18 17:04 09/14/18 21:17 09/15/18 08:13 09/15/18 12:20 Bedside Glucose 210 155 111 152 Exam/Review of Systems Exam Vitals Vital Signs Date Temp Pulse Resp B/P (MAP) Pulse Ox O2 O2 Flow FiO2 Time Delivery Rate 09/15/18 98.1 91 18 152/82 96 07:38 (105) 09/15/18 Room Air 02:00 Intake and Output 09/14/18 09/14/18 09/15/18 1515:00 23:00 07:00 IntakeIntake Total 200 ml BalanceBalance 200 ml Results Results 24hrs Laboratory Tests Test 09/14/18 17:04 09/14/18 21:17 09/15/18 08:13 09/15/18 12:20 Bedside Glucose 210 155 111 152 Medications Medication Current Medications IV Flush (NS 3 ml) 3 ml PER PROTOCOL IV ; Start 08/31/18 at 11:00 Ondansetron HCl (Zofran Inj) 4 mg Q6H PRN IV NAUSEA/VOMITING Last administered on 09/05/18at 11:30; Admin Dose 4 MG; Start 08/31/18 at 11:00 Acetaminophen (Tylenol Tab) 650 mg Q6H PRN PO .PAIN 1-3 OR TEMP Last administered on 09/14/18 11:25; Admin Dose 650 MG; Start 08/31/18 at 11:00 Hydralazine HCl (Apresoline) 10 mg Q4H PRN IV sbp>160 Last administered on 09/13/18 13:34; Admin Dose 10 MG; Start 08/31/18 at 11:00 Aspirin (Halfprin) 81 mg DAILY PO Last administered on 09/15/18 08:35; Admin Dose 81 MG; Start 09/01/18 at 09:00 Heparin Sodium (Porcine) (Heparin (5000 Units/1ml)) 5,000 unit BID SC Last administered on 09/15/18 08:37; Admin Dose 5,000 UNIT; Start 08/31/18 at 21:00 Diagnostic Test (Pha) (Accu-Chek) 1 ea 02 XX Last administered on 09/10/18at 02:12; Admin Dose 1 EA; Start 09/01/18 at 02:00 Miscellaneous Information 1 ea NOTE XX ; Start 08/31/18 at 13:30 Glucose (Glutose) 15 gm Q15M PRN PO DECREASED GLUCOSE; Start 08/31/18 at 13:30 Glucose (Glutose) 22.5 gm Q15M PRN PO DECREASED GLUCOSE; Start 08/31/18 at 13:30 Dextrose (D50w Syringe) 25 ml Q15M PRN IV DECREASED GLUCOSE; Start 08/31/18 at 13:30 Dextrose (D50w Syringe) 50 ml Q15M PRN IV DECREASED GLUCOSE; Start 08/31/18 at 13:30 Glucagon (Glucagen) 1 mg Q15M PRN IM DECREASED GLUCOSE; Start 08/31/18 at 13:30 Glucose (Glutose) 15 gm Q15M PRN BUCCAL DECREASED GLUCOSE; Start 08/31/18 at 13 :30 Amlodipine Besylate (Norvasc) 5 mg BID PO Last administered on 09/15/18 08:35; Admin Dose 5 MG; Start 09/01/18 at 21:00 Insulin Aspart (Novolog Insulin Pen) 4 unit WITH MEALS SC Last administered on 09/07/18 13:08; Admin Dose 4 UNIT; Start 09/01/18 at 18:00; Status Hold Bisacodyl (Dulcolax) 10 mg DAILY PRN PO CONSTIPATION Last administered on 09/04/18 13:14; Admin Dose 10 MG; Start 09/04/18 at 12:30 Lisinopril (Zestril) 40 mg DAILY PO Last administered on 09/15/18 08:35; Admin Dose 40 MG; Start 09/05/18 at 09:00 Metformin HCl (Glucophage) 500 mg BID WITH MEALS PO Last administered on 09/15/18 08:36; Admin Dose 500 MG; Start 09/04/18 at 18:00 Metoclopramide HCl (Reglan) 10 mg Q6 IV Last administered on 09/15/18 12:22; Admin Dose 10 MG; Start 09/06/18 at 18:00 Insulin Aspart (Novolog Insulin Pen) NOVOLOG *MILD* ALGORITHM WITH MEALS BEDTIME SC Last administered on 09/15/18 12:25; Admin Dose 1 UNIT; Start 09/06/18 at 18:00 Clarithromycin (Biaxin) 500 mg BID PO Last administered on 09/15/18 08:35; Admin Dose 500 MG; Start 09/07/18 at 21:00 Amoxicillin (Amoxicillin) 1,000 mg BID PO Last administered on 09/15/18 08:34; Admin Dose 1,000 MG; Start 09/07/18 at 21:00 Enalaprilat (Vasotec Iv) 1.25 mg Q6H PRN IV ELEVATED BLOOD PRESSURE; Start 09/07/18 at 20:30 Insulin Glargine (Lantus) 10 units DAILY@2000 SC Last administered on 09/14/18 21:20; Admin Dose 10 UNITS; Start 09/09/18 at 20:00 Pantoprazole (Protonix Tab) 40 mg BID@06,18 PO Last administered on 09/15/18 06 :29; Admin Dose 40 MG; Start 09/09/18 at 18:00 Zolpidem Tartrate (Ambien) 10 mg HS PRN PO INSOMNIA Last administered on 09/14/18 01:00; Admin Dose 10 MG; Start 09/13/18 at 00:52 Atorvastatin Calcium (Lipitor) 40 mg HS PO ; Start 09/18/18 at 21:00 Metoprolol Tartrate (Lopressor) 100 mg BID PO Last administered on 09/15/18 08:35; Admin Dose 100 MG; Start 09/13/18 at 21:00 Polyethylene Glycol (Miralax) 17 gm DAILY PO Last administered on 09/14/18 08:18; Admin Dose 17 GM; Start 09/14/18 at 09:00 Clonazepam (Klonopin) 1 mg Q6H PRN PO ANXIETY Last administered on 09/14/18 12:25; Admin Dose 1 MG; Start 09/14/18 at 12:30 KURT JACOBS MD Sep 15, 2018 14:14
[2018-09-15 20:29] VITALS: BP 156/80; PULSE 89; RESP 18
[2018-09-15] MEDS: ACETAMINOPHEN 325 MG TAB PO PRN (21:06)
[2018-09-15] MEDS: INSULIN GLARGINE [LANTus] (100 UNITS/ML) SYG SC SCH (21:08)
[2018-09-15] MEDS: ZOLPIDEM 5 MG TAB PO PRN (23:34)
[2018-09-16] MEDS: METOCLOPRAMIDE 10 MG INJ IV SCH ×4 (00:51→17:17)
[2018-09-16] MEDS: ACCU-CHEK XX SCH (01:40)
[2018-09-16 02:15] VITALS: BP 123/75; PULSE 69; RESP 18
[2018-09-16] MEDS: PANTOPRAZOLE (EC) 40 MG TAB PO SCH ×2 (06:07→17:16)
[2018-09-16 07:18] VITALS: BP 159/83; PULSE 60; RESP 18
[2018-09-16] MEDS: INSULIN ASPART [NOVOLOG] 3 ML PEN SC SCH ×4 (07:36→21:00)
[2018-09-16] MEDS: POLYETHYLENE GLYCOL 17 GM PACKET PO SCH (08:14)
[2018-09-16] MEDS: CLARITHROMYCIN 500 MG TAB PO SCH ×2 (08:14→21:06)
[2018-09-16] MEDS: metFORMIN 500 MG TAB PO SCH ×2 (08:14→17:17)
[2018-09-16] MEDS: AMOXICILLIN 500 MG CAP PO SCH ×2 (08:15→21:06)
[2018-09-16] MEDS: LISINOPRIL 20 MG TAB PO SCH (08:15)
[2018-09-16] MEDS: METOPROLOL 100 MG TAB PO SCH ×2 (08:15→21:07)
[2018-09-16] MEDS: AMLODIPINE 5 MG TAB PO SCH (08:16)
[2018-09-16] MEDS: ASPIRIN (EC) 81 MG TAB PO SCH (08:16)
[2018-09-16] MEDS: HEPARIN 5,000 UNIT/1 ML VIAL SC SCH (08:20)
[2018-09-16 14:00] VITALS: BP 138/76; PULSE 81; RESP 16
[2018-09-16 20:00] VITALS: BP 159/84; PULSE 100; RESP 18
[2018-09-16] MEDS: INSULIN GLARGINE [LANTus] (100 UNITS/ML) SYG SC SCH (21:01)
[2018-09-16] MEDS: ACETAMINOPHEN 325 MG TAB PO PRN (21:05)
[2018-09-16] MEDS: clonAZEPAM 0.5 MG TAB PO PRN (22:01)
[2018-09-17 02:00] VITALS: BP 115/64; PULSE 64; RESP 17
[2018-09-17] MEDS: ACCU-CHEK XX SCH (02:00)
[2018-09-17] MEDS: PANTOPRAZOLE (EC) 40 MG TAB PO SCH ×2 (05:50→17:04)
[2018-09-17 07:34] VITALS: BP 112/62; PULSE 72; RESP 18
[2018-09-17] MEDS: INSULIN ASPART [NOVOLOG] 3 ML PEN SC SCH ×4 (07:36→20:15)
[2018-09-17] MEDS: POLYETHYLENE GLYCOL 17 GM PACKET PO SCH (08:34)
[2018-09-17] MEDS: METOPROLOL 100 MG TAB PO SCH ×2 (08:37→20:14)
[2018-09-17] MEDS: CLARITHROMYCIN 500 MG TAB PO SCH ×2 (08:37→20:07)
[2018-09-17] MEDS: LISINOPRIL 20 MG TAB PO SCH (08:37)
[2018-09-17] MEDS: ASPIRIN (EC) 81 MG TAB PO SCH (08:37)
[2018-09-17] MEDS: AMOXICILLIN 500 MG CAP PO SCH ×2 (08:37→20:08)
[2018-09-17] MEDS: metFORMIN 500 MG TAB PO SCH ×2 (08:37→17:04)
[2018-09-17] MEDS: NIFEdipine (XL) 60 MG TAB PO SCH (08:37)
[2018-09-17 15:19] VITALS: BP 102/60; PULSE 71
--- NOTE | 2018-09-17 17:02 | PN ---
Date/Time of Note Date/Time of Note DATE: 09/17/18 TIME: 17:00 Assessment/Plan VTE Prophylaxis Risk score (from Nsg)>0 risk: 1 SCD applied (from Nsg): No SCD contraindicated: low risk/ambulating Pharmacological prophylaxis: LMWH Lines/Catheters IV Catheter Type (from Nrsg): Peripheral IV Urinary Cath still in place: No Assessment/Plan Hospital Course Hospitalist coverage Assessment and plan 1. Acute stroke left cerebellar, stable cont asa. Echo/ EKG/ carotid adequate. 2. Ftt, stable dc to SNF/ subacute 3. Ac gastritis/esophagitis/H. pylori dz, stable, finish antibiotics on 09/21 4. Chr hypertension 5. Type 2 diabetes 6. Metabolic syndrome 7. Tobacco abuse sp counseling offered patch Subjective: 09/13 Awake alert follows commands oriented. Sister updated. Oral intake varies between 25 to 100% 7/: follow commands. no distress 7: No events. /6: No events 7: No events. awaiting placement. O: Vss PE No pallor mild rt droop noted Regular no mrg Clear Benign No edema Result Diagram: 09/13/18 0439 09/13/18 0439 Results 24hrs Laboratory Tests Test 09/16/18 17:15 09/16/18 21:00 09/17/18 07:36 09/17/18 11:37 Bedside Glucose 167 125 93 92 Exam/Review of Systems Exam Vitals Vital Signs Date Temp Pulse Resp B/P (MAP) Pulse Ox O2 O2 Flow FiO2 Time Delivery Rate 09/17/18 98.4 71 102/60 97 Room Air 15:19 (74) 09/17/18 18 07:34 Intake and Output 09/16/18 09/16/18 09/17/18 1515:00 23:00 07:00 IntakeIntake Total 358 ml 200 ml OutputOutput Total 120 ml BalanceBalance 358 ml 80 ml Results Results 24hrs Laboratory Tests Test 09/16/18 17:15 09/16/18 21:00 09/17/18 07:36 09/17/18 11:37 Bedside Glucose 167 125 93 92 Medications Medication Current Medications IV Flush (NS 3 ml) 3 ml PER PROTOCOL IV ; Start 08/31/18 at 11:00 Ondansetron HCl (Zofran Inj) 4 mg Q6H PRN IV NAUSEA/VOMITING Last administered on 09/05/18 11:30; Admin Dose 4 MG; Start 08/31/18 at 11:00 Acetaminophen (Tylenol Tab) 650 mg Q6H PRN PO .PAIN 1-3 OR TEMP Last administered on 09/16/18 21:05; Admin Dose 650 MG; Start 08/31/18 at 11:00 Hydralazine HCl (Apresoline) 10 mg Q4H PRN IV sbp>160 Last administered on 09/13/18 13:34; Admin Dose 10 MG; Start 08/31/18 at 11:00 Aspirin (Halfprin) 81 mg DAILY PO Last administered on 09/17/18 08:37; Admin Dose 81 MG; Start 09/01/18 at 09:00 Diagnostic Test (Pha) (Accu-Chek) 1 ea 02 XX Last administered on 09/10/18 02:12; Admin Dose 1 EA; Start 09/01/18 at 02:00 Miscellaneous Information 1 ea NOTE XX ; Start 08/31/18 at 13:30 Glucose (Glutose) 15 gm Q15M PRN PO DECREASED GLUCOSE; Start 08/31/18 at 13:30 Glucose (Glutose) 22.5 gm Q15M PRN PO DECREASED GLUCOSE; Start 08/31/18 at 13:30 Dextrose (D50w Syringe) 25 ml Q15M PRN IV DECREASED GLUCOSE; Start 08/31/18 at 13:30 Dextrose (D50w Syringe) 50 ml Q15M PRN IV DECREASED GLUCOSE; Start 08/31/18 at 13:30 Glucagon (Glucagen) 1 mg Q15M PRN IM DECREASED GLUCOSE; Start 08/31/18 at 13:30 Glucose (Glutose) 15 gm Q15M PRN BUCCAL DECREASED GLUCOSE; Start 08/31/18 at 13:30 Bisacodyl (Dulcolax) 10 mg DAILY PRN PO CONSTIPATION Last administered on 09/04/18 13:14; Admin Dose 10 MG; Start 09/04/18 at 12:30 Lisinopril (Zestril) 40 mg DAILY PO Last administered on 09/17/18 08:37; Admin Dose 40 MG; Start 09/05/18 at 09:00 Metformin HCl (Glucophage) 500 mg BID WITH MEALS PO Last administered on 09/17/18 08:37; Admin Dose 500 MG; Start 09/04/18 at 18:00 Insulin Aspart (Novolog Insulin Pen) NOVOLOG *MILD* ALGORITHM WITH MEALS BEDTIME SC Last administered on 09/16/18 17:23; Admin Dose 1 UNIT; Start 09/06/18 at 18:00 Clarithromycin (Biaxin) 500 mg BID PO Last administered on 09/17/18 08:37; Admin Dose 500 MG; Start 09/07/18 at 21:00 Amoxicillin (Amoxicillin) 1,000 mg BID PO Last administered on 09/17/18 08:37; Admin Dose 1,000 MG; Start 09/07/18 at 21:00 Enalaprilat (Vasotec Iv) 1.25 mg Q6H PRN IV ELEVATED BLOOD PRESSURE; Start 09/07/18 at 20:30 Pantoprazole (Protonix Tab) 40 mg BID@06,18 PO Last administered on 09/17/18 05:50; Admin Dose 40 MG; Start 09/09/18 at 18:00 Atorvastatin Calcium (Lipitor) 40 mg HS PO ; Start 09/18/18 at 21:00 Metoprolol Tartrate (Lopressor) 100 mg BID PO Last administered on 09/17/18 08:37; Admin Dose 100 MG; Start 09/13/18 at 21:00 Polyethylene Glycol (Miralax) 17 gm DAILY PO Last administered on 09/16/18 08:14; Admin Dose 17 GM; Start 09/14/18 at 09:00 Clonazepam (Klonopin) 1 mg Q6H PRN PO ANXIETY Last administered on 09/16/18 22:01; Admin Dose 1 MG; Start 09/14/18 at 12:30 Insulin Glargine (Lantus) 12 units DAILY@2000 SC Last administered on 09/16/18 21:01; Admin Dose 12 UNITS; Start 09/16/18 at 20:00 Nifedipine (Procardia Xl) 60 mg DAILY PO Last administered on 09/17/18 08:37; Admin Dose 60 MG; Start 09/17/18 at 09:00 KURT JACOBS MD Sep 17, 2018 17:02
[2018-09-17 20:00] VITALS: BP 121/66; PULSE 96
[2018-09-17] MEDS: INSULIN GLARGINE [LANTus] (100 UNITS/ML) SYG SC SCH (20:16)
[2018-09-18] MEDS: ACCU-CHEK XX SCH (01:22)
[2018-09-18 02:15] VITALS: BP 105/61; PULSE 67; RESP 19
[2018-09-18] MEDS: PANTOPRAZOLE (EC) 40 MG TAB PO SCH ×2 (05:14→17:25)
[2018-09-18] MEDS: INSULIN ASPART [NOVOLOG] 3 ML PEN SC SCH ×4 (08:00→20:51)
[2018-09-18 08:08] VITALS: BP 128/64; PULSE 77; RESP 14
[2018-09-18] MEDS: metFORMIN 500 MG TAB PO SCH ×2 (08:24→17:26)
[2018-09-18] MEDS: NIFEdipine (XL) 60 MG TAB PO SCH (08:24)
[2018-09-18] MEDS: METOPROLOL 100 MG TAB PO SCH ×2 (08:25→20:50)
[2018-09-18] MEDS: LISINOPRIL 20 MG TAB PO SCH (08:25)
[2018-09-18] MEDS: AMOXICILLIN 500 MG CAP PO SCH ×2 (08:26→20:37)
[2018-09-18] MEDS: ASPIRIN (EC) 81 MG TAB PO SCH (08:26)
[2018-09-18] MEDS: CLARITHROMYCIN 500 MG TAB PO SCH ×2 (08:26→20:49)
[2018-09-18] MEDS: POLYETHYLENE GLYCOL 17 GM PACKET PO SCH (08:29)
[2018-09-18 13:53] VITALS: BP 109/63; PULSE 72; RESP 16
--- NOTE | 2018-09-18 17:31 | PN ---
Date/Time of Note Date/Time of Note DATE: 09/18/18 TIME: 17:29 Assessment/Plan VTE Prophylaxis Risk score (from Ns)>0 risk: 1 SCD applied (from Ns): No SCD contraindicated: other Pharmacological prophylaxis: LMWH Lines/Catheters [facility]from [facility] Saline Lock Urinary Cath still in place: No Assessment/Plan Hospital Course SUBJECTIVE: Denies any nausea or vomiting. OBJECTIVE: Physical Exam General: Adequately build 53 year-old male lying in bed in no apparent distress. HEENT: Normocephalic, atraumatic. Eyes: Anicteric sclerae, conjunctivae clear. ENT: Nasal septum midline, oral mucosa moist. Neck supple, no JVD noticed. Respiratory: Bilaterally clear breath sounds. No use of accessory muscles of respiration. No adventitious breath sounds. Cardiovascular: S1, S2 heard. Regular rate and rhythm. Abdomen: Soft, nontender, and nondistended. Bowel sounds positive in all 4 qu adrants. Genitourinary: Deferred. Extremities: No cyanosis, no clubbing, no edema. Peripheral pulses palpable. Neurologic: The patient is awake, alert, and oriented. Skin: Normal skin turgor. No skin rashes. Labs & Vitals per chart ASSESSMENT & PLAN 53-year-old male who denies any significant past medical history who came to the emergency room with chief complaint of headache and difficulty with ambulation, who was found to have evidence of underlying hypertensive emergency (BP 243/107) in the emergency room along with underlying hyperglycemia and CT of the brain showing possible early subacute infarcts of the right superior inferior cerebellar and was admitted to inpatient setting for further treatment and evaluation. 1. 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 Continue medical optimization. Continue aspirin and statins. PT, ST evaluation. 2. Hypertensive emergency. Continue antihypertensives. Adjust antihypertensives to obtain optimal blood pressure control. 3. Diabetes mellitus type 2. Newly diagnosed. Continue the patient on sliding scale insulin along with basal insulin. Resume metformin. Diabetes education evaluation. 4. Persistent nausea/vomiting. Status post EGD on 09/06/2018 that showed multi-ringed esophagus and moderate diffuse gastritis. Continue prokinetics. Continue PPI. 5. H. pylori. Started eradication therapy on 09/07/2018. 6. Fluids, electrolytes, and nutrition. Carbohydrate controlled diet. 7. DVT prophylaxis. Subcutaneous heparin. 8. Plan. Continue physical therapy. Started H. pylori eradication therapy on 09/07/2018. Disposition: Pending SNF placement. The patient was seen in collaboration with Dr. Eddy. Results 24hrs Laboratory Tests Test 09/17/18 20:14 09/18/18 08:23 09/18/18 12:13 09/18/18 17:24 Bedside Glucose 119 70 93 120 Exam/Review of Systems Exam Vitals Vital Signs Date Temp Pulse Resp B/P (MAP) Pulse Ox O2 O2 Flow FiO2 Time Delivery Rate 09/18/18 98.3 72 16 109/63 94 Room Air 13:53 (78) Results Results 24hrs Laboratory Tests Test 09/17/18 20:14 09/18/18 08:23 09/18/18 12:13 09/18/18 17:24 Bedside Glucose 119 70 93 120 Medications Medication Current Medications IV Flush (NS 3 ml) 3 ml PER PROTOCOL IV ; Start 08/31/18 at 11:00 Ondansetron HCl (Zofran Inj) 4 mg Q6H PRN IV NAUSEA/VOMITING Last administered on 09/05/18at 11:30; Admin Dose 4 MG; Start 08/31/18 at 11:00 Acetaminophen (Tylenol Tab) 650 mg Q6H PRN PO .PAIN 1-3 OR TEMP Last administered on 09/16/18 21:05; Admin Dose 650 MG; Start 08/31/18 at 11:00 Hydralazine HCl (Apresoline) 10 mg Q4H PRN IV sbp>160 Last administered on 09/13/18 13:34; Admin Dose 10 MG; Start 08/31/18 at 11:00 Aspirin (Halfprin) 81 mg DAILY PO Last administered on 09/18/18 08:26; Admin Dose 81 MG; Start 09/01/18 at 09:00 Diagnostic Test (Pha) (Accu-Chek) 1 ea 02 XX Last administered on 09/10/18 02:12; Admin Dose 1 EA; Start 09/01/18 at 02:00 Miscellaneous Information 1 ea NOTE XX ; Start 08/31/18 at 13:30 Glucose (Glutose) 15 gm Q15M PRN PO DECREASED GLUCOSE; Start 08/31/18 at 13:30 Glucose (Glutose) 22.5 gm Q15M PRN PO DECREASED GLUCOSE; Start 08/31/18 at 13:30 Dextrose (D50w Syringe) 25 ml Q15M PRN IV DECREASED GLUCOSE; Start 08/31/18 at 13:30 Dextrose (D50w Syringe) 50 ml Q15M PRN IV DECREASED GLUCOSE; Start 08/31/18 at 13:30 Glucagon (Glucagen) 1 mg Q15M PRN IM DECREASED GLUCOSE; Start 08/31/18 at 13:30 Glucose (Glutose) 15 gm Q15M PRN BUCCAL DECREASED GLUCOSE; Start 08/31/18 at 13:30 Bisacodyl (Dulcolax) 10 mg DAILY PRN PO CONSTIPATION Last administered on 09/04/18 13:14; Admin Dose 10 MG; Start 09/04/18 at 12:30 Lisinopril (Zestril) 40 mg DAILY PO Last administered on 09/18/18 08:25; Admin Dose 40 MG; Start 09/05/18 at 09:00 Metformin HCl (Glucophage) 500 mg BID WITH MEALS PO Last administered on 09/18/18 17:26; Admin Dose 500 MG; Start 09/04/18 at 18:00 Insulin Aspart (Novolog Insulin Pen) NOVOLOG *MILD* ALGORITHM WITH MEALS BEDTIME SC Last administered on 09/16/18 17:23; Admin Dose 1 UNIT; Start 09/06/18 at 18:00 Clarithromycin (Biaxin) 500 mg BID PO Last administered on 09/18/18 08:26; Admin Dose 500 MG; Start 09/07/18 at 21:00 Amoxicillin (Amoxicillin) 1,000 mg BID PO Last administered on 09/18/18 08:26; Admin Dose 1,000 MG; Start 09/07/18 at 21:00 Enalaprilat (Vasotec Iv) 1.25 mg Q6H PRN IV ELEVATED BLOOD PRESSURE; Start 09/07/18 at 20:30 Pantoprazole (Protonix Tab) 40 mg BID@06,18 PO Last administered on 09/18/18 17:25; Admin Dose 40 MG; Start 09/09/18 at 18:00 Atorvastatin Calcium (Lipitor) 40 mg HS PO ; Start 09/18/18 at 21:00 Metoprolol Tartrate (Lopressor) 100 mg BID PO Last administered on 09/18/18 08:25; Admin Dose 100 MG; Start 09/13/18 at 21:00 Polyethylene Glycol (Miralax) 17 gm DAILY PO Last administered on 09/18/18 08:29; Admin Dose 17 GM; Start 09/14/18 at 09:00 Clonazepam (Klonopin) 1 mg Q6H PRN PO ANXIETY Last administered on 09/16/18 22:01; Admin Dose 1 MG; Start 09/14/18 at 12:30 Insulin Glargine (Lantus) 12 units DAILY@2000 SC Last administered on 09/17/18 20:16; Admin Dose 12 UNITS; Start 09/16/18 at 20:00 Nifedipine (Procardia Xl) 60 mg DAILY PO Last administered on 09/18/18 08:24; Admin Dose 60 MG; Start 09/17/18 at 09:00 ASHOK BURNETT NP Sep 18, 2018 17:31
[2018-09-18 19:51] VITALS: BP 115/62; PULSE 79; RESP 17
[2018-09-18] MEDS: ATORVASTATIN 40 MG TAB PO SCH (20:49)
[2018-09-18] MEDS: INSULIN GLARGINE [LANTus] (100 UNITS/ML) SYG SC SCH (20:49)
[2018-09-19 01:42] VITALS: BP 114/63; PULSE 60; RESP 17
[2018-09-19] MEDS: ACCU-CHEK XX SCH (02:00)
[2018-09-19] MEDS: PANTOPRAZOLE (EC) 40 MG TAB PO SCH ×2 (05:27→17:20)
--- NOTE | 2018-09-19 05:53 | PN ---
Date/Time of Note Date/Time of Note DATE: 09/19/18 TIME: 05:53 Assessment/Plan VTE Prophylaxis Risk score (from Ns)>0 risk: 1 SCD applied (from Ns): No SCD contraindicated: other Pharmacological prophylaxis: LMWH Lines/Catheters IV [facility] Type (from [facility] Saline Lock Urinary Cath still in place: No Assessment/Plan Hospital Course SUBJECTIVE: Denies any nausea or vomiting. OBJECTIVE: Physical Exam General: Adequately build 53 year-old male lying in bed in no apparent distress. HEENT: Normocephalic, atraumatic. Eyes: Anicteric sclerae, conjunctivae clear. ENT: Nasal septum midline, oral mucosa moist. Neck supple, no JVD noticed. Respiratory: Bilaterally clear breath sounds. No use of accessory muscles of respiration. No adventitious breath sounds. Cardiovascular: S1, S2 heard. Regular rate and rhythm. Abdomen: Soft, nontender, and nondistended. Bowel sounds positive in all 4 qu adrants. Genitourinary: Deferred. Extremities: No cyanosis, no clubbing, no edema. Peripheral pulses palpable. Neurologic: The patient is awake, alert, and oriented. Skin: Normal skin turgor. No skin rashes. Labs & Vitals per chart ASSESSMENT & PLAN 53-year-old male who denies any significant past medical history who came to the emergency room with chief complaint of headache and difficulty with ambulation, who was found to have evidence of underlying hypertensive emergency (BP 243/107) in the emergency room along with underlying hyperglycemia and CT of the brain showing possible early subacute infarcts of the right superior inferior cerebellar and was admitted to inpatient setting for further treatment and evaluation. 1. 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 Continue medical optimization. Continue aspirin and statins. PT, ST evaluation. 2. Hypertensive emergency. Continue antihypertensives. Adjust antihypertensives to obtain optimal blood pressure control. 3. Diabetes mellitus type 2. Newly diagnosed. Continue the patient on sliding scale insulin along with basal insulin. Resume metformin. Diabetes education evaluation. 4. Persistent nausea/vomiting. Status post EGD on 09/06/2018 that showed multi-ringed esophagus and moderate diffuse gastritis. Continue prokinetics. Continue PPI. 5. H. pylori. Started eradication therapy on 09/07/2018. 6. Fluids, electrolytes, and nutrition. Carbohydrate controlled diet. 7. DVT prophylaxis. Subcutaneous Lovenox. 8. Plan. Continue physical therapy. Started H. pylori eradication therapy on 09/07/2018. Disposition: Pending SNF placement. The patient was seen in collaboration with Dr. Eddy. Results 24hrs Laboratory Tests Test 09/18/18 08:23 09/18/18 12:13 09/18/18 17:24 09/18/18 20:46 Bedside Glucose 70 93 120 264 H Test 09/19/18 02:04 Bedside Glucose 114 Exam/Review of Systems Exam Vitals Vital Signs Date Temp Pulse Resp B/P (MAP) Pulse Ox O2 O2 Flow FiO2 Time Delivery Rate 09/19/18 97.9 60 17 114/63 98 01:42 (80) 09/18/18 Room Air 13:53 Intake and Output 09/18/18 09/18/18 09/19/18 1515:00 23:00 07:00 IntakeIntake Total 400 ml OutputOutput Total 400 ml BalanceBalance 400 ml -400 ml Results Results 24hrs Laboratory Tests Test 09/18/18 08:23 09/18/18 12:13 09/18/18 17:24 09/18/18 20:46 Bedside Glucose 70 93 120 264 H Test 09/19/18 02:04 Bedside Glucose 114 Medications Medication Current Medications IV Flush (NS 3 ml) 3 ml PER PROTOCOL IV ; Start 08/31/18 at 11:00 Ondansetron HCl (Zofran Inj) 4 mg Q6H PRN IV NAUSEA/VOMITING Last administered on 09/05/18 11:30; Admin Dose 4 MG; Start 08/31/18 at 11:00 Acetaminophen (Tylenol Tab) 650 mg Q6H PRN PO .PAIN 1-3 OR TEMP Last administered on 09/16/18 21:05; Admin Dose 650 MG; Start 08/31/18 at 11:00 Hydralazine HCl (Apresoline) 10 mg Q4H PRN IV sbp>160 Last administered on 09/13/18 13:34; Admin Dose 10 MG; Start 08/31/18 at 11:00 Aspirin (Halfprin) 81 mg DAILY PO Last administered on 09/18/18 08:26; Admin Dose 81 MG; Start 09/01/18 at 09:00 Diagnostic Test (Pha) (Accu-Chek) 1 ea 02 XX Last administered on 09/10/18 02:12; Admin Dose 1 EA; Start 09/01/18 at 02:00 Miscellaneous Information 1 ea NOTE XX ; Start 08/31/18 at 13:30 Glucose (Glutose) 15 gm Q15M PRN PO DECREASED GLUCOSE; Start 08/31/18 at 13:30 Glucose (Glutose) 22.5 gm Q15M PRN PO DECREASED GLUCOSE; Start 08/31/18 at 13 :30 Dextrose (D50w Syringe) 25 ml Q15M PRN IV DECREASED GLUCOSE; Start 08/31/18 at 13:30 Dextrose (D50w Syringe) 50 ml Q15M PRN IV DECREASED GLUCOSE; Start 08/31/18 at 13:30 Glucagon (Glucagen) 1 mg Q15M PRN IM DECREASED GLUCOSE; Start 08/31/18 at 13:30 Glucose (Glutose) 15 gm Q15M PRN BUCCAL DECREASED GLUCOSE; Start 08/31/18 at 13:30 Bisacodyl (Dulcolax) 10 mg DAILY PRN PO CONSTIPATION Last administered on 09/04/18at 13:14; Admin Dose 10 MG; Start 09/04/18 at 12:30 Lisinopril (Zestril) 40 mg DAILY PO Last administered on 09/18/18 08:25; Admin Dose 40 MG; Start 09/05/18 at 09:00 Metformin HCl (Glucophage) 500 mg BID WITH MEALS PO Last administered on 09/18/18 17:26; Admin Dose 500 MG; Start 09/04/18 at 18:00 Insulin Aspart (Novolog Insulin Pen) NOVOLOG *MILD* ALGORITHM WITH MEALS BEDTIME SC Last administered on 09/18/18 20:51; Admin Dose 3 UNIT; Start 09/06/18 at 18:00 Clarithromycin (Biaxin) 500 mg BID PO Last administered on 09/18/18 20:49; Admin Dose 500 MG; Start 09/07/18 at 21:00 Amoxicillin (Amoxicillin) 1,000 mg BID PO Last administered on 09/18/18 20:37; Admin Dose 1,000 MG; Start 09/07/18 at 21:00 Enalaprilat (Vasotec Iv) 1.25 mg Q6H PRN IV ELEVATED BLOOD PRESSURE; Start 09/07/18 at 20:30 Pantoprazole (Protonix Tab) 40 mg BID@06,18 PO Last administered on 09/19/18 05:27; Admin Dose 40 MG; Start 09/09/18 at 18:00 Atorvastatin Calcium (Lipitor) 40 mg HS PO Last administered on 09/18/18 20:49; Admin Dose 40 MG; Start 09/18/18 at 21:00 Metoprolol Tartrate (Lopressor) 100 mg BID PO Last administered on 09/18/18 20:50; Admin Dose 100 MG; Start 09/13/18 at 21:00 Polyethylene Glycol (Miralax) 17 gm DAILY PO Last administered on 09/18/18 08:29; Admin Dose 17 GM; Start 09/14/18 at 09:00 Clonazepam (Klonopin) 1 mg Q6H PRN PO ANXIETY Last administered on 09/16/18 22:01; Admin Dose 1 MG; Start 09/14/18 at 12:30 Insulin Glargine (Lantus) 12 units DAILY@2000 SC Last administered on 09/18/18 20:49; Admin Dose 12 UNITS; Start 09/16/18 at 20:00 Nifedipine (Procardia Xl) 60 mg DAILY PO Last administered on 09/18/18 08:24; Admin Dose 60 MG; Start 09/17/18 at 09:00 Enoxaparin Sodium (Lovenox) 40 mg DAILY SC ; Start 09/19/18 at 09:00 ASHOK BURNETT NP Sep 19, 2018 05:53
[2018-09-19 07:29] VITALS: BP 117/67; PULSE 63; RESP 18
[2018-09-19] MEDS: INSULIN ASPART [NOVOLOG] 3 ML PEN SC SCH ×4 (08:00→20:11)
[2018-09-19] MEDS: metFORMIN 500 MG TAB PO SCH ×2 (08:12→17:20)
[2018-09-19] MEDS: ASPIRIN (EC) 81 MG TAB PO SCH (08:12)
[2018-09-19] MEDS: CLARITHROMYCIN 500 MG TAB PO SCH ×2 (08:12→20:11)
[2018-09-19] MEDS: AMOXICILLIN 500 MG CAP PO SCH ×2 (08:12→20:10)
[2018-09-19] MEDS: NIFEdipine (XL) 60 MG TAB PO SCH (08:13)
[2018-09-19] MEDS: METOPROLOL 100 MG TAB PO SCH ×2 (08:13→20:11)
[2018-09-19] MEDS: POLYETHYLENE GLYCOL 17 GM PACKET PO SCH (08:14)
[2018-09-19] MEDS: LISINOPRIL 20 MG TAB PO SCH (08:14)
[2018-09-19] MEDS: ENOXAPARIN 40 MG/0.4 ML SYG SC SCH (08:16)
[2018-09-19 14:12] VITALS: BP 106/62; PULSE 68; RESP 18
[2018-09-19 20:00] VITALS: BP 128/69; PULSE 73; RESP 19
[2018-09-19] MEDS: INSULIN GLARGINE [LANTus] (100 UNITS/ML) SYG SC SCH (20:10)
[2018-09-19] MEDS: ATORVASTATIN 40 MG TAB PO SCH (20:11)
[2018-09-20] MEDS: ACCU-CHEK XX SCH (01:12)
[2018-09-20 02:00] VITALS: BP 106/58; PULSE 58; RESP 17
[2018-09-20] MEDS: PANTOPRAZOLE (EC) 40 MG TAB PO SCH ×2 (05:21→16:57)
--- NOTE | 2018-09-20 05:54 | PN ---
Date/Time of Note Date/Time of Note DATE: 09/20/18 TIME: 05:54 Assessment/Plan VTE Prophylaxis Risk score (from Nsg)>0 risk: 2 SCD applied (from Ns): No SCD contraindicated: other Pharmacological prophylaxis: LMWH Lines/Catheters IV Catheter Type (from [facility]): Peripheral IV Urinary Cath still in place: No Assessment/Plan Hospital Course SUBJECTIVE: Denies any nausea or vomiting. OBJECTIVE: Physical Exam General: Adequately build 53 year-old male lying in bed in no apparent distress. HEENT: Normocephalic, atraumatic. Eyes: Anicteric sclerae, conjunctivae clear. ENT: Nasal septum midline, oral mucosa moist. Neck supple, no JVD noticed. Respiratory: Bilaterally clear breath sounds. No use of accessory muscles of respiration. No adventitious breath sounds. Cardiovascular: S1, S2 heard. Regular rate and rhythm. Abdomen: Soft, nontender, and nondistended. Bowel sounds positive in all 4 quadrants. Genitourinary: Deferred. Extremities: No cyanosis, no clubbing, no edema. Peripheral pulses palpable. Neurologic: The patient is awake, alert, and oriented. Skin: Normal skin turgor. No skin rashes. Labs & Vitals per chart ASSESSMENT & PLAN 53-year-old male who denies any significant past medical history who came to the emergency room with chief complaint of headache and difficulty with ambulation, who was found to have evidence of underlying hypertensive emergency (BP 243/107) in the emergency room along with underlying hyperglycemia and CT of the brain showing possible early subacute infarcts of the right superior inferior cerebellar and was admitted to inpatient setting for further treatment and evaluation. 1. 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 Continue medical optimization. Continue aspirin and statins. PT, ST evaluation. 2. Hypertensive emergency. Continue antihypertensives. Adjust antihypertensives to obtain optimal blood pressure control. 3. Diabetes mellitus type 2. Newly diagnosed. Continue the patient on sliding scale insulin along with basal insulin. Resume metformin. Diabetes education evaluation. 4. Moderate diffuse gastritis. Continue PPI. 5. H. pylori. Started eradication therapy on 09/07/2018. Last dose on 09/21/2018 morning dose. 6. Fluids, electrolytes, and nutrition. Carbohydrate controlled diet. 7. DVT prophylaxis. Subcutaneous Lovenox. 8. Plan. Continue physical therapy. Started H. pylori eradication therapy on 09/07/2018. Disposition: Pending SNF placement. The patient was seen in collaboration with Dr. Eddy. Results 24hrs Laboratory Tests Test 09/19/18 08:11 09/19/18 12:11 09/19/18 17:19 09/19/18 20:08 Bedside Glucose 109 120 108 180 Exam/Review of Systems Exam Vitals Vital Signs Date Temp Pulse Resp B/P (MAP) Pulse Ox O2 O2 Flow FiO2 Time Delivery Rate 09/20/18 97.8 58 17 106/58 99 02:00 (74) 09/19/18 Room Air 14:12 Intake and Output 09/19/18 09/19/18 09/20/18 1515:00 23:00 07:00 IntakeIntake Total 300 ml 100 ml OutputOutput Total 550 ml 250 ml BalanceBalance 300 ml -450 ml -250 ml Results Results 24hrs Laboratory Tests Test 09/19/18 08:11 09/19/18 12:11 09/19/18 17:19 09/19/18 20:08 Bedside Glucose 109 120 108 180 Medications Medication Current Medications IV Flush (NS 3 ml) 3 ml PER PROTOCOL IV ; Start 08/31/18 at 11:00 Ondansetron HCl (Zofran Inj) 4 mg Q6H PRN IV NAUSEA/VOMITING Last administered on 09/05/18at 11:30; Admin Dose 4 MG; Start 08/31/18 at 11:00 Acetaminophen (Tylenol Tab) 650 mg Q6H PRN PO .PAIN 1-3 OR TEMP Last administered on 09/16/18at 21:05; Admin Dose 650 MG; Start 08/31/18 at 11:00 Hydralazine HCl (Apresoline) 10 mg Q4H PRN IV sbp>160 Last administered on 09/13/18at 13:34; Admin Dose 10 MG; Start 08/31/18 at 11:00 Aspirin (Halfprin) 81 mg DAILY PO Last administered on 09/19/18at 08:12; Admin Dose 81 MG; Start 09/01/18 at 09:00 Diagnostic Test (Pha) (Accu-Chek) 1 ea 02 XX Last administered on 09/10/18at 02:12; Admin Dose 1 EA; Start 09/01/18 at 02:00 Miscellaneous Information 1 ea NOTE XX ; Start 08/31/18 at 13:30 Glucose (Glutose) 15 gm Q15M PRN PO DECREASED GLUCOSE; Start 08/31/18 at 13:30 Glucose (Glutose) 22.5 gm Q15M PRN PO DECREASED GLUCOSE; Start 08/31/18 at 13:30 Dextrose (D50w Syringe) 25 ml Q15M PRN IV DECREASED GLUCOSE; Start 08/31/18 at 13:30 Dextrose (D50w Syringe) 50 ml Q15M PRN IV DECREASED GLUCOSE; Start 08/31/18 at 13:30 Glucagon (Glucagen) 1 mg Q15M PRN IM DECREASED GLUCOSE; Start 08/31/18 at 13:30 Glucose (Glutose) 15 gm Q15M PRN BUCCAL DECREASED GLUCOSE; Start 08/31/18 at 13:30 Bisacodyl (Dulcolax) 10 mg DAILY PRN PO CONSTIPATION Last administered on 08/13 13:14; Admin Dose 10 MG; Start 09/04/18 at 12:30 Lisinopril (Zestril) 40 mg DAILY PO Last administered on 09/19/18at 08:14; Admin Dose 40 MG; Start 09/05/18 at 09:00 Metformin HCl (Glucophage) 500 mg BID WITH MEALS PO Last administered on 09/19/18 17:20; Admin Dose 500 MG; Start 09/04/18 at 18:00 Insulin Aspart (Novolog Insulin Pen) NOVOLOG *MILD* ALGORITHM WITH MEALS BEDT JASPAL SC Last administered on 09/18/18 20:51; Admin Dose 3 UNIT; Start 09/06/18 at 18:00 Clarithromycin (Biaxin) 500 mg BID PO Last administered on 09/19/18 20:11; Admin Dose 500 MG; Start 09/07/18 at 21:00 Amoxicillin (Amoxicillin) 1,000 mg BID PO Last administered on 09/19/18 20:10; Admin Dose 1,000 MG; Start 09/07/18 at 21:00 Enalaprilat (Vasotec Iv) 1.25 mg Q6H PRN IV ELEVATED BLOOD PRESSURE; Start 09/07/18 at 20:30 Pantoprazole (Protonix Tab) 40 mg BID@,18 PO Last administered on 09/20/18at 05:21; Admin Dose 40 MG; Start 09/09/18 at 18:00 Atorvastatin Calcium (Lipitor) 40 mg HS PO Last administered on 09/19/18 20:11; Admin Dose 40 MG; Start 09/18/18 at 21:00 Metoprolol Tartrate (Lopressor) 100 mg BID PO Last administered on 09/19/18 20:11; Admin Dose 100 MG; Start 09/13/18 at 21:00 Polyethylene Glycol (Miralax) 17 gm DAILY PO Last administered on 09/19/18 08:14; Admin Dose 17 GM; Start 09/14/18 at 09:00 Clonazepam (Klonopin) 1 mg Q6H PRN PO ANXIETY Last administered on 09/16/18 22:01; Admin Dose 1 MG; Start 09/14/18 at 12:30 Insulin Glargine (Lantus) 12 units DAILY@2000 SC Last administered on 09/19/18 20:10; Admin Dose 12 UNITS; Start 09/16/18 at 20:00 Nifedipine (Procardia Xl) 60 mg DAILY PO Last administered on 09/19/18 08:13; Admin Dose 60 MG; Start 09/17/18 at 09:00 Enoxaparin Sodium (Lovenox) 40 mg DAILY SC Last administered on 09/19/18 08:16; Admin Dose 40 MG; Start 09/19/18 at 09:00 ASHOK BURNETT NP Sep 20, 2018 05:54
[2018-09-20 07:51] VITALS: BP 114/68; PULSE 66; RESP 20
[2018-09-20] MEDS: INSULIN ASPART [NOVOLOG] 3 ML PEN SC SCH ×4 (08:00→20:13)
[2018-09-20] MEDS: POLYETHYLENE GLYCOL 17 GM PACKET PO SCH (08:17)
[2018-09-20] MEDS: NIFEdipine (XL) 60 MG TAB PO SCH (08:18)
[2018-09-20] MEDS: ASPIRIN (EC) 81 MG TAB PO SCH (08:18)
[2018-09-20] MEDS: CLARITHROMYCIN 500 MG TAB PO SCH ×2 (08:18→20:21)
[2018-09-20] MEDS: AMOXICILLIN 500 MG CAP PO SCH ×2 (08:18→20:21)
[2018-09-20] MEDS: METOPROLOL 100 MG TAB PO SCH ×2 (08:18→20:21)
[2018-09-20] MEDS: metFORMIN 500 MG TAB PO SCH ×2 (08:18→16:58)
[2018-09-20] MEDS: LISINOPRIL 20 MG TAB PO SCH (08:19)
[2018-09-20] MEDS: ENOXAPARIN 40 MG/0.4 ML SYG SC SCH (08:20)
[2018-09-20 14:00] VITALS: BP 126/68; PULSE 63; RESP 18
[2018-09-20 19:39] VITALS: BP 121/68; PULSE 78; RESP 18
[2018-09-20] MEDS: ACETAMINOPHEN 325 MG TAB PO PRN (19:46)
[2018-09-20] MEDS: INSULIN GLARGINE [LANTus] (100 UNITS/ML) SYG SC SCH (19:49)
[2018-09-20] MEDS: ATORVASTATIN 40 MG TAB PO SCH (20:21)
[2018-09-21] MEDS: ACCU-CHEK XX SCH (01:03)
[2018-09-21 02:29] VITALS: BP 104/63; PULSE 59; RESP 19
[2018-09-21] MEDS: PANTOPRAZOLE (EC) 40 MG TAB PO SCH ×2 (05:50→17:00)
[2018-09-21 07:10] VITALS: BP 109/60; PULSE 63; RESP 18
[2018-09-21] MEDS: INSULIN ASPART [NOVOLOG] 3 ML PEN SC SCH ×4 (08:00→20:11)
[2018-09-21] MEDS: AMOXICILLIN 500 MG CAP PO SCH (08:12)
[2018-09-21] MEDS: CLARITHROMYCIN 500 MG TAB PO SCH (08:12)
[2018-09-21] MEDS: METOPROLOL 100 MG TAB PO SCH ×2 (08:13→20:11)
[2018-09-21] MEDS: LISINOPRIL 20 MG TAB PO SCH (08:13)
[2018-09-21] MEDS: metFORMIN 500 MG TAB PO SCH ×2 (08:14→16:57)
[2018-09-21] MEDS: NIFEdipine (XL) 60 MG TAB PO SCH (08:14)
[2018-09-21] MEDS: ASPIRIN (EC) 81 MG TAB PO SCH (08:14)
[2018-09-21] MEDS: ENOXAPARIN 40 MG/0.4 ML SYG SC SCH (08:15)
[2018-09-21] MEDS: POLYETHYLENE GLYCOL 17 GM PACKET PO SCH (08:15)
[2018-09-21] MEDS: ACETAMINOPHEN 325 MG TAB PO PRN (11:10)
--- NOTE | 2018-09-21 12:18 | PN ---
Date/Time of Note Date/Time of Note DATE: 09/21/18 TIME: 12:18 Assessment/Plan VTE Prophylaxis Risk score (from Nsg)>0 risk: 2 SCD applied (from Nsg): Yes Pharmacological prophylaxis: LMWH Lines/Catheters IV Catheter Type (from Nrsg): Peripheral IV Urinary Cath still in place: No Assessment/Plan Hospital Course SUBJECTIVE: Denies any nausea or vomiting. OBJECTIVE: Physical Exam General: Adequately build 53 year-old male lying in bed in no apparent distress. HEENT: Normocephalic, atraumatic. Eyes: Anicteric sclerae, conjunctivae clear. ENT: Nasal septum midline, oral mucosa moist. Neck supple, no JVD noticed. Respiratory: Bilaterally clear breath sounds. No use of accessory muscles of respiration. No adventitious breath sounds. Cardiovascular: S1, S2 heard. Regular rate and rhythm. Abdomen: Soft, nontender, and nondistended. Bowel sounds positive in all 4 quadrants. Genitourinary: Deferred. Extremities: No cyanosis, no clubbing, no edema. Peripheral pulses palpable. Neurologic: The patient is awake, alert, and oriented. Skin: Normal skin turgor. No skin rashes. Labs & Vitals per chart ASSESSMENT & PLAN 53-year-old male who denies any significant past medical history who came to the emergency room with chief complaint of headache and difficulty with ambulation, who was found to have evidence of underlying hypertensive emergency (BP 243/107) in the emergency room along with underlying hyperglycemia and CT of the brain showing possible early subacute infarcts of the right superior inferior cerebellar and was admitted to inpatient setting for further treatment and evaluation. 1. 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 Continue medical optimization. Continue aspirin and statins. PT, ST evaluation. 2. Hypertensive emergency. Continue antihypertensives. Adjust antihypertensives to obtain optimal blood pressure control. 3. Diabetes mellitus type 2. Newly diagnosed. Continue the patient on sliding scale insulin along with basal insulin. Resume metformin. Diabetes education evaluation. 4. Moderate diffuse gastritis. Continue PPI. 5. H. pylori. Started eradication therapy on 09/07/2018. Last dose on 09/21/2018 morning dose. 6. Fluids, electrolytes, and nutrition. Carbohydrate controlled diet. 7. DVT prophylaxis. Subcutaneous Lovenox. 8. Plan. Continue physical therapy. Started H. pylori eradication therapy on 09/07/2018. Disposition: Pending SNF placement. The patient was seen in collaboration with Dr. Eddy. Results 24hrs Laboratory Tests Test 09/20/18 12:38 09/20/18 16:57 09/20/18 19:48 09/21/18 08:10 Bedside Glucose 111 129 170 91 Test 09/21/18 11:51 09/21/18 11:52 Bedside Glucose 143 160 Exam/Review of Systems Exam Vitals Vital Signs Date Temp Pulse Resp B/P (MAP) Pulse Ox O2 O2 Flow FiO2 Time Delivery Rate 09/21/18 97.8 63 18 109/60 97 Room Air 07:10 (76) Intake and Output 09/20/18 09/20/18 09/21/18 1515:00 23:00 07:00 IntakeIntake Total 720 ml 240 ml OutputOutput Total 600 ml 1050 ml BalanceBalance 120 ml 240 ml -1050 ml Results Results 24hrs Laboratory Tests Test 09/20/18 12:38 09/20/18 16:57 09/20/18 19:48 09/21/18 08:10 Bedside Glucose 111 129 170 91 Test 09/21/18 11:51 09/21/18 11:52 Bedside Glucose 143 160 Medications Medication Current Medications IV Flush (NS 3 ml) 3 ml PER PROTOCOL IV ; Start 08/31/18 at 11:00 Ondansetron HCl (Zofran Inj) 4 mg Q6H PRN IV NAUSEA/VOMITING Last administered on 09/05/18 11:30; Admin Dose 4 MG; Start 08/31/18 at 11:00 Acetaminophen (Tylenol Tab) 650 mg Q6H PRN PO .PAIN 1-3 OR TEMP Last administered on 09/21/18 11:10; Admin Dose 650 MG; Start 08/31/18 at 11:00 Hydralazine HCl (Apresoline) 10 mg Q4H PRN IV sbp>160 Last administered on 09/13/18 13:34; Admin Dose 10 MG; Start 08/31/18 at 11:00 Aspirin (Halfprin) 81 mg DAILY PO Last administered on 09/21/18 08:14; Admin Dose 81 MG; Start 09/01/18 at 09:00 Diagnostic Test (Pha) (Accu-Chek) 1 ea 02 XX Last administered on 09/10/18 02:12; Admin Dose 1 EA; Start 09/01/18 at 02:00 Miscellaneous Information 1 ea NOTE XX ; Start 08/31/18 at 13:30 Glucose (Glutose) 15 gm Q15M PRN PO DECREASED GLUCOSE; Start 08/31/18 at 13:30 Glucose (Glutose) 22.5 gm Q15M PRN PO DECREASED GLUCOSE; Start 08/31/18 at 13:30 Dextrose (D50w Syringe) 25 ml Q15M PRN IV DECREASED GLUCOSE; Start 08/31/18 at 13:30 Dextrose (D50w Syringe) 50 ml Q15M PRN IV DECREASED GLUCOSE; Start 08/31/18 at 13:30 Glucagon (Glucagen) 1 mg Q15M PRN IM DECREASED GLUCOSE; Start 08/31/18 at 13:30 Glucose (Glutose) 15 gm Q15M PRN BUCCAL DECREASED GLUCOSE; Start 08/31/18 at 13:30 Bisacodyl (Dulcolax) 10 mg DAILY PRN PO CONSTIPATION Last administered on 09/04/18at 13:14; Admin Dose 10 MG; Start 09/04/18 at 12:30 Lisinopril (Zestril) 40 mg DAILY PO Last administered on 09/21/18at 08:13; Admin Dose 40 MG; Start 09/05/18 at 09:00 Metformin HCl (Glucophage) 500 mg BID WITH MEALS PO Last administered on 09/21/18at 08:14; Admin Dose 500 MG; Start 09/04/18 at 18:00 Insulin Aspart (Novolog Insulin Pen) NOVOLOG *MILD* ALGORITHM WITH MEALS BEDTIME SC Last administered on 09/21/18at 11:56; Admin Dose 1 UNIT; Start 09/06/18 at 18:00 Clarithromycin (Biaxin) 500 mg BID PO Last administered on 09/21/18at 08:12; Admin Dose 500 MG; Start 09/07/18 at 21:00 Amoxicillin (Amoxicillin) 1,000 mg BID PO Last administered on 09/21/18at 08:12; Admin Dose 1,000 MG; Start 09/07/18 at 21:00 Enalaprilat (Vasotec Iv) 1.25 mg Q6H PRN IV ELEVATED BLOOD PRESSURE; Start 09/07/18 at 20:30 Pantoprazole (Protonix Tab) 40 mg BID@18 PO Last administered on 09/21/18 05:50; Admin Dose 40 MG; Start 09/09/18 at 18:00 Atorvastatin Calcium (Lipitor) 40 mg HS PO Last administered on 09/20/18 20:21; Admin Dose 40 MG; Start 09/18/18 at 21:00 Metoprolol Tartrate (Lopressor) 100 mg BID PO Last administered on 09/21/18 08:13; Admin Dose 100 MG; Start 09/13/18 at 21:00 Polyethylene Glycol (Miralax) 17 gm DAILY PO Last administered on 09/20/18 08:17; Admin Dose 17 GM; Start 09/14/18 at 09:00 Clonazepam (Klonopin) 1 mg Q6H PRN PO ANXIETY Last administered on 09/16/18 22:01; Admin Dose 1 MG; Start 09/14/18 at 12:30 Insulin Glargine (Lantus) 12 units DAILY@2000 SC Last administered on 09/20/18 19:49; Admin Dose 12 UNITS; Start 09/16/18 at 20:00 Nifedipine (Procardia Xl) 60 mg DAILY PO Last administered on 09/21/18 08:14; Admin Dose 60 MG; Start 09/17/18 at 09:00 Enoxaparin Sodium (Lovenox) 40 mg DAILY SC Last administered on 09/21/18 08:15; Admin Dose 40 MG; Start 09/19/18 at 09:00 ASHOK BURNETT NP Sep 21, 2018 12:18
[2018-09-21 13:54] VITALS: BP 102/61; PULSE 57; RESP 18
[2018-09-21 20:00] VITALS: BP 139/66; PULSE 75; RESP 17
[2018-09-21] MEDS: ATORVASTATIN 40 MG TAB PO SCH (20:08)
[2018-09-21] MEDS: INSULIN GLARGINE [LANTus] (100 UNITS/ML) SYG SC SCH (20:09)
[2018-09-22] MEDS: ACCU-CHEK XX SCH (01:41)
[2018-09-22 02:00] VITALS: BP 128/61; PULSE 67; RESP 18
[2018-09-22] MEDS: PANTOPRAZOLE (EC) 40 MG TAB PO SCH ×2 (05:10→17:30)
[2018-09-22 07:28] VITALS: BP 129/73; PULSE 63; RESP 18
[2018-09-22] MEDS: INSULIN ASPART [NOVOLOG] 3 ML PEN SC SCH ×4 (08:00→20:35)
[2018-09-22] MEDS: ASPIRIN (EC) 81 MG TAB PO SCH (08:31)
[2018-09-22] MEDS: metFORMIN 500 MG TAB PO SCH ×2 (08:31→17:30)
[2018-09-22] MEDS: METOPROLOL 100 MG TAB PO SCH ×2 (08:31→20:34)
[2018-09-22] MEDS: POLYETHYLENE GLYCOL 17 GM PACKET PO SCH (08:31)
[2018-09-22] MEDS: LISINOPRIL 20 MG TAB PO SCH (08:32)
[2018-09-22] MEDS: NIFEdipine (XL) 60 MG TAB PO SCH (08:32)
[2018-09-22] MEDS: ENOXAPARIN 40 MG/0.4 ML SYG SC SCH (08:33)
--- NOTE | 2018-09-22 14:20 | PN ---
Date/Time of Note Date/Time of Note DATE: 09/22/18 TIME: 14:18 Assessment/Plan VTE Prophylaxis Risk score (from Nsg)>0 risk: 2 SCD applied (from Nsg): Yes Pharmacological prophylaxis: LMWH Lines/Catheters IV Catheter Type (from Nrsg): Saline Lock Urinary Cath still in place: No Assessment/Plan Hospital Course SUBJECTIVE: Denies any nausea or vomiting. OBJECTIVE: Physical Exam General: Adequately build 53 year-old male lying in bed in no apparent distress. HEENT: Normocephalic, atraumatic. Eyes: Anicteric sclerae, conjunctivae clear. ENT: Nasal septum midline, oral mucosa moist. Neck supple, no JVD noticed. Respiratory: Bilaterally clear breath sounds. No use of accessory muscles of respiration. No adventitious breath sounds. Cardiovascular: S1, S2 heard. Regular rate and rhythm. Abdomen: Soft, nontender, and nondistended. Bowel sounds positive in all 4 quadrants. Genitourinary: Deferred. Extremities: No cyanosis, no clubbing, no edema. Peripheral pulses palpable. Neurologic: The patient is awake, alert, and oriented. Skin: Normal skin turgor. No skin rashes. Labs & Vitals per chart ASSESSMENT & PLAN 53-year-old male who denies any significant past medical history who came to the emergency room with chief complaint of headache and difficulty with ambulation, who was found to have evidence of underlying hypertensive emergency (BP 243/107) in the emergency room along with underlying hyperglycemia and CT of the brain showing possible early subacute infarcts of the right superior inferior cerebellar and was admitted to inpatient setting for further treatment and evaluation. 1. 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 Continue medical optimization. Continue aspirin and statins. PT, ST evaluation. 2. S/P hypertensive emergency. Continue antihypertensives. 3. Diabetes mellitus type 2. Newly diagnosed. Continue the patient on sliding scale insulin along with basal insulin. Resume metformin. S/P diabetes education evaluation. 4. Moderate diffuse gastritis. Continue PPI. 5. H. pylori. S/P eradication therapy from 09/07/2018 to 09/21/2018. 6. Fluids, electrolytes, and nutrition. Carbohydrate controlled diet. 7. DVT prophylaxis. Subcutaneous Lovenox. 8. Plan. Continue physical therapy. Disposition: Pending SNF placement. The patient was seen in collaboration with Dr. Eddy. Results 24hrs Laboratory Tests Test 09/21/18 16:54 09/21/18 20:05 09/22/18 08:29 09/22/18 12:38 Bedside Glucose 106 100 77 95 Exam/Review of Systems Exam Vitals Vital Signs Date Temp Pulse Resp B/P (MAP) Pulse Ox O2 O2 Flow FiO2 Time Delivery Rate 09/22/18 98.3 63 18 129/73 99 07:28 (91) 09/22/18 Room Air 02:00 Intake and Output 09/21/18 09/21/18 09/22/18 1515:00 23:00 07:00 IntakeIntake Total 200 ml OutputOutput Total 300 ml 200 ml 1200 ml BalanceBalance -100 ml -200 ml -1200 ml Results Results 24hrs Laboratory Tests Test 09/21/18 16:54 09/21/18 20:05 09/22/18 08:29 09/22/18 12:38 Bedside Glucose 106 100 77 95 Medications Medication Current Medications IV Flush (NS 3 ml) 3 ml PER PROTOCOL IV ; Start 08/31/18 at 11:00 Ondansetron HCl (Zofran Inj) 4 mg Q6H PRN IV NAUSEA/VOMITING Last administered on 09/05/18at 11:30; Admin Dose 4 MG; Start 08/31/18 at 11:00 Acetaminophen (Tylenol Tab) 650 mg Q6H PRN PO .PAIN 1-3 OR TEMP Last administered on 09/21/18at 11:10; Admin Dose 650 MG; Start 08/31/18 at 11:00 Hydralazine HCl (Apresoline) 10 mg Q4H PRN IV sbp>160 Last administered on 09/13/18at 13:34; Admin Dose 10 MG; Start 08/31/18 at 11:00 Aspirin (Halfprin) 81 mg DAILY PO Last administered on 09/22/18at 08:31; Admin Dose 81 MG; Start 09/01/18 at 09:00 Diagnostic Test (Pha) (Accu-Chek) 1 ea 02 XX Last administered on 09/10/18at 02:12; Admin Dose 1 EA; Start 09/01/18 at 02:00 Miscellaneous Information 1 ea NOTE XX ; Start 08/31/18 at 13:30 Glucose (Glutose) 15 gm Q15M PRN PO DECREASED GLUCOSE; Start 08/31/18 at 13:30 Glucose (Glutose) 22.5 gm Q15M PRN PO DECREASED GLUCOSE; Start 08/31/18 at 13:30 Dextrose (D50w Syringe) 25 ml Q15M PRN IV DECREASED GLUCOSE; Start 08/31/18 at 13:30 Dextrose (D50w Syringe) 50 ml Q15M PRN IV DECREASED GLUCOSE; Start 08/31/18 at 13:30 Glucagon (Glucagen) 1 mg Q15M PRN IM DECREASED GLUCOSE; Start 08/31/18 at 13:30 Glucose (Glutose) 15 gm Q15M PRN BUCCAL DECREASED GLUCOSE; Start 08/31/18 at 13:30 Bisacodyl (Dulcolax) 10 mg DAILY PRN PO CONSTIPATION Last administered on 09/04/18 13:14; Admin Dose 10 MG; Start 09/04/18 at 12:30 Lisinopril (Zestril) 40 mg DAILY PO Last administered on 09/22/18 08:32; Admin Dose 40 MG; Start 09/05/18 at 09:00 Metformin HCl (Glucophage) 500 mg BID WITH MEALS PO Last administered on 09/22/18 08:31; Admin Dose 500 MG; Start 09/04/18 at 18:00 Insulin Aspart (Novolog Insulin Pen) NOVOLOG *MILD* ALGORITHM WITH MEALS BEDTIME SC Last administered on 09/21/18 11:56; Admin Dose 1 UNIT; Start 09/06/18 at 18:00 Enalaprilat (Vasotec Iv) 1.25 mg Q6H PRN IV ELEVATED BLOOD PRESSURE; Start 09/07/18 at 20:30 Pantoprazole (Protonix Tab) 40 mg BID@06,18 PO Last administered on 09/22/18 05:10; Admin Dose 40 MG; Start 09/09/18 at 18:00 Atorvastatin Calcium (Lipitor) 40 mg HS PO Last administered on 09/21/18 20:08; Admin Dose 40 MG; Start 09/18/18 at 21:00 Metoprolol Tartrate (Lopressor) 100 mg BID PO Last administered on 09/22/18 08:31; Admin Dose 100 MG; Start 09/13/18 at 21:00 Polyethylene Glycol (Miralax) 17 gm DAILY PO Last administered on 09/22/18 08:31; Admin Dose 17 GM; Start 09/14/18 at 09:00 Clonazepam (Klonopin) 1 mg Q6H PRN PO ANXIETY Last administered on 09/16/18at 22:01; Admin Dose 1 MG; Start 09/14/18 at 12:30 Insulin Glargine (Lantus) 12 units DAILY@2000 SC Last administered on 09/21/18at 20:09; Admin Dose 12 UNITS; Start 09/16/18 at 20:00 Nifedipine (Procardia Xl) 60 mg DAILY PO Last administered on 09/22/18at 08:32; Admin Dose 60 MG; Start 09/17/18 at 09:00 Enoxaparin Sodium (Lovenox) 40 mg DAILY SC Last administered on 09/22/18 08:33; Admin Dose 40 MG; Start 09/19/18 at 09:00 ASHOK BURNETT NP Sep 22, 2018 14:20
[2018-09-22 14:47] VITALS: BP 117/65; PULSE 60; RESP 18
[2018-09-22] MEDS: ACETAMINOPHEN 325 MG TAB PO PRN (15:10)
[2018-09-22] MEDS ORDERED: LISI-471 PO (17:03)
[2018-09-22] MEDS ORDERED: Insulin Glargine SC (17:03)
[2018-09-22] MEDS ORDERED: ASPI-1044 PO (17:03)
[2018-09-22] MEDS ORDERED: METF-849 PO (17:03)
[2018-09-22] MEDS ORDERED: NIFE60TA2 PO (17:03)
[2018-09-22] MEDS ORDERED: METO-407 PO (17:03)
[2018-09-22] MEDS ORDERED: ATOR40TA68 PO (17:03)
[2018-09-22] MEDS ORDERED: ENOX40DI2 SC (17:03)
[2018-09-22] MEDS ORDERED: PANT40TA4 PO (17:03)
[2018-09-22] MEDS ORDERED: NOVO3I SC (17:03)
--- NOTE | 2018-09-22 17:05 | DS ---
Date/Time of Note Date/Time of Note DATE: 09/22/18 TIME: 17:05 Discharge Summary Admission/Discharge Info Admit Date/Time Aug 31, 2018 at 10:30 Discharge Date/Time Discharge Diagnosis 1. 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 2. Hypertension. 3. Diabetes mellitus type 2. Newly diagnosed. A1C 8.4 4. Moderate diffuse gastritis. 5. H. pylori. Consults 1. Lesli Azul MD, Neurology. 2. Hailee Mcadams MD, Gastroenterology. Procedures Brain MRI IMPRESSION: 1. Acute / recent right superior cerebellar infarction with scattered surrounding infarctions. 2. Mild to moderate central greater than peripheral cerebral volume loss. 3. Advanced chronic microvascular ischemic changes. 4. Chronic left basal ganglia lacunar infarction. 5. Chronic left precentral pontine lacunar infarction. 6. Chronic left temporal occipital infarction. 7. Mild left mastoid air cell effusions. Esophagogastroduodenoscopy on 09/06/2018 Impression: Moderate diffuse gastritis Hx of Present Illness This is a 53-year-old male who denied any significant past medical history who came to the emergency room with chief complaint of headache and difficulty with ambulation, who was found to have evidence of underlying hypertensive emergency (BP 243/107) in the emergency room along with underlying hyperglycemia and CT of the brain showing possible early subacute infarcts of the right superior inferior cerebellar and was admitted to inpatient setting for further treatment and evaluation. Hospital Course The patient's brain MRI showed acute right superior cerebellar infarction with scattered surrounding infarctions. Patient was maintained on aspirin and statins. Neurology consult was obtained. PT, OT, and ST evaluation was obtained. The patient's 2D echocardiogram was showing preserved left ventricular ejection fraction. The patient's blood pressure was controlled 48 hours after the acute infarct. The patient had evidence of underlying hypertensive emergency. The patient's blood pressure was lowered gradually to obtain optimal blood pressure control. The patient had to be put on multiple antihypertensives to obtain optimal blood pressure control. The patient was also noticed to have diabetes mellitus. The patient was unaware of any diagnosis of diabetes mellitus. Therefore, this is a new diagnosis for the patient versus never diagnosed before. The patient was started on sliding scale insulin along with pre-meal insulin and basal insulin. The patient was evaluated by paraeducator. The patient was started on metformin. However, the patient had significant GI problems that necessitated holding the metformin before this could be addressed. The patient continued to have significant nausea/vomiting and oral intolerance. Therefore, a gastroenterology consult was obtained on 09/06/2018. The patient underwent an esophagogastroduodenoscopy on 09/06/2018 that showed moderate diffuse gastritis. The patient was maintained on proton pump inhibitors, prokinetics, and antispasmodics with improvement in the patient's symptoms. The patient's gastric biopsy was showing H. pylori. The patient was started on eradication therapy on 09/07/2018 and this was finished on 09/21/2018. Meanwhile, the patient had multiple sessions of physical therapy. The patient was evaluated by speech therapy and recommended pured diet with nectar thick liquids. The patient was maintained on aspiration precautions. The patient lives at home with his sister and nephew. The patient's home was not the best disposition for him because he needed almost 24-hour care because of his acute stroke. Therefore, the initial plan was to place this patient to a fdc facility. However, there was a difficulty in finding a fdc facility for this patient. Also he was evaluated by the acute rehabilitation unit in the hospital. However, because of insurance reasons he was not accepted to the inpatient rehabilitation unit. Eventually, the patient has a bed at the [facility] in [place]. Therefore, the patient will be transferred to this facility for further rehabilitation of the patient before the patient could be safely discharged home. The patient had a prolonged hospital stay because of the difficulty in finding a safe disposal for this patient upon discharge. At this time I would like to thank all the consultants for seeing the patient, doing the necessary procedures, and providing recommendations. The patient was seen in collaboration with Dr. Eddy. Home Meds Active Scripts Insulin Aspart* (Novolog Insulin Pen*) 100 Unit/Ml Soln, 0 UNIT SC WITH MEALS BEDTIME for 30 Days Prov:ASHOK BURNETT NP 09/22/18 [Insulin Glargine] 100 UNITS/ML SOLN No Conflict Check, 12 UNITS SC DAILY@1999, #30 Prov:ASHOK BURNETT NP 09/22/18 Enoxaparin Sodium* (Enoxaparin Sodium*) 40 Mg/0.4 Ml Syringe, 40 MG SC DAILY, #30 Prov:ASHOK BURNETT NP 09/22/18 Pantoprazole* (Pantoprazole*) 40 Mg Tablet.dr, 40 MG PO BID@06,18, #60 Prov:LEXASHOK NP 09/22/18 Metformin* (Glucophage*) 500 Mg Tab, 500 MG PO BID WITH MEALS, #60 TAB Prov:ASHOK BURNETT NP 09/22/18 Aspirin Delayed Release (Aspirin Delayed Release) 81 Mg Tablet.dr, 81 MG PO DAILY, #30 Prov:ASHOK BURNETT NP 09/22/18 Nifedipine (Procardia Xl) 60 Mg Tab.er.24, 60 MG PO DAILY, #30 TAB Prov:ASHOK BURNETT NP 09/22/18 Metoprolol Tartrate* (Lopressor*) 100 Mg Tablet, 100 MG PO BID, #60 TAB Prov:ASHOK BURNETT NP 09/22/18 Lisinopril* (Lisinopril*) 20 Mg Tablet, 40 MG PO DAILY, #30 TAB Prov:ASHOK BURNETT NP 09/22/18 Atorvastatin* (Atorvastatin*) 40 Mg Tablet, 40 MG PO HS, #30 TAB Prov:ASHOK BURNETT NP 09/22/18 Follow-up Plan The patient being transferred to a SNF. Primary Care Provider Care Physician No Primary Time spent on discharge: > 30 minutes Pending Labs [facility] a non-profit non-formerly [facility] asset [address] [place] [address] ; Lab No: [id number] Date: 09/06/2018 SPECIMEN: A-Gastric biopsy B-Mid and distal esophageal biopsy CLINICAL: Nausea; vomiting; rule out H. pylori (A); rule out eosinophilic esophagitis (B) GROSS EXAMINATION: A-Received in formalin are two fragments of leong-alvarado, soft tissue tissue that measure 0.2 x 0.1 x 0.1 cm and 0.4 x 0.2 x 0.1 cm. Totally submitted in cassette A. B-Received in formalin are three fragments of leong-white, soft tissue tissue that measure from less than 0.1 cm in greatest dimension up to 0.2 x 0.1 x 0.1 cm. Totally submitted in cassette B. MICROSCOPIC DIAGNOSIS: A-Gastric biopsy: -- Chronic gastritis, moderate, involving antral mucosa. -- Bacteria compatible with Helicobacter pylori are identified in a Giemsa stain (positive control concurrently reviewed). -- There is no evidence of malignancy. B-Mid and distal esophageal biopsies: -- Squamous esophageal mucosa showing focal congestion of papillae and scattered intraepithelial lymphocytes. -- No intraepithelial eosinophils are identified. -- No glandular mucosa is present. -- There is no evidence of malignancy. ROSETTE/RAFITA/ari Date of Service: 09/06/18; Date Received: 09/06/18 Dictated: 09/07/18; Transcribed: 09/07/18; Sent by Fax: 09/07/18 Santi Martinez M.D. Pathologist Electronically Signed 09/07/2018 SANTI MARTINEZ M.D. PATIENT: INDER LOZADA Wilfred FAGAN AGE/SEX/: 53/M 1965 [employer] [facility] MR NO: [id number] VISIT: [id number] ROOM NO: [facility] PHYSICIAN: Wilfred MCADAMS, HAILEE UMANA M.D., ESTRELLITA Petty TISSUE EXAMINATION REPORT ANATOMIC AND CLINICAL PATHOLOGY CONSULTATION GROSS EXAMINATION PERFORMED BY: [facility] - [address] [place] [address], [address] - [place] ; Laboratory Tests Test 09/21/18 20:05 09/22/18 08:29 09/22/18 12:38 Bedside Glucose 100 mg/dL (70-220) 77 mg/dL (70-220) 95 mg/dL (70-220) ASHOK BURNETT NP Sep 22, 2018 17:05
[2018-09-22 20:04] VITALS: BP 127/75; PULSE 67; RESP 18
[2018-09-22 20:22] VITALS: BP 106/67; PULSE 62; RESP 16
[2018-09-22] MEDS: ATORVASTATIN 40 MG TAB PO SCH (20:34)
[2018-09-22] MEDS: INSULIN GLARGINE [LANTus] (100 UNITS/ML) SYG SC SCH (20:37)
== END 2018-09-23 00:45 | DRG 65 ==
LOC: E/R 08:15 → 6WM 10:30 → 5EC 09-04 15:26
PROVIDERS: ADMIT Internal Medicine; ATTEND Internal Medicine
PROC: 0DB68ZX Excision of Stomach, Via Natural or Artificial Opening Endoscopic, Diagnostic (ICD-10-PCS; 2018-09-06)
PROC: 0DB58ZX Excision of Esophagus, Via Natural or Artificial Opening Endoscopic, Diagnostic (ICD-10-PCS; principal; 2018-09-06 20:00)
DX: I63.9 Cerebral infarction, unspecified (principal); I16.1 Hypertensive emergency; F10.239 Alcohol dependence with withdrawal, unspecified; E11.65 Type 2 diabetes mellitus with hyperglycemia; I10 Essential (primary) hypertension; K29.60 Other gastritis without bleeding; B96.81 Helicobacter pylori [H. pylori] as the cause of diseases classified elsewhere; E78.5 Hyperlipidemia, unspecified; F41.9 Anxiety disorder, unspecified; R62.7 Adult failure to thrive; E88.81 Metabolic syndrome and other insulin resistance; Z68.25 Body mass index [BMI] 25.0-25.9, adult; Z72.0 Tobacco use
CPT/HCPCS: 36415; 70450; 70544; 70549; 70551; 71045; 78264; 80048; 80053; 80061; 80307; 82140; 82962; 83036; 83690; 83735; 84100; 84436; 84443; 84479; 84484; 85025; 85610; 85651; 85730; 86592; 86703; 88305; 88312; 92526; 92610; 93005; 93306; 93880; 96374; 97110; 97116; 97163; 97167; 97530; 97535; A9541; C9113; J0360; J1644; J1650; J1815; J2060; J2250; J2270; J2405; J2765; J3010; J3411; J3480; J7030